=== PATIENT | female | born 1935 | race Hispanic/Latino ===

== ENCOUNTER 2016-12-21 04:44 | Emergency (ER) | payer MEDICARE ==
[2016-12-21 04:51] VITALS: RESP 18; TEMP 97.9; O2SAT 95
--- NOTE | 2016-12-21 05:19 | ED PDOC ---
Arrival/HPI <Manuel Damon - Last Filed: 12/21/16 06:22> - General Historian: Patient <Donal Womack - Last Filed: 12/21/16 06:41> - General Time Seen by Provider: 12/21/16 04:46 - History of Present Illness Narrative History of Present Illness (Text): 12/21/16 05:12 This is a 81 year old female with PMH diabetes, hypertension who presents BIBA from [facility] after mechanical fall. Patient tried to get up and go to the bathroom. Patient states that she tripped over a blanket on the floor and fell onto her left side, hitting the left side of her head and her left forearm. Patient denies loss of consciousness, dizziness, lightheadedness. Patient stated that she proceeded to call her nurse for help. Patient complains of soreness in the left side of her face and some slight soreness in the forearm at the site of the superficial skin separation. Patient admits to easy bruising and easy bleeding. PMH: Admits diabetes, hypertension. Patient is a poor historian. Patient likely has other medical co-morbidities based on her list of medications. PSH: Admits to bilateral cataract surgery and cholecystectomy Allergies: NKDA Social: Current smoker. 1/2 ppd since age 16. Glass of wine intermittently in the evenings including this past evening. (Donal Womack) Past Medical History - Provider Review Nursing Documentation Reviewed: Yes - Reproductive Menopause: Yes - Cardiac Hx Cardiac Disorders: No Hx Hypertension: Yes - Pulmonary Hx Chronic Obstructive Pulmonary Disease (COPD): Yes - Neurological Hx Dementia: Yes - HEENT Hx Cataracts: Yes (bilateral) - Renal Hx Renal Disorder: No - Endocrine/Metabolic Hx Diabetes Mellitus Type 2: Yes - Hematological/Oncological Hx Blood Disorders: No - Integumentary Hx Dermatological Disorder: No - Musculoskeletal/Rheumatological Hx Arthritis: Yes - Gastrointestinal Hx Gastrointestinal Disorders: No - Genitourinary/Gynecological Hx Genitourinary Disorders: No - Psychiatric Hx Psychophysiologic Disorder: No Hx Substance Use: No - Surgical History Hx Cataract Extraction: Yes (jeri) <Donal Womack - Last Filed: 12/21/16 06:41> Family/Social History - Physician Review Nursing Documentation Reviewed: Yes Family/Social History: No Known Family HX Smoking Status: Never Smoked Hx Alcohol Use: No Hx Substance Use: No <Donal Womack S - Last Filed: 12/21/16 06:41> Allergies/Home Meds <MarisolManuel - Last Filed: 12/21/16 06:22> <Donal Womack S - Last Filed: 12/21/16 06:41> Allergies/Adverse Reactions: Allergies No Known Allergies Allergy (Verified 12/21/16 04:57) Home Medications: Home Meds Medication Instructions Recorded Confirmed Albuterol 0.083% [Albuterol 3 ml IH PRN PRN 12/21/16 12/21/16 Sulfate 3 Ml] Aspirin [Aspirin Chewable] 81 mg PO DAILY 12/21/16 12/21/16 Atorvastatin Calcium 40 mg PO HS 12/21/16 12/21/16 Cholecalciferol (Vitamin D3) 1,000 unit PO DAILY 12/21/16 12/21/16 [Vitamin D3] Clopidogrel [Plavix] 75 mg PO DAILY 12/21/16 12/21/16 Famotidine [Pepcid] 20 mg PO DAILY 12/21/16 12/21/16 Fluticasone/Vilanterol [Breo 1 puff INH DAILY 12/21/16 12/21/16 Ellipta 100-25 Mcg INH] Insulin Detemir [Levemir] 5 units SC HS 12/21/16 12/21/16 Insulin Lispro [humALOG] 1 units SC ACBD 12/21/16 12/21/16 Insulin NPH Hum/Reg Insulin Hm 7 ml SC ACB 12/21/16 12/21/16 [Humulin 70/30 70 U/ml-30 U/ml 10 ml] Lisinopril [Zestril] 20 mg PO DAILY 12/21/16 12/21/16 Metoprolol Succinate [Toprol XL] 25 mg PO DAILY 12/21/16 12/21/16 Tamsulosin [Flomax] 0.4 mg PO DAILY 12/21/16 12/21/16 amLODIPine [Norvasc] 10 mg PO DAILY 12/21/16 12/21/16 metFORMIN [glucOPHAGE] 500 mg PO DIN 12/21/16 12/21/16 Review of Systems - Physician Review All systems were reviewed & negative as marked: Yes <Manuel Damon - Last Filed: 12/21/16 06:22> - Review of Systems Constitutional: Normal Eyes: Normal. absent: Vision Changes ENT: Normal Respiratory: Normal Cardiovascular: Normal Gastrointestinal: Normal Genitourinary Female: Normal Musculoskeletal: Normal Skin: Normal Neurological: Normal. absent: Dizziness, Other (lightheadedness) Endocrine: Normal Hemo/Lymphatic: Easy Bleeding, Easy Bruising Psychiatric: Normal <Donal Womack - Last Filed: 12/21/16 06:41> Physical Exam Vital Signs Reviewed: Yes Temperature: Afebrile Blood Pressure: Normal Pulse: Regular Respiratory Rate: Normal Appearance: Positive for: Ill-Appearing (chronically ill-appearing) Pain Distress: None Mental Status: Positive for: Alert and Oriented X 3 - Systems Exam Head: Present: Atraumatic, Normocephalic Pupils: Present: Non-Reactive Extroacular Muscles: Present: EOMI Conjunctiva: Present: Normal Mouth: Present: Dry Neck: Present: Normal Range of Motion Respiratory/Chest: Present: Clear to Auscultation, Good Air Exchange. No: Accessory Muscle Use Cardiovascular: Present: Regular Rate and Rhythm, Normal S1, S2 Abdomen: Present: Normal Bowel Sounds. No: Tenderness, Distention Upper Extremity: Present: NORMAL PULSES, Other (skin separation left proximal forearm). No: Edema Lower Extremity: Present: NORMAL PULSES. No: Edema, CALF TENDERNESS Neurological: Present: GCS=15, CN II-XII Intact, Motor Func Grossly Intact Skin: Present: Warm, Dry, Other (skin separation left proximal forearm) Psychiatric: Present: Alert, Oriented x 3 <Donal Womack - Last Filed: 12/21/16 06:41> Vital Signs Temp Pulse Resp BP Pulse Ox 12/21/16 04:49 97.9 F 76 18 143/83 95 Medical Decision Making <Manuel Damon - Last Filed: 12/21/16 06:22> <Donal Womack - Last Filed: 12/21/16 06:41> ED Course and Treatment: Impression: Pt seen and evaluated with medical transcription supervisor. Pt, whose past medical history includes diabetes and hypertension, presented transferred from [facility] s/p mechanical fall tonight. Pt tripped over a blanket and fell on her left side. Pt hit the left side of her head and left forearm with some associated soreness to the area. Aware and agree with clinical findings, plan, and management. Plan: -- CT Head w/o contrast -- CT Maxillofacial w/o contrast -- Reassess and disposition (Manuel Damon) 12/21/16 05:26 CT Head w.o. contrast Maxillofacial CT w.o. contrast 12/21/16 06:20 CT Head w.o. contrast: FINDINGS: Subcutaneous soft tissue swelling overlying the left zygomatic arch. Atrophy and chronic small vessel ischemic disease. No intracranial hemorrhage. No extra axial collections. No intracranial edema. No fluid in the sinuses or mastoid air cells. No depressed fractures. IMPRESSION: No acute intracranial injury. Maxillofacial CT: FINDINGS: There is subcutaneous soft tissue swelling overlying the left zygomatic arch. There is discontinuity of the left nasal bone that I suspect is chronic given the lack of overlying soft tissue swelling. Minimal mucosal thickening of the ethmoid sinuses. Apical lucencies of multiple mandibular teeth (central and lateral incisors, left first molar) are noted. IMPRESSION: Chronic appearing left nasal bone deformity. Patient discharged back to [place] with a diagnosis of facial contusion and skin tear of the left forearm. The left forearm was irrigated and cleaned. Bacitracin was applied, and dressing was replaced. (Donal Womack) - RAD Interpretation Radiology Orders: 12/21/16 05:13 HEAD W/O CONTRAST [CT] Stat MAXILLOFACIAL W/O CONTRAST [CT] Stat - PA / GLAZE MAKER / Resident Statement / has reviewed & agrees with the documentation as recorded. / has examined the patient and agrees with the treatment plan. <Manuel Damon - Last Filed: 12/21/16 06:22> Disposition/Present on Arrival <Manuel Damon - Last Filed: 12/21/16 06:22> - Present on Arrival Any Indicators Present on Arrival: No History of DVT/PE: No History of Uncontrolled Diabetes: No Urinary Catheter: No History of Decub. Ulcer: No History Surgical Site Infection Following: None - Disposition Have Diagnosis and Disposition been Completed?: Yes Disposition Time: 06:30 <Donal Womack - Last Filed: 12/21/16 06:41> - Disposition Diagnosis: Facial contusion, Skin tear Disposition: TRANSF TO [facility] Patient Problems: Current Active Problems Problem Status Onset Facial contusion Acute Skin tear Acute Condition: STABLE Additional Instructions: Your CT scan of the head did not show any injury in the brain after your fall. There is just some swelling in the face. Please follow up with your doctor after going back to [place]. Please keep wound area clean and dry. Please make sure the light is on and watch your step when you get up in the middle of the night. If there are any new or worsening symptoms, please return to the emergency room. Forms: [employer] (Sami)
--- NOTE | 2016-12-21 06:15 | CT ---
EXAM: CT Head Without Intravenous Contrast EXAM DATE/TIME: 12/21/2016 5:13 AM CLINICAL HISTORY: 81 years old, female; Injury or trauma; Fall; Initial encounter; Concussion / head injury; Additional info: S/P fall TECHNIQUE: Axial computed tomography images of the head/brain without intravenous contrast. All CT scans at this facility use one or more dose reduction techniques, viz.: automated exposure control; ma/kV adjustment per patient size (including targeted exams where dose is matched to indication; i.e. head); or iterative reconstruction technique. COMPARISON: No relevant prior studies available. FINDINGS: Subcutaneous soft tissue swelling overlying the left zygomatic arch. Atrophy and chronic small vessel ischemic disease. No intracranial hemorrhage. No extra axial collections. No intracranial edema. No fluid in the sinuses or mastoid air cells. No depressed fractures. IMPRESSION: No acute intracranial injury.
--- NOTE | 2016-12-21 06:29 | CT ---
EXAM: CT Maxillofacial Without Intravenous Contrast EXAM DATE/TIME: 12/21/2016 5:13 AM CLINICAL HISTORY: 81 years old, female; Injury or trauma; Fall; Initial encounter; Blunt trauma (contusions or hematomas); Head/scalp; Loss of consciousness not known; Additional info: S/P fall TECHNIQUE: Axial computed tomography images of the face without intravenous contrast. All CT scans at this facility use one or more dose reduction techniques, viz.: automated exposure control; ma/kV adjustment per patient size (including targeted exams where dose is matched to indication; i.e. head); or iterative reconstruction technique. Coronal and sagittal reformatted images were created and reviewed. COMPARISON: No relevant prior studies available. FINDINGS: There is subcutaneous soft tissue swelling overlying the left zygomatic arch. There is discontinuity of the left nasal bone that I suspect is chronic given the lack of overlying soft tissue swelling. Minimal mucosal thickening of the ethmoid sinuses. Apical lucencies of multiple mandibular teeth (central and lateral incisors, left first molar) are noted. IMPRESSION: Chronic appearing left nasal bone deformity.
[2016-12-21 07:36] VITALS: BP 146/81; PULSE 87
== END 2016-12-21 07:25 ==
LOC: ED 04:44
DX: S00.83XA Contusion of other part of head, initial encounter (principal); W01.0XXA Fall on same level from slipping, tripping and stumbling without subsequent striking against object, initial encounter; Y93.89 Activity, other specified; Y92.128 Other place in nursing home as the place of occurrence of the external cause

== ENCOUNTER 2017-05-23 12:09 | Inpatient (IN) | payer MEDICARE ==
[2017-05-23 12:20] VITALS: BMI 17.8
--- NOTE | 2017-05-23 12:27 | ED PDOC ---
Arrival/HPI - General Chief Complaint: Shortness Of Breath Time Seen by Provider: 05/23/17 12:11 Historian: Patient, Care Home, EMS - History of Present Illness Narrative History of Present Illness (Text): 82yo female, brought to ER by EMS from [facility] for evaluation of hypoxia due to patient having an O2 sat level in the 80's. Per EMS, the patient received a breathing treatment in the [place] [facility] and was placed on 2L O2 via nasal cannula en route to this facility. Patient currently denies any shortness of breath or chest pain. She is a poor historian. 05/23/17 14:45 Symptom Onset: Gradual Past Medical History - Provider Review Nursing Documentation Reviewed: Yes - Cardiac Hx Cardiac Disorders: No Hx Hypertension: Yes - Pulmonary Hx Chronic Obstructive Pulmonary Disease (COPD): Yes - Neurological Hx Dementia: Yes - HEENT Hx Cataracts: Yes (bilateral) - Renal Hx Renal Disorder: No - Endocrine/Metabolic Hx Diabetes Mellitus Type 2: Yes - Hematological/Oncological Hx Blood Disorders: No - Integumentary Hx Dermatological Disorder: No - Musculoskeletal/Rheumatological Hx Arthritis: Yes - Gastrointestinal Hx Gastrointestinal Disorders: No - Genitourinary/Gynecological Hx Genitourinary Disorders: No - Psychiatric Hx Psychophysiologic Disorder: No Hx Substance Use: No - Surgical History Hx Cataract Extraction: Yes (jeri) Family/Social History - Physician Review Nursing Documentation Reviewed: Yes Family/Social History: No Known Family HX Smoking Status: Never Smoked Hx Alcohol Use: No Hx Substance Use: No Allergies/Home Meds Allergies/Adverse Reactions: Allergies No Known Allergies Allergy (Verified 12/21/16 04:57) Home Medications: Home Meds Medication Instructions Recorded Confirmed Albuterol 0.083% [Albuterol 3 ml IH PRN PRN 12/21/16 05/23/17 Sulfate 3 Ml] Aspirin [Aspirin Chewable] 81 mg PO DAILY 12/21/16 05/23/17 Atorvastatin Calcium 40 mg PO HS 12/21/16 05/23/17 Cholecalciferol (Vitamin D3) 1,000 unit PO DAILY 12/21/16 05/23/17 [Vitamin D3] Clopidogrel [Plavix] 75 mg PO DAILY 12/21/16 05/23/17 Famotidine [Pepcid] 20 mg PO DAILY 12/21/16 05/23/17 Insulin Detemir [Levemir] 5 units SC HS 12/21/16 05/23/17 Insulin Lispro [humALOG] 1 units SC ACBD 12/21/16 05/23/17 Insulin NPH Hum/Reg Insulin Hm 10 ml SC ACB 12/21/16 05/23/17 [Humulin 70/30 70 U/ml-30 U/ml 10 ml] Lisinopril [Zestril] 20 mg PO DAILY 12/21/16 05/23/17 Metoprolol Succinate [Toprol XL] 25 mg PO DAILY 12/21/16 05/23/17 Tamsulosin [Flomax] 0.4 mg PO DAILY 12/21/16 05/23/17 amLODIPine [Norvasc] 10 mg PO DAILY 12/21/16 05/23/17 metFORMIN [glucOPHAGE] 1,000 mg PO BRK 12/21/16 05/23/17 Fluticasone/Vilanterol [Breo 1 puff IH DAILY 05/23/17 05/23/17 Ellipta 100-25 Mcg INH] metFORMIN [glucOPHAGE] 1 tab PO DIN 05/23/17 05/23/17 Review of Systems - Review of Systems Systems not reviewed;Unavailable: Dementia Constitutional: absent: Fevers Respiratory: SOB Cardiovascular: absent: Chest Pain Gastrointestinal: absent: Abdominal Pain Musculoskeletal: absent: Back Pain Neurological: absent: Headache, Focal Weakness Physical Exam - Physical Exam Narrative Physical Exam (Text): Head: Atraumatic. Normocephalic. Eyes: PERRL. EOMI. Conjunctivae are not pale. ENT: Mucous membranes are dry. Oropharynx is clear and symmetric. Neck: Supple. Full ROM. No JVD. No lymphadenopathy. No meningeal signs. Cardiovascular: Regular rate. Regular rhythm. Systolic murmur. Distal pulses are 2+ and symmetric. Pulmonary/Chest: Tachypneic. Diffuse wheezing noted. No accessory muscle usage. Abdominal: Soft and non-distended. There is no tenderness. No rebound, guarding, or rigidity. No organomegaly. Good bowel sounds. Back: No CVA tenderness. Extremities: No edema. No cyanosis. No clubbing. Full range of motion in all extremities. No calf tenderness. Skin: Skin is warm and dry. No petechiae. No purpura. Neurological: Alert, awake and oriented to place. No slurred speech. Motor and sensory exam intact. Psychiatric: Good eye contact. Normal interaction, affect, and behavior. Vital Signs Reviewed: Yes Vital Signs Temp Pulse Resp BP Pulse Ox 05/23/17 15:25 93 H 18 133/69 100 05/23/17 13:42 109 H 18 135/71 98 05/23/17 13:37 20 05/23/17 12:31 98.7 F 112 H 18 138/77 100 Temperature: Afebrile Respiratory Rate: Tachypneic Appearance: Positive for: Ill-Appearing Pain Distress: Mild Mental Status: Positive for: Confused Medical Decision Making ED Course and Treatment: Impression: Shortness of breath Differential Diagnosis included but are not limited to: Influenza, pneumonia, CHF, asthma exacerbation Plan: -- Maintain O2 via nasal cannula -- Nebulizer treatment -- Septic workup Prior Visits: Notes and results from previous visits were reviewed. Patient was last seen in the emergency department on 12/31/16 for a fall, had CT studies with no acute findings and was discharged back to [facility]. Progress Notes: Patient's history supplemented by EMS crew as well as nursing report as well as Dr. Griffin her PMD. Patient denies pain or discomfort although on exam she is tachypneic with diffuse wheezing. Tachycardia improved with observation. Nebulizers administered with improved but persistent wheezing. CXR radiology interpretation reviewed. Lactic acid mildly elevated but not hypotensive, she is afebrile and WBC unremarkable. Due to risk of pneumonia/infection, blood cultures and iv antibiotics ordered. As per PMD patient has no known past cardiac history. BNP is elevated but no leg edema or obvious CHF on cxr. Cannot exclude cardiac etiology of symptoms given acute onset of sob reportedly , thus will admit to telemetry bed for serial exams. Case d/w Dr. Emely Griffin and Dr. Alfonso carranza for PMD. 05/23/17 15:04 Re-exam, patient appears weaker, although she answers questions, heart rate 98, sats 100%. She moves all extremities and is alert and speaks to me. Noted to be now febrile. CODE SEPSIS called as lactate elevated. Given possible component of CHF, will manage iv fluids based on clinical exam. IV antibiotics initiated. - Lab Interpretations Lab Results: 05/23/17 13:35 05/23/17 13:35 Lab Results 05/23/17 13:35: Sodium 142, Chloride 103, Potassium 4.2, Carbon Dioxide 28, Anion Gap 16, BUN 16, Creatinine 0.6 L, Est GFR ( Amer) > 60, Est GFR ( Non-Af Amer) > 60, Random Glucose 249 H, Calcium 9.8, Total Bilirubin 0.7, AST 32, ALT 40, Alkaline Phosphatase 78, Lactate Dehydrogenase 480, Total Creatine Kinase 83, Troponin I 0.02, NT-Pro-B Natriuret Pep 1640 H, Total Protein 6.8, Albumin 4.1, Globulin 2.7, Albumin/Globulin Ratio 1.5 05/23/17 13:35: pO2 50, VBG pH 7.34, VBG pCO2 52.0, VBG HCO3 28.1 H, VBG Total CO2 29.7 H, VBG O2 Sat (Calc) 88.1 H, VBG Base Excess 1.4, VBG Potassium 4.3, Sodium 139.0, Chloride 102.0, Glucose 264 H, Lactate 2.3 H, FiO2 21.0, Venous Blood Potassium 4.3 05/23/17 13:35: PT 10.9, INR 0.95, APTT 30.5 05/23/17 13:35: Influenza Typ A,B (EIA) Negative for flu a/b 05/23/17 13:35: WBC 8.4, RBC 4.85, Hgb 14.9, Hct 45.0, MCV 92.8, MCH 30.7, MCHC 33.1, RDW 14.8 H, Plt Count 182, MPV 12.1 H, Gran % 85.8 H, Lymph % (Auto) 7.1 L , [place] % (Auto) 6.7 H, Eos % (Auto) 0.0 L, Baso % (Auto) 0.4, Gran # 7.17 H, Lymph # (Auto) 0.6 L, [place] # (Auto) 0.6, Eos # (Auto) 0.0, Baso # (Auto) 0.03 05/23/17 13:00: pCO2 41, pO2 130.0 H, HCO3 24.8, ABG pH 7.39, ABG Total CO2 26.1 , ABG O2 Saturation 97.6, ABG Base Excess -0.2, ABG Potassium 3.4 L, Sodium 139.0, Chloride 107.0, Glucose 225 H, Lactate 2.1, FiO2 60.0, Arterial Blood Potassium 3.4 L 05/23/17 12:35: POC Glucose (mg/dL) 233 H - RAD Interpretation Radiology Orders: 05/23/17 12:29 CHEST PORTABLE [RAD] Stat Certified [employer] Engineer: Radiologist - EKG Interpretation EKG Interpretation (Text): 05/23/17 15:02 EKG at 12:30 sinus tachycardia with premature atrial complexes Interpreted by ED Physician: Yes Type: 12 lead EKG Comparison: No previous EKG avail. - Medication Orders Current Medication Orders: Aspirin (Aspirin Chewable) 81 mg PO DAILY [facility] Last Admin: 05/23/17 16:04 Dose: Not Given Non-Admin Reason: NPO Atorvastatin Calcium (Lipitor) 40 mg PO HS [facility] Clopidogrel Bisulfate (Plavix) 75 mg PO DAILY [facility] Last Admin: 05/23/17 16:04 Dose: Not Given Non-Admin Reason: NPO Famotidine (Pepcid) 20 mg PO DAILY [facility] Last Admin: 05/23/17 16:04 Dose: Not Given Non-Admin Reason: NPO Doxycycline Hyclate 100 mg/ (Sodium Chloride) 100 mls @ 100 mls/hr IVPB Q12 [facility] PRN Reason: Protocol Stop: 05/29/17 10:59 Ceftriaxone Sodium (Rocephin 1 Gram Ivpb) 1 gm in 100 mls @ 100 mls/hr IVPB DAILY [facility] PRN Reason: Protocol Piperacillin Sod/Tazobactam Sod (Zosyn 4.5 Gm In Ns 100ml) 100 mls @ 200 mls/ hr IVPB STAT STA PRN Reason: Protocol Stop: 05/23/17 16:57 Insulin Detemir (Levemir) 5 unit SC HS [facility] Insulin Human Lispro (Humalog Low) 0 units SC AC [facility] PRN Reason: Protocol Levalbuterol HCl (Xopenex) 0.63 mg IH [id number] [facility] Lisinopril (Zestril) 20 mg PO DAILY [facility] Last Admin: 05/23/17 16:04 Dose: Not Given Non-Admin Reason: NPO Non-Formulary Medication (Cholecalciferol (Vitamin D3) [Vitamin D3]) 1,000 unit PO DAILY [facility] Non-Formulary Medication (Fluticasone/Vilanterol [Breo Ellipta 100-25 Mcg Inh]) 1 puff IH DAILY [facility] Tamsulosin HCl (Flomax) 0.4 mg PO DAILY [facility] Last Admin: 05/23/17 16:04 Dose: Not Given Non-Admin Reason: NPO Discontinued Medications Acetaminophen (Tylenol 650 Mg Supp) 650 mg RC ONCE STA Stop: 05/23/17 16:27 Albuterol/Ipratropium (Duoneb 3 Mg/0.5 Mg (3 Ml) Ud) 3 ml IH STAT STA Stop: 05/23/17 12:32 Last Admin: 05/23/17 12:58 Dose: 3 ml Albuterol/Ipratropium (Duoneb 3 Mg/0.5 Mg (3 Ml) Ud) 3 ml IH STAT STA Stop: 05/23/17 13:49 Last Admin: 05/23/17 15:23 Dose: 3 ml Albuterol/Ipratropium (Duoneb 3 Mg/0.5 Mg (3 Ml) Ud) 3 ml IH STAT STA Stop: 05/23/17 14:41 Ceftriaxone Sodium (Rocephin 1 Gram Ivpb) 1 gm in 100 mls @ 200 mls/hr IVPB ONCE STA PRN Reason: Protocol Stop: 05/23/17 15:09 - Scribe Statement The provider has reviewed the documentation as recorded by the Lilia Lazar Provider Scribe Attestation: All medical record entries made by the Scribe were at my direction and personally dictated by me. I have reviewed the chart and agree that the record accurately reflects my personal performance of the history, physical exam, medical decision making, and the department course for this patient. I have also personally directed, reviewed, and agree with the discharge instructions and disposition. Disposition/Present on Arrival - Present on Arrival Any Indicators Present on Arrival: No History of DVT/PE: No History of Uncontrolled Diabetes: No Urinary Catheter: No History Surgical Site Infection Following: None - Disposition Have Diagnosis and Disposition been Completed?: Yes Diagnosis: COPD exacerbation, Dyspnea, Sepsis Disposition: HOSPITALIZED Disposition Time: 15:07 Patient Plan: Admission, Telemetry Patient Problems: Current Active Problems Problem Status Onset COPD exacerbation Acute Dyspnea Acute Condition: FAIR
[2017-05-23] MEDS ORDERED: Albuterol-Ipratrop 3 mg / 0.5 (3 ml) UD IH STA ×3 (12:31→14:40)
[2017-05-23 13:14] LABS: ARTERIAL BLOOD GAS HCO3 24.8 mmol/L (21-28); ARTERIAL BLOOD GAS O2 SAT 97.6 % (95-98); ARTERIAL BLOOD GAS PCO2 41 mm/Hg (35-45); ARTERIAL BLOOD GAS PH 7.39 (7.35-7.45); ARTERIAL BLOOD GAS TCO2 26.1 mmol.L (22-28)
[2017-05-23 13:47] LABS: VENOUS BLOOD GAS BASE EXCESS 1.4 mmol/L (0.0-2.0); VENOUS BLOOD GAS PO2 50 mm/Hg (30-55); VENOUS BLOOD PH 7.34 (7.32-7.43)
--- NOTE | 2017-05-23 13:51 | RAD ---
HISTORY: Shortness of breath COMPARISON: No prior. FINDINGS: LUNGS: No active pulmonary disease. PLEURA: No significant pleural effusion identified, no pneumothorax apparent. CARDIOVASCULAR: No radiographic findings to suggest acute or significant cardiovascular disease. OSSEOUS STRUCTURES: No significant abnormalities. VISUALIZED UPPER ABDOMEN: Normal. OTHER FINDINGS: None. IMPRESSION: No active disease.
[2017-05-23 13:55] LABS: BASO # 0.03 K/mm3 (0.0-2.0); BASO % 0.4 % (0.0-3.0); GRAN # 7.17 (1.4-6.5); GRAN % 85.8 % (50.0-68.0); HEMOGLOBIN 14.9 g/dL (12.0-16.0); LYMPH # 0.6 (1.2-3.4); LYMPH % 7.1 % (22.0-35.0); MEAN CELL VOLUME 92.8 fl (80.0-105.0); MEAN CORPUSCULAR HEMOGLOBIN 30.7 pg (25.0-35.0); MEAN CORPUSCULAR HGB CONC 33.1 g/dl (31.0-37.0); MEAN PLATELET VOLUME 12.1 fl (7.0-11.0); MONO # 0.6 (0.1-0.6); MONO % 6.7 % (1.0-6.0); RBC 4.85 10^6/uL (3.5-6.1); RED CELL DISTRIBUTION WIDTH 14.8 % (11.5-14.5); WHITE BLOOD COUNT 8.4 10^3/ul (4.5-11.0)
[2017-05-23 13:56] LABS: ALB/GLOB RATIO 1.5 (1.1-1.8); ALBUMIN 4.1 g/dL (3.0-4.8); ALT/SGPT 40 U/L (7-56); AST/SGOT 32 U/L (14-36); BLOOD UREA NITROGEN 16 mg/dL (7-21); CALCIUM 9.8 mg/dL (8.4-10.5); GFR AFRICAN-AMERICAN > 60; GFR NON-AFRICAN AMERICAN > 60
[2017-05-23 14:03] LABS: INR 0.95 (0.93-1.08); PARTIAL THROMBOPLASTIN TIME 30.5 Seconds (25.1-36.5); PROTHROMBIN TIME 10.9 SECONDS (9.4-12.5)
[2017-05-23 14:07] LABS: B-TYPE NATRIURETIC PEPTIDE 1640 pg/mL (0-450); TROPONIN I 0.02 ng/mL
[2017-05-23] MEDS ORDERED: cefTRIAXone 1 gm 1 GM/100 ML BAG IVPB STA (14:40)
[2017-05-23] MEDS ORDERED: Non Formulary Medication (Fluticasone/Vilanterol [Breo Ellipta 100-25 Mcg Inh] 1 PUFF) IH SCH (15:00)
[2017-05-23] MEDS ORDERED: Non Formulary Medication (Cholecalciferol (Vitamin D3) [Vitamin D3] 1,000 UNIT) PO SCH (15:00)
[2017-05-23] MEDS ORDERED: Insulin Human NPH/Reg 70/30 Vial(3 ml) SC SCH (15:00)
--- NOTE | 2017-05-23 15:53 | CARD ---
APPROVED REPORT EKG Measurement Heart [id number] <Conclusion> Sinus tachycardia with premature atrial complexes Otherwise normal ECG
[2017-05-23] MEDS ORDERED: Piperacill/Tazo 4.5gm in NS 4.5 GM/100 ML BAG IVPB STA (16:28)
[2017-05-23] MEDS ORDERED: Insulin Lispro (humaLOG) LOW Coverage SC SCH ×2 (16:30→22:00)
--- NOTE | 2017-05-23 16:36 | CT ---
PROCEDURE: CT HEAD WITHOUT CONTRAST. HISTORY: ams COMPARISON: Noncontrast head CT performed 12/21/16 TECHNIQUE: Axial computed tomography images were obtained through the head/brain without intravenous contrast. Radiation dose: Total exam DLP = 995.67 mGy-cm. This CT exam was performed using one or more of the following dose reduction techniques: Automated exposure control, adjustment of the mA and/or kV according to patient size, and/or use of iterative reconstruction technique. FINDINGS: HEMORRHAGE: No intracranial hemorrhage. BRAIN: Diffuse atrophy with prominence of the ventricles and sulci noted. No mass effect or edema. Intracranial atherosclerosis. Scattered periventricular and subcortical white matter hypodensities, which are nonspecific, but often seen with chronic microvascular ischemic disease. Please note that MRI with diffusion imaging is more sensitive in the detection of acute ischemic event. VENTRICLES: No hydrocephalus. CALVARIUM: Unremarkable. PARANASAL SINUSES: Unremarkable as visualized. No significant inflammatory changes. MASTOID AIR CELLS: Unremarkable as visualized. No inflammatory changes. OTHER FINDINGS: None. IMPRESSION: Generalized atrophy. Nonspecific white matter changes.
[2017-05-23 17:00] LABS: URINE BILIRUBIN NEGATIVE (NEGATIVE); URINE BLOOD NEGATIVE (NEGATIVE); URINE GLUCOSE (UA) 500 mg/dL (NEGATIVE); URINE LEUKOCYTE ESTERASE NEGATIVE Leu/uL (NEGATIVE); URINE NITRATE POSITIVE (NEGATIVE); URINE PROTEIN 30 mg/dL (<30 mg/dL); URINE UROBILINOGEN 0.2 E.U./dL (<1 E.U./dL)
[2017-05-23 17:13] LABS: URINE APPEARANCE SL CLOUDY (CLEAR); URINE COLOR YELLOW (YELLOW)
[2017-05-23 17:16] LABS: URINE BACTERIA MANY (NEG); URINE EPITHELIAL CELLS MANY /hpf (0-5); URINE RBC NEGATIVE /hpf (0-2)
[2017-05-23] MEDS: Levalbuterol 0.63 MG/3 ML Inhal Soln UD IH SCH ×3 (17:45→20:37)
[2017-05-23 18:14] LABS: VENOUS BLOOD GAS PO2 64 mm/Hg (30-55); VENOUS BLOOD PH 7.34 (7.32-7.43)
[2017-05-23] MEDS: Acetylcysteine 20% Inhal Soln (4ml) IH SCH (20:37)
[2017-05-23 20:56] LABS: HDL CHOLESTEROL 45 mg/dL (29-60)
[2017-05-23 21:07] LABS: LDL CHOLESTEROL 32 mg/dL (0-129)
[2017-05-23 21:10] LABS: TROPONIN I 0.04 ng/mL
[2017-05-23 21:15] LABS: T4 6.2 ug/dL (5.5-11.0)
[2017-05-23] MEDS ORDERED: Insulin Detemir 100 units/ml Vial (Levemir) SC SCH (22:00)
--- NOTE | 2017-05-23 22:29 | PCM.SEPTIC ---
Sepsis Progress Note - Reassessment Type Date of Evaluation: 05/23/17 Time of Evaluation: 22:28 Reassessment Type: Non-invasive reassessment - Non Invasive Reassessment Were the most recent vital sign reviewed: Yes Vital Sign (Latest): Temp Pulse Resp BP Pulse Ox 101.3 F H 85 28 H 133/60 89 L 05/23/17 22:14 05/23/17 20:41 05/23/17 18:55 05/23/17 18:55 05/23/17 18:55 Cardiovascular: Yes: Regular Rate, Rhythm Respiratory: Yes: Rales, Rhonchi. No: Accessory Muscle Use Capillary Refill: Normal (Less than 2 sec) Skin: Normal Color
[2017-05-23] MEDS ORDERED: Influenza Vaccine 60 mcg/0.5 mL SYR (4YR UP) IM ONE (22:46)
[2017-05-23] MEDS: Insulin Lispro (humaLOG) LOW Coverage SC SCH (22:46)
[2017-05-23] MEDS ORDERED: Pneumococcal 23-Valent Vaccine IM ONE (22:46)
--- NOTE | 2017-05-23 23:33 | CT ---
EXAM: CT Abdomen and Pelvis Without Intravenous Contrast CLINICAL HISTORY: The patient age is 82 years old and is female; Signs and symptoms; Fever and other: Aspiration; Additional info: Fever/aspiration Facility exam id and description[facility], abdomen, pelvis w/o cont TECHNIQUE: Axial computed tomography images of the abdomen and pelvis without intravenous contrast. All CT scans at this facility use one or more dose reduction techniques, viz.: automated exposure control; ma/kV adjustment per patient size (including targeted exams where dose is matched to indication; i.e. head); or iterative reconstruction technique. Coronal and sagittal reformatted images were created and reviewed. COMPARISON: No relevant prior studies available. FINDINGS: Lower thorax: No acute findings. ABDOMEN: Liver: Unremarkable. No mass. Gallbladder and bile ducts: No calcified stones. No ductal dilation. Pancreas: There is atrophy of the pancreas. Spleen: No splenomegaly. Adrenals: No mass. Kidneys and ureters: At the lower pole the left kidney, there is a hypodense probable cyst measuring 1.9 cm in diameter. There is no hydronephrosis bilaterally. Stomach and bowel: Colonic diverticula are identified, without acute inflammatory stranding of the adjacent mesentery. Ventral abdominal hernias are identified containing multiple bowel loops. Gas filled bowel loops are identified within this hernia, without significant bowel wall thickening or definitive obstruction. Appendix: No findings to suggest acute appendicitis. PELVIS: Bladder: A Moon catheter is visualized within the bladder. Small foci of gas are also visualized within the bladder. Several small calcifications are visualized inferior to the bladder within the perineum. No stones. Reproductive: The uterus is absent. ABDOMEN and PELVIS: Intraperitoneal space: No free air. Bones/joints: There is a mild compression fracture of the L2 vertebral body, indeterminate in acuity. There is mild retropulsion at this level. There is mild grade I anterolisthesis of L3 on L4. Hypertrophic degenerative changes are noted within the spine. Soft tissues: See above. Vasculature: There is atherosclerotic calcification of the abdominal aorta. No abdominal aortic aneurysm. Lymph nodes: No enlarged lymph nodes. IMPRESSION: 1. Diverticulosis. 2. Ventral abdominal hernias are identified containing multiple bowel loops. Gas filled bowel loops are identified within this hernia, without significant bowel wall thickening or definitive obstruction. 3. At the lower pole the left kidney, there is a hypodense probable cyst measuring 1.9 cm in diameter. There is no hydronephrosis bilaterally. 4. There is a mild compression fracture of the L2 vertebral body, indeterminate in acuity. There is mild retropulsion at this level. Clinical correlation is recommended. 5. Incidental/non-acute findings are described above. EXAM: CT Chest Without Intravenous Contrast EXAM DATE/TIME: 05/23/2017 8:02 PM CLINICAL HISTORY: The patient age is 82 years old and is female; Signs and symptoms; Fever and other: Aspiration; Additional info: Fever/aspiration Facility exam id and description: Ct [facility] chest, abdomen, pelvis w/o cont TECHNIQUE: Axial computed tomography images of the chest without intravenous contrast. All CT scans at this facility use one or more dose reduction techniques, viz.: automated exposure control; ma/kV adjustment per patient size (including targeted exams where dose is matched to indication; i.e. head); or iterative reconstruction technique. Coronal and sagittal reformatted images were created and reviewed. COMPARISON: DX - CHEST PORTABLE 2017-05-23 12:31 FINDINGS: Lungs: There is crowding of the pulmonary vessels within the left lower lobe. A small consolidation is seen at the left lung base, suggestive of atelectatic change or infiltrate. Within the left lower lobe, there is a small nodule or nodular consolidation measuring 1.3 x 0.4 cm. This is on series 3 image 75. Atelectatic changes are visualized within the right middle lobe and right lower lobe. Emphysematous changes are identified bilaterally, which are predominately centrilobular. Pleural space: No pneumothorax. No significant effusion. Heart: There is coronary artery calcification. No cardiomegaly. Thyroid: There is a peripherally calcified cyst or nodule within the right thyroid lobe. Within the left thyroid lobe, there is a hypodense nodule measuring 1.8 x 1.5 cm. An additional calcification or calcified nodules identified within the left thyroid lobe. Bones/joints: Hypertrophic degenerative changes are noted within the spine. There is increased kyphosis of the thoracic spine. Vasculature: There is prominence of the pulmonary arteries, suggestive of pulmonary artery hypertension. Extensive atherosclerotic changes are visualized. Lymph nodes: There is an enlarged precarinal lymph node within the mediastinum measuring 2.2 x 1.4 cm. Scattered additional small mediastinal lymph nodes are identified. IMPRESSION: 1. There is crowding of the pulmonary vessels within the left lower lobe. A small consolidation is seen at the left lung base, suggestive of atelectatic change or infiltrate. 2. Within the left lower lobe, there is a small nodule or nodular consolidation measuring 1.3 x 0.4 cm. This is on series 3 image 75. A follow-up CT in 3 months and possible PET/CT are recommended. 3. There is a peripherally calcified cyst or nodule within the right thyroid lobe. Within the left thyroid lobe, there is a hypodense nodule measuring 1.8 x 1.5 cm. Nonemergent ultrasonography is recommended. 4. There is prominence of the pulmonary arteries, suggestive of pulmonary artery hypertension. 5. Emphysematous changes are identified bilaterally, which are predominately centrilobular. 6. There is an enlarged precarinal lymph node within the mediastinum measuring 2.2 x 1.4 cm. 7. Incidental/non-acute findings are described above.
--- NOTE | 2017-05-24 00:32 | CARD ---
APPROVED REPORT EKG Measurement Heart [id number] <Conclusion> Sinus rhythm with premature atrial complexes Septal infarct, age undetermined Abnormal ECG
[2017-05-24 01:30] LABS: TROPONIN I 0.03 ng/mL
[2017-05-24] MEDS: Levalbuterol 0.63 MG/3 ML Inhal Soln UD IH SCH ×4 (02:10→20:14)
[2017-05-24] MEDS: Acetylcysteine 20% Inhal Soln (4ml) IH SCH ×4 (02:10→20:14)
--- NOTE | 2017-05-24 03:43 | HP ---
HISTORY OF PRESENT ILLNESS: Patient is a 82-year-old female long-term resident of [facility], under care of Dr. Lucio Melendez, was sent to the emergency room from the long-term because of, according to the patient, she fell and patient was found by the long-term staff to be coughing and wheezing and short of breath with hypoxemia. According to the ER physician evaluation, patient was sent from [facility] for evaluation of shortness of breath and hypoxia with O2 sat was in 80s. When EMS arrived at the long-term, patient was found to be receiving a breathing treatment. Patient was first on the oxygen 2 liters, nasal cannula. REVIEW OF SYSTEMS: Thirteen system review was positive also for fall, which the patient reports. CODE STATUS: Full code. LIVING WILL ADVANCE DIRECTIVE: None. ALLERGIES: NONE. Height is 5 feet 7 inches. Weight is 114 pounds. BMI is 18. HOME MEDICATIONS: 1. Metformin mg daily. 2. Levemir 5 units at bedtime. 3. Metformin 500 mg at dinner. 4. Flomax 0.4 mg daily. 5. Toprol XL 25 mg daily. 6. Vitamin D3 1000 units daily. 7. Zestril 20 mg daily. 8. Humulin 70/30 10 units with breakfast. 9. Humalog with breakfast and dinner. 10. Breo Ellipta 1 puff daily. 11. Pepcid 20 mg daily. 12. Plavix 75 mg daily. 13. Lipitor 40 mg daily. 14. Aspirin 81 mg daily. 15. Norvasc 10 mg daily. 16. Albuterol nebulizer p.r.n SOCIAL HISTORY: Negative for substance abuse. Negative for alcohol. Negative for smoking. OCCUPATIONAL HISTORY: Disabled, elderly female, long-term resident. Occupational history not available. MENSTRUAL HISTORY: Postmenopausal, elderly female. PAST MEDICAL AND SURGICAL HISTORY: History of insulin-requiring diabetes mellitus, history of questionable urinary bladder dysfunction, history of hypertension, history of hypovitaminosis D, history of chronic obstructive pulmonary disease, history of dyslipidemia, history of hypertension, history of degenerative joint disease, history of dementia, history of gait dysfunction. Patient's past medical history is significant for bilateral cataract surgery. Patient was seen in the emergency room by the ER physician. Patient was found to be tachycardic. Patient was given nebulizer treatment, but the patient had continued wheezing. Patient was found to be lactic acid slightly elevated. Patient was seen in the emergency room, then on 3R. PHYSICAL EXAMINATION: VITAL SIGNS: T-max of 101.7; heart rate 109, 93, 89, 112, 70; respiration 18 to 28; blood pressure 138/77 to 133/60. O2 sat in the emergency room 89% to 98% to 100%, on nasal cannula. GENERAL: Patient is seen lying in the stretcher in lying in the bed. HEENT: Patient's head examination appears to be normocephalic, atraumatic. Patient does have audible gargling noted. Patient appears to be a elderly, older than stated age. Head examination normocephalic, atraumatic. HEENT examination shows pinkish conjunctivae. Anicteric sclerae. No oropharyngeal lesion. Questionable soft carotid bruit. Questionable jugular venous distention. CHEST: Kyphosis. LUNGS: Shows positive rhonchi bilaterally. Positive crackles and creps bilaterally. CARDIOVASCULAR: S1, S2, regular rhythm, positive systolic murmur left sternal border, right second intercostal space, left second intercostal space. ABDOMEN: Soft. Positive bowel sounds. No hepatosplenomegaly noted. No guarding. No rigidity. No rebound tenderness. GENITALIA: Female. RECTAL: Examination deferred. EXTREMITIES: Show no pitting edema, no calf tenderness, no Neeru sign. MUSCULOSKELETAL: Shows a body mass index of 18. NEUROLOGIC: Patient is alert, awake, oriented to person, disoriented to year, date, month and time. Patient is able to follow simple commands, is able to recognize the right and left upper and lower extremities, is able to move the instructed upper and lower extremity. Patient appears to be forgetful and confused. DIAGNOSTICS: CBC shows a granulocytes of 86. Rest of the CBC is normal. PT/PTT was normal. Patient's initial ABG shows pH of 7.39, pCO2 41, pO2 130, bicarb of 25, saturation of 97% on 60% FiO2. Patient's VBG short panel shows a lactate of 2.3. Sodium 142, potassium 4.2, chloride 103, CO2 28, anion gap 16, BUN 16, creatinine 0.6, GFR greater than 60, glucose 233 and 249, calcium . LFTs are normal. Troponin 0.02. BNP 1640. Urine pH 6.0, specific gravity 1.030, 30 protein, 500 glucose, 40 ketone, positive nitrite, many bacteria. Influenza serology was negative. Patient's EKG was done, which shows sinus tachycardia, nonspecific ST changes. Old EKG not available for comparison. CT head, EKG, chest x-ray were reviewed, which CT head shows generalized cerebral cortical atrophy of the brain. TREATMENT IN THE EMERGENCY ROOM: Patient was seen in the emergency room by Dr. Federico Strong. Patient was treated with aspirin. Patient was given DuoNeb nebulizer treatment, Tylenol and Rocephin 1 g. IMPRESSION AND PLAN: An 82-year-old female long-term resident, was brought into the [facility] emergency room. According to the patient, she fell today and while patient was long-term patient, long-term staff noted patient to be short of breath, hypoxic and shortness of breath with wheezing and cough. 1. Status post fall, etiology unclear whether syncope versus nonsyncopal fall. 2. Questionable mechanical fall. 3. Fever of 101.7. 4. 5. Hypoxemia. 6. Questionable systolic versus diastolic congestive heart failure with elevated brain natriuretic peptide. 7. Questionable healthcare-associated pneumonia versus acute exacerbation of chronic obstructive pulmonary disease versus volume overload. 8. Granulocytosis. 9. Questionable systemic inflammatory response syndrome. 10. Lactic acidosis. 11. Hyperglycemia with uncontrolled diabetes mellitus. 12. Proteinuria, glycosuria, ketonuria, pyuria, bacteriuria versus questionable urinary tract infection. 13. Gait dysfunction. 14. History of dementia. 15. Sinus tachycardia. 16. 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 17. Chronic microvascular ischemic disease of the brain. 18. Deconditioning. 19. Insulin-requiring diabetes mellitus. 20. Hypertension. 21. Hypovitaminosis D. 22. History of chronic obstructive pulmonary disease with acute exacerbation. 23. Hypercholesteremia. Plan at this time, patient is admitted to telemetry. Patient has been ordered thyroid panel, hemoglobin A1c, lipid panel, vitamin B12, folate, vitamin D level ordered. Serial BNP, CMP, LFTs, magnesium phosphorus, serial CBC has been ordered. Lyme titers ordered. CBC ordered. RPR has been ordered. Procalcitonin level, Lyme antibody titers ordered. Repeat CBC ordered. Blood and urine cultures ordered. Patient has been ordered hip and pelvic x-rays for evaluation of patient's fall. CONSULTATION: 1. Cardiology. 2. Neurology. CURRENT MEDICATIONS: 1. Patient is on Mucomyst nebulizer 20% every 6 hours with Xopenex nebulizer. 2. Aspirin 81 mg daily. 3. Vitamin D3 1000 units daily. 4. Doxycycline 100 mg IV q. 12. 5. Patient received three DuoNeb treatments in the emergency room. 6. Patient is on Flomax 0.4 mg daily. 7. Breo Ellipta 100/25 mcg 1 inhalation daily. 8. Humalog low-dose sliding scale coverage a.c. and at bedtime with fingerstick blood sugar a.c. and at bedtime ordered. 9. Patient is ordered Levemir 5 units at bedtime. 10. Lipitor 40 mg at bedtime. 11. Pepcid 20 mg daily. 12. Plavix 75 mg daily. 13. Rocephin 1 g IV daily. 14. Tylenol 650 q. 6 p.r.n. and suppository q. 6 p.r.n. for fever. 15. Zestril 20 mg daily. 16. Patient received a dose of Zosyn to 4.5 g in the emergency room. Patient has been ordered spinal x-ray, carotid and vertebral Doppler, MRI and MRA of the brain without contrast, CT of the chest, abdomen, pelvis for evaluation of fever and possible aspiration pneumonia. Patient has been ordered oxygen 2 liters continuous humidified. EEG has been ordered. Patient's diet has been put on dysphagia modified consistency diet. Modified dysphagia consistency diet ordered. Patient has been ordered moderate consistency heart-healthy, low-salt diet ordered. Patient's head of the bed will be kept at 30 degrees continuous. X-rays of the spine, hip and pelvis ordered. Repeat EKG, echo ordered. Patient has been ordered aspiration precautions. Fingerstick blood sugar a.c. and at bedtime. Head of the bed at 30 degrees, out of bed to chair, CHARLY stockings. Moon catheter insertion ordered. SCDs ordered. Occupational therapy, physical therapy, speech and swallow evaluation ordered. At present, patient is admitted to [facility]. Patient has been ordered repeat cardiac enzymes. Repeat EKG ordered. Oxygen 2 liters continuous humidified ordered. At present, patient was seen in the emergency room and 3R. Patient's further management will be dependent on the patient's clinical condition, hemodynamic status and as per the patient response to therapeutic intervention as per the patient's diagnostic test results and as per recommendation by all the physicians involved in the care of the patient. Dictated and electronically signed, not read. Diego Hamilton MD
[2017-05-24 07:42] LABS: BASO # 0.02 K/mm3 (0.0-2.0); BASO % 0.2 % (0.0-3.0); GRAN # 6.96 (1.4-6.5); HEMOGLOBIN 13.7 g/dL (12.0-16.0); LYMPH # 0.8 (1.2-3.4); LYMPH % 9.4 % (22.0-35.0); MEAN CELL VOLUME 93.5 fl (80.0-105.0); MEAN CORPUSCULAR HEMOGLOBIN 30.5 pg (25.0-35.0); MEAN CORPUSCULAR HGB CONC 32.6 g/dl (31.0-37.0); MEAN PLATELET VOLUME 12.6 fl (7.0-11.0); MONO # 0.7 (0.1-0.6); MONO % 8.4 % (1.0-6.0); RBC 4.49 10^6/uL (3.5-6.1); RED CELL DISTRIBUTION WIDTH 15.1 % (11.5-14.5); WHITE BLOOD COUNT 8.5 10^3/ul (4.5-11.0)
[2017-05-24 07:57] LABS: B-TYPE NATRIURETIC PEPTIDE 1320 pg/mL (0-450)
[2017-05-24 08:05] LABS: ALB/GLOB RATIO 1.3 (1.1-1.8); ALBUMIN 3.4 g/dL (3.0-4.8); ALT/SGPT 37 U/L (7-56); AST/SGOT 20 U/L (14-36); BILIRUBIN,DIRECT 0.4 mg/dL (0.0-0.4); BLOOD UREA NITROGEN 21 mg/dL (7-21); CALCIUM 9.4 mg/dL (8.4-10.5); GFR AFRICAN-AMERICAN > 60; GFR NON-AFRICAN AMERICAN > 60; MAGNESIUM 1.6 mg/dL (1.7-2.2); URIC ACID 7.6 mg/dL (2.5-6.2)
[2017-05-24] MEDS: Insulin Lispro (humaLOG) LOW Coverage SC SCH ×4 (08:51→22:40)
[2017-05-24] MEDS ORDERED: Magnesium Sulfate 2 GM in Sodium Chloride 0.9% 100 ML IVPB ONE ×2 (09:16→20:42)
[2017-05-24] MEDS ORDERED: Non Formulary Medication (Cholecalciferol (Vitamin D3) [Vitamin D3] 1,000 UNIT) PO SCH (10:00)
--- NOTE | 2017-05-24 10:58 | MRI ---
PROCEDURE: MRI BRAIN WITHOUT CONTRAST HISTORY: AMS COMPARISON: None. TECHNIQUE: Multiplanar, multisequence MR images of the brain were obtained without intravenous contrast enhancement. FINDINGS: HEMORRHAGE: None DWI: No evidence of an acute or early subacute infarction. BRAIN PARENCHYMA: No mass effect or edema. There is moderate atrophy. Microvascular changes are seen in the periventricular white matter. No evidence of infarct or hemorrhage VENTRICLES: Unremarkable. No hydrocephalus. CRANIUM: Unremarkable. ORBITS: Grossly unremarkable. PARANASAL SINUSES/MASTOIDS: Clear VASCULAR SYSTEM: Skull base flow voids intact. OTHER FINDINGS: None. IMPRESSION: No acute intracranial findings
--- NOTE | 2017-05-24 11:00 | MRI ---
PROCEDURE: Magnetic Resonance Angiography Brain HISTORY: AMS COMPARISON: None available. TECHNIQUE: 3D time of flight MR angiography of the intracranial arteries was performed. Rotating maximum intensity projection images were generated. FINDINGS: INTERNAL CAROTID ARTERIES: Unremarkable. The skull base, petrous, cavernous and supraclinoid segments are bilaterally widely patient. ANTERIOR CEREBRAL ARTERIES: Unremarkable. A1 and A2 segments are widely patent. Smaller distal branches unremarkable, as visualized. MIDDLE CEREBRAL ARTERIES: Unremarkable. M1 and M2 segments are widely patent. Perisylvian branches grossly symmetric. POSTERIOR CIRCULATION: Basilar Artery: Unremarkable. Distal Vertebral Arteries: Unremarkable. Posterior Cerebral Arteries: Unremarkable. Posterior Inferior Cerebellar Arteries: Unremarkable. ANEURYSM/ VASCULAR MALFORMATIONS: None. OTHER FINDINGS: None. IMPRESSION: Unremarkable MR angiography of the brain.
[2017-05-24] MEDS: Non Formulary Medication (Fluticasone/Vilanterol [Breo Ellipta 100-25 Mcg Inh] 1 PUFF) IH SCH (11:43)
[2017-05-24] MEDS: cefTRIAXone 1 gm 1 GM/100 ML BAG IVPB SCH (12:34)
[2017-05-24 13:20] LABS: FOLATE > 20.0 ng/mL
[2017-05-24] MEDS ORDERED: Gadodiamide 287 MG/ML VIAL (15ML) IV ONE (13:39)
--- NOTE | 2017-05-24 14:29 | RAD ---
PROCEDURE: Radiographs of the pelvis and bilateral hips HISTORY: FALL COMPARISON: None. FINDINGS: BONES: Pelvis: Unremarkable. Right hip:Unremarkable. Left hip:Unremarkable. JOINTS: Right hip: Unremarkable. Left hip: Unremarkable. Sacroiliac Joints: Unremarkable. Pubic symphysis: Unremarkable. SOFT TISSUES: Normal. OTHER FINDINGS: None. IMPRESSION: Unremarkable radiographs of the hips and pelvis.
--- NOTE | 2017-05-24 14:37 | RAD ---
PROCEDURE: Radiographs of the Lumbar Spine. HISTORY: fall COMPARISON: No prior. FINDINGS: BONES: Anterior wedge compression deformity of the L2 vertebra of indeterminate age. The remaining vertebral bodies are maintained in height. There is dextroscoliotic curvature of the lumbar spine. The transverse processes and posterior elements are intact. Normal alignment is maintained. DISC SPACES: Narrowing of the L4-5 intervertebral disc space is noted, consistent with degenerative disc disease. Questionable narrowing of the L1-2 disc space. OTHER FINDINGS: None. IMPRESSION: Anterior wedge compression deformity of the L2 vertebra, age indeterminate. Degenerative disc disease at L4-5 and possibly at L1-2. Mild dextroscoliosis.
--- NOTE | 2017-05-24 14:45 | RAD ---
HISTORY: fall COMPARISON: No prior. FINDINGS: BONES: Vertebral bodies maintained in height. Normal alignment maintained. DISC SPACES: Disc spaces maintained in height. Spondylotic changes are noted in the mid to lower thoracic spine, with anterior osteophytes. Normal. SOFT TISSUES: Normal. OTHER FINDINGS: None. IMPRESSION: No evidence of fracture or degenerative disc disease.
--- NOTE | 2017-05-24 14:46 | RAD ---
PROCEDURE: Cervical Spine Radiographs. HISTORY: Pain. COMPARISON: None. FINDINGS: BONES: Alignment maintained. No fracture. Dens IntactGrossly limited examination. Able to evaluate only the C1 through 4 vertebrae in the lateral projection. The C5, C6 and C7 vertebra are unable to be evaluated. The upper cervical spine is obscured by the patient's mandible in the frontal projection. The atlantoaxial articulation and odontoid process appear intact of the tip of the odontoid is obscured. There is no prevertebral soft tissue swelling. . DISC SPACES: Normal. SOFT TISSUES: Normal. No prevertebral soft tissue swelling. OTHER FINDINGS: None. IMPRESSION: Grossly limited examination. No fracture identified.
--- NOTE | 2017-05-24 17:31 | CON ---
DATE: NEUROLOGY CONSULTATION REASON FOR CONSULTATION: Altered mental status. HISTORY OF PRESENT ILLNESS: The patient is an 82-year-old female who has been asked for evaluation of altered mental status. The patient apparently was found on the ground by nursing staff. The patient is a intermediate resident. The patient does not remember what really happened and how she went to the ground. She is not sure if she passed out. The patient was noticed to be confused also, that is why neurology consultation was called. The patient denies any focal weakness in arms or legs. REVIEW OF SYSTEMS: Denies any headache, dizziness, chest pain, shortness of breath, abdominal pain, constipation, diarrhea, dysuria, cough, or sputum production. PAST MEDICAL HISTORY: Includes diabetes mellitus, hypertension. MEDICATIONS: At home include metformin, Levemir, Flomax, Toprol-XL, vitamin D3, Zestril, Humulin, Humalog. ALLERGIES: NO KNOWN DRUG ALLERGY. SOCIAL HISTORY: The patient is a non-smoker, non-alcoholic. Does not use any illicit drugs. She is a intermediate resident. FAMILY HISTORY: Unknown. PHYSICAL EXAMINATION: GENERAL: The patient is an elderly female, lying in the bed, in no acute distress. VITAL SIGNS: Blood pressure is 135/55, heart rate is 89 per minute, breathing at the rate of 16 per minute, temperature is 99.1 degrees Fahrenheit. HEENT: Head is normocephalic, atraumatic. NECK: Supple. There are no carotid bruits. LUNGS: Clear. CARDIOVASCULAR: S1 and S2 audible, no murmurs. ABDOMEN: Soft, nontender. Bowel sounds are present. NEUROLOGIC: Mental status: The patient is awake and alert. She is oriented to place and hospital. Year is 2018, month is April. She is unable to answer the name of the President. She follows all simple commands. Cranial nerve examination: Pupils are 2 mm, minimally reactive to light. Extraocular movements are intact. There is no facial asymmetry. She is moving all 4 extremities symmetrically. Plantars are downgoing bilaterally. Gait is deferred at the moment. LABORATORY DATA: Reviewed. Shows WBC of 8.5, hemoglobin 13.7, hematocrit of 42.0, and platelets of 155. Her sodium is 144, potassium 3.9, chloride of 104, carbon dioxide content of 29. BUN of 21, creatinine of 0.7. Glucose of 285. Her T4 and TSH levels are normal. She had a CT scan of the head done, which shows generalized atrophy, nonspecific white matter changes. IMPRESSION: 1. Altered mental status which appears to be secondary to her underlying dementia. 2. Status post fall. 3. Possible syncope/near syncope. RECOMMENDATIONS: 1. The patient is to have MRI of the brain without contrast. 2. The patient is also to have vitamin B12 level. 3. The patient is to have an electroencephalogram. 4. The patient to be started on Aricept 5 mg once a day. 5. The patient is to have physical therapy for gait imbalance. 6. Please continue supportive care and treatment. Thank you for the opportunity to participate in the care of this patient. Nestor Stuart MD MTDD
--- NOTE | 2017-05-24 17:57 | CARD ---
APPROVED REPORT EXAM: Two-dimensional and M-mode echocardiogram with Doppler and color Doppler. INDICATION Congestive Heart Failure 2D DIMENSIONS Left Atrium (2D)3.3 (1.6-4.0cm)IVSd1.2 (0.7-1.1cm) LVDd3.4 (3.9-5.9cm)PWd1.2 (0.7-1.1cm) LVDs2.5 (2.5-4.0cm)FS (%) 26.8 % LVEF (%)53.6 (>50%) M-Mode DIMENSIONS Aortic Root2.90 (2.2-3.7cm)Aortic Cusp Exc.1.50 (1.5-2.0cm) Aortic Valve AoV Peak Thevihzh572.0cm/Sai Peak GR.9mmHgLVOT Peak Nnscuzac55.9cm/s LVOT VTI14.00cm Mitral Valve MV E Jejaeaiu264.0cm/sMV A Rdbzbzro687.0cm/sMV [id number] E/A ratio1.1MVA (PHT)2.16cm2 TDI E/Lateral E'0.0E/Medial E'0.0 Tricuspid Valve TR Peak Siyiadtw251vf/sRAP [id number] Peak Gr.91mmHg [id number] LEFT VENTRICLE The left ventricle is normal size. There is borderline concentric left ventricular hypertrophy. The left ventricular function is normal. The left ventricular ejection fraction is within the normal range. There is normal LV segmental wall motion. Transmitral Doppler flow pattern is Grade I-abnormal relaxation pattern. RIGHT VENTRICLE The right ventricle is normal size. There is normal right ventricular wall thickness. The right ventricular systolic function is normal. ATRIA The left atrium size is normal. The right atrium size is normal. AORTIC VALVE The aortic valve is mildly thickened. No aortic regurgitation is present. MITRAL VALVE The mitral valve leaflets are thickened and calcified. TRICUSPID VALVE There is severe tricuspid regurgitation. There is severe pulmonary hypertension. PERICARDIAL EFFUSION There is a trace loculated anterior pericardial effusion. <Conclusion> The left ventricle is normal size. There is borderline concentric left ventricular hypertrophy. The left ventricular function is normal. The left ventricular ejection fraction is within the normal range. There is normal LV segmental wall motion. Transmitral Doppler flow pattern is Grade I-abnormal relaxation pattern. There is severe tricuspid regurgitation. There is severe pulmonary hypertension.
--- NOTE | 2017-05-24 18:08 | CARD ---
APPROVED REPORT EKG Measurement Heart [id number] <Conclusion> Sinus rhythm with APCs Otherwise normal ECG
[2017-05-24 18:33] LABS: LYME IGG NEGATIVE (NEGATIVE)
[2017-05-24 18:44] LABS: LYME IGM NEGATIVE (NEGATIVE)
--- NOTE | 2017-05-24 20:49 | US ---
PROCEDURE: Bilateral carotid artery duplex ultrasound HISTORY: Carotid stenosis PHYSICIAN(S): Gurpreet Lambert MD. TECHNIQUE: Duplex sonography and color-flow Doppler were used to evaluate the carotid bifurcations and limited segments of the vertebral arteries bilaterally. FINDINGS: There is moderate to extensive irregular echogenic plaque noted at the carotid bifurcations bilaterally. The peak systolic velocity in the proximal right internal carotid artery is 136 cm/sec. This corresponds to a 40-59 percent proximal right ICA stenosis. Mildly elevated systolic velocities are noted in the proximal right external carotid artery. There is antegrade flow in the right vertebral artery. The peak systolic velocity in the proximal left internal carotid artery is 139 cm/sec. This corresponds to a 40-59 percent proximal left ICA stenosis. Moderately elevated systolic velocities are noted in the proximal left external carotid artery. There is antegrade flow in the left vertebral artery. IMPRESSION: 1. Bilateral 40-59 percent proximal ICA stenoses. 2. Antegrade flow in both vertebral arteries.
[2017-05-24] MEDS: Ergocalciferol 50,000 Intl Units Cap PO SCH (21:18)
[2017-05-24] MEDS ORDERED: Insulin Detemir 100 units/ml Vial (Levemir) SC SCH (22:00)
[2017-05-24] MEDS ORDERED: Insulin Human NPH 1 UNITS/0.01 ML SC SCH (22:00)
--- NOTE | 2017-05-25 00:35 | CON ---
DATE: 05/24/2017 HISTORY OF PRESENT ILLNESS: The patient is a 82-year-old woman who [facility] for pulse oximetry which was in the 80s. The patient denies dyspnea. The patient's past medical history is notable for COPD, in which the patient was a long-time smoker. She continues to smoke occasionally this time. She denies chest pain. She denies shortness of breath. The patient's cardiac risk factors includes diabetes mellitus and hypertension. SOCIAL HISTORY: The patient is an active smoker; in a [facility]. REVIEW OF SYSTEMS: A 14-point review of systems was reviewed. No chest pain, no dyspnea. Negative edema in lower extremities. Negative history of myocardial infarction. PHYSICAL EXAMINATION: VITAL SIGNS: Blood pressure is 138/65, heart rate is in the 80s. NECK: Negative JVD. LUNGS: Decreased breath sounds, without rales. HEART: S1, S2. EXTREMITIES: Without edema. EKG shows normal sinus rhythm with diffuse ST-T changes. LABORATORY DATA: Hemoglobin is 13.7. Chemistries, troponin is negative x1, proBNP is 1320, with a glucose of 310. IMPRESSION: 1. Hypoxemia. 2. Exacerbation of chronic obstructive pulmonary disease. 3. Mild congestive heart failure. 4. Diabetes mellitus. 5. Nicotine addiction. PLAN: Given these findings, we will obtain an echocardiogram to evaluate LV function. There is no evidence for acute coronary syndrome. My sense is that most of her symptoms are from her COPD. I agree with low-dose Lasix until we get her LV function evaluated. Gurpreet Rivas MD
[2017-05-25] MEDS: Acetylcysteine 20% Inhal Soln (4ml) IH SCH ×3 (01:23→20:20)
[2017-05-25] MEDS: Levalbuterol 0.63 MG/3 ML Inhal Soln UD IH SCH ×3 (01:24→20:21)
--- NOTE | 2017-05-25 02:24 | PN ---
DATE: 05/24/2017 LOCATION: Room 375, bed 2. SUBJECTIVE: The patient just came back from multiple testings. Overnight nurse's notes were reviewed. The patient was found to be alert, awake, has some signs of sundowning. The patient was attempting to remove Moon. This a.m. the patient had some questionable hallucinations. The patient underwent MRI and other testing during today. The patient was seen by the speech therapist. No signs of dysphagia noted. The recommendation was soft regular consistency diet with thin liquid. The patient underwent EEG. OBJECTIVE: GENERAL: When I examined the patient, the patient was alert, awake, responsive, oriented to person and place; disoriented to year, date, month; was able to state her name and date of . VITAL SIGNS: T-max 101.3, heart rate 97, 87, 94, 93. Telemetry monitoring shows sinus rhythm, heart rate 80s, 70s, blood pressure 138/65, 135/55, 149/61, respirations 20, O2 sat averaging around mid-90s. Intake and output; output is documented only 300 by yesterday, but today's output is 1300. HEENT: Head normocephalic, atraumatic. HEENT examination shows positive bitemporal muscle wasting, positive facial muscle wasting. [place] conjunctivae. Anicteric sclerae. No oropharyngeal lesion. Soft carotid bruit. CHEST: Kyphosis. LUNGS: Shows occasional rhonchi in the upper lung zabala, anterior-posterior bilaterally. No audible crackle, rales or wheezing. CARDIOVASCULAR: S1, S2, regular rhythm. Positive systolic murmur in the left sternal border, right second intercostal space, and left sternal border. ABDOMEN: Soft. Positive bowel sounds. No hepatosplenomegaly noted. No guarding. No rigidity. No rebound tenderness. No costovertebral angle tenderness. GENITALIA: Female. Positive Moon catheter. EXTREMITY: Shows no pitting edema, no calf tenderness, no Homans' sign. NEUROLOGIC: The patient is alert, awake, oriented x1-2. According to the nurses, the patient has been alert, awake, oriented x2. The patient has nonproductive cough. DIAGNOSTICS: On 05/24/2017; CBC shows WBC of 8.5, hemoglobin/hematocrit of 13.7 and 42.0, platelets 155. Granulocytes 82% segs. Sodium 144, potassium 3.9, chloride 104, CO2 29, anion gap 15, BUN 21, creatinine 0.7, GFR greater than 60, glucose 386, 220, 285, 310, 297, hemoglobin A1c is 9.7, uric acid 7.6, calcium 9.4, phosphorus 3.9, magnesium 1.6. Peak troponin is 0.04, down to 0.03. BNP is down to 1320 from 1640. Vitamin D 25-hydroxy is 16. B12 is 369, folate is greater than 20. Procalcitonin level is 0.32, which is normal. TSH is normal at 1.01. RPR is nonreactive. Lyme IgM/IgG, influenza negative. Urine cultures, gram-negative rods. The patient's chest, abdomen, pelvis, cervical lumbar thoracic spine MRI, MRA of the brain noted. EKG reviewed. Echo with Doppler results reviewed. IMPRESSION AND PLAN 1. Acute exacerbation of chronic obstructive pulmonary disease. 2. Severe pulmonary arterial hypertension and severe tricuspid regurgitation with right ventricular systolic pressure of 101. 3. Left ventricular ejection fraction of 53%. 4. Concentric left ventricular hypertrophy. 5. Grade 1 abnormal relaxation pattern. 6. Mildly thickened aortic valve. 7. Thickened and calcified mitral valve. 8. Age-indeterminate septal infarct. 9. High-grade fever of 101.3. 10. Gram-negative marta urinary tract infection with proteinuria, glycosuria, hematuria, pyuria, bacteriuria. 11. Granulocytosis. 12. Hypoxemia. 13. Uncontrolled insulin-requiring diabetes mellitus with hyperglycemia and hemoglobin A1c of 9.7. 14. Right-sided diastolic congestive heart failure with elevated BNP. 15. Hypovitaminosis D. 16. Pancreatic atrophy. 17. Left renal hypodense cyst. 18. Colonic diverticulosis. 19. Ventral abdominal wall hernias with multiple bowel loops without obstruction. 20. Perineal and urinary bladder calcification. 21. Hysterectomy. 22. L2 mild compression fracture of indeterminate age. 23. 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 24. Abdominal aortic atherosclerotic calcification. 25. Diverticulosis of the colon. 26. Left lower lobe consolidation versus atelectasis and pneumonia and infiltrate. 27. Left lower lobe pulmonary nodule. 28. Right middle lobe, right lower lobe atelectasis. 29. Emphysema and centrilobular emphysema bilaterally. 30. Coronary artery calcification. 31. Right thyroid lobe calcified cyst versus nodule. 32. Left thyroid lobe hyperdense nodule, 1.8 x 1.5 cm. 33. Thoracic spine kyphosis. 34. Mediastinal lymphadenopathy. 35. Gait dysfunction. 36. Deconditioning. 37. Cachexia. 38. Decreased body mass index. 39. Status post fall. 40. L2 anterior wedge compression deformity of indeterminate age. 41. Dextroscoliosis of the lumbar spine. 42. Cerebral cortical atrophy of the brain with microvascular ischemic disease of the periventricular white matter of the brain. 43. Status post sinus tachycardia. 44. Underlying dementia with altered mental status. 45. Questionable syncope, near syncope. 46. Hallucination. 47. Questionable sundowning effect. 48. Disorientation. 49. Hypomagnesemia. 50. Hyperuricemia. PLAN: At this time serial labs ordered. Current consultations; Cardiology, Neurology, Podiatry, Psychiatry evaluation has been requested for evaluation of hallucination and sundowning. Current medications; Mucomyst nebulizer every 6 hours, aspirin 81 mg daily, the patient's vitamin D3 adjusted to 2000 units daily, doxycycline 100 mg IV q. 12, Drisdol started at 50,000 units every 72 hours, Flomax 0.4 mg daily, the patient is on Breo Ellipta 1 puff daily, the patient is on low-dose Humalog sliding scale morning and at bedtime. The patient's NPH will be discontinued. The patient's Levemir will be increased to 15 units at bedtime because of hyperglycemia and uncontrolled diabetes mellitus with hyperglycemia and hemoglobin A1c of greater than 9. The patient is on Lipitor 40 daily, magnesium sulfate 2 g rider ordered, Pepcid 20 mg daily, Plavix 75 mg daily, Rocephin 1 g IV daily, Tylenol 650 mg q.6h. p.o. suppository p.r.n., Xopenex nebulizer 0.63 every 6 hours, Zestril 20 mg daily. At present, the patient is still spiking fever. The patient's repeat urine cultures ordered. The patient's chest x-ray is suggestive of pneumonia, atelectasis bilaterally. At present, the patient will be continued on bronchodilators, nebulizer treatment, IV antibiotics. The patient has been ordered out of bed to chair, SCDs, physical therapy, occupational therapy, gait training ordered. The patient has been ordered chest PT. The patient seen by speech therapist. The patient does not have dysphagia or swallowing dysfunction. The patient's EEG will be reviewed once available. The patient seen by Neurology. Their recommendation was noted. The patient is awaiting Cardiology evaluation. The patient was recommended to be started on Aricept 5 mg daily. As per Neurology recommendation, the patient is to be started on Aricept 5 mg at bedtime. Physical therapy ordered. Supportive care ordered by Neurology. The patient seen by physical therapist today. Their recommendation is the patient was not a candidate for skilled PT. Dictated and electronically signed, not read. Diego Hamilton MD
--- NOTE | 2017-05-25 06:34 | EEG ---
DATE: ELECTROENCEPHALOGRAM REPORT INTRODUCTION: This is a digitally recorded EEG monitoring using standard EEG montages. BACKGROUND RHYTHM: The EEG shows a background activity of 7 Hz theta activity in parietooccipital region. The EEG activity is bilaterally symmetrical and synchronous. There is attenuation with background activity and eye opening. Drowsiness was noted by slowing of the background activity. ABNORMAL POTENTIALS: No spike, sharp waves, or focal slowing was seen. PHOTIC STIMULATION AND HYPERVENTILATION: Photic stimulation did not reveal any abnormality. Hyperventilation was not performed. IMPRESSION: Abnormal electrocardiogram. The above findings are consistent with mild bihemispheric cerebral dysfunction. No epileptiform activity seen in this electroencephalogram recording. Nestor Stuart MD
[2017-05-25 07:29] LABS: BASO # 0.01 K/mm3 (0.0-2.0); BASO % 0.2 % (0.0-3.0); EOS % 0.4 % (1.5-5.0); GRAN # 3.63 (1.4-6.5); GRAN % 66.6 % (50.0-68.0); HEMOGLOBIN 13.5 g/dL (12.0-16.0); LYMPH # 1.3 (1.2-3.4); LYMPH % 22.9 % (22.0-35.0); MEAN CELL VOLUME 93.5 fl (80.0-105.0); MEAN CORPUSCULAR HEMOGLOBIN 30.2 pg (25.0-35.0); MEAN CORPUSCULAR HGB CONC 32.3 g/dl (31.0-37.0); MEAN PLATELET VOLUME 12.1 fl (7.0-11.0); MONO # 0.5 (0.1-0.6); MONO % 9.9 % (1.0-6.0); RBC 4.47 10^6/uL (3.5-6.1); RED CELL DISTRIBUTION WIDTH 15.2 % (11.5-14.5); WHITE BLOOD COUNT 5.5 10^3/ul (4.5-11.0)
[2017-05-25] MEDS ORDERED: Insulin Human NPH 1 UNITS/0.01 ML SC SCH (07:30)
[2017-05-25 07:46] LABS: B-TYPE NATRIURETIC PEPTIDE 742 pg/mL (0-450)
[2017-05-25 07:48] LABS: ALB/GLOB RATIO 1.2 (1.1-1.8); ALBUMIN 3.1 g/dL (3.0-4.8); ALT/SGPT 33 U/L (7-56); AST/SGOT 20 U/L (14-36); BILIRUBIN,DIRECT 0.4 mg/dL (0.0-0.4); BLOOD UREA NITROGEN 18 mg/dL (7-21); CALCIUM 8.9 mg/dL (8.4-10.5); GFR AFRICAN-AMERICAN > 60; GFR NON-AFRICAN AMERICAN > 60; MAGNESIUM 1.9 mg/dL (1.7-2.2); URIC ACID 6.8 mg/dL (2.5-6.2)
[2017-05-25] MEDS: Insulin Lispro (humaLOG) LOW Coverage SC SCH ×3 (08:12→17:28)
[2017-05-25] MEDS: Potassium Chloride 20 mEq ER Tab PO SCH (10:15)
--- NOTE | 2017-05-25 10:35 | CP.PCM.PN ---
Subjective - Date & Time of Evaluation Date of Evaluation: 05/25/17 Time of Evaluation: 10:31 - Subjective Subjective: Medicine Progress Note: Patient seen and assessed at bedside. No acute events overnight reported by patient or nursing staff. Patient alert and oriented to person, place and time. Patient denies any complaints at this time including fever, chills, headache, chest pain, SOB, abdominal pain, N/V/D/C or any urinary symptoms. Objective - Vital Signs/Intake and Output Vital Signs (last 24 hours): Temp Pulse Resp BP Pulse Ox 98.7 F 75 20 129/62 95 05/25/17 06:00 05/25/17 06:00 05/25/17 06:00 05/25/17 06:00 05/25/17 06:00 Intake and Output: 05/25/17 05/25/17 06:59 18:59 Intake Total 240 Output Total 750 Balance -510 - Medications Medications: Current Medications Acetaminophen (Tylenol 325mg Tab) 650 mg PO Q6H PRN PRN Reason: FOR TEMP>=99.5F Last Admin: 05/24/17 14:18 Dose: 650 mg Acetaminophen (Tylenol 650 Mg Supp) 650 mg RC Q6H PRN PRN Reason: FOR TEMP>=99.5F Last Admin: 05/23/17 22:14 Dose: 650 mg Acetylcysteine (Acetylcysteine 20%) 4 ml IH [id number] [facility] Last Admin: 05/25/17 01:23 Dose: Not Given Allopurinol (Zyloprim) 300 mg PO DAILY [facility] Aspirin (Aspirin Chewable) 81 mg PO DAILY [facility] Last Admin: 05/24/17 11:41 Dose: 81 mg Atorvastatin Calcium (Lipitor) 40 mg PO [facility] Last Admin: 05/24/17 21:18 Dose: 40 mg Cholecalciferol (Vitamin D) 2,000 intlu PO DAILY [facility] Clopidogrel Bisulfate (Plavix) 75 mg PO DAILY [facility] Last Admin: 05/24/17 11:40 Dose: 75 mg Donepezil HCl (Aricept) 5 mg PO HS [facility] Last Admin: 05/24/17 21:18 Dose: 5 mg Ergocalciferol (Drisdol 50,000 Intl Units Cap) 1 cap PO Q72H [facility] Last Admin: 05/24/17 21:18 Dose: 1 cap Famotidine (Pepcid) 20 mg PO DAILY [facility] Last Admin: 05/24/17 11:41 Dose: 20 mg Doxycycline Hyclate 100 mg/ (Sodium Chloride) 100 mls @ 100 mls/hr IVPB Q12 [facility] PRN Reason: Protocol Stop: 05/29/17 10:59 Last Admin: 05/24/17 21:19 Dose: 100 mls/hr Ceftriaxone Sodium (Rocephin 1 Gram Ivpb) 1 gm in 100 mls @ 100 mls/hr IVPB DAILY [facility] PRN Reason: Protocol Last Admin: 05/24/17 12:34 Dose: 100 mls/hr Insulin Detemir (Levemir) 15 unit SC HS [facility] Last Admin: 05/24/17 22:39 Dose: 15 unit Insulin Human Lispro (Humalog Low) 0 units SC ACHS [facility] PRN Reason: Protocol Last Admin: 05/25/17 08:12 Dose: Not Given Levalbuterol HCl (Xopenex) 0.63 mg IH [id number] [facility] Last Admin: 05/25/17 01:24 Dose: Not Given Lisinopril (Zestril) 20 mg PO DAILY [facility] Last Admin: 05/24/17 11:40 Dose: 20 mg Magnesium Oxide (Mag-Ox) 400 mg PO BID [facility] Non-Formulary Medication (Fluticasone/Vilanterol [Breo Ellipta 100-25 Mcg Inh]) 1 puff IH DAILY [facility] Last Admin: 05/24/17 11:43 Dose: Not Given Potassium Chloride (K-Dur 20 Meq Er Tab) 20 meq PO BRK [facility] Quetiapine Fumarate (Seroquel) 12.5 mg PO HS [facility] PRN Reason: Protocol Sildenafil Citrate (Revatio) 20 mg PO TID [facility] Tamsulosin HCl (Flomax) 0.4 mg PO DAILY [facility] Last Admin: 05/24/17 11:41 Dose: 0.4 mg - Labs Labs: 05/25/17 07:00 05/25/17 07:00 PT 10.9 SECONDS (9.4-12.5) 05/23/17 13:35 INR 0.95 (0.93-1.08) 05/23/17 13:35 APTT 30.5 Seconds (25.1-36.5) 05/23/17 13:35 - Constitutional Appears: Non-toxic, No Acute Distress - Head Exam Head Exam: ATRAUMATIC, NORMAL INSPECTION, NORMOCEPHALIC - Eye Exam Eye Exam: Normal appearance - ENT Exam ENT Exam: Mucous Membranes Moist, Normal Exam - Neck Exam Neck Exam: Full ROM, Normal Inspection. absent: Lymphadenopathy - Respiratory Exam Respiratory Exam: Rhonchi (b/l upper lung zabala; fine), NORMAL BREATHING PATTERN. absent: Accessory Muscle Use, Chest Wall Tenderness, Decreased Breath Sounds, Clear to Ausculation Bilateral, Rales, Wheezes - Cardiovascular Exam Cardiovascular Exam: REGULAR RHYTHM, RRR, +S1, +S2 - GI/Abdominal Exam GI & Abdominal Exam: Soft, Normal Bowel Sounds. absent: Tenderness - Extremities Exam Extremities Exam: Normal Capillary Refill. absent: Calf Tenderness - Neurological Exam Neurological Exam: Alert, Awake, Oriented x3 - Psychiatric Exam Psychiatric exam: Normal Affect, Normal Mood - Skin Skin Exam: Dry, Intact, Normal Color, Warm Assessment and Plan - Assessment and Plan (Free Text) Assessment: 82 year old female with a past medical history significant for COPD, IDDM2, HTN , HLD, Vitamin D deficiency and dementia who presents from [facility] after she fell and was found to be hypoxic requiring breathing treatments. Patient is suspected to have COPD exacerbation. Plan: 1. COPD Exacerbation -CT Chest showed LLL PVC with nodular consolidation -Echo showed LVEF of 53.6% with grossly normal LV size and function -Influenza and Pneumococcal vaccine administered -Patient noted to be afebrile without leukocytosis, tachycardia and tachypnea for the past 24 hours -Continue Rocephin and Doxycycline -Continue Breo Ellipta, Xopenex and Mucormyst -Continue Tylenol for fever -Continue supplemental O2 -Cardio consulted, all recommendations appreciated 2. S/P Fall -Head CT, Brain MRI, Head MRA, Hip/Pelvis X-Ray, Cervical Spine X-Ray, and Thoracic Spine X-Ray all unremarkable for acute findings or acute fractures -CT A/P and Lumbar X-Ray showing chronic mild compression fracture of L2 -Carotid U/S showing b/l 40-59% stenosis of proximal ICA's -Continue Drisdol and Vitamin D Supplementation -Continue PRN Tylenol for pain control 3. UTI -Urine culture growing gram negative rods -Continue Rocephin 4. Pulmonary HTN -Echo showing severe pHTN with an RVSP of 101mmHg -Started Revatio 5. History of IDDM2 with associated LE Ulcer -SSI-Low and Accuchecks ACHS -Continue home Levemir 15u SC HS -Carbohydrate Consistent Diet -Podiatry consulted, all recommendations appreciated 6. History of Dementia -Continue Aricept and Seroquel -Neuro and Psych consulted, all recommendations appreciated 7. History of CAD -Continue ASA and Plavix 8. History of HTN -Continue Zestril and KCl 9. History of HLD -Continue Lipitor GI Prophylaxis: Pepcid DVT Prophylaxis: SCD's Patient seen and evaluated with attending, Dr. Hamilton.
[2017-05-25 10:46] LABS: FRUCTOSAMINE 342 umol/L (190-270)
[2017-05-25] MEDS: Cholecalciferol 1,000 INTLU TAB PO SCH (10:47)
[2017-05-25] MEDS: Sildenafil 20 MG TAB PO SCH ×3 (10:47→17:28)
[2017-05-25] MEDS: Magnesium Oxide 400 mg Tab UD PO SCH ×2 (10:48→17:28)
[2017-05-25] MEDS: cefTRIAXone 1 gm 1 GM/100 ML BAG IVPB SCH (10:49)
--- NOTE | 2017-05-25 11:05 | PQF PNEUMO ---
This form is a permanent part of the medical record Dr. Hamilton, Your PN of 05/24 notes "patient's CXR is suggestive of pneumonia". Please specify , when determined if pneumonia was POA so acuity is reflected. Clarification of your documentation is requested to better reflect the severity of illness and intensity of treatment of your patient. Indicators present [] Documented diagnosis of pneumonia [] X-ray findings: [] Positive Sputum cultures [] Cough w/ fever [] Abnormal lungs sounds [] Poor gag reflex [] Speech consults/swallow evaluation [] Vent dependence [] Other: [] Location in the medical record that reflects the above clinical findings: [] Treatment Provided: [] PHYSICIAN'S RESPONSE Based on your medical judgment of the clinical indicators outlined above, are you treating this patient for a known or suspected: [] Aspiration pneumonia [] Community acquired pneumonia [] Ventilator associated pneumonia [] Viral pneumonia [] Bacterial pneumonia Please specify organism: [] [] Other, please indicate [] If Unable to Determine, please check the box, sign and date. Present On Admission (POA) Indicator: [] Present at the time of admission [] Not present at the time of admission [] Clinically Undetermined In responding to this query, please exercise your independent professional judgment. The fact that a question is asked does not imply that any particular answer is desired or expected. Thank you for your clarification on this documentation. If you have any questions please call:[ ] * Thank you, [ ]Ernie Bentley [facility] #[id number] tower dragline operator [place]
--- NOTE | 2017-05-25 11:08 | PQF CHF ---
This form is a permanent part of the medical record Dr. Hamilton, Your PN of 05/24 noted CHF diastolic dysfunction. Please specify acuity/severity ( acute, chronic, acute on chronic). Clarification of your documentation is requested to better reflect the severity of illness and intensity of treatment of your patient. Indicators present [x] Diagnosis of CHF and/or history of CHF [x] BNP > 200 [x] Imaging Finding of Pulmonary Edema /Pleural Effusions [] Fluid/Volume Overload [] Pitting edema [] Ejection Fraction < 40% (Indicative of Systolic Heart Failure) [x] Ejection Fraction > 40% (Indicative of Diastolic Heart Failure) [] Dyspnea / Orthopenea / Paroxysmal Nocturnal Dyspnea [] Other: Location in the medical record that reflects the above clinical findings: [] Treatment Provided: [] PHYSICIAN'S RESPONSE Based on your medical judgment of the clinical indicators outlined above, are you treating this patient for a known or suspected: [] Acute CHF [] Systolic [] Diastolic [] Combined [] Chronic CHF [] Systolic [] Diastolic [] Combined [] Acute on Chronic CHF []Systolic [] Diastolic [] Combined [] CHF due hypertension [] Acute systolic []Chronic systolic [] Acute/ chronic systolic [] Other, please indicate: [] [] If Unable to Determine, please check the box, sign and date. Present On Admission (POA) Indicator: [] Present at the time of admission [] Not present at the time of admission [] Clinically Undetermined In responding to this query, please exercise your independent professional judgment. The fact that a question is asked does not imply that any particular answer is desired or expected. Thank you for your clarification on this documentation. If you have any questions please call:[ ] * Thank you, [ ]Ernie Bentley [facility] #[id number] utility system repairer [place]
[2017-05-25] MEDS: Non Formulary Medication (Fluticasone/Vilanterol [Breo Ellipta 100-25 Mcg Inh] 1 PUFF) IH SCH (12:01)
[2017-05-25] MEDS ORDERED: Insulin Lispro 1 UNITS/0.01 ML SC STA (12:44)
--- NOTE | 2017-05-25 17:36 | CON ---
DATE: HISTORY OF PRESENT ILLNESS: This is an 82-year-old female seen at bedside for consultation, evaluation and management of painful, elongated, thickened fungal nail plates and painful hyperkeratotic lesions. The patient has a history of diabetes for over 30 years. PAST MEDICAL HISTORY: The patient's medical history is significant for insulin-dependent diabetes with peripheral arterial disease, chronic ischemic heart disease, chronic obstructive pulmonary disease, hypercholesterolemia, dementia, gait dysfunction, lactic acidosis, granulocytosis, hypoxemia. SOCIAL HISTORY: The patient denies illicit drug use. Denies alcohol abuse and never smoked. She is currently living in a snf. ALLERGIES: THE PATIENT HAS NO KNOWN DRUG ALLERGIES. PAST SURGICAL HISTORY: Surgical history is unremarkable. MEDICATIONS: All medications are noted in the MAR. VITAL SIGNS: Reveal a temperature of 98.7, pulse rate of 75, blood pressure 129/62, respiratory rate of 20. LABORATORY DATA: Laboratory findings reveal a white count of 5.5, hemoglobin of 13.5, hematocrit of 41.8. Microbiology reveals E-coli growth in the urine. OBJECTIVE: Nonpalpable dorsalis pedis pulse and weakly palpable posterior tibial pulse noted bilaterally. The patient is unable to detect 5.07 g monofilament wire testing bilaterally. Lower extremity skin presents thin, shining, discolored bilaterally. All nail plates are noted to be elongated, dystrophic, discolored with severe subungual fungal debris. There is noted to be hyperkeratotic lesions on both heels bilaterally. There are no interdigital macerations. Capillary refilling time is delayed x10. ASSESSMENT: Insulin-dependent diabetic with neuropathy, painful onychomycosis, painful hyperkeratosis. PLAN: The patient was seen and evaluated. Diabetic foot education was given. Pedal risks associated with diabetes and pedal soft treatment were explained. Excisional debridement was performed on all nail plates hyperkeratotic lesions. We will order ammonium lactate lotion to be applied to both feet. The patient will be consulted as needed. Blaise Tim DPM
--- NOTE | 2017-05-25 17:38 | CP.PCM.CON ---
History of Present Illness - History of Present Illness History of Present Illness: 82 year old female with PMH of COPD, cataracts, DM was brought in from the retirement after she was found to be weak and had low oxygen sats. In the ED, she was also noted to be febrile. Septic work up was done which is now showing ESBL E. coli in the urine. CT scan of the chest/abdomen/pelvis did not show acute pathology. There is no note of convulsions, no loss of consciousness, no diarrhea, no vomiting. Patient is a poor historian and full ROS is unobtainable. Infectious Diseases consult is requested to further evaluate and manage. Review of Systems - Review of Systems All systems: reviewed and no additional remarkable complaints except (as per HPI ) Past Patient History - Infectious Disease Hx of Infectious Diseases: None - Past Social History Smoking Status: Former Smoker - CARDIAC Hx Hypertension: Yes - PULMONARY Hx Chronic Obstructive Pulmonary Disease (COPD): Yes - NEUROLOGICAL Hx Neurological Disorder: Yes Hx Dementia: Yes - HEENT Hx HEENT Problems: Yes Hx Cataracts: Yes (bilateral) - RENAL Hx Chronic Kidney Disease: No - ENDOCRINE/METABOLIC Hx Diabetes Mellitus Type 2: Yes - HEMATOLOGICAL/ONCOLOGICAL Hx Blood Disorders: No - INTEGUMENTARY Hx Dermatological Problems: Yes Other/Comment: BILATERAL ARM BRUISING - MUSCULOSKELETAL/RHEUMATOLOGICAL Hx Arthritis: Yes Hx Falls: Yes - GASTROINTESTINAL Hx Gastrointestinal Disorders: No - GENITOURINARY/GYNECOLOGICAL Hx Genitourinary Disorders: Yes Other/Comment: URGENCY - PSYCHIATRIC Hx Psychophysiologic Disorder: No Hx Substance Use: No - SURGICAL HISTORY Hx Surgeries: Yes (BILATERAL CATARACTS.) - ANESTHESIA Hx Anesthesia: Yes Hx Anesthesia Reactions: No Hx Malignant Hyperthermia: No Meds Allergies/Adverse Reactions: Allergies Allergy/AdvReac Type Severity Reaction Status Date / Time No Known Allergies Allergy Verified 05/23/17 20:03 - Medications Medications: Current Medications Acetaminophen (Tylenol 325mg Tab) 650 mg PO Q6H PRN PRN Reason: FOR TEMP>=99.5F Last Admin: 05/24/17 14:18 Dose: 650 mg Acetaminophen (Tylenol 650 Mg Supp) 650 mg RC Q6H PRN PRN Reason: FOR TEMP>=99.5F Last Admin: 05/23/17 22:14 Dose: 650 mg Acetylcysteine (Acetylcysteine 20%) 4 ml IH [id number] Last Admin: 05/25/17 11:53 Dose: 4 ml Allopurinol (Zyloprim) 300 mg PO DAILY [facility] Last Admin: 05/25/17 10:46 Dose: 300 mg Aspirin (Aspirin Chewable) 81 mg PO DAILY [facility] Last Admin: 05/25/17 10:47 Dose: 81 mg Atorvastatin Calcium (Lipitor) 40 mg PO HS [facility] Last Admin: 05/24/17 21:18 Dose: 40 mg Cholecalciferol (Vitamin D) 2,000 intlu PO DAILY [facility] Last Admin: 05/25/17 10:47 Dose: 2,000 intlu Clopidogrel Bisulfate (Plavix) 75 mg PO DAILY [facility] Last Admin: 05/25/17 10:47 Dose: 75 mg Donepezil HCl (Aricept) 5 mg PO HS [facility] Last Admin: 05/24/17 21:18 Dose: 5 mg Ergocalciferol (Drisdol 50,000 Intl Units Cap) 1 cap PO Q72H [facility] Last Admin: 05/24/17 21:18 Dose: 1 cap Famotidine (Pepcid) 20 mg PO DAILY [facility] Last Admin: 05/25/17 10:48 Dose: 20 mg Doxycycline Hyclate 100 mg/ (Sodium Chloride) 100 mls @ 100 mls/hr IVPB Q12 [facility] PRN Reason: Protocol Stop: 05/29/17 10:59 Last Admin: 05/24/17 21:19 Dose: 100 mls/hr Ceftriaxone Sodium (Rocephin 1 Gram Ivpb) 1 gm in 100 mls @ 100 mls/hr IVPB DAILY [facility] PRN Reason: Protocol Last Admin: 05/25/17 10:49 Dose: 100 mls/hr Insulin Detemir (Levemir) 15 unit SC [facility] Last Admin: 05/24/17 22:39 Dose: 15 unit Insulin Human Lispro (Humalog Low) 0 units SC ACHS [facility] PRN Reason: Protocol Last Admin: 05/25/17 08:12 Dose: Not Given Lactic Acid (Lac-Hydrin 12% Lotion (225 G)) 0 gm EXT DAILY [facility] Levalbuterol HCl (Xopenex) 0.63 mg IH [id number] [facility] Last Admin: 05/25/17 11:53 Dose: 0.63 mg Lisinopril (Zestril) 20 mg PO DAILY [facility] Last Admin: 05/25/17 10:47 Dose: 20 mg Magnesium Oxide (Mag-Ox) 400 mg PO BID [facility] Last Admin: 05/25/17 10:48 Dose: 400 mg Non-Formulary Medication (Fluticasone/Vilanterol [Breo Ellipta 100-25 Mcg Inh]) 1 puff IH DAILY [facility] Last Admin: 05/25/17 12:01 Dose: Not Given Potassium Chloride (K-Dur 20 Meq Er Tab) 20 meq PO BRK [facility] Last Admin: 05/25/17 10:15 Dose: 20 meq Quetiapine Fumarate (Seroquel) 12.5 mg PO HS [facility] PRN Reason: Protocol Sildenafil Citrate (Revatio) 20 mg PO TID [facility] Last Admin: 05/25/17 10:47 Dose: 20 mg Tamsulosin HCl (Flomax) 0.4 mg PO DAILY [facility] Last Admin: 05/25/17 10:47 Dose: 0.4 mg Physical Exam - Constitutional Appears: Chronically Ill - Head Exam Head Exam: NORMAL INSPECTION - ENT Exam ENT Exam: Mucous Membranes Moist - Neck Exam Neck exam: Negative for: Meningismus - Respiratory Exam Respiratory Exam: Decreased Breath Sounds - Cardiovascular Exam Cardiovascular Exam: +S1, +S2 - GI/Abdominal Exam GI & Abdominal Exam: Soft. absent: Tenderness Results - Vital Signs Recent Vital Signs: Last Vital Signs Temp 98.7 F 05/25/17 06:00 Pulse 75 05/25/17 10:47 Resp 20 05/25/17 06:00 BP 115/75 05/25/17 10:47 Pulse Ox 95 05/25/17 06:00 - Labs Result Diagrams: 05/25/17 07:00 05/25/17 07:00 Labs: Laboratory Results - last 24 hr 05/23/17 05/23/17 05/23/17 20:42 20:42 20:42 WBC RBC Hgb Hct MCV MCH MCHC RDW Plt Count MPV Gran % Lymph % (Auto) Brooke % (Auto) Eos % (Auto) Baso % (Auto) Gran # Lymph # (Auto) Brooke # (Auto) Eos # (Auto) Baso # (Auto) Sodium Potassium Chloride Carbon Dioxide Anion Gap BUN Creatinine Est GFR ( Amer) Est GFR (Non-Af Amer) POC Glucose (mg/dL) Random Glucose Fructosamine Uric Acid Calcium Phosphorus Magnesium Total Bilirubin Direct Bilirubin AST ALT Alkaline Phosphatase NT-Pro-B Natriuret Pep Total Protein Albumin Globulin Albumin/Globulin Ratio Vitamin B12 369 Folate > 20.0 RPR Nonreactive Lyme Disease Screen Lyme Disease IgG Ab (IFA) Negative Lyme Disease IgM Ab Negative 05/23/17 05/24/17 05/24/17 22:15 16:09 22:33 WBC RBC Hgb Hct MCV MCH MCHC RDW Plt Count MPV Gran % Lymph % (Auto) Brooke % (Auto) Eos % (Auto) Baso % (Auto) Gran # Lymph # (Auto) Brooke # (Auto) Eos # (Auto) Baso # (Auto) Sodium Potassium Chloride Carbon Dioxide Anion Gap BUN Creatinine Est GFR ( Amer) Est GFR (Non-Af Amer) POC Glucose (mg/dL) 386 H 436 H* Random Glucose Fructosamine 342 H Uric Acid Calcium Phosphorus Magnesium Total Bilirubin Direct Bilirubin AST ALT Alkaline Phosphatase NT-Pro-B Natriuret Pep Total Protein Albumin Globulin Albumin/Globulin Ratio Vitamin B12 Folate RPR Lyme Disease Screen <0.90 Lyme Disease IgG Ab (IFA) Lyme Disease IgM Ab 05/25/17 05/25/17 05/25/17 07:00 07:00 07:56 WBC 5.5 D RBC 4.47 Hgb 13.5 Hct 41.8 MCV 93.5 MCH 30.2 MCHC 32.3 RDW 15.2 H Plt Count 146 MPV 12.1 H Gran % 66.6 Lymph % (Auto) 22.9 Brooke % (Auto) 9.9 H Eos % (Auto) 0.4 L Baso % (Auto) 0.2 Gran # 3.63 Lymph # (Auto) 1.3 Brooke # (Auto) 0.5 Eos # (Auto) 0.0 Baso # (Auto) 0.01 Sodium 142 Potassium 3.6 Chloride 103 Carbon Dioxide 30 Anion Gap 12 BUN 18 Creatinine 0.5 L Est GFR ( Amer) > 60 Est GFR (Non-Af Amer) > 60 POC Glucose (mg/dL) 72 Random Glucose 56 L Fructosamine Uric Acid 6.8 H Calcium 8.9 Phosphorus 3.5 Magnesium 1.9 Total Bilirubin 0.4 Direct Bilirubin 0.4 AST 20 ALT 33 Alkaline Phosphatase 55 NT-Pro-B Natriuret Pep 742 H Total Protein 5.7 L Albumin 3.1 Globulin 2.5 Albumin/Globulin Ratio 1.2 Vitamin B12 Folate RPR Lyme Disease Screen Lyme Disease IgG Ab (IFA) Lyme Disease IgM Ab Assessment & Plan - Assessment and Plan (Free Text) Plan: Assessment Sepsis due to ESBL E. coli UTI COPD cataracts DM Plan Started patient on Merrem and will monitor fever curve and will follow clinically
--- NOTE | 2017-05-25 18:20 | MRI ---
PROCEDURE: MRA of the neck dated 05/25/2017 HISTORY: Carotid stenosis COMPARISON: No prior study available for comparison TECHNIQUE: 3D Xmnx-zo-zscour angiography of the neck was performed. Rotating maximum intensity projection images of the cervical carotid and vertebral arteries were generated. The origins of the common carotid arteries were not visualized, which is a limitation inherent to the non-contrast time of flight technique. The examination is quite limited due to due to motion resulting in stairstep artifact with misregistration on the 2D xyor-[id number] sequence. 3D klkf-zu-jdyuld sequence is less degraded by artifact. . FINDINGS: Right common carotid artery, carotid bifurcation and right internal carotid artery. Patent so far as can be seen. The left common carotid artery is patent. The right carotid bifurcation is more cephalic vein than the left carotid bifurcation which may account for slight asymmetric caliber of the internal carotid artery. Questionable narrowing of the mid left internal carotid artery versus sequela of tortuosity and flow related type artifact. Followup CTA of the neck is recommended as this study may be less affected by motion due to fast acquisition timing. . Carotid Doppler exam is also recommended IMPRESSION: Limited study due to motion artifact particularly significant on the 2D egwh-yj-lsronj sequences on as detailed above. Patent appearing of right common carotid artery bifurcation and internal carotid artery. Questionable narrowing versus tortuosity of the vessel resulting in flow related type artifact. Recommend followup CTA neck. Carotid Doppler also suggested.
--- NOTE | 2017-05-25 19:01 | PN ---
DATE: Covering for Dr. Gurpreet Rivas. SUBJECTIVE: The patient is currently comfortable. Denies having chest pain. Shortness of breath has improved. PHYSICAL EXAMINATION: VITAL SIGNS: Blood pressure 115/75, heart rate 79, temperature 98.4, respirations 18. HEENT: Normocephalic. CHEST: Bilateral rhonchi. HEART: S1 and S2, regular. EXTREMITIES: Significant muscle wasting. LABORATORY DATA: Today's hemoglobin, hematocrit, white count, and platelet count are within normal limit. SMA-7 is within normal limit except for glucose of 56 and creatinine of 0.5. ProBNP is 742. Today's EKG revealed sinus rhythm with APCs. Echocardiographic study performed yesterday revealed borderline concentric LVH with normal ejection fraction and grade 1 abnormal relaxation pattern with severe pulmonary hypertension. ASSESSMENT: 1. Hypoxemia. 2. Suspicion of chronic obstructive lung disease. 3. Severe secondary pulmonary hypertension. 4. Uncontrolled diabetes mellitus. CONDITIONS: Continue aspirin 81 mg once a day, doxycycline 100 mg intravenously q. 12 hours, K-Dur 20 mEq once a day, magnesium oxide 400 mg once a day, meropenem at 1 g q. 8 hours, Plavix 75 mg once a day, Rocephin 1 g intravenously daily, Seroquel 12.5 mg at bedtime, Zestril 20 mg once a day, Zyloprim 300 mg daily. Srini Granado MD
[2017-05-25] MEDS ORDERED: Meropenem 1 GM in Sodium Chloride 0.9% 100 ML IVPB SCH (22:00)
[2017-05-25] MEDS: Insulin Detemir 100 units/ml Vial (Levemir) SC SCH (22:02)
[2017-05-25] MEDS: Meropenem 1 GM in Sodium Chloride 0.9% 100 ML IVPB SCH (22:03)
--- NOTE | 2017-05-25 23:36 | CARD ---
APPROVED REPORT EKG Measurement Heart [id number] <Conclusion> Sinus rhythm with premature atrial complexes Otherwise normal ECG
[2017-05-26] MEDS: Levalbuterol 0.63 MG/3 ML Inhal Soln UD IH SCH ×4 (02:11→19:17)
[2017-05-26] MEDS: Acetylcysteine 20% Inhal Soln (4ml) IH SCH ×4 (02:11→19:17)
--- NOTE | 2017-05-26 04:53 | CP.PCM.PN ---
Subjective - Date & Time of Evaluation Date of Evaluation: 05/26/17 Time of Evaluation: 04:25 - Subjective Subjective: Patient lying asleep comfrotably, woken easily. Objective - Vital Signs/Intake and Output Vital Signs (last 24 hours): Temp Pulse Resp BP Pulse Ox 98.5 F 62 18 127/59 L 100 05/25/17 18:00 05/25/17 18:00 05/25/17 18:00 05/25/17 18:00 05/25/17 10:00 - Medications Medications: Current Medications Acetaminophen (Tylenol 325mg Tab) 650 mg PO Q6H PRN PRN Reason: FOR TEMP>=99.5F Last Admin: 05/24/17 14:18 Dose: 650 mg Acetaminophen (Tylenol 650 Mg Supp) 650 mg RC Q6H PRN PRN Reason: FOR TEMP>=99.5F Last Admin: 05/23/17 22:14 Dose: 650 mg Acetylcysteine (Acetylcysteine 20%) 4 ml IH [id number] [facility] Last Admin: 05/26/17 02:11 Dose: Not Given Allopurinol (Zyloprim) 300 mg PO DAILY [facility] Last Admin: 05/25/17 10:46 Dose: 300 mg Aspirin (Aspirin Chewable) 81 mg PO DAILY [facility] Last Admin: 05/25/17 10:47 Dose: 81 mg Atorvastatin Calcium (Lipitor) 40 mg PO HS [facility] Last Admin: 05/25/17 22:03 Dose: 40 mg Cholecalciferol (Vitamin D) 2,000 intlu PO DAILY [facility] Last Admin: 05/25/17 10:47 Dose: 2,000 intlu Clopidogrel Bisulfate (Plavix) 75 mg PO DAILY [facility] Last Admin: 05/25/17 10:47 Dose: 75 mg Diltiazem HCl (Cardizem) 40 mg IVP ONCE STA Stop: 05/26/17 04:52 Donepezil HCl (Aricept) 5 mg PO HS [facility] Last Admin: 05/25/17 22:02 Dose: 5 mg Ergocalciferol (Drisdol 50,000 Intl Units Cap) 1 cap PO Q72H [facility] Last Admin: 05/24/17 21:18 Dose: 1 cap Famotidine (Pepcid) 20 mg PO DAILY [facility] Last Admin: 05/25/17 10:48 Dose: 20 mg Meropenem 1 gm/ Sodium (Chloride) 100 mls @ 100 mls/hr IVPB Q8 [facility] PRN Reason: Protocol Last Admin: 05/25/17 22:03 Dose: 100 mls/hr Insulin Detemir (Levemir) 10 unit SC HS [facility] Last Admin: 05/25/17 22:02 Dose: 10 unit Insulin Human Lispro (Humalog High) 0 units SC AC [facility] PRN Reason: Protocol Insulin Lispro Protam/Lispro Human (Humalog Mix 75/25) 5 units SC ACB [facility] Insulin Lispro Protam/Lispro Human (Humalog Mix 75/25) 5 units SC DAILY@1745 [facility] Lactic Acid (Lac-Hydrin 12% Lotion (225 G)) 0 gm EXT DAILY [facility] Levalbuterol HCl (Xopenex) 0.63 mg IH [id number] [facility] Last Admin: 05/26/17 02:11 Dose: 0.63 mg Lisinopril (Zestril) 20 mg PO DAILY [facility] Last Admin: 05/25/17 10:47 Dose: 20 mg Magnesium Oxide (Mag-Ox) 400 mg PO BID [facility] Last Admin: 05/25/17 17:28 Dose: 400 mg Metoprolol Succinate (Toprol Xl) 25 mg PO DAILY [facility] Non-Formulary Medication (Fluticasone/Vilanterol [Breo Ellipta 100-25 Mcg Inh]) 1 puff IH DAILY [facility] Last Admin: 05/25/17 12:01 Dose: Not Given Potassium Chloride (K-Dur 20 Meq Er Tab) 20 meq PO BRK [facility] Last Admin: 05/25/17 10:15 Dose: 20 meq Quetiapine Fumarate (Seroquel) 12.5 mg PO [facility] PRN Reason: Protocol Last Admin: 05/25/17 22:01 Dose: 12.5 mg Sildenafil Citrate (Revatio) 20 mg PO TID [facility] Last Admin: 05/25/17 17:28 Dose: 20 mg Tamsulosin HCl (Flomax) 0.4 mg PO DAILY [facility] Last Admin: 05/25/17 10:47 Dose: 0.4 mg - Labs Labs: 05/25/17 07:00 05/25/17 07:00 PT 10.9 SECONDS (9.4-12.5) 05/23/17 13:35 INR 0.95 (0.93-1.08) 05/23/17 13:35 APTT 30.5 Seconds (25.1-36.5) 05/23/17 13:35 - Constitutional Appears: Non-toxic, No Acute Distress - Head Exam Head Exam: NORMAL INSPECTION, NORMOCEPHALIC - Eye Exam Eye Exam: Normal appearance - Respiratory Exam Respiratory Exam: Clear to Ausculation Bilateral - Cardiovascular Exam Cardiovascular Exam: absent: REGULAR RHYTHM Assessment and Plan - Assessment and Plan (Free Text) Assessment: 82 year old female with a past medical history significant for COPD, IDDM2, HTN , HLD, Vitamin D deficiency and dementia who presents from [facility] after she fell and was found to be hypoxic requiring breathing treatments. Patient is suspected to have COPD exacerbation. Patient is now currently in afib as of 4: 12am. Plan: 1. New Onset Afib -Afib HR 107 -BP: 114/62 -EKG stat ordered: showing Afib -Given dose of xopenex -will monitor HR, if HR above 110, will start cardizem -anticoagulation will be discussed and determined per Cardiology
[2017-05-26] MEDS ORDERED: Levalbuterol 0.63 MG/3 ML Inhal Soln UD IH STA (04:56)
--- NOTE | 2017-05-26 04:57 | PN ---
DATE: 05/25/2017 LOCATION: Room 377 bed 1. SUBJECTIVE: The patient is seen lying in room 377, bed 1. The patient is alert, awake, responsive, oriented to person; disoriented to date, year, month and place. The patient overnight nurse's notes were reviewed. The patient was attempted to come out of the bed. The patient had to be reoriented. OBJECTIVE: VITAL SIGNS: T-max in the last 24 hour, 100.6. Heart rate 78, 89, 83, blood pressure 115/75, 129/62, 148/75, 123/62, 138/65, respirations 18, O2 sat is 98, 96, 95%. Body mass index is 17.7. HEENT: Head examination; normocephalic, atraumatic. HEENT examination shows pink conjunctivae, anicteric sclerae. No oropharyngeal lesion. No neck rigidity. CHEST: Kyphosis. Questionable soft carotid bruit. LUNGS: Shows positive rhonchi bilaterally. No wheezing, no crackles, no rales. CARDIOVASCULAR: S1, S2, regular rhythm. Positive systolic murmur in the left sternal border, right second intercostal space, left second intercostal space. ABDOMEN: Soft. Positive bowel sounds. No hepatosplenomegaly noted. No guarding. No rigidity. GENITALIA: Female. Positive Moon catheter. EXTREMITIES: Shows no pitting edema, no calf tenderness, no Homans' sign. NEUROLOGIC: The patient is alert, awake, oriented x1. Cranial nerves II-XII limited. Gait examination could not be tested. DIAGNOSTICS: On 05/25/2017: WBC 5.5, hemoglobin/hematocrit of 13.5 and 41.8, platelets 146. Sodium 142, potassium 3.6 which is low normal. Chloride 103, CO2 30, anion gap 12, BUN 18, creatinine 0.5, GFR greater than 60, glucose 468, 72, 436, 386, 220, 285, 297, 233, random glucose 56, hemoglobin A1c is 9.7, uric acid 6.8, calcium 8.9, phosphorus 3.5, magnesium 1.9. LFTs are normal. BNP is down to 742 from 1640. Vitamin D is 16.0. RPR nonreactive. Lyme IgM, IgG negative. Influenza negative. Urine cultures are ESBL Escherichia coli. The patient was placed on isolation. The patient's Rocephin was discontinued. Meropenem 1 g IV q.8h. started. Infectious Diseases consultation ordered. IMPRESSION: 1. Status post mechanical fall, etiology unclear, questionable syncope versus near syncope. 2. High-grade fever of 101.7. 3. Hypoxemia. 4. Hypertension. 5. Episodic hypoglycemia. 6. Probable dementia with encephalopathy and confusional state. 7. Granulocytosis. 8. Lactic acidosis. 9. Uncontrolled diabetes mellitus with hyperglycemia and hemoglobin A1c of 9.7. 10. Elevated fructosamine level of 342. 11. Hyperuricemia. 12. Hypovitaminosis D. 13. Proteinuria, glycosuria, pyuria, bacteriuria and extended-spectrum beta-lactamase Escherichia coli urinary tract infection. 14. Questionable narrowing of the mid left internal carotid artery versus sequelae of the tortuosity and fluoridated type artifact. 15. Deconditioning. 16. Gait dysfunction. 17. Possible healthcare-associated pneumonia. 18. Premature atrial contractions. 19. Left ventricle ejection fraction of 53%. 20. Severe pulmonary arterial hypertension and severe tricuspid regurgitation with right ventricular systolic pressure of greater than 100. 21. Concentric left ventricular hypertrophy. 22. Grade 1 abnormal relaxation pattern. 23. Mildly thickened aortic and mitral valves. 24. Severe tricuspid regurgitation. 25. Sinus tachycardia. 26. Cerebral cortical atrophy of the brain with microvascular ischemic disease of the brain. 27. Bilateral 40%-59% proximal internal carotid artery stenosis on the carotid ultrasound. 28. Abnormal EEG with bi-hemispheric cerebral dysfunction. 29. Sepsis secondary to extended-spectrum beta-lactamase Escherichia coli urinary tract infection. 30. Acute exacerbation of chronic obstructive pulmonary disease. 31. Painful onychomycosis and painful hyperkeratosis and uncontrolled diabetes mellitus. 32. Pancreatic atrophy. 33. Left renal cyst, 1.9 cm. 34. Colonic diverticulosis. 35. Ventral abdominal hernia containing multiple bowel loops. 36. Urinary bladder calcification and perineal calcification. 37. Hysterectomy. 38. L2 compression fracture of indeterminate age. 39. 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 40. Abdominal aortic atherosclerotic calcification. 41. Diverticulosis of the colon. 42. Left lower lobe consolidation, atelectasis, pneumonia with crowding of the pulmonary vessel. 43. Left lower lobe nodule or nodular consolidation. 44. Right middle lobe and right lower lobe atelectasis. 45. Bilateral centrilobular emphysema. 46. Coronary artery calcification. 47. Right thyroid lobe calcified cyst or nodule. 48. Left thyroid lobe hyperdense nodule. 49. Thoracic spine kyphosis. 50. Severe pulmonary arterial hypertension. 51. Pre-carinal and mediastinal lymphadenopathy. 52. Questionable left axis deviation. 53. Hypokalemia. 54. Dyslipidemia. 55. Hypomagnesemia. PLAN: At this time, the patient will be continued on serial labs. The patient's three consecutive CBCs are negative, which will be discontinued. The patient will have adjustment of the patient's insulin. The patient's repeat urine cultures are ordered. Current consultations: Cardiology, Neurology, Podiatry, Infectious Diseases, Psychiatry. The patient is yet to be seen by Psychiatry. Current medications: Mucomyst nebulizer treatment every 6 hours, Aricept 5 mg at bedtime, aspirin 81 mg daily, Drisdol 50,000 units every 72 hours, Flomax 0.4 mg daily, Breo-Ellipta 1 puff daily, Humalog low-dose sliding scale coverage will be changed to high-dose sliding scale coverage. The patient is on K-Dur 20 mEq, Lac-Hydrin lotion to the legs. The patient's Levemir will be adjusted to 10 units at bedtime, Lipitor 40 mg daily, magnesium oxide 400 mg twice a day. The patient is started on meropenem 1 g IV q.8, Pepcid 20 mg daily, Plavix 75 mg daily, Revatio 20 mg three times a day, Seroquel 12.5 mg at bedtime - started by Psychiatry, Toprol XL 25 mg daily, Tylenol 650 mg p.o. suppository q.6h. p.r.n., vitamin D3 2000 units daily, Xopenex inhalation 0.63 mg every 6 hours, Zestril 20 mg daily, allopurinol 300 mg daily, oxygen 2 liters continuous humidified. The patient will be ordered out of bed to chair, fingerstick blood sugar, CHARLY stockings, SCDs, occupational therapy, physical therapy. As mentioned, the patient's insulin will be adjusted with adjustment of the bolus insulin. The patient's primary care physician, Dr. Melendez was updated about the patient's diagnosis and condition and test results at length. All questions concerned answered. Dictated and electronically signed, not read. Diego MD Al[facility] # [id number]
[2017-05-26] MEDS: Meropenem 1 GM in Sodium Chloride 0.9% 100 ML IVPB SCH ×3 (07:04→22:23)
[2017-05-26] MEDS: Potassium Chloride 20 mEq ER Tab PO SCH (08:18)
[2017-05-26] MEDS: Insulin Lispro (humaLOG) MIX 75/25(10 ml) SC SCH ×2 (09:01→17:45)
[2017-05-26] MEDS: Insulin Lispro (HUMAlog) HIGH Coverage SC SCH ×3 (09:03→18:10)
[2017-05-26 09:12] LABS: B-TYPE NATRIURETIC PEPTIDE 1020 pg/mL (0-450)
[2017-05-26 09:20] LABS: ALB/GLOB RATIO 1.2 (1.1-1.8); ALT/SGPT 32 U/L (7-56); AST/SGOT 18 U/L (14-36); BILIRUBIN,DIRECT 0.4 mg/dL (0.0-0.4); BLOOD UREA NITROGEN 22 mg/dL (7-21); CALCIUM 9.2 mg/dL (8.4-10.5); GFR AFRICAN-AMERICAN > 60; GFR NON-AFRICAN AMERICAN > 60; MAGNESIUM 1.8 mg/dL (1.7-2.2)
[2017-05-26] MEDS ORDERED: Metoprolol Succinate 25 mg XL Tab PO SCH (10:00)
[2017-05-26] MEDS: Non Formulary Medication (Fluticasone/Vilanterol [Breo Ellipta 100-25 Mcg Inh] 1 PUFF) IH SCH (10:55)
[2017-05-26] MEDS: Magnesium Oxide 400 mg Tab UD PO SCH ×2 (11:02→17:47)
[2017-05-26] MEDS: Enoxaparin 60 mg Syringe SC SCH ×2 (11:02→22:26)
[2017-05-26] MEDS: Cholecalciferol 1,000 INTLU TAB PO SCH (11:03)
[2017-05-26] MEDS: Sildenafil 20 MG TAB PO SCH ×3 (11:03→17:48)
[2017-05-26] MEDS: Ammonium Lactate 12% Lotion (225 g) EXT SCH (12:29)
--- NOTE | 2017-05-26 14:14 | PN ---
DATE: 05/26/2017 SUBJECTIVE: The patient is seen in room 377, bed 1. Overnight notes were reviewed. Early this morning around 4:00 o'clock, the patient's monitor shows atrial fibrillation. The patient was found to be in atrial fibrillation. EKG was ordered. The patient has continued to be on atrial fibrillation. The patient is seen lying in the bed in room 377, bed 1. PHYSICAL EXAMINATION: VITAL SIGNS: T-max is 98.8. Telemetry shows atrial fibrillation, heart rate in 80, 82, 92, 81, 101, 106, down to 80. Blood pressure is 107/52, 114/61, 93/58, 127/59; respiration 20; O2 sat is 95-100%. HEENT: Head examination normocephalic, atraumatic. HEENT examination shows pink conjunctivae. Anicteric sclerae. No oropharyngeal lesion. No neck rigidity. Questionable soft carotid bruit. CHEST: Kyphosis. LUNGS: Shows positive rhonchi. No wheezing. No rales, crackles. CARDIOVASCULAR: S1, S2. Irregular rhythm. Positive systolic murmur, left sternal border, left second intercostal space, right second intercostal space. ABDOMEN: Soft. Positive bowel sounds. No hepatosplenomegaly noted. No guarding. No rigidity. No rebound tenderness. GENITALIA: Female. RECTAL: Positive Moon catheter. EXTREMITY: Shows no pitting edema, no calf tenderness, no Homans' sign. NEUROLOGICAL: The patient is alert, awake, responsive, follows command. Moves upper and lower extremity without assistance. The patient is alert, awake, oriented x1, but not oriented x3 as written in the nursing note from early this morning. The patient according to the nurses' notes were found to be alert, awake, oriented x3. DIAGNOSTICS: Sodium 138, potassium 4.5, chloride 98, CO2 of 30, anion gap 14, BUN 22, creatinine 0.7, GFR greater than 60. Glucose 251, 250, 244, 247. Uric acid 5, calcium 9.2, phosphorus 4.3, magnesium 1.8. BNP has gone up to 1020 from 742. Point of contact glucose 468, 247, 244, 250, 251. IMPRESSION AND PLAN: 1. New-onset atrial fibrillation with controlled ventricular response. 2. Transient hypotension, asymptomatic. 3. Granulocytosis. 4. Hypoxemia. 5. Insulin-requiring diabetes mellitus, uncontrolled with hemoglobin A1c of 9.7. 6. Hyperglycemia. 7. Right-sided diastolic congestive heart failure with elevated BNP. 8. Extended-spectrum beta-lactamase Escherichia coli urinary tract infection with proteinuria, glycosuria, ketonuria, pyuria, bacteriuria 9. Questionable narrowing of the mid left internal carotid artery versus tortuosity and flow related type artifact. 10. Atrial fibrillation with moderately controlled ventricular response. 11. Coronary ischemic changes. 12. Abnormal electroencephalogram consistent with bihemispheric cerebral dysfunction. PLAN: At this time, the patient has been started on Mucomyst nebulizer 20% 4 mL q. 6 hours., Aricept 5 mg at bedtime, aspirin 81 mg daily, Cardizem started at 30 mg q. 8, Toprol-XL stopped, Drisdol 50,000 units weekly, Flomax 0.4 mg daily, Breo Ellipta 1 puff daily, Humalog high-dose sliding scale coverage. The patient is started on her home insulin Humalog Mix 75/25, 5 units with breakfast, 5 units with supper. The patient is on K-Dur 20 mEq with breakfast, Lac-Hydrin lotion to the feet, Levemir 10 units at bedtime, Lipitor 40 mg daily, Lovenox 50 mg subcu q. 12 started because of atrial fibrillation, magnesium oxide 400 mg twice a day, meropenem 1 g IV q. 8, Pepcid 20 mg daily, Plavix 75 mg daily, Revatio 20 mg three times a day. The patient is on Seroquel 12.5 mg at bedtime, Tylenol p.r.n., vitamin D 2000 units daily and vitamin D2, Drisdol 50,000 units every 72 hours. The patient is on Pepcid 20 mg daily, Plavix 75 mg daily, Revatio 20 mg three times a day. Xopenex nebulizer. The patient's Zestril has been decreased to 5 mg daily from 20 mg. The patient is on allopurinol 300 mg daily. The patient is on heart-healthy diet. The patient's today's diagnostic labs were reviewed. There was no CBC available. Chemistry shows sodium of 138, potassium is 4.5, chloride 98, CO2 of 30, anion gap 14, BUN 22, creatinine 0.7, GFR greater than 60, glucose 251. Fingerstick blood sugar 250, 244, 247. Uric acid 5.0, calcium 9.2, phosphorus 4.3, magnesium 1.8. LFTs are normal. BNP is 1020. The patient will be continued on above therapeutic intervention. The patient will be continued on IV antibiotics, Lovenox. Re-consultation with Cardiology has been requested for evaluation of new-onset atrial fibrillation. Dictated and electronically signed, not read. Diego Hamilton MD
--- NOTE | 2017-05-26 16:39 | CARD ---
APPROVED REPORT EKG Measurement Heart [id number] <Conclusion> A Fib with RVR
--- NOTE | 2017-05-26 16:41 | CARD ---
APPROVED REPORT EKG Measurement Heart [id number] <Conclusion> Atrial fibrillation with rapid ventricular response Septal infarct, age undetermined Lateral infarct, age undetermined Abnormal ECG
--- NOTE | 2017-05-26 20:30 | PN ---
DATE: SUBJECTIVE: Patient is comfortable in nasal O2. She denies retrosternal chest pain. PHYSICAL EXAMINATION: VITAL SIGNS: Blood pressure 101/43, heart rate 90, temperature 97.1, respirations 18. HEENT: Normocephalic. CHEST: Bilateral rhonchi. HEART: S1 and S2, regular. EXTREMITIES: Significant muscle wasting. LABORATORY DATA: Today's SMA-7 is within normal limits except for glucose of 261 and BUN of 22. ProBNP is 1020. Today's EKG revealed atrial fibrillation with rapid ventricular response. Neck MRA, limited study patent appearing right common carotid artery bifurcation and internal carotid artery, questionable narrowing versus tortuosity of the vessel resulting related type artifact. Recommended followup CTA of the neck. MRA of the head without contrast, unremarkable MRI angiography of the brain. Brain MRI 2 days ago, no acute findings. ASSESSMENT: 1. Hypoxemia. 2. Chronic obstructive lung disease. 3. Severe secondary pulmonary hypertension. 4. New onset atrial fibrillation. CONDITIONS: Continue current q. 8 hours, K-Dur 20 mEq daily, Lovenox at 50 mg subcutaneous twice a day, Lipitor at 40 mg once a day, IV meropenem at 1 g q. 8 hours. We will consider to continue Zestril 5 mg once a day, consider initiating oral anticoagulant agent at the time of discharge. Srini Granado MD
--- NOTE | 2017-05-26 21:41 | CON ---
DATE: HISTORY OF PRESENT ILLNESS: Patient is an 82-year-old white female who psychiatrist following on the medical floor for hallucinations. Apparently, Lilliana Campos APN saw patient yesterday; however, note is not available at this point. I reviewed previous nursing notes, which indicated that patient had been confused, hallucinating and trying to . Patient appeared to be in better control last night and she slept well without any distress and much calmer than prior night. I interviewed her at bedside and she is quite cooperative, focus is fair and eye contact is good. Patient is a little disoriented, though does express appropriate concern about her disorientation. She believes that she was at [facility] and that was January, but she was able to provide correct year 2017. She agrees and indicates <I think I was confused, it does appears though.L She does not recall her behavior from prior night, but it is not argumentative that these episodes occurred. She does not recall hallucinations. She denies having any current hallucinations. She indicates that she trusts the staff and she does not have any paranoia towards them. She denies depression, hopelessness and she reports that she is hopeful that <everything will workout okay.L Patient does report having some anxiety because some of her personal belongings are missing, specifically she cannot find her walker. It is unclear if this is true, it is not irrational or illogical belief. Patient sounds genuine, but she says she does not want to . She does not appear to be responding to internal stimuli and responses are relevant questioning and they are also consistent. The patient also indicates that she slept well last night and recent staff notes indicated that she has been cooperative with staff. PHYSICAL EXAMINATION: VITAL SIGNS: Reviewed at 6:00 a.m. Today they are 114/61, respiratory rate of 20, O2 sat was 93 with nasal cannula. LABORATORY DATA: Recent lab results were also reviewed including the highly elevated alkaline phosphatase. RELEVANT PSYCHIATRIC MEDICATIONS: Reviewed and this only really includes Aricept 5 mg at bedtime and Seroquel 12.5 mg at bedtime, which she received late last night. IMPRESSION: Patient has multiple medical issues, which includes confusion, disorientation likely secondary to delirium and as well as sundowning associated with dementia. RECOMMENDATIONS: Patient appears to be improving and there is no acute indication to change her medication status at this time. Psychiatry will continue to follow up every other day to ensure that she tolerates her medications and her behavior as well as orientation continues to improve. Please call if there are any changes in her presentation and we will earlier. Ruel Fu MD
[2017-05-26] MEDS: Insulin Detemir 100 units/ml Vial (Levemir) SC SCH (22:27)
--- NOTE | 2017-05-27 01:49 | PN ---
DATE: 05/26/2017 SUBJECTIVE: The patient is in bed, in no acute distress. OBJECTIVE: VITAL SIGNS: Temperature is 97, blood pressure is 107/54, respiratory rate 19, heart rate of 97. HEENT: Unremarkable. NECK: Supple. LUNGS: Have decreased breath sounds. HEART: Normal S1 and S2. ABDOMEN: Soft. LABORATORY DATA: Reveals the patient's white count is 5.5, hemoglobin of 13, platelets of 146. BUN 22, creatinine of 0.7. Urinalysis is noted. Microbiology reveals E. coli in the urine. The blood cultures are negative. No growth. The E. coli is ESBL E. coli. Review of orders reveals the patient to be on meropenem. ASSESSMENT AND PLAN: An 82-year-old female with chronic obstructive lung disease, cataracts, diabetes, care home patient, with sepsis secondary to extended-spectrum beta-lactamase Escherichia coli, the urine as the source, on meropenem - day #2. We will continue her present course. The patient has been afebrile now since the night for 24 hours. We will continue to follow. Will most likely need at least 7 to 10 days of antibiotics. Today is day #2. Fran Baer MD
[2017-05-27] MEDS: Acetylcysteine 20% Inhal Soln (4ml) IH SCH ×4 (03:00→19:56)
[2017-05-27] MEDS: Levalbuterol 0.63 MG/3 ML Inhal Soln UD IH SCH ×4 (03:00→19:55)
[2017-05-27] MEDS: Meropenem 1 GM in Sodium Chloride 0.9% 100 ML IVPB SCH ×3 (05:31→23:00)
[2017-05-27 08:06] LABS: ALB/GLOB RATIO 1.2 (1.1-1.8); ALBUMIN 2.7 g/dL (3.0-4.8); BILIRUBIN,DIRECT 0.4 mg/dL (0.0-0.4); MAGNESIUM 1.7 mg/dL (1.7-2.2); URIC ACID 3.9 mg/dL (2.5-6.2)
[2017-05-27] MEDS: Insulin Lispro (HUMAlog) HIGH Coverage SC SCH ×3 (08:50→18:31)
[2017-05-27] MEDS: Enoxaparin 60 mg Syringe SC SCH ×2 (09:04→22:00)
[2017-05-27] MEDS: Potassium Chloride 20 mEq ER Tab PO SCH (09:06)
[2017-05-27] MEDS: Insulin Lispro (humaLOG) MIX 75/25(10 ml) SC SCH ×2 (09:07→18:34)
[2017-05-27] MEDS: Magnesium Oxide 400 mg Tab UD PO SCH ×2 (12:01→18:40)
[2017-05-27] MEDS: Cholecalciferol 1,000 INTLU TAB PO SCH (12:02)
[2017-05-27] MEDS: Sildenafil 20 MG TAB PO SCH ×3 (12:02→20:25)
[2017-05-27] MEDS: Ammonium Lactate 12% Lotion (225 g) EXT SCH (12:03)
[2017-05-27] MEDS: Non Formulary Medication (Fluticasone/Vilanterol [Breo Ellipta 100-25 Mcg Inh] 1 PUFF) IH SCH (12:33)
[2017-05-27] MEDS ORDERED: Insulin Lispro (humaLOG) MIX 75/25(10 ml) SC SCH (17:58)
[2017-05-27 18:24] LABS: GLYCOMARK(R) 2.5 mcg/mL (7.5-28.4)
--- NOTE | 2017-05-27 19:40 | PN ---
DATE: NEUROLOGY PROGRESS NOTE SUBJECTIVE: Patient is lying on the bed, in no acute distress. Denies having any headache or dizziness. PHYSICAL EXAMINATION: VITAL SIGNS: Blood pressure is 112/69, heart rate is 69 per minute, breathing at the rate of 16 per minute, and temperature is 99.4 degrees Fahrenheit. HEENT: Head is normocephalic, atraumatic. NECK: Supple. There are no carotid bruits. LUNGS: Clear. CARDIOVASCULAR SYSTEM: S1 and S2 are audible. No murmurs. ABDOMEN: Soft and nontender with bowel sounds present. NEUROLOGY: Mental status: Patient is awake and alert. She knows she is in the hospital, the year 2007, month is February. President, she does not know the name. She follows all simple commands. Cranial nerve examination: Pupils are 3 mm bilaterally, reactive to light. Visual zabala are full. Extraocular movements are intact. There is no facial asymmetry. Palate is upgoing bilaterally and tongue is midline. Motor examination: Tone is normal. Power is 4/5 allover. Plantars are downgoing bilaterally. LABORATORY DATA: Labs reviewed. MRI of the brain shows no acute intracranial findings. She had an MRA of the brain, which is unremarkable. She had MRA of the neck, which was a limited exam due to motion artifact, patent-appearing right common carotid artery bifurcation and internal carotid artery, a questionable narrowing versus tortuosity of the vessel resulting in flow-related type artifact. Patient subsequently had a carotid artery ultrasound, which shows bilateral 40 to 59% proximal ICA stenosis. Patient had an electroencephalogram done, which shows abnormal with mild bihemispheric cerebral dysfunction. No epileptiform discharge was seen. IMPRESSION: 1. 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 2. Status post fall with questionable syncope. RECOMMENDATIONS: 1. Patient was started on Aricept 5 mg once a day, which is to be continued. 2. Patient also to be started on Namenda 5 mg twice a day. 3. Patient to have physical therapy for gait imbalance. 4. Please continue supportive care and other treatment. Thank you for the opportunity to participate in the care of this patient. Nestor Stuart MD MTDD
--- NOTE | 2017-05-27 21:02 | CARD ---
APPROVED REPORT EKG Measurement Heart [id number] <Conclusion> Atrial fibrillation Abnormal ECG
[2017-05-27] MEDS: Ergocalciferol 50,000 Intl Units Cap PO SCH (21:30)
[2017-05-27] MEDS: Insulin Detemir 100 units/ml Vial (Levemir) SC SCH (22:59)
--- NOTE | 2017-05-28 00:22 | PN ---
DATE: SUBJECTIVE: The patient denies any chest pain. Her breathing is comfortable on nasal O2. PHYSICAL EXAMINATION: VITAL SIGNS: Blood pressure 112/69, heart rate 69, temperature 99.4, respirations 20. HEENT: Normocephalic. CHEST: Bilateral rhonchi. HEART: S1 and S2 regular. ABDOMEN: Soft. EXTREMITIES: Significant muscle wasting. LABORATORY DATA: Today's blood sugar is . Today's EKG reveals atrial fibrillation at the rate of 92. ASSESSMENT: 1. Chronic obstructive lung disease. 2. Atrial fibrillation. 3. Severe pulmonary hypertension. 4. Uncontrolled diabetes mellitus. RECOMMENDATION: Continue current aspirin 81 mg once a day, Cardizem at 30 mg q. 8 hours, K-Dur 20 mEq once a day, Lovenox mg subcutaneously twice a day, magnesium oxide 400 mg once a day, IV meropenem at 1 g q. 8 hours. Discontinue Plavix. Continue Zestril at 5 mg once a day. Srini Granado MD
--- NOTE | 2017-05-28 00:45 | PN ---
DATE: 05/27/2017 SUBJECTIVE: The patient is in bed, in no acute distress, nontoxic. PHYSICAL EXAMINATION: VITAL SIGNS: The patient's temperature is 98, blood pressure is 120/50, respiratory rate of 18. HEENT: Examination of HEENT is unremarkable. NECK: Supple. LUNGS: Have decreased breath sounds. HEART: Normal S1 and S2. ABDOMEN: Soft, nontender. LABORATORY EXAMINATION: Reveals a white count of 5.5, hemoglobin of 13, platelets of 146. Chemistries reveals a BUN of 22, creatinine of 0.7. BNP is 1020. Serology is noted. Microbiology reveals yeast in the urine from 05/25/2017 and E. Coli in the urine from 05/23/2017. Blood cultures have no growth. Review of orders reveals the patient to be on meropenem. ASSESSMENT AND PLAN: An 82-year-old female who was seen earlier today in [facility], bed 1 with chronic obstructive lung disease, cataracts, diabetes, jail patient with sepsis secondary to extended-spectrum beta-lactamase Escherichia coli and day #3 of meropenem, will need 7-10 days of antibiotics. Fran Baer MD
[2017-05-28] MEDS: Acetylcysteine 20% Inhal Soln (4ml) IH SCH ×3 (01:01→13:32)
[2017-05-28] MEDS: Levalbuterol 0.63 MG/3 ML Inhal Soln UD IH SCH ×3 (01:01→13:32)
--- NOTE | 2017-05-28 04:56 | PN ---
DATE: 05/27/2017 LOCATION: The patient is seen in room 377, bed one. SUBJECTIVE: The patient is seen lying in the bed. The patient is alert, awake, oriented to person, disoriented to year, date, month, time. The patient is confused to year, date, month, time. Overnight nurse's notes were reviewed. PHYSICAL EXAMINATION: VITAL SIGNS: T-max 98.7. Telemetry shows atrial fibrillation; heart rate in the 90s and low 100s. T-max 98.7-99.4, blood pressure 112/69, respirations 20, O2 sat 100%. Intake and output; output today is 1300. Yesterday's output was 400. HEAD: Normocephalic, atraumatic. HEENT: Examination shows pink conjunctivae. Anicteric sclerae. No jugular venous distention. Soft carotid bruit. CHEST: Kyphosis. LUNGS: Examination shows no rales, crackles or wheezing. Occasional rhonchi upper lung zabala. CARDIOVASCULAR: S1, S2, irregular rhythm. Positive systolic murmur left sternal border, right second intercostal space, left second intercostal space. ABDOMEN: Soft. Positive bowel sounds. No hepatosplenomegaly noted. No guarding. No rigidity. No rebound tenderness. GENITALIA: Female. RECTAL: Deferred. EXTREMITY: No pitting, no calf numbness, no Homans' sign. NEUROLOGIC: The patient is alert, awake, oriented x1. Cranial nerves II-XII limited. Gait examination is not tested. MUSCULOSKELETAL: Examination shows a body mass index of 19. DIAGNOSTICS: CBC, this last one is 05/25/2017. Fingerstick blood sugar 237, 275, 387, 279, 232, 209. BNP 1060. Total protein 4.9, albumin 2.7. Sodium 138, potassium 4.5, chloride 98, CO2 30, anion gap 14, BUN 22, creatinine 0.75. GFR greater than 60. Glucose 251. No labs are done today. No chemistries done today for unknown reason. IMPRESSION AND PLAN: 1. New-onset atrial fibrillation with rapid ventricle response. 2. Yeast, urinary tract infection with funguria 3. Extended-spectrum beta-lactamase Escherichia coli urinary tract infection. 4. History of hypertension. 5. Granulocytosis. 6. Transient lactic acidosis. 7. Uncontrolled diabetes mellitus with hyperglycemia and hemoglobin A1c of 9.7. 8. Diastolic congestive heart failure with elevated brain natriuretic peptide. 9. Hypovitaminosis D. 10. Elevated fructosamine of 342. 11. Hyperuricemia. 12. Proteinuria, glycosuria, pyuria, bacteriuria, funguria. 13. Gait dysfunction. 14. Atrial fibrillation. 15. Bi-hemispheric cerebral dysfunction. 16. Encephalopathy with delirium and sundowning with dementia with episodic confusion and disorientation. 17. Acute exacerbation of chronic obstructive pulmonary disease. 18. Sepsis secondary to extended-spectrum beta-lactamase Escherichia coli urinary tract infection and yeast urinary tract infection and funguria PLAN: At this time, patient has been ordered serial daily labs. The patient's current consultation Cardiology, next Neurology, next Podiatry, next, Infectious Disease, next Psychiatry. CURRENT MEDICATIONS: Mucomyst nebulizer treatment 20% 4 mL q.6h., Aricept 5 mg at bedtime, Ecotrin 81 mg daily, Cardizem 30 mg p.o. q.8h., Drisdol 50,000 weekly, Flomax 0.4 mg daily, Breo Ellipta 100/25 1 puff daily, Humalog high-dose sliding scale coverage, patient is on Humalog mix 75/25 - 5 units with breakfast and 5 units with dinner, which will be increased because the patient's Fingerstick blood sugar has been running in mid-to-high 200s. The patient's Humalog 75/25 mix will be increased to 8 units with breakfast and dinner from 5 units. The patient is on K-Dur 20 mEq daily. The patient is on Lac-Hydrin lotion to the feet, Levemir 10 units at bedtime, Lipitor 40 mg daily, Lovenox 50 mg subcu q. 12, magnesium oxide 400 mg twice a day, meropenem 1 g IV q. 8, Namenda 5 mg twice a day which was started by Neurology, Pepcid 20 mg daily, Revatio 20 mg three times a day, Seroquel 12.5 mg at bedtime started by Psychiatry, Tylenol 650 mg suppository p.o. q. 4-6 hours p.r.n., vitamin D3 2000 units daily, Xopenex 0.63 mg nebulizer every 6 hours, Zestril 5 mg daily, allopurinol 300 mg daily. The patient's Zestril was cut back to 5 mg because of hypotension. The patient will be continued on the above dose of Zestril at this time since the patient's blood pressure has stabilized. The patient is on oxygen 2 liters continuous. Repeat EKG ordered. Heart-healthy diet, out of bed, CHARLY stockings, SCDs, occupational, physical therapy, gait training ordered. The patient is seen by speech therapist, no , no dysphagia noted. At present, the patient requires IV antibiotics. Patient has been ordered IV antibiotics as per Infectious Disease. Infectious Disease recommends 10 days of antibiotics; today is day #2. The patient at present will be referred to Risk Analyst for arranging IV antibiotics at the nursing homes. Once the IV antibiotics are arranged at the half-way and if the patient stays stable, will consider the patient for discharge back to [facility]. Dictated and electronically signed, not read. Diego Hamilton MD
[2017-05-28] MEDS: Meropenem 1 GM in Sodium Chloride 0.9% 100 ML IVPB SCH ×2 (06:19→14:27)
[2017-05-28 07:24] LABS: B-TYPE NATRIURETIC PEPTIDE 508 pg/mL (0-450)
[2017-05-28] MEDS ORDERED: Insulin Lispro (humaLOG) MIX 75/25(10 ml) SC SCH ×3 (07:30→17:58)
[2017-05-28 07:38] LABS: ALB/GLOB RATIO 1.2 (1.1-1.8); ALBUMIN 2.7 g/dL (3.0-4.8); ALT/SGPT 21 U/L (7-56); AST/SGOT 12 U/L (14-36); BILIRUBIN,DIRECT 0.4 mg/dL (0.0-0.4); BLOOD UREA NITROGEN 15 mg/dL (7-21); CALCIUM 8.5 mg/dL (8.4-10.5); GFR AFRICAN-AMERICAN > 60; GFR NON-AFRICAN AMERICAN > 60; URIC ACID 3.4 mg/dL (2.5-6.2)
--- NOTE | 2017-05-28 08:17 | CON ---
DATE: 05/25/2017 She is being seen today for a consultation. PRESENTATION: Patient is an 82-year-old female seen at bedside. Patient was admitted to [facility] from [facility] for evaluation of hypoxia due to having an O2 sat level in the 80s. Consultation was ordered due to concerns about patient having hallucinations. Patient is pleasant and cooperative. In the interview, she is oriented x1. She is presently confused. She has areas where she is sharp and areas where she really either will confabulate or just playing to have forgotten what the answer might be. Patient indicates that she lives at [facility]. She does not like it there and sometimes she does like the fact that they take good care of her. Her grandchildren, who are in their 20s, do come to visit her according to herself and she says her POA is her daughter, then she changes it to her sister later on in the conversation. Patient indicates she has never had any psychiatric history at all. No suicide attempts, no medications, no visit to the psychiatrist. Medically, patient feels she is healthy, really was unable to give me any kind of a medical history; however, she has a history of diabetes, COPD, and when I question the patient as to why she was in the [facility], she indicated that at one point she was living with her daughter, but her diabetes was so bad, it could not be managed at home, so she had to go into the [facility]. Patient indicates that her daughter but is unable to tell me the names of her 3 daughters, nor which one that . She does remember that one of them of cancer, then she remembers one was named Patricia and was in a [facility] and she believes that is the one that 5 months ago. She denies any history of alcohol or drugs. Indicates she grew up in [place], [place]. She has 4 brothers and 3 sisters; she was #4 of 8. Parents stayed together. She has 2 sisters, who are nuns. She did well in school, but did not go to college and she is angry because her parents would not spend the money to let her go. She went to work at [employer] in [place]. At age 27, she got , but he was a bad , she indicates. She met him during [employer]. She had one daughter with him and then remarried later and she "man of her dreams" and had 2 other girls. Indicates that marriage was happy. She wishes that she had her knitting here in the hospital, so she could do some knitting. During her visit, her medical physician comes in and she does not remember him and is unable to give the name of the doctor who sees her at the [facility]. She has a hard time with sequencing both long and short term memory. PHYSICAL EXAMINATION: VITAL SIGNS: Include temperature of 98.7, pulse rate of 75, blood pressure of 129/62, respiratory rate of 20 and O2 sat of 95%. LABORATORY DATA: In looking at her labs, her blood sugar yesterday was 436, today it is normalized to 72. As of the , her urine cultures was positive for E. Coli. Both of these issues can have an effect on her cognition and psychiatric presentation. Her blood cultures however were both negative. MENTAL STATUS EXAMINATION: Patient is oriented x1. Her eye contact is good. Her behavior is pleasant and cooperative. Her speech rate and volume are within normal limits. Her mood is euthymic. Her affect is full. Her thoughts are goal-directed, but somewhat simplistic. She denies being suicidal or homicidal. Denies the presence of hallucinations, delusions, or paranoia. Her concentration and her focus are poor. Her memory, both short and long-term have deficits. Her appetite and her sleep she remarks are good. However, according to the nurse and the nurse's notes, there have been some periods of confusion. Last night, she tried to climb out of her bed, the night before, same thing, trying to remove her Moon, has difficulty with being reoriented, though she does calm down with attention. Evidently, recent urine culture from today came back as positive for E. Coli and ESBL. Her primary care physician has been notified. DIAGNOSTIC IMPRESSION: Dementia, unspecified; urinary tract infection; sepsis; uncontrolled diabetes. PLAN: The patient denies being suicidal or homicidal. There has been nothing in her behavior to indicate that this was so. She did not appear in any imminent danger of hurting herself or others. She is currently having urinary tract infection. Her diabetes has been not controlled. Both of these can have an affect on the patient's baseline. Consult was called due to concerns about hallucinations, which certainly can occur under these circumstances. I have ordered Seroquel 12.5 mg one p.o. at bedtime for this hallucinosis and the sundowning. Patient will be endorsed to Dr. Fu for followup over the weekend. Thank you for the consult. Lilliana Campos APN Trinity Roa MD
[2017-05-28] MEDS: Insulin Lispro (HUMAlog) HIGH Coverage SC SCH ×3 (08:29→17:36)
[2017-05-28] MEDS: Potassium Chloride 20 mEq ER Tab PO SCH (08:29)
--- NOTE | 2017-05-28 09:52 | CARD ---
APPROVED REPORT EKG Measurement Heart [id number] <Conclusion> Sinus rhythm with premature atrial complexes, new since ECG 05/27/17 PRWP
[2017-05-28] MEDS: Sildenafil 20 MG TAB PO SCH ×3 (10:54→17:39)
[2017-05-28] MEDS: Magnesium Oxide 400 mg Tab UD PO SCH ×2 (10:54→17:39)
[2017-05-28] MEDS: Cholecalciferol 1,000 INTLU TAB PO SCH (10:55)
[2017-05-28] MEDS: Enoxaparin 60 mg Syringe SC SCH (10:57)
[2017-05-28] MEDS: Non Formulary Medication (Fluticasone/Vilanterol [Breo Ellipta 100-25 Mcg Inh] 1 PUFF) IH SCH (11:01)
[2017-05-28] MEDS ORDERED: Fluconazole IV 200mg/100 ml NS 100 ML IVPB SCH (11:45)
[2017-05-28] MEDS: Ammonium Lactate 12% Lotion (225 g) EXT SCH (13:14)
--- NOTE | 2017-05-28 14:16 | PN ---
DATE: FOLLOWUP SUBJECTIVE: The patient denies any chest pain. PHYSICAL EXAMINATION: VITAL SIGNS: Blood pressure 129/67, heart rate 80, temperature 97.5, respirations 19. HEENT: Normocephalic. CHEST: Bilateral rhonchi. HEART: S1 and S2 regular. EXTREMITIES: No edema. LABORATORY DATA: Today's SMA-7: Sodium 134, potassium 4.4, chloride 98, CO2 of 28, glucose 274, BUN 15, creatinine 0.6. Today's EKG revealed sinus rhythm with premature atrial complexes, poor R-wave progression. ASSESSMENT: 1. Chronic obstructive lung disease. 2. Paroxysmal atrial fibrillation, the patient is in sinus rhythm today. 3. Severe pulmonary hypertension. 4. Uncontrolled diabetes mellitus. RECOMMENATIONS: Continue current Aricept, aspirin 81 mg once a day, Cardizem 30 mg q. 8 hours, Eliquis 2.5 mg twice a day, K-Dur 20 mEq once a day, Lipitor at 40 mg once a day, magnesium oxide 400 mg twice a day, meropenem at 1 g intravenously q. 8 hours, Zestril 5 mg daily. Srini Granado MD
--- NOTE | 2017-05-28 17:31 | CP.PCM.PN ---
Subjective - Date & Time of Evaluation Date of Evaluation: 05/28/17 Time of Evaluation: 10:20 - Subjective Subjective: No fevers, not in distress. Objective - Vital Signs/Intake and Output Vital Signs (last 24 hours): Temp Pulse Resp BP Pulse Ox 97.5 F L 68 19 133/59 L 95 05/28/17 06:00 05/28/17 08:30 05/28/17 06:00 05/28/17 08:30 05/28/17 06:00 Intake and Output: 05/28/17 05/28/17 06:59 18:59 Intake Total 380 Output Total 1600 Balance -1220 - Medications Medications: Current Medications Acetaminophen (Tylenol 325mg Tab) 650 mg PO Q6H PRN PRN Reason: FOR TEMP>=99.5F Last Admin: 05/24/17 14:18 Dose: 650 mg Acetaminophen (Tylenol 650 Mg Supp) 650 mg RC Q6H PRN PRN Reason: FOR TEMP>=99.5F Last Admin: 05/23/17 22:14 Dose: 650 mg Acetylcysteine (Acetylcysteine 20%) 4 ml IH [id number] [facility] Last Admin: 05/28/17 07:31 Dose: 4 ml Allopurinol (Zyloprim) 300 mg PO DAILY [facility] Last Admin: 05/27/17 12:01 Dose: 300 mg Aspirin (Aspirin Chewable) 81 mg PO DAILY [facility] Last Admin: 05/27/17 12:01 Dose: 81 mg Atorvastatin Calcium (Lipitor) 40 mg PO HS [facility] Last Admin: 05/27/17 22:59 Dose: 40 mg Cholecalciferol (Vitamin D) 2,000 intlu PO DAILY [facility] Last Admin: 05/27/17 12:02 Dose: 2,000 intlu Diltiazem HCl (Cardizem) 30 mg PO Q8H [facility] Last Admin: 05/28/17 08:30 Dose: 30 mg Donepezil HCl (Aricept) 5 mg PO HS [facility] Last Admin: 05/27/17 23:00 Dose: 5 mg Enoxaparin Sodium (Lovenox) 50 mg SC Q12H [facility] PRN Reason: Protocol Last Admin: 05/27/17 22:00 Dose: 50 mg Ergocalciferol (Drisdol 50,000 Intl Units Cap) 1 cap PO Q72H [facility] Last Admin: 05/27/17 21:30 Dose: 1 cap Famotidine (Pepcid) 20 mg PO DAILY [facility] Last Admin: 05/27/17 12:02 Dose: 20 mg Meropenem 1 gm/ Sodium (Chloride) 100 mls @ 100 mls/hr IVPB Q8 [facility] PRN Reason: Protocol Last Admin: 05/28/17 06:19 Dose: 100 mls/hr Insulin Detemir (Levemir) 10 unit SC HS [facility] Last Admin: 05/27/17 22:59 Dose: 10 unit Insulin Human Lispro (Humalog High) 0 units SC AC [facility] PRN Reason: Protocol Last Admin: 05/28/17 08:29 Dose: 2 units Insulin Lispro Protam/Lispro Human (Humalog Mix 75/25) 8 units SC ACB [facility] Last Admin: 05/28/17 08:30 Dose: 8 unit Insulin Lispro Protam/Lispro Human (Humalog Mix 75/25) 8 units SC DAILY@1745 [facility] Lactic Acid (Lac-Hydrin 12% Lotion (225 G)) 0 gm EXT DAILY [facility] Last Admin: 05/27/17 12:03 Dose: 1 applic Levalbuterol HCl (Xopenex) 0.63 mg IH [id number] [facility] Last Admin: 05/28/17 07:30 Dose: 0.63 mg Lisinopril (Zestril) 5 mg PO DAILY [facility] Last Admin: 05/27/17 09:06 Dose: 5 mg Magnesium Oxide (Mag-Ox) 400 mg PO BID [facility] Last Admin: 05/27/17 18:40 Dose: 400 mg Memantine (Namenda) 5 mg PO BID [facility] Last Admin: 05/27/17 18:40 Dose: 5 mg Non-Formulary Medication (Fluticasone/Vilanterol [Breo Ellipta 100-25 Mcg Inh]) 1 puff IH DAILY [facility] Last Admin: 05/27/17 12:33 Dose: Not Given Potassium Chloride (K-Dur 20 Meq Er Tab) 20 meq PO BRK [facility] Last Admin: 05/28/17 08:29 Dose: 20 meq Quetiapine Fumarate (Seroquel) 12.5 mg PO HS [facility] PRN Reason: Protocol Last Admin: 05/27/17 23:00 Dose: 12.5 mg Sildenafil Citrate (Revatio) 20 mg PO TID [facility] Last Admin: 02/11/18 20:25 Dose: 20 mg Tamsulosin HCl (Flomax) 0.4 mg PO DAILY [facility] Last Admin: 05/27/17 12:02 Dose: 0.4 mg - Labs Labs: 05/25/17 07:00 05/28/17 05:20 PT 10.9 SECONDS (9.4-12.5) 05/23/17 13:35 INR 0.95 (0.93-1.08) 05/23/17 13:35 APTT 30.5 Seconds (25.1-36.5) 05/23/17 13:35 - Constitutional Appears: Non-toxic, Chronically Ill - Head Exam Head Exam: NORMAL INSPECTION - ENT Exam ENT Exam: Mucous Membranes Moist - Neck Exam Neck Exam: absent: Meningismus - Respiratory Exam Respiratory Exam: Decreased Breath Sounds - Cardiovascular Exam Cardiovascular Exam: +S1, +S2 - GI/Abdominal Exam GI & Abdominal Exam: Soft. absent: Tenderness Assessment and Plan - Assessment and Plan (Free Text) Plan: Assessment Sepsis due to ESBL E. coli UTI COPD cataracts DM Plan continue Merrem day 4 to complete 7-10 days of therapy
[2017-05-28 18:08] VITALS: BP 135/74; PULSE 88; RESP 20; TEMP 98.6; O2SAT 96
--- NOTE | 2017-05-29 08:16 | PN ---
DATE: 05/28/2017 She is being seen today for a followup consultation. PRESENTATION: The patient is an 82-year-old female, seen at bedside. The patient was originally admitted to the hospital on 05/23/2017. She was brought by EMS from [facility] for evaluation of hypoxia due to her poor O2 sat. When she came here, the patient was found to have urinary tract infection, yeast in the urine as well as E. coli. She has been treated for these. Additionally, she was having difficulties with being confused and sundowning. Seroquel was added at bedtime with good effect. The patient has been doing much better. It may be just a clearing of her urinary tract infection, but she continues on the Seroquel at this time. When the patient was seen today, she is more alert, she is more social. She has dementia, so there are a lot of things she cannot remember. She is oriented x1, but she is pleasant and cooperative, and she has been having decreasing confusion. The plan is for her to go back to [facility] today and she is pleased. She is ready to go back. She likes being there and feels they took good care of her. CURRENT VITAL SIGNS: Include a temperature of 97.5, blood pressure of 135/56, respiratory rate of 19, and O2 sat of 95%. MENTAL STATUS EXAM: The patient is alert and oriented x1. Her eye contact is good. Her behavior is cooperative. Her speech rate and volume are within normal limits. Mood is euthymic. Affect is full. Thoughts are not always relevant. She is unable to remember a lot of things upon questioning. She denies being suicidal or homicidal, and there is nothing in her behavior to indicate that she is. She denies the presence of hallucinations, delusions, or paranoia. Her concentration and her focus are poor. Her memory both short and supervisor intermediates have deficits. Her appetite and her sleep have normalized. DIAGNOSTIC IMPRESSION: Dementia without behavioral changes, probably recently exacerbated by the urinary tract infection. PLAN: The patient denies being suicidal or homicidal and there is nothing in her behavior to indicate that she is. She appears in no imminent danger of hurting herself or others. She is clear to return to [facility]. While in the hospital, Seroquel 12.5 mg one at bedtime has been ordered that actually seems to have helped with her confusion and sundowning. So I would recommend she continues on this while in the long-term. She should be followed up by a psychiatrist there within 48 to 72 hours to assess this. I will sign off on this patient. Thank you for the referral. Lilliana Campos APN MTDD
[2017-05-29 12:39] LABS: 23 KD (IGG) BAND Nonreactive
--- NOTE | 2017-05-30 08:17 | DS ---
FINAL PROGRESS NOTE AND DISCHARGE SUMMARY HISTORY OF PRESENT ILLNESS: Patient is discharged back to [facility] to complete IV meropenem at shelter. Patient had the right upper extremity midline placed for IV antibiotics. Patient is seen lying in the bed in room 377, bed 1. PHYSICAL EXAMINATION: GENERAL: Patient is alert, awake, oriented x2, does not appear to be in any distress. VITAL SIGNS: T max is 98.6. Telemetry shows atrial fibrillation, heart rate 90s, 94, 78, 85, 68, 80; blood pressure 135/74, 115/79/ 133/59, 135/65; respirations 18 to 19; O2 sat is 95%. Intake output is 1300 yesterday and urine output today. HEENT: Head examination normocephalic, atraumatic. HEENT examination shows pinkish conjunctiva. Anicteric sclerae. No oropharyngeal lesion. Questionable soft carotid bruit. CHEST: Kyphosis. LUNGS: Shows no rales, crackles or wheezing. Questionable decreased breath sound at the left base. CARDIOVASCULAR: S1, S2, irregular rhythm. Positive systolic murmur, left sternal border, left second intercostal space, right second intercostal space. ABDOMEN: Soft. Positive bowel sounds. GENITALIA: Female. RECTAL: Examination is deferred. EXTREMITIES: Show no pitting edema, no calf tenderness, no Neeru sign. NEUROLOGIC: Patient is alert, awake, responsive, is able to move upper lower extremity without assistance. Gait examination is not tested. MUSCULOSKELETAL: Examination shows body mass index of 19. DIAGNOSTICS: From 05/28, sodium 134, potassium 4.4, chloride 98, CO2 28, anion gap 13, BUN 15, creatinine 0.6, GFR greater than 60, glucose 131, 164, 181, 274, 344. Uric acid 3.4, calcium 8.5, phosphorus 2.9, magnesium 2.0. BNP is down to 508, total protein 4.9, albumin 2.7. RPR nonreactive. Lyme IgM, IgG negative. Influenza negative. Urine cultures, E-coli and yeast. FINAL IMPRESSION, PLAN AND DISCHARGE DIAGNOSES: 1. Sepsis secondary to extended spectrum beta lactamase Escherichia coli urinary tract infection. 2. Acute exacerbation of chronic obstructive pulmonary disease. 3. Paroxysmal atrial fibrillation, converting to normal sinus rhythm. 4. Severe pulmonary arterial hypertension. 5. Uncontrolled diabetes mellitus with hyperglycemia and elevated hemoglobin A1c. 6. Gait dysfunction. 7. Deconditioning. 8. Yeast urinary tract infection and funguria. 9. 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 10. Status post fall. 11. Delirium with sundowning associated with dementia. 12. Status post right upper extremity midline placement. Patient is to be discharged back to [facility] under Dr. Melendez's service. DISCHARGE MEDICATIONS: 1. Mucomyst nebulizer 4 mL 20% q. 6 hours. 2. Aricept 5 mg at bedtime. 3. Aspirin 81 mg daily. 4. Cardizem 30 mg q. 8 hours. 5. Diflucan 100 mg IV daily. 6. Drisdol 50,000 units every 3 days. 7. Eliquis 2.5 mg twice a day. 8. Flomax 0.4 mg daily. 9. Breo 100/25 mcg 1 puff daily. 10. Humalog high-dose sliding scale coverage a.c. 11. Humalog Mix 75/25 10 units with breakfast, 10 units with supper. 12. K-Dur 20 mEq daily. 13. Lac-Hydrin lotion to both feet and legs. 14. Levemir 10 units at bedtime. 15. Lipitor 40 mg at bedtime. 16. Lovenox discontinued. 17. Magnesium oxide 400 mg twice a day. 18. Meropenem 1 g IV q. 8 hours total of 10 days. 19. Namenda 5 mg twice a day. 20. Pepcid 20 mg daily. 21. Revatio 20 mg three times a day. 22. Seroquel 12.5 mg at bedtime. 23. Tylenol 650 mg p.o. suppository q. 6 hours p.r.n. for temperature greater than equal to 99.5. 24. Vitamin D3 2000 International Units daily. 25. Xopenex nebulizer 0.63 mg four times a day. 26. Zestril 5 mg daily. 27. Allopurinol 300 mg daily. Patient is discharged on above medication. Patient's Norvasc was discontinued. discontinued. Patient is also discharged on aspirin 81 daily, Lipitor 40 mg daily. Plavix was discontinued. Patient was resumed on metformin 1000 mg with breakfast, 500 mg with dinner; Flomax 0.4 mg daily. Patient was discharged on meropenem 1 g IV q. 8 for a total of 10 days, Eliquis 2.5 twice a day, Cardizem 30 mg q. 8. Patient's discharge medications as per the MAR of today plus ambulatory orders. Patient is to be discharged to [facility] under Dr. Melendez's service. Time spent in the entire discharge process, more than 45 minutes. Dictated and electronically signed, not read. Diego Hamilton MD
== END 2017-05-28 19:42 | DRG 872 ==
LOC: ED 12:09 → ERH 15:13 → 3RSO 19:03
PROVIDERS: ADMIT Internal Medicine; ATTEND Internal Medicine
PROC: 0HBRXZZ Excision of Toe Nail, External Approach (ICD-10-PCS; principal; 2017-05-25)
PROC: 0HBRXZZ Excision of Toe Nail, External Approach (ICD-10-PCS; 2017-05-25)
PROC: 0HBRXZZ Excision of Toe Nail, External Approach (ICD-10-PCS; 2017-05-25)
PROC: 0HBRXZZ Excision of Toe Nail, External Approach (ICD-10-PCS; 2017-05-25)
PROC: 0HBRXZZ Excision of Toe Nail, External Approach (ICD-10-PCS; 2017-05-25)
PROC: 0HBRXZZ Excision of Toe Nail, External Approach (ICD-10-PCS; 2017-05-25)
PROC: 0HBRXZZ Excision of Toe Nail, External Approach (ICD-10-PCS; 2017-05-25)
PROC: 0HBRXZZ Excision of Toe Nail, External Approach (ICD-10-PCS; 2017-05-25)
PROC: 0HBRXZZ Excision of Toe Nail, External Approach (ICD-10-PCS; 2017-05-25)
PROC: 0HBRXZZ Excision of Toe Nail, External Approach (ICD-10-PCS; 2017-05-25)
PROC: 05HY33Z Insertion of Infusion Device into Upper Vein, Percutaneous Approach (ICD-10-PCS; 2017-05-28)
DX: A41.51 Sepsis due to Escherichia coli [E. coli] (principal); E11.40 Type 2 diabetes mellitus with diabetic neuropathy, unspecified; E87.2 Acidosis; E11.36 Type 2 diabetes mellitus with diabetic cataract; R64 Cachexia; I27.21 Secondary pulmonary arterial hypertension; E11.51 Type 2 diabetes mellitus with diabetic peripheral angiopathy without gangrene; E83.42 Hypomagnesemia; I48.0 Paroxysmal atrial fibrillation; B35.1 Tinea unguium; B37.49 Other urogenital candidiasis; J44.1 Chronic obstructive pulmonary disease with (acute) exacerbation; F05 Delirium due to known physiological condition; I50.30 Unspecified diastolic (congestive) heart failure; Z68.1 Body mass index [BMI] 19.9 or less, adult; E11.65 Type 2 diabetes mellitus with hyperglycemia; F03.90 Unspecified dementia, unspecified severity, without behavioral disturbance, psychotic disturbance, mood disturbance, and anxiety; E55.9 Vitamin D deficiency, unspecified; R09.02 Hypoxemia; Z79.4 Long term (current) use of insulin; E78.00 Pure hypercholesterolemia, unspecified; F17.200 Nicotine dependence, unspecified, uncomplicated; L85.9 Epidermal thickening, unspecified; I36.1 Nonrheumatic tricuspid (valve) insufficiency; I11.0 Hypertensive heart disease with heart failure; K57.30 Diverticulosis of large intestine without perforation or abscess without bleeding; E79.0 Hyperuricemia without signs of inflammatory arthritis and tophaceous disease; M41.9 Scoliosis, unspecified; I25.10 Atherosclerotic heart disease of native coronary artery without angina pectoris; I65.23 Occlusion and stenosis of bilateral carotid arteries; K43.9 Ventral hernia without obstruction or gangrene; K86.89 Other specified diseases of pancreas; M47.816 Spondylosis without myelopathy or radiculopathy, lumbar region; N28.1 Cyst of kidney, acquired; G30.9 Alzheimer's disease, unspecified; F02.80 Dementia in other diseases classified elsewhere, unspecified severity, without behavioral disturbance, psychotic disturbance, mood disturbance, and anxiety; Z79.82 Long term (current) use of aspirin; Z79.02 Long term (current) use of antithrombotics/antiplatelets

== ENCOUNTER 2017-07-12 09:05 | Inpatient (IN) | payer MEDICARE, OTHER ==
--- NOTE | 2017-07-12 09:22 | ED PDOC ---
Arrival/HPI - General Historian: Patient, EMS, Other (chart review) EM Caveat: Dementia - History of Present Illness Symptom Onset: Sudden Symptom Course: Unchanged Quality: Aching Activities at Onset: Rest Context: Walking - General Chief Complaint: Trauma Time Seen by Provider: 07/12/17 09:08 - History of Present Illness Narrative History of Present Illness (Text): 07/12/17 09:18 Patient is a 82F with a PMH of Dementia, Afib on eliquis, IDDM, COPD who comes to the ED with a chief complaint of fall at the shelter. Patient states that she was in the dining room at the shelter when she fell on her R. hip. Since that time the patient has been complaining of pain in the hip and has not been able to straighten the leg. She keeps the leg flexed and externally rotated. She is unable to provide much more of a history at this time given her history of dementia. The pain is her only complaint at this time. She denies any SOB or chest pain. Denies any fever or chills. (Feliz Kim) Past Medical History - Infectious Disease Hx of Infectious Diseases: None - Cardiac Hx Pacemaker: No - Pulmonary Hx Chronic Obstructive Pulmonary Disease (COPD): Yes - Neurological Hx Neurological Disorder: Yes Hx Dementia: Yes - HEENT Hx HEENT Disorder: Yes Hx Cataracts: Yes (bilateral) - Renal Hx Renal Disorder: No - Endocrine/Metabolic Hx Diabetes Mellitus Type 2: Yes - Hematological/Oncological Hx Cancer: No - Integumentary Hx Dermatological Disorder: Yes Other/Comment: BILATERAL ARM BRUISING - Musculoskeletal/Rheumatological Hx Arthritis: Yes Hx Falls: Yes - Gastrointestinal Hx Gastrointestinal Disorders: No - Genitourinary/Gynecological Hx Genitourinary Disorders: Yes Other/Comment: URGENCY - Psychiatric Hx Psychophysiologic Disorder: No Hx Substance Use: No - Surgical History Hx Mastectomy: No - Anesthesia Hx Anesthesia: Yes Hx Anesthesia Reactions: No Hx Malignant Hyperthermia: No Family/Social History - Physician Review Nursing Documentation Reviewed: Yes Family/Social History: Unknown Family HX Smoking Status: Former Smoker Hx Alcohol Use: No Hx Substance Use: No Allergies/Home Meds Allergies/Adverse Reactions: Allergies No Known Allergies Allergy (Verified 07/12/17 09:09) Home Medications: Home Meds Medication Instructions Recorded Confirmed Atorvastatin Calcium 40 mg PO HS 12/21/16 07/12/17 Tamsulosin [Flomax] 0.4 mg PO DAILY 12/21/16 07/12/17 Fluticasone/Vilanterol [Breo 1 puff IH DAILY 05/23/17 07/12/17 Ellipta 100-25 Mcg INH] metFORMIN [glucOPHAGE] 1 tab PO BID 05/23/17 07/12/17 Acetaminophen [Tylenol 325mg tab] 325 mg PO PRN PRN 07/12/17 07/12/17 Acetaminophen [Tylenol 325mg tab] 325 mg PO PRN PRN 07/12/17 07/12/17 Apixaban [Eliquis] 2.5 mg PO DAILY 07/12/17 07/12/17 Insulin Lispro [humALOG] 0 unit SC DAILY 07/12/17 07/12/17 Review of Systems - Review of Systems Constitutional: Normal Eyes: Normal ENT: Normal Respiratory: absent: SOB Cardiovascular: absent: Chest Pain Gastrointestinal: Normal Genitourinary Female: Normal Musculoskeletal: Other (Complaining of R. hip pain after the fall) Skin: Normal Neurological: Normal Endocrine: Normal Hemo/Lymphatic: Normal Psychiatric: Normal Physical Exam Vital Signs Reviewed: Yes Temperature: Febrile Blood Pressure: Normal Pulse: Regular Respiratory Rate: Normal Appearance: Positive for: Ill-Appearing, Other Pain Distress: Moderate Mental Status: Positive for: Confused - Systems Exam Head: Present: Atraumatic, Normocephalic Pupils: Present: PERRL Extroacular Muscles: Present: EOMI Conjunctiva: Present: Normal Ears: Present: Normal Mouth: Present: Moist Mucous Membranes Pharnyx: Present: Normal Neck: Present: Normal Range of Motion Respiratory/Chest: Present: Good Air Exchange, Rhonchi (scattered). No: Respiratory Distress, Accessory Muscle Use, Wheezes Cardiovascular: Present: Regular Rate and Rhythm, Normal S1, S2. No: Murmurs Abdomen: Present: Normal Bowel Sounds. No: Tenderness, Distention, Peritoneal Signs Upper Extremity: Present: Normal Inspection. No: Cyanosis, Edema Lower Extremity: Present: Other (Right leg is externally rotated and slightly flexed at the knee. On exam she has pain when we try to straigten the leg or internally rotate at the hip. No obvious ecchymosis or skin changes. No evidence of skin breaks. ) Neurological: Present: GCS=15, CN II-XII Intact, Speech Normal Skin: Present: Warm, Dry Psychiatric: Present: Alert Vital Signs Temp Pulse Resp BP Pulse Ox 07/12/17 16:00 101.4 F H 99 H 20 170/64 H 07/12/17 15:31 88 20 171/74 H 99 07/12/17 14:35 96 H 177/75 H 07/12/17 13:15 91 H 19 166/68 H 99 07/12/17 11:15 109 H 20 183/96 H 95 07/12/17 10:05 100.5 F H 07/12/17 09:17 99.6 F 89 19 150/85 98 Medical Decision Making ED Course and Treatment: 07/12/17 09:31 Patient is a 82F with a history of fall at shelter. Patient has a fever of 100.2 - ekg, cxr - cbc, cmp, mag, cardiac iso, vbg - rapid flu - xray of R. hip 07/12/17 11:22 Xray shows comminuted intertrochanteric fracture of the R. hip Saturating 80%, gave duonebs, ABG Flu negative no evidence of infection, lab unremarkable Dr. Hamilton accepted the patient, admitted 07/12/17 13:25 ABG done showed hypoxemia however it was done on Room air. The patient is usually on oxygen at home. After placing the patient on nasal cannula 2L she is saturating much better @ 99% and comfortable. (Feliz Kim) Patient seen and evaluated with medical radiation dosimetrist. History from shelter reviewed. Patient reportedly fell yesterday. On exam, she is on nasal cannula saturating 89% but appears comfortable. Reports right hip pain only with movement. NV intact. Pain with ROM of hip. No head injury noted. Xrays reveal comminuted intertrochanteric fracture. Patient with low grade temp, cannot exclude infectious component as well although patient currently cv stable. Patient with significant history of pulmonary hypertension, has significant comorbities. Case d/w Dr. Hamilton, and have consulted Dr. Siu from orthopedics. Dr. Rivas consulted from cardiology. Will continue to monitor respiratory status. ABG was performed on room air. She is normally on nasal cannula. On oxygen her saturations on re-evlauation 94-95%. RR 18. She is alert and conversive. 07/13/17 08:28 (Federico Strong) - Lab Interpretations Lab Results: 07/12/17 09:35 07/12/17 09:35 Lab Results 07/12/17 11:40: pCO2 39, pO2 38.0 L*, HCO3 25.9, ABG pH 7.43, ABG Total CO2 27.1 , ABG O2 Saturation 75.5 L, ABG Base Excess 1.5, ABG Potassium 3.9, Sodium 134.0 , Chloride 102.0, Glucose 345 H, Lactate 1.2, FiO2 21.0, Arterial Blood Potassium 3.9 07/12/17 10:00: NT-Pro-B Natriuret Pep 2370 H 07/12/17 09:58: Urine Color Yellow, Urine Appearance Clear, Urine pH 6.0, Ur Specific [place] 1.025, Urine Protein Negative, Urine Glucose (UA) >=1000, Urine Ketones 15 H, Urine Blood Negative, Urine Nitrate Negative, Urine Bilirubin Small H, Urine Urobilinogen 0.2, Ur Leukocyte Esterase Negative 07/12/17 09:35: Influenza Typ A,B (EIA) Negative for flu a/b 07/12/17 09:35: Sodium 134, Chloride 102, Potassium 4.5, Carbon Dioxide 26, Anion Gap 11, BUN 16, Creatinine 0.5 L, Est GFR ( Amer) > 60, Est GFR ( Non-Af Amer) > 60, Random Glucose 316 H*, Calcium 8.3 L, Total Bilirubin 1.1, AST 20, ALT 44, Alkaline Phosphatase 78, Lactate Dehydrogenase 548, Total Creatine Kinase 59, Troponin I 0.02 D, Total Protein 5.1 L, Albumin 2.8 L, Globulin 2.3, Albumin/Globulin Ratio 1.2 07/12/17 09:35: pO2 78 H, VBG pH 7.39, VBG pCO2 46.0, VBG HCO3 27.8, VBG Total CO2 29.2 H, VBG O2 Sat (Calc) 97.5 H, VBG Base Excess 2.2 H, VBG Potassium 4.6, Sodium 133.0, Chloride 100.0, Glucose 337 H, Lactate 1.0, FiO2 21.0, Venous Blood Potassium 4.6 07/12/17 09:35: PT 12.4, INR 1.08, APTT 29.0 07/12/17 09:35: WBC 7.3 D, RBC 4.46, Hgb 13.3, Hct 39.7, MCV 89.0 D, MCH 29.8 , MCHC 33.5, RDW 15.9 H, Plt Count 151, MPV 11.5 H, Gran % 78.0 H, Lymph % (Auto ) 12.4 L, [place] % (Auto) 7.8 H, Eos % (Auto) 1.5, Baso % (Auto) 0.3, Gran # 5.70 , Lymph # (Auto) 0.9 L, [place] # (Auto) 0.6, Eos # (Auto) 0.1, Baso # (Auto) 0.02 - RAD Interpretation Radiology Orders: 07/12/17 09:34 CHEST PORTABLE [RAD] Stat 07/12/17 09:38 Hip Right [HIP MIN 2V W/ PELVIS RT] [RAD] Stat - Medication Orders Current Medication Orders: Acetaminophen (Tylenol 325mg Tab) 650 mg PO Q6 PRN PRN Reason: Headache Acetaminophen (Tylenol 650 Mg Supp) 650 mg RC Q6H PRN PRN Reason: Headache Acetaminophen (Tylenol 325mg Tab) 650 mg PO Q6 PRN PRN Reason: TEMP>=99.5F Acetaminophen (Tylenol 650 Mg Supp) 650 mg RC Q6H PRN PRN Reason: TEMP>=99.5F Atorvastatin Calcium (Lipitor) 40 mg PO [facility] Last Admin: 07/12/17 22:56 Dose: Not Given Non-Admin Reason: NPO Diltiazem HCl (Cardizem) 30 mg PO TID [facility] Last Admin: 07/12/17 14:35 Dose: 30 mg MAR Pulse and Blood Pressure Document 07/12/17 14:35 MR (Rec: 07/12/17 14:35 MR [id number]) Pulse Pulse Rate (60-90 beats/min) 96 Blood Pressure Blood Pressure (100/60-150/90 mm Hg) 177/75 Docusate Sodium (Colace) 100 mg PO TID [facility] Last Admin: 07/12/17 14:34 Dose: 100 mg Last Bowel Movement Document 07/12/17 14:34 MR (Rec: 07/12/17 14:35 MR [id number]) Last Bowel Movement Last Bowel Movement 07/12/17 Enoxaparin Sodium (Lovenox) 40 mg SC Q24H MIRA PRN Reason: Protocol Heparin Sodium (Porcine) (Heparin) 5,000 units SC Q8H MIRA PRN Reason: Protocol Last Admin: 07/12/17 13:33 Dose: 5,000 units MAR aPTT Document 07/12/17 13:33 MR (Rec: 07/12/17 13:34 MR [id number]) aPTT aPTT (secs) 29.0 Subcutaneous Administrations Document 07/12/17 13:33 MR (Rec: 07/12/17 13:34 MR [id number]) Injection Site MAR Injection Site Right Abdomen Charges for Administration # of Subcutaneous Administrations 1 Hydromorphone HCl (Dilaudid) 0.5 mg IVP Q4H PRN PRN Reason: Pain, severe (8-10) Last Admin: 07/12/17 22:50 Dose: 0.5 mg MAR Pain Assessment Document 07/12/17 22:50 KAC (Rec: 07/12/17 22:51 [place] [id number]) Pain Reassessment Is this a pain reassessment? No Sleep Is patient sleeping during reassessment? No Presence of Pain Presence of Pain Yes Pain Scale Used Pain Scale Used FLACC Location Left, Right or Bilateral Right Pain Location Body Site Hip Description Description Intermittent Pain Behavior Irritability Restlessness Facial Grimacing Aggravating Factors Changing Position Alleviating Factors/Management Medication Techniques Alleviating Factors Medication IVP Administration Document 07/12/17 22:50 KAC (Rec: 07/12/17 22:[email or web address] Charges for Administration # of IVP Administrations 1 Re-Assess: MAR Pain Assessment Document 07/12/17 23:50 LC (Rec: 07/13/17 07:41 LC [facility] [id number]) Pain Reassessment Is this a pain reassessment? Yes Sleep Is patient sleeping during reassessment? Yes Cefazolin Sodium 2 gm/ Sodium (Chloride) 100 mls @ 200 mls/hr IVPB Q8H MIRA PRN Reason: Protocol Stop: 07/13/17 10:29 Last Admin: 07/13/17 02:25 Dose: 200 mls/hr eMAR Start Stop Document 07/13/17 02:25 KAC (Rec: 07/13/17 03:[facility] Intravenous Solution Start Date 07/13/17 Start Time 02:25 End Date 07/13/17 End time 02:55 Total Infusion Time 30 Dobutamine HCl/Dextrose (Dobutamine/Dextrose 5% 500mg/250ml) 500 mg in 250 mls @ 3.511 mls/hr IV .Q24H PRN; Protocol; 2 MCG/KG/MIN PRN Reason: TITRATE PER PROTOCOL Insulin Human Lispro (Humalog Med) 0 units SC ACHS [facility] PRN Reason: Protocol Last Admin: 07/13/17 07:53 Dose: Not Given Non-Admin Reason: NPO Subcutaneous Administrations Document 07/13/17 07:53 LC (Rec: 07/13/17 07:53 [facility]-[id number]) Charges for Administration # of Subcutaneous Administrations 1 Levalbuterol HCl (Xopenex) 0.63 mg IH QIDRESP [facility] Last Admin: 07/12/17 20:11 Dose: Lisinopril (Zestril) 5 mg PO DAILY [facility] Magnesium Oxide (Mag-Ox) 400 mg PO BID [facility] Memantine (Namenda) 5 mg PO BID [facility] Breo Ellipta 100-25 Mcg Inh] (Home Med) 1 puff IH DAILY [facility] Last Admin: 07/12/17 13:35 Dose: Ondansetron HCl (Zofran Inj) 4 mg IVP Q4H PRN PRN Reason: Nausea/Vomiting Pantoprazole Sodium (Protonix Ec Tab) 40 mg PO 0600,1600 [facility] Tamsulosin HCl (Flomax) 0.4 mg PO DAILY [facility] Last Admin: 07/12/17 13:33 Dose: 0.4 mg Discontinued Medications Acetaminophen (Tylenol 325mg Tab) 650 mg PO STAT STA Stop: 07/12/17 09:34 Last Admin: 07/12/17 10:05 Dose: 650 mg MAR Pain/Vitals Document 07/12/17 10:05 MR (Rec: 07/12/17 10:06 MR [id number]) Pain Reassessment Is This A Pain ReAssessment? No Sleep Is patient sleeping during reassessment? No Presence of Pain Presence of Pain Yes Pain Scale Used Pain Scale Used Numeric Location Left, Right or Bilateral Right Pain Location Body Site Hip Intensity 2 Scale Used Numeric Aggravating Factors Changing Position Alleviating Factors Medication Vitals Temperature (97.6 F-99.6 F) 100.5 F Temperature Source Rectal Albuterol/Ipratropium (Duoneb 3 Mg/0.5 Mg (3 Ml) Ud) 3 ml IH STAT STA Stop: 07/12/17 11:16 Last Admin: 07/12/17 11:54 Dose: 3 ml Hydralazine HCl (Apresoline) 10 mg IVP ONCE ONE Stop: 07/12/17 16:36 Hydromorphone HCl (Dilaudid) 0.5 mg IVP Q15M PRN PRN Reason: Pain, moderate (4-7) Stop: 07/12/17 20:59 Lactated Ringer's (Lactated Ringer's) 1,000 mls @ 75 mls/hr IV .[id number] MIRA Stop: 07/12/17 21:01 Last Admin: 07/12/17 20:52 Dose: 75 mls/hr eMAR Start Stop Document 07/12/17 20:52 KAC (Rec: 07/12/17 20:52 [id number] Intravenous Solution Start Date 07/12/17 Start Time 20:52 Sodium Chloride (Sodium Chloride 0.9%) 250 mls @ 999 mls/hr IV .Q16M STA Stop: 07/13/17 06:26 Last Admin: 07/13/17 06:24 Dose: 999 mls/hr eMAR Start Stop Document 07/13/17 06:24 KAC (Rec: 07/13/17 06:25 KAC ADMIN-PC) Intravenous Solution Start Date 07/13/17 Start Time 06:24 End Date 07/13/17 End time 06:40 Total Infusion Time 16 Insulin Human Regular (Humulin R) 10 units SC STAT STA Stop: 07/12/17 10:27 Last Admin: 07/12/17 11:12 Dose: 10 units MAR Blood Glucose Document 07/12/17 11:12 MR (Rec: 07/12/17 11:12 MR [id number]) Blood Glucose Finger Stick Blood Glucose (70-120) 316 Subcutaneous Administrations Document 07/12/17 11:12 MR (Rec: 07/12/17 11:12 MR [id number]) Injection Site MAR Injection Site Left Abdomen Charges for Administration # of Subcutaneous Administrations 1 Pneumococcal Polyvalent Vaccine (Pneumovax 23 Vaccine) 0.5 ml IM .ONCE ONE Stop: 07/12/17 23:22 - PA / [employer] / Resident Statement /DO has reviewed & agrees with the documentation as recorded. MD/DO has examined the patient and agrees with the treatment plan. Disposition/Present on Arrival - Present on Arrival Any Indicators Present on Arrival: Yes History of DVT/PE: No History of Uncontrolled Diabetes: Yes Urinary Catheter: No History of Decub. Ulcer: No History Surgical Site Infection Following: None - Disposition Have Diagnosis and Disposition been Completed?: Yes Disposition Time: 11:27 Patient Plan: Telemetry - Disposition Diagnosis: Hip fracture, Fall, Uncontrolled diabetes mellitus, COPD (chronic obstructive pulmonary disease), CHF (congestive heart failure) Disposition: HOSPITALIZED Patient Problems: Current Active Problems Problem Status Onset CHF (congestive heart failure) Acute COPD (chronic obstructive pulmonary disease) Acute Fall Acute Hip fracture Acute Uncontrolled diabetes mellitus Acute Condition: GUARDED
[2017-07-12 09:48] LABS: BASO # 0.02 K/mm3 (0.0-2.0); BASO % 0.3 % (0.0-3.0); EOS # 0.1 (0.0-0.7); EOS % 1.5 % (1.5-5.0); GRAN # 5.7 (1.4-6.5); HEMOGLOBIN 13.3 g/dL (12.0-16.0); LYMPH # 0.9 (1.2-3.4); LYMPH % 12.4 % (22.0-35.0); MEAN CORPUSCULAR HEMOGLOBIN 29.8 pg (25.0-35.0); MEAN CORPUSCULAR HGB CONC 33.5 g/dl (31.0-37.0); MEAN PLATELET VOLUME 11.5 fl (7.0-11.0); MONO # 0.6 (0.1-0.6); MONO % 7.8 % (1.0-6.0); RBC 4.46 10^6/uL (3.5-6.1); RED CELL DISTRIBUTION WIDTH 15.9 % (11.5-14.5); WHITE BLOOD COUNT 7.3 10^3/ul (4.5-11.0)
[2017-07-12 09:51] LABS: VENOUS BLOOD GAS BASE EXCESS 2.2 mmol/L (0.0-2.0); VENOUS BLOOD GAS PO2 78 mm/Hg (30-55); VENOUS BLOOD PH 7.39 (7.32-7.43)
[2017-07-12 09:58] LABS: ALB/GLOB RATIO 1.2 (1.1-1.8); ALBUMIN 2.8 g/dL (3.0-4.8); ALT/SGPT 44 U/L (7-56); AST/SGOT 20 U/L (14-36); BLOOD UREA NITROGEN 16 mg/dL (7-21); CALCIUM 8.3 mg/dL (8.4-10.5); GFR AFRICAN-AMERICAN > 60; GFR NON-AFRICAN AMERICAN > 60; INR 1.08 (0.93-1.08); PROTHROMBIN TIME 12.4 SECONDS (9.4-12.5)
[2017-07-12 10:01] LABS: URINE BILIRUBIN SMALL (NEGATIVE); URINE BLOOD NEGATIVE (NEGATIVE); URINE GLUCOSE (UA) >=1000 mg/dL (NEGATIVE); URINE LEUKOCYTE ESTERASE NEGATIVE Leu/uL (NEGATIVE); URINE PROTEIN NEGATIVE mg/dL (<30 mg/dL); URINE UROBILINOGEN 0.2 E.U./dL (<1 E.U./dL)
[2017-07-12 10:02] LABS: URINE APPEARANCE CLEAR (CLEAR); URINE COLOR YELLOW (YELLOW)
[2017-07-12 10:07] LABS: TROPONIN I 0.02 ng/mL
[2017-07-12] MEDS ORDERED: Insulin Regular 1 UNITS/0.01 ML ML SC STA (10:26)
[2017-07-12] MEDS ORDERED: Albuterol-Ipratrop 3 mg / 0.5 (3 ml) UD IH STA (11:15)
--- NOTE | 2017-07-12 11:23 | CP.PCM.HP ---
History of Present Illness - History of Present Illness History of Present Illness: Medicine H&P for Dr. Hamilton Reason for consult: s/p fall, Right intertrochanteric femur fracture 82F with a PMH that includes Dementia, Afib on eliquis, DM, COPD, HTN who was brought in by EMS for fall at the care home. Patient was in the dining room when she fell on her R. hip. Patient is poor historian due to dementia. Patient is complaining of pain in right hip. She is unable to lift or straighten her leg. She rates pain as severe located in right hip without radiation. She is unable to describes the pain. Denies fever/chills, SOB, palpitations, chest pain , nausea/vomiting, diarrhea, abdominal pain, urinary symptoms. PMH: CAD, afib, COPD, DM2, HTN, HLD, Vitamin D deficiency, dementia Meds: As per EMR Allergy: NKDA PSH: unknown FH: unknown Social: denies tobacco/EtOH/illicit drug use, lives in nursing homes, needs assistance with ADLs Present on Admission - Present on Admission Any Indicators Present on Admission: No History of DVT/PE: No History of Uncontrolled Diabetes: No Urinary Catheter: No Decubitus Ulcer Present: No Review of Systems - Review of Systems All systems: reviewed and no additional remarkable complaints except (as per HPI ) Past Patient History - Infectious Disease Hx of Infectious Diseases: None - Past Social History Smoking Status: Former Smoker - CARDIAC Hx Pacemaker: No - PULMONARY Hx Chronic Obstructive Pulmonary Disease (COPD): Yes - NEUROLOGICAL Hx Neurological Disorder: Yes Hx Dementia: Yes - HEENT Hx HEENT Problems: Yes Hx Cataracts: Yes (bilateral) - RENAL Hx Chronic Kidney Disease: No - ENDOCRINE/METABOLIC Hx Diabetes Mellitus Type 2: Yes - HEMATOLOGICAL/ONCOLOGICAL Hx Cancer: No - INTEGUMENTARY Hx Dermatological Problems: Yes Other/Comment: BILATERAL ARM BRUISING - MUSCULOSKELETAL/RHEUMATOLOGICAL Hx Arthritis: Yes Hx Falls: Yes - GASTROINTESTINAL Hx Gastrointestinal Disorders: No - GENITOURINARY/GYNECOLOGICAL Hx Genitourinary Disorders: Yes Other/Comment: URGENCY - PSYCHIATRIC Hx Psychophysiologic Disorder: No Hx Substance Use: No - SURGICAL HISTORY Hx Mastectomy: No - ANESTHESIA Hx Anesthesia: Yes Hx Anesthesia Reactions: No Hx Malignant Hyperthermia: No Meds Allergies/Adverse Reactions: Allergies Allergy/AdvReac Type Severity Reaction Status Date / Time No Known Allergies Allergy Verified 07/12/17 09:09 Physical Exam - Constitutional Appears: No Acute Distress, Cachectic, Chronically Ill - Head Exam Head Exam: ATRAUMATIC, NORMOCEPHALIC - Eye Exam Eye Exam: EOMI, Normal appearance Pupil Exam: PERRL - ENT Exam ENT Exam: Mucous Membranes Moist - Respiratory Exam Respiratory Exam: Clear to Auscultation Bilateral, NORMAL BREATHING PATTERN. absent: Accessory Muscle Use, Respiratory Distress - Cardiovascular Exam Cardiovascular Exam: REGULAR RHYTHM, +S1, +S2 - GI/Abdominal Exam GI & Abdominal Exam: Soft. absent: Distended, Guarding, Rebound, Tenderness - Extremities Exam Extremities exam: Positive for: normal capillary refill, tenderness, pedal pulses present Additional comments: R hip immobile due to pain, TTP, sensation intact, - Back Exam Back exam: absent: CVA tenderness (L), CVA tenderness (R) - Neurological Exam Neurological exam: Alert - Psychiatric Exam Psychiatric exam: Flat Affect - Skin Skin Exam: Dry, Warm Additional comments: bilateral lower extremities with petechiae Results - Vital Signs Recent Vital Signs: Last Vital Signs Temp 100.5 F H 07/12/17 10:05 Pulse 89 07/12/17 09:17 Resp 19 07/12/17 09:17 BP 150/85 07/12/17 09:17 Pulse Ox 98 07/12/17 09:17 - Labs Result Diagrams: 07/12/17 09:35 07/12/17 09:35 Labs: Laboratory Results - last 24 hr 07/12/17 07/12/17 07/12/17 09:35 09:35 09:35 WBC 7.3 D RBC 4.46 Hgb 13.3 Hct 39.7 MCV 89.0 D MCH 29.8 MCHC 33.5 RDW 15.9 H Plt Count 151 MPV 11.5 H Gran % 78.0 H Lymph % (Auto) 12.4 L [place] % (Auto) 7.8 H Eos % (Auto) 1.5 Baso % (Auto) 0.3 Gran # 5.70 Lymph # (Auto) 0.9 L [place] # (Auto) 0.6 Eos # (Auto) 0.1 Baso # (Auto) 0.02 PT 12.4 INR 1.08 APTT 29.0 pO2 78 H VBG pH 7.39 VBG pCO2 46.0 VBG HCO3 27.8 VBG Total CO2 29.2 H VBG O2 Sat (Calc) 97.5 H VBG Base Excess 2.2 H VBG Potassium 4.6 Sodium 133.0 Chloride 100.0 Glucose 337 H Lactate 1.0 FiO2 21.0 Potassium Carbon Dioxide Anion Gap BUN Creatinine Est GFR ( Amer) Est GFR (Non-Af Amer) Random Glucose Calcium Total Bilirubin AST ALT Alkaline Phosphatase Lactate Dehydrogenase Total Creatine Kinase Troponin I NT-Pro-B Natriuret Pep Total Protein Albumin Globulin Albumin/Globulin Ratio Venous Blood Potassium 4.6 Urine Color Urine Appearance Urine pH Ur Specific [place] Urine Protein Urine Glucose (UA) Urine Ketones Urine Blood Urine Nitrate Urine Bilirubin Urine Urobilinogen Ur Leukocyte Esterase Influenza Typ A,B (EIA) 07/12/17 07/12/17 07/12/17 09:35 09:35 09:58 WBC RBC Hgb Hct MCV MCH MCHC RDW Plt Count MPV Gran % Lymph % (Auto) [place] % (Auto) Eos % (Auto) Baso % (Auto) Gran # Lymph # (Auto) Gordon # (Auto) Eos # (Auto) Baso # (Auto) PT INR APTT pO2 VBG pH VBG pCO2 VBG HCO3 VBG Total CO2 VBG O2 Sat (Calc) VBG Base Excess VBG Potassium Sodium 134 Chloride 102 Glucose Lactate FiO2 Potassium 4.5 Carbon Dioxide 26 Anion Gap 11 BUN 16 Creatinine 0.5 L Est GFR ( Amer) > 60 Est GFR (Non-Af Amer) > 60 Random Glucose 316 H* Calcium 8.3 L Total Bilirubin 1.1 AST 20 ALT 44 Alkaline Phosphatase 78 Lactate Dehydrogenase 548 Total Creatine Kinase 59 Troponin I 0.02 D NT-Pro-B Natriuret Pep Total Protein 5.1 L Albumin 2.8 L Globulin 2.3 Albumin/Globulin Ratio 1.2 Venous Blood Potassium Urine Color Yellow Urine Appearance Clear Urine pH 6.0 Ur Specific [place] 1.025 Urine Protein Negative Urine Glucose (UA) >=1000 Urine Ketones 15 H Urine Blood Negative Urine Nitrate Negative Urine Bilirubin Small H Urine Urobilinogen 0.2 Ur Leukocyte Esterase Negative Influenza Typ A,B (EIA) Negative for flu a/b 07/12/17 10:00 WBC RBC Hgb Hct MCV MCH MCHC RDW Plt Count MPV Gran % Lymph % (Auto) [place] % (Auto) Eos % (Auto) Baso % (Auto) Gran # Lymph # (Auto) Gordon # (Auto) Eos # (Auto) Baso # (Auto) PT INR APTT pO2 VBG pH VBG pCO2 VBG HCO3 VBG Total CO2 VBG O2 Sat (Calc) VBG Base Excess VBG Potassium Sodium Chloride Glucose Lactate FiO2 Potassium Carbon Dioxide Anion Gap BUN Creatinine Est GFR ( Amer) Est GFR (Non-Af Amer) Random Glucose Calcium Total Bilirubin AST ALT Alkaline Phosphatase Lactate Dehydrogenase Total Creatine Kinase Troponin I NT-Pro-B Natriuret Pep 2370 H Total Protein Albumin Globulin Albumin/Globulin Ratio Venous Blood Potassium Urine Color Urine Appearance Urine pH Ur Specific [place] Urine Protein Urine Glucose (UA) Urine Ketones Urine Blood Urine Nitrate Urine Bilirubin Urine Urobilinogen Ur Leukocyte Esterase Influenza Typ A,B (EIA) Assessment & Plan - Assessment and Plan (Free Text) Plan: 82 year old female with a past medical history significant for COPD, DM2, HTN, HLD, Vitamin D deficiency and dementia who presents from [facility] after she fell and was found to have Right intertrochanteric femur fracture 1. S/P Fall -Hip/pelvis XR shows Right intertrochanteric femur fracture -fall risk protocol -Ortho consult, Dr. Bettencourt, help appreciated -Possible OR today for repair 2. Right intertrochanteric femur fracture -Ortho consult, Dr. Bettencourt, help appreciated -Pre-operative work up - CXR, EKG, Type & Screen, Type & Cross, Coags -Cardio consult, Dr. Rivas, help appreciated -Tylenol PRN -High risk for surgery as per Cardiology -Possible OR today for repair 4. Pulmonary HTN -Echo showing severe pHTN with an RVSP of 101mmHg 5. COPD -Continue Breo Ellipta -Xopenex 6. DM2 -ISS -Accuchecks ACHS -Continue home meds -Diabetic education 7. History of Dementia -Continue Memantine 8. Atrial fibrillation Continue Cardizem 9. History of HTN -Continue Zestril 10. History of HLD -Continue Lipitor Prophylactic Measures: Colace Zofran Protonix Patient seen and evaluated with attending, Dr. Hamilton. Matthew Armstrong PGY1
--- NOTE | 2017-07-12 11:23 | RAD ---
HISTORY: SOB, fever COMPARISON: Chest radiograph 05/23/2017. FINDINGS: LUNGS: No acute infiltrate bilaterally. Trace linear atelectasis or fibrosis right base laterally. PLEURA: Fibrotic changes again seen blunting the right costophrenic sulcus versus chronic trace right pleural effusion. CARDIOVASCULAR: Normal cardiac size again noted. Prominent hilar vascular markings are reiterated without cephalization. OSSEOUS STRUCTURES: No significant abnormalities. VISUALIZED UPPER ABDOMEN: Normal. OTHER FINDINGS: None. IMPRESSION: Limited interval linear atelectasis or fibrosis right base laterally. No definite acute infiltrate bilaterally. Trace fibrosis right costophrenic sulcus versus chronic minimal right pleural effusion.
[2017-07-12 11:46] LABS: ARTERIAL BLOOD GAS HCO3 25.9 mmol/L (21-28); ARTERIAL BLOOD GAS O2 SAT 75.5 % (95-98); ARTERIAL BLOOD GAS PCO2 39 mm/Hg (35-45); ARTERIAL BLOOD GAS PH 7.43 (7.35-7.45); ARTERIAL BLOOD GAS TCO2 27.1 mmol.L (22-28)
[2017-07-12 12:37] VITALS: BMI 22.8
--- NOTE | 2017-07-12 12:38 | RAD ---
PROCEDURE: Right Hip and pelvis Radiographs. HISTORY: fall COMPARISON: None. FINDINGS: BONES: There is a comminuted intertrochanteric fracture of the right hip JOINTS: Normal. SOFT TISSUES: Normal. OTHER FINDINGS: None. IMPRESSION: Comminuted intertrochanteric fracture of the right hip
[2017-07-12] MEDS: BREO ELLIPTA IH SCH (13:35)
[2017-07-12] MEDS ORDERED: Pantoprazole 40 mg EC Tab PO SCH (16:00)
[2017-07-12] MEDS ORDERED: Bupivacaine 0.5% Inj(30mL) ONE (16:24)
[2017-07-12] MEDS: Levalbuterol 0.63 MG/3 ML Inhal Soln UD IH SCH ×2 (16:30→20:11)
[2017-07-12] MEDS ORDERED: Succinylcholine 200 mg/10 ml Inj IV ONE (16:39)
[2017-07-12] MEDS ORDERED: Etomidate 20 mg/10ml Inj IV ONE (16:40)
[2017-07-12] MEDS ORDERED: Phenylephrine 10 mg/ml Inj ONE (16:49)
[2017-07-12] MEDS ORDERED: ePHEDrine 50 mg/ml Inj ONE ×2 (16:51→18:17)
[2017-07-12] MEDS ORDERED: Sevoflurane - Inhalation Anesthetic Liq (250 ml) ONE (16:52)
[2017-07-12] MEDS ORDERED: Midazolam 2 MG/2 ML VIAL ONE (17:45)
[2017-07-12] MEDS ORDERED: Bacitracin Ointment 30 GM TUBE ONE (17:56)
[2017-07-12] MEDS ORDERED: Rocuronium 10 mg/ml (5 ml) ONE (18:16)
[2017-07-12] MEDS ORDERED: Esmolol 100 mg/10ml Inj IV ONE (18:23)
--- NOTE | 2017-07-12 18:28 | CARD ---
APPROVED REPORT EKG Measurement Heart [id number] <Conclusion> Sinus rhythm with premature atrial complexes Otherwise normal ECG
[2017-07-12] MEDS ORDERED: HYDROmorphone 0.5 mg/0.5 ml ISec IVP PRN (18:59)
[2017-07-12] MEDS ORDERED: Lactated Ringer's 1,000 ML IV SCH (19:00)
[2017-07-12] MEDS ORDERED: oxyCODONE 5 mg Immediate Release Tab PO PRN (19:06)
[2017-07-12] MEDS ORDERED: HYDROmorphone 0.5 mg/0.5 ml ISec ONE (19:46)
--- NOTE | 2017-07-12 20:08 | CP.PCM.CON ---
<Pipe Del Rosario - Last Filed: 07/12/17 23:17> History of Present Illness - History of Present Illness History of Present Illness: 82 year old Female with a PMH of Dementia, Afib on eliquis, DM, COPD, HTN who was [facility]. Patient is a poor historian and currently intubated. Medical history obtained from prior medical records. Patient was in the dining room when she fell on her Right hip. Patient is complaining of pain in right hip and was unable to lift her right leg. Patient had right hip ORIF and was left intubated due to numerous comorbidities. Patient will be brought to ICU for further care. ROS unavailable. PMH: CAD, afib, COPD, DM2, HTN, HLD, Vitamin D deficiency, dementia Meds: Reviewed, As per EMR Allergy: NKDA PSH: unknown FH: unknown Social: denies tobacco/alcohol/illicit drug use Review of Systems - Review of Systems Systems not reviewed;Unavailable: Intubated Past Patient History - Infectious Disease Hx of Infectious Diseases: None - Past Social History Smoking Status: Former Smoker - CARDIAC Hx Pacemaker: No - PULMONARY Hx Chronic Obstructive Pulmonary Disease (COPD): Yes - NEUROLOGICAL Hx Neurological Disorder: Yes Hx Dementia: Yes - HEENT Hx HEENT Problems: Yes Hx Cataracts: Yes (bilateral) - RENAL Hx Chronic Kidney Disease: No - ENDOCRINE/METABOLIC Hx Diabetes Mellitus Type 2: Yes - HEMATOLOGICAL/ONCOLOGICAL Hx Cancer: No - INTEGUMENTARY Hx Dermatological Problems: Yes Other/Comment: BILATERAL ARM BRUISING - MUSCULOSKELETAL/RHEUMATOLOGICAL Hx Arthritis: Yes Hx Falls: Yes - GASTROINTESTINAL Hx Gastrointestinal Disorders: No - GENITOURINARY/GYNECOLOGICAL Hx Genitourinary Disorders: Yes Other/Comment: URGENCY - PSYCHIATRIC Hx Psychophysiologic Disorder: No Hx Substance Use: No - SURGICAL HISTORY Hx Mastectomy: No - ANESTHESIA Hx Anesthesia: Yes Hx Anesthesia Reactions: No Hx Malignant Hyperthermia: No Meds Allergies/Adverse Reactions: Allergies Allergy/AdvReac Type Severity Reaction Status Date / Time No Known Allergies Allergy Verified 07/12/17 09:09 - Medications Medications: Current Medications Acetaminophen (Tylenol 325mg Tab) 650 mg PO Q6 PRN PRN Reason: Headache Acetaminophen (Tylenol 650 Mg Supp) 650 mg RC Q6H PRN PRN Reason: Headache Acetaminophen (Tylenol 325mg Tab) 650 mg PO Q6 PRN PRN Reason: TEMP>=99.5F Acetaminophen (Tylenol 650 Mg Supp) 650 mg RC Q6H PRN PRN Reason: TEMP>=99.5F Atorvastatin Calcium (Lipitor) 40 mg PO HS [facility] Diltiazem HCl (Cardizem) 30 mg PO TID [facility] Last Admin: 07/12/17 14:35 Dose: 30 mg Docusate Sodium (Colace) 100 mg PO TID [facility] Last Admin: 07/12/17 14:34 Dose: 100 mg Enoxaparin Sodium (Lovenox) 40 mg SC Q24H [facility] PRN Reason: Protocol Heparin Sodium (Porcine) (Heparin) 5,000 units SC Q8H [facility] PRN Reason: Protocol Last Admin: 07/12/17 13:33 Dose: 5,000 units Hydromorphone HCl (Dilaudid) 0.5 mg IVP Q15M PRN PRN Reason: Pain, moderate (4-7) Stop: 07/12/17 20:59 Hydromorphone HCl (Dilaudid) 0.5 mg IVP Q4H PRN PRN Reason: Pain, severe (8-10) Lactated Ringer's (Lactated Ringer's) 1,000 mls @ 75 mls/hr IV .[id number] [facility] Stop: 07/12/17 21:01 Cefazolin Sodium 2 gm/ Sodium (Chloride) 100 mls @ 200 mls/hr IVPB Q8H [facility] PRN Reason: Protocol Stop: 07/13/17 10:29 Insulin Human Lispro (Humalog Med) 0 units SC ACHS [facility] PRN Reason: Protocol Levalbuterol HCl (Xopenex) 0.63 mg IH QIDRESP [facility] Last Admin: 07/12/17 16:30 Dose: 0.63 mg Lisinopril (Zestril) 5 mg PO DAILY [facility] Magnesium Oxide (Mag-Ox) 400 mg PO BID [facility] Memantine (Namenda) 5 mg PO BID [facility] Breo Ellipta 100-25 Mcg Inh] (Home Med) 1 puff IH DAILY [facility] Last Admin: 07/12/17 13:35 Dose: Not Given Ondansetron HCl (Zofran Inj) 4 mg IVP Q4H PRN PRN Reason: Nausea/Vomiting Oxycodone HCl (Oxycodone Immediate Release Tab) 5 mg PO Q6H PRN PRN Reason: Pain, moderate (4-7) Pantoprazole Sodium (Protonix Ec Tab) 40 mg PO 0600,1600 [facility] Tamsulosin HCl (Flomax) 0.4 mg PO DAILY [facility] Last Admin: 07/12/17 13:33 Dose: 0.4 mg Physical Exam - Constitutional Appears: Non-toxic, No Acute Distress - Head Exam Head Exam: ATRAUMATIC, NORMAL INSPECTION, NORMOCEPHALIC - Eye Exam Eye Exam: Normal appearance. absent: Scleral icterus - ENT Exam ENT Exam: Mucous Membranes Moist - Respiratory Exam Respiratory Exam: Decreased Breath Sounds, Rhonchi. absent: Accessory Muscle Use, Rales, Wheezes Additional comments: Intubated - Cardiovascular Exam Cardiovascular Exam: RRR, +S1, +S2 - GI/Abdominal Exam GI & Abdominal Exam: Normal Bowel Sounds, Soft. absent: Rebound, Tenderness - Extremities Exam Extremities exam: Positive for: normal inspection. Negative for: calf tenderness, pedal edema Additional comments: Right hip, bandaged - Neurological Exam Neurological exam: Alert Additional comments: Responds to commands appropriately - Skin Skin Exam: Intact, Normal Color, Warm Results - Vital Signs Recent Vital Signs: Last Vital Signs Temp 98.4 F 07/12/17 19:40 Pulse 111 H 07/12/17 19:40 Resp 17 07/12/17 19:40 BP 125/62 07/12/17 19:40 Pulse Ox 100 07/12/17 19:40 - Labs Result Diagrams: 07/12/17 09:35 07/12/17 09:35 Labs: Laboratory Results - last 24 hr 07/12/17 07/12/17 11:59 15:48 POC Glucose (mg/dL) 278 H Blood Type O POSITIVE Antibody Screen Negative Crossmatch See Detail BBK History Checked No verified bt Assessment & Plan - Assessment and Plan (Free Text) Plan: 82 F with a PMH of Dementia, Afib on eliquis, DM, COPD, HTN presents with hypoxic respiratory failure s/p right hip ORIF. Patient will be monitored in the ICU overnight. Patient is currently not on sedation. Hold anticoagulation at this time. We will continue current medical management. Neuro: Alert, no sedation Cardio: Hemodynamically stable Maintain MAP > 65 Hold anticoagulation Pulm: Intubated Maintain O2 sat > 90% GI: Protonix NPO Renal: Replenish electrolytes as needed Maintain euvolemia Heme/ID: Ancef during surgery No DVT ppx at this time due to surgery MSK: S/p right hip orif Dilaudid and Oxycodone for pain Endo: ISS Maintain euglycemia Miguel Ángel, PGY-2 <Kate CORDOBA,Jacobo - Last Filed: 07/13/17 10:33> Meds - Medications Medications: Current Medications Acetaminophen (Tylenol 325mg Tab) 650 mg PO Q6 PRN PRN Reason: Headache Acetaminophen (Tylenol 650 Mg Supp) 650 mg RC Q6H PRN PRN Reason: Headache Acetaminophen (Tylenol 325mg Tab) 650 mg PO Q6 PRN PRN Reason: TEMP>=99.5F Acetaminophen (Tylenol 650 Mg Supp) 650 mg RC Q6H PRN PRN Reason: TEMP>=99.5F Atorvastatin Calcium (Lipitor) 40 mg PO HS [facility] Last Admin: 07/12/17 22:56 Dose: Not Given Docusate Sodium (Colace) 100 mg PO TID [facility] Last Admin: 07/12/17 14:34 Dose: 100 mg Enoxaparin Sodium (Lovenox) 40 mg SC Q24H [facility] PRN Reason: Protocol Hydromorphone HCl (Dilaudid) 0.5 mg IVP Q4H PRN PRN Reason: Pain, severe (8-10) Last Admin: 07/12/17 22:50 Dose: 0.5 mg Sodium Chloride (Sodium Chloride 0.9%) 1,000 mls @ 125 mls/hr IV .Q8H [facility] Insulin Human Lispro (Humalog High) 0 units SC Q6H [facility] PRN Reason: Protocol Last Admin: 07/13/17 09:30 Dose: 15 units Levalbuterol HCl (Xopenex) 0.63 mg IH QIDRESP [facility] Last Admin: 07/12/17 20:11 Dose: Not Given Magnesium Oxide (Mag-Ox) 400 mg PO BID [facility] Memantine (Namenda) 5 mg PO BID [facility] Breo Ellipta 100-25 Mcg Inh] (Home Med) 1 puff IH DAILY [facility] Last Admin: 07/12/17 13:35 Dose: Not Given Ondansetron HCl (Zofran Inj) 4 mg IVP Q4H PRN PRN Reason: Nausea/Vomiting Tamsulosin HCl (Flomax) 0.4 mg PO DAILY [facility] Last Admin: 07/12/17 13:33 Dose: 0.4 mg Results - Vital Signs Recent Vital Signs: Last Vital Signs Temp 97.5 F L 07/13/17 00:00 Pulse 101 H 07/13/17 09:29 Resp 17 07/12/17 23:02 BP 79/30 L 07/13/17 09:29 Pulse Ox 100 07/12/17 22:20 - Labs Result Diagrams: 07/13/17 05:50 07/13/17 06:45 Labs: Laboratory Results - last 24 hr 07/12/17 07/12/17 07/12/17 11:59 15:48 16:14 WBC RBC Hgb Hct MCV MCH MCHC RDW Plt Count Manual Plt Count MPV pCO2 pO2 HCO3 ABG pH ABG Total CO2 ABG O2 Saturation ABG O2 Content ABG Base Excess ABG Hemoglobin ABG Carboxyhemoglobin POC ABG HHb (Measured) ABG Methemoglobin ABG O2 Capacity Hgb O2 Saturation FiO2 Sodium Potassium Chloride Carbon Dioxide Anion Gap BUN Creatinine Est GFR ( Amer) Est GFR (Non-Af Amer) POC Glucose (mg/dL) 278 H 183 H Random Glucose Calcium Phosphorus Magnesium Total Bilirubin Direct Bilirubin AST ALT Alkaline Phosphatase Total Protein Albumin Globulin Albumin/Globulin Ratio Blood Type O POSITIVE Blood Type Confirm Antibody Screen Negative Crossmatch See Detail BBK History Checked No verified bt 07/12/17 07/12/17 07/13/17 16:43 23:50 00:45 WBC 11.0 D RBC 3.99 Hgb 12.0 Hct 37.1 MCV 93.0 D MCH 30.1 MCHC 32.3 RDW 16.3 H Plt Count 114 L Manual Plt Count MPV 12.3 H pCO2 42 pO2 198.0 H HCO3 21.6 ABG pH 7.32 L ABG Total CO2 22.9 ABG O2 Saturation 99.3 H ABG O2 Content 15.9 ABG Base Excess -4.3 L ABG Hemoglobin 11.4 L ABG Carboxyhemoglobin 2.2 H POC ABG HHb (Measured) 0.7 ABG Methemoglobin 0.9 ABG O2 Capacity 16.0 Hgb O2 Saturation 96.3 FiO2 80.0 Sodium Potassium Chloride Carbon Dioxide Anion Gap BUN Creatinine Est GFR ( Amer) Est GFR (Non-Af Amer) POC Glucose (mg/dL) Random Glucose Calcium Phosphorus Magnesium Total Bilirubin Direct Bilirubin AST ALT Alkaline Phosphatase Total Protein Albumin Globulin Albumin/Globulin Ratio Blood Type Blood Type Confirm O POSITIVE Antibody Screen Crossmatch BBK History Checked 07/13/17 07/13/17 07/13/17 05:50 05:50 05:50 WBC 7.8 D RBC 3.66 Hgb 10.7 L Hct 34.6 L MCV 94.5 MCH 29.2 MCHC 30.9 L RDW 16.6 H Plt Count 105 L Manual Plt Count 125 MPV pCO2 pO2 HCO3 ABG pH ABG Total CO2 ABG O2 Saturation ABG O2 Content ABG Base Excess ABG Hemoglobin ABG Carboxyhemoglobin POC ABG HHb (Measured) ABG Methemoglobin ABG O2 Capacity Hgb O2 Saturation FiO2 Sodium Potassium Chloride Carbon Dioxide Anion Gap BUN Creatinine Est GFR ( Amer) Est GFR (Non-Af Amer) POC Glucose (mg/dL) Random Glucose Calcium Phosphorus 7.9 H Magnesium 2.0 Total Bilirubin Direct Bilirubin AST ALT Alkaline Phosphatase Total Protein Albumin Globulin Albumin/Globulin Ratio Blood Type Blood Type Confirm Antibody Screen Crossmatch BBK History Checked 07/13/17 07/13/17 07/13/17 06:45 08:16 10:03 WBC RBC Hgb Hct MCV MCH MCHC RDW Plt Count Manual Plt Count MPV pCO2 pO2 HCO3 ABG pH ABG Total CO2 ABG O2 Saturation ABG O2 Content ABG Base Excess ABG Hemoglobin ABG Carboxyhemoglobin POC ABG HHb (Measured) ABG Methemoglobin ABG O2 Capacity Hgb O2 Saturation FiO2 Sodium 133 Potassium 5.5 H Chloride 101 Carbon Dioxide 15 L Anion Gap 22 H BUN 23 H Creatinine 1.5 H Est GFR ( Amer) 40 Est GFR (Non-Af Amer) 33 POC Glucose (mg/dL) > 500 H* > 500 H* Random Glucose 602 H* D Calcium 7.7 L Phosphorus Magnesium Total Bilirubin 1.6 H Direct Bilirubin 0.8 H AST 244 H D ALT 132 H Alkaline Phosphatase 62 Total Protein 4.1 L Albumin 2.1 L Globulin 2.0 Albumin/Globulin Ratio 1.0 L Blood Type Blood Type Confirm Antibody Screen Crossmatch BBK History Checked Attending/Attestation - Attestation I have personally seen and examined this patient.: Yes I have fully participated in the care of the patient.: Yes I have reviewed all pertinent clinical information: Yes Notes (Text): -I agree with the above ICU consult note completed by the resident physician with the following additions and/or changes: -The patient is an 82 year old woman with a history of severe pulmonary HTN, severe COPD (on home O2), paroxysmal atrial fibrillation (on Eliquis), IDDM, dementia and CAD who was is s/p right hip ORIF, POD#0. Because of the patients numerous, medical co-morbidities and because she underwent the procedure while on Eliquis, she will be monitored in the ICU overnight. Repeat CBC and VBG will be checked overnight. Critical Care Time Spent: 90-120 minutes
[2017-07-12] MEDS: Insulin Lispro (humaLOG) MEDIUM Coverage SC SCH (22:47)
[2017-07-12] MEDS: HYDROmorphone 0.5 mg/0.5 ml ISec IVP PRN (22:50)
[2017-07-12] MEDS ORDERED: Influenza Vaccine 60 mcg/0.5 mL SYR (4YR UP) IM ONE (23:21)
[2017-07-12] MEDS ORDERED: Pneumococcal 23-Valent Vaccine IM ONE (23:21)
[2017-07-13 00:18] LABS: MEAN CORPUSCULAR HEMOGLOBIN 30.1 pg (25.0-35.0); MEAN CORPUSCULAR HGB CONC 32.3 g/dl (31.0-37.0); MEAN PLATELET VOLUME 12.3 fl (7.0-11.0); RBC 3.99 10^6/uL (3.5-6.1); RED CELL DISTRIBUTION WIDTH 16.3 % (11.5-14.5)
[2017-07-13 00:48] LABS: ARTERIAL BLOOD GAS HCO3 21.6 mmol/L (21-28); ARTERIAL BLOOD GAS HEMOGLOBIN 11.4 g/dL (11.7-17.4); ARTERIAL BLOOD GAS O2 CONTENT 15.9 ML/dl (15-23); ARTERIAL BLOOD GAS O2 SAT 99.3 % (95-98); ARTERIAL BLOOD GAS PCO2 42 mm/Hg (35-45); ARTERIAL BLOOD GAS PH 7.32 (7.35-7.45); ARTERIAL BLOOD GAS TCO2 22.9 mmol.L (22-28)
--- NOTE | 2017-07-13 01:00 | CON ---
DATE: 07/12/2017 CARDIOLOGY CONSULTATION HISTORY OF PRESENT ILLNESS: The patient is an 82-year-old woman who [facility] with a resultant fracture in the right hip. The patient denies loss of consciousness. The patient's past medical history is notable for severe COPD secondary to long-term smoking. She continues to smoke. She admits to mild shortness of breath. Her cardiac risk factors include diabetes mellitus and hypertension. In addition, her evaluation last month for exacerbation of COPD revealed good LV function; however, the patient has severe pulmonary hypertension. She does admit to occasional edema in the lower extremities. SOCIAL HISTORY: The patient is in a penitentiary and says that she has just recently stopped smoking. REVIEW OF SYSTEMS: A 14-point review of systems was reviewed in detail. No angina noted. The rest of her symptoms are as described above. PHYSICAL EXAMINATION: VITAL SIGNS: Blood pressure is 150/85, heart rate is in the 80s, temperature is 99.6. NECK: Positive JVD. LUNGS: Bilateral rhonchi. HEART: Reveals S1, S2. EXTREMITIES: Mottled with excoriations throughout. EKG shows normal sinus rhythm with nonspecific ST-T changes. LABORATORY DATA: Hemoglobin is 13.3. BUN and creatinine are unremarkable. The troponin is negative. The ProBNP is 2370 with a glucose of 316. IMPRESSION: 1. Status post fall without admitted syncope. 2. Severe pulmonary hypertension. 3. Fracture of the right hip. 4. Diabetes mellitus. 5. Hypertension. 6. Hypercholesterolemia. 7. Severe chronic obstructive pulmonary disease. 8. Paroxysmal atrial fibrillation, treated with Eliquis. PLAN: Given these findings, the patient is at high risk for any anesthesia for surgery for her fractured hip. A careful risk-benefit assessment would be necessary. She is at increased risk for respiratory failure during any anesthesia. Gurpreet Rivas MD
[2017-07-13] MEDS: ceFAZolin 2 GM in Sodium Chloride 0.9% 100 ML IVPB SCH ×2 (02:25→12:06)
--- NOTE | 2017-07-13 05:02 | HP ---
HISTORY OF PRESENT ILLNESS: Patient is an 82-year-old female transferred from [facility] for evaluation of status post fall, and patient had x-ray done in the care home, which shows right femoral intertrochanteric fracture. Primary care physician is Dr. Lucio Melendez, who sent the patient to the emergency room for evaluation of the right intertrochanteric fracture. Patient herself is a poor historian because of history of dementia. Patient was seen and examined in bed 7 in the emergency room. Patient's vital signs, diagnostic data, imaging studies all reviewed. Please refer to the history and physical examination for complete details of history and physical examination. IMPRESSION: 1. Status post possible mechanical fall. 2. Uncontrolled hypertension. 3. Bilateral lower extremity flexion contracture. 4. Glycosuria. 5. Low-grade fever of 100.5. 6. Mild hypoxemia. 7. Granulocytosis. 8. Hypertensive cardiovascular disease. 9. History of gait dysfunction and recurrent fall. 10. Hypovitaminosis D. 11. Chronic microvascular ischemic disease of the brain with cerebral cortical atrophy of the brain. 12. Deconditioning. 13. Hypercholesteremia. 14. Sepsis secondary to extended spectrum beta lactamase Escherichia coli urinary tract infection. 15. History of acute exacerbation of chronic obstructive pulmonary disease. 16. Alzheimer's type dementia. 17. Hyperuricemia. 18. Bihemispheric cerebral dysfunction. 19. Delirium, encephalopathy, sundowning with dementia and episodic confusion and disorientation. 20. Questionable narrowing of the mid left internal carotid artery versus tortuosity. 21. Uncontrolled insulin-requiring diabetes mellitus with hyper and hypoglycemia, hemoglobin A1c of 9.7. 22. Left ventricular ejection fraction of 53%. 23. Severe tricuspid regurgitation. 24. Concentric left ventricular hypertrophy. 25. Grade 1 abnormal relaxation pattern. 26. Bilateral 40% to 59% proximal internal carotid artery stenosis. 27. Onychomycosis and hyperkeratosis of the toes. 28. Pancreatic atrophy. 29. Left renal cyst. 30. Colonic diverticulosis. 31. Ventral abdominal hernia containing multiple bowel loops, nonobstructive. 32. Hysterectomy. 33. 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 34. Healthcare-associated left lower lobe pneumonia, atelectasis, nodule, and consolidation. 35. Right middle lobe, right lower lobe atelectasis. 36. Bilateral centrilobular emphysema. 37. Right thyroid lobe calcified cyst or nodule. 38. Left thyroid lobe hyperdense nodule. 39. Thoracic spine kyphosis. 40. Precarinal and mediastinal lymphadenopathy. 41. Dyslipidemia. 42. Hypomagnesemia. 43. Funguria with extended spectrum beta-lactamase Escherichia coli urinary tract infection. 44. Right-sided diastolic congestive heart failure with elevated BNP and severe pulmonary arterial hypertension and elevated right ventricular systolic pressure of greater than 100. 45. Abdominal aortic atherosclerotic calcification. 46. History of healthcare-associated bilateral multilobar pneumonia. 47. L2 anterior wedge compression deformity of indeterminate age. 48. Dextroscoliosis of the lumbar spine. 49. Lactic acidosis. 50. Eliquis-requiring atrial fibrillation. 51. Urinary bladder dysfunction. 52. Hypokalemia. 53. Hyperlipidemia. 54. Right hip intertrochanteric femoral fracture. PLAN: A this time, patient will be admitted to [facility]. Consultation with Orthopedics and Cardiology was requested. Patient appears to be at least [id number] risk for surgical intervention for the right hip fracture. Awaiting Cardiology evaluation. Patient will be started on Tylenol p.r.n. for fever, Lipitor 40 mg daily. Patient will be resumed on Breo Ellipta 100/25 daily, Cardizem 30 mg three times a day, Colace 100 mg three times a day, heparin subcutaneously every 8 hours after surgery if indicated, Humalog medium dose sliding scale coverage, Xopenex 0.63 mg four times a day, Zestril 5 mg daily, magnesium oxide 400 mg twice a day, Namenda 5 mg twice a day, Zofran 4 mg IV every 4 hours p.r.n., Protonix 40 mg twice a day, Flomax 0.4 mg daily. In addition, patient's other home medications, which patient has been taking at the care home are Aricept 5 mg at bedtime, aspirin 81 mg daily, Cardizem 30 mg every 8 hours, Drisdol 50,000 units once or twice a week, Eliquis 2.5 mg twice a day, Flomax 0.4 mg daily, Breo 100/25 mcg 1 puff daily, Humalog high-dose sliding scale coverage with meals, Humalog Mix 75/25 at 10 units with breakfast, 10 units with supper. Patient is on K-Dur 20 mEq daily, Levemir 10 units at bedtime, Lipitor 40 mg daily, magnesium oxide 400 mg twice a day, Namenda 5 mg twice a day, Pepcid 20 mg daily, Revatio 20 mg three times a day, Seroquel 12.5 mg at bedtime, Tylenol p.r.n., vitamin D3 at 2000 International Units daily, Xopenex nebulizer 0.63 mg four times a day, Zestril 5 mg daily, allopurinol 300 mg daily. Patient was seen in the emergency room, bed 7. Patient is awaiting for a telemetry bed. Patient is awaiting Cardiology evaluation, Orthopedic evaluation. The patient had presented with current multiple comorbidities, patient is at least [id number] risk for surgical intervention. Patient's further management will be dependent upon the patient's clinical condition, hemodynamic status and as per the patient's response to therapeutic intervention. Please refer to the detailed history and physical examination done by the medical claims examiner for further details. Dictated and electronically signed, not read. Diego Hamilton MD
--- NOTE | 2017-07-13 05:34 | OP ---
PROCEDURE DATE: 07/12/2017 PREOPERATIVE DIAGNOSIS: Right hip intertrochanteric fracture. POSTOPERATIVE DIAGNOSIS: Right hip intertrochanteric fracture. PROCEDURE: Open reduction and internal fixation of right hip fracture with intramedullary nail. SURGEON: Raz Siu MD ASSISTANTS: Dr. Siu was assisted by Michelle Rasheed the physician diver assistant. Ms. Rasheed was scrubbed and present throughout the entire case and assisted in patient positioning, fracture reduction as well as wound closure. TYPE OF ANESTHESIA: General. COMPLICATIONS: None. ESTIMATED BLOOD LOSS: 40 mL. IMPLANT: Biomet trochanteric entry hip nail. INDICATIONS FOR PROCEDURE: This is an 82-year-old female, who presented status post fall yesterday from the senior care with complaints of right hip pain. Clinical examination was pain with passive range of motion of the right hip. Radiographic examination was consistent with a right hip intertrochanteric fracture. Recommendations were for open reduction and internal fixation once the patient was medically optimized. The patient was preoperatively seen by the Medicine and the Cardiology services. The risks, benefits, and alternatives of the procedure were discussed with the patient's daughter and informed consent was obtained. DESCRIPTION OF PROCEDURE: After the surgical site was signed and verified in the preoperative holding area, the patient was taken to the operating room and placed supine on the operating room table. After administration of general anesthesia, the patient received 2 g of Ancef IV. The patient was positioned on the fracture table - the right lower extremity in the traction boot. The left lower extremity was gently flexed away from the operative field and well padded. At this point, the C-arm image intensifier was brought in and a closed reduction was performed. Reduction was checked using the image intensifier in both AP and lateral planes. At this point, the right lower extremity was prepped and draped in the usual sterile fashion. The bony landmarks were identified about the proximal femur and an approximately 3-cm incision was made proximal to the tip of the greater trochanter. Soft tissue was dissected bluntly down to the tip of the trochanter, and a guide pin for entry hole was placed on the tip of the trochanter. This was confirmed using an image intensifier in both AP and lateral planes. The guide pin was then inserted into the proximal femur. At this point, satisfied with the position of the guide pin, a step drill was used to drill our entry hole. The guide pin was then exchanged for a smooth-tip guidewire, and again, the position of the guidewire as well as the reduction was checked using the image intensifier. Satisfied, the 23-cm nail was then inserted over the guidewire and reassessed the appropriate depth. The guidewire was removed through the outrigger jig and through a small incision on the lateral aspect of the proximal thigh. The sleeves for hip screw were then inserted on to the lateral cortex of the femur. The hip screw was then drilled in the roughly center-center position. This was checked using the image intensifier. Satisfied, the length of our screw was measured and a step drill was used to drill our hole. The appropriate-length screw was then inserted and reassessed the appropriate depth. The fracture reduction as well as the position of the screw was confirmed using the C-arm. Satisfied, the screw was then locked to the nail by screwing down on the set screw on the proximal aspect of the nail. Finally, the nail was locked statically through a small incision on the distal aspect of the thigh. At this point, the outrigger jig was removed and final x-rays were taken, confirming excellent satisfactory reduction as well as good position of the hardware. All the wounds were copiously irrigated and closed using layered fashion. A sterile dressing was applied. The patient was transferred to the stretcher - still intubated and taken to the recovery room in stable condition. Raz Siu MD
[2017-07-13] MEDS ORDERED: Sodium Chloride 0.9% 250 ML IV STA (06:11)
[2017-07-13 07:07] LABS: HEMOGLOBIN 10.7 g/dL (12.0-16.0); MEAN CELL VOLUME 94.5 fl (80.0-105.0); MEAN CORPUSCULAR HEMOGLOBIN 29.2 pg (25.0-35.0); MEAN CORPUSCULAR HGB CONC 30.9 g/dl (31.0-37.0); RBC 3.66 10^6/uL (3.5-6.1); RED CELL DISTRIBUTION WIDTH 16.6 % (11.5-14.5); WHITE BLOOD COUNT 7.8 10^3/ul (4.5-11.0)
[2017-07-13] MEDS ORDERED: DOBUTamine 500mg/250ml D5W 500 MG/250 ML BAG IV PRN (07:34)
[2017-07-13] MEDS ORDERED: DOBUTamine 500mg/250ml D5W 500 MG/250 ML BAG ONE (07:37)
[2017-07-13] MEDS: Insulin Lispro (humaLOG) MEDIUM Coverage SC SCH (07:53)
[2017-07-13] MEDS: Levalbuterol 0.63 MG/3 ML Inhal Soln UD IH SCH ×4 (08:05→19:39)
--- NOTE | 2017-07-13 08:43 | RAD ---
PROCEDURE: Postoperative study right hip HISTORY: s/p ORIF R hip fx COMPARISON: Preoperative examination 07/12/2017 TECHNIQUE: Standard protocol for this study/examination. FINDINGS: Position alignment of major fracture fragments are anatomic. Visualized orthopedic hardware in satisfactory position and alignment. Degenerative changes both femoral acetabular relationships. IMPRESSION: Satisfactory postoperative status.
[2017-07-13 08:47] LABS: PLATELET COUNT 105 10^3/uL (120.0-450.0)
--- NOTE | 2017-07-13 08:59 | RAD ---
HISTORY: Intubated COMPARISON: July 12, 2017. FINDINGS: LUNGS: No active pulmonary disease. PLEURA: No significant pleural effusion identified, no pneumothorax apparent. CARDIOVASCULAR: No radiographic findings to suggest acute or significant cardiovascular disease. OSSEOUS STRUCTURES: No significant abnormalities. VISUALIZED UPPER ABDOMEN: Normal. OTHER FINDINGS: Satisfactory position of recently placed endotracheal tube. The tip 6 cm above the asya. IMPRESSION: No active disease. Satisfactory position of recently placed endotracheal tube.
[2017-07-13] MEDS ORDERED: Insulin Lispro (humaLOG) MEDIUM Coverage SC SCH (09:00)
[2017-07-13] MEDS ORDERED: DOPamine 400mg/250ml D5W 400 MG/250 ML BAG IV ONE (09:11)
[2017-07-13 09:13] LABS: ALBUMIN 2.1 g/dL (3.0-4.8); BILIRUBIN,DIRECT 0.8 mg/dL (0.0-0.4); CALCIUM 7.7 mg/dL (8.4-10.5)
[2017-07-13] MEDS: Insulin Lispro (HUMAlog) HIGH Coverage SC SCH ×3 (09:30→22:15)
--- NOTE | 2017-07-13 09:37 | PN ---
DATE: 07/13/2017 CARDIOLOGY FOLLOWUP The patient is status post surgery for her fractured right hip. The patient remains on a ventilator. OBJECTIVE VITAL SIGNS: Blood pressure is 80 systolic, heart rate is 100, in normal sinus rhythm. NECK: Negative JVD. LUNGS: Clear to auscultation. HEART: Reveals S1, S2. EXTREMITIES: Without change. LABORATORY DATA: Hemoglobin is 10.7, glucose is greater than 500, the creatinine is 0.5 IMPRESSION 1. Status post fall. 2. Status post surgery for hip fracture. 3. Hypotension. 4. Normal left ventricular function. 5. Severe pulmonary hypertension. 6. Severe chronic obstructive pulmonary disease. Given these findings, we will stop her dobutamine, which had no effect on her blood pressure. We will give her 200 mL of IV normal saline bolus. If her pressure does not respond, we will begin dopamine. Gurpreet Rivas MD
--- NOTE | 2017-07-13 10:04 | CP.PCM.PN ---
Subjective - Date & Time of Evaluation Date of Evaluation: 07/13/17 Time of Evaluation: 09:38 - Subjective Subjective: Patient POD#1 s/p ORIF right hip fx. Patient in ICU intubated. Patient BP running 80s/30s. afebrile WBC: 7.8 hgb 10.7 R hip: the dressings are dry and intact. Neurological exam is limited due to patient being intubated POD#1 s/p ORIF R hip fx Continue critical care management Will begin PT with WBAT once patient is extubated and hemodynamically stable Objective - Vital Signs/Intake and Output Vital Signs (last 24 hours): Temp Pulse Resp BP Pulse Ox 97.5 F L 101 H 17 79/30 L 100 07/13/17 00:00 07/13/17 09:29 07/12/17 23:02 07/13/17 09:29 07/12/17 22:20 Intake and Output: 07/13/17 07/13/17 06:59 18:59 Intake Total 1150 Output Total 300 Balance 850 - Medications Medications: Current Medications Acetaminophen (Tylenol 325mg Tab) 650 mg PO Q6 PRN PRN Reason: Headache Acetaminophen (Tylenol 650 Mg Supp) 650 mg RC Q6H PRN PRN Reason: Headache Acetaminophen (Tylenol 325mg Tab) 650 mg PO Q6 PRN PRN Reason: TEMP>=99.5F Acetaminophen (Tylenol 650 Mg Supp) 650 mg RC Q6H PRN PRN Reason: TEMP>=99.5F Atorvastatin Calcium (Lipitor) 40 mg PO HS [facility] Last Admin: 07/12/17 22:56 Dose: Not Given Docusate Sodium (Colace) 100 mg PO TID [facility] Last Admin: 07/12/17 14:34 Dose: 100 mg Enoxaparin Sodium (Lovenox) 40 mg SC Q24H [facility] PRN Reason: Protocol Hydromorphone HCl (Dilaudid) 0.5 mg IVP Q4H PRN PRN Reason: Pain, severe (8-10) Last Admin: 07/12/17 22:50 Dose: 0.5 mg Cefazolin Sodium 2 gm/ Sodium (Chloride) 100 mls @ 200 mls/hr IVPB Q8H [facility] PRN Reason: Protocol Stop: 07/13/17 10:29 Last Admin: 07/13/17 02:25 Dose: 200 mls/hr Sodium Chloride (Sodium Chloride 0.9%) 1,000 mls @ 125 mls/hr IV .Q8H [facility] Insulin Human Lispro (Humalog High) 0 units SC Q6H [facility] PRN Reason: Protocol Last Admin: 07/13/17 09:30 Dose: 15 units Levalbuterol HCl (Xopenex) 0.63 mg IH QIDRESP [facility] Last Admin: 07/12/17 20:11 Dose: Not Given Magnesium Oxide (Mag-Ox) 400 mg PO BID [facility] Memantine (Namenda) 5 mg PO BID [facility] Breo Ellipta 100-25 Mcg Inh] (Home Med) 1 puff IH DAILY [facility] Last Admin: 07/12/17 13:35 Dose: Not Given Ondansetron HCl (Zofran Inj) 4 mg IVP Q4H PRN PRN Reason: Nausea/Vomiting Tamsulosin HCl (Flomax) 0.4 mg PO DAILY [facility] Last Admin: 07/12/17 13:33 Dose: 0.4 mg - Labs Labs: 07/13/17 05:50 07/13/17 06:45 PT 12.4 SECONDS (9.4-12.5) 07/12/17 09:35 INR 1.08 (0.93-1.08) 07/12/17 09:35 APTT 29.0 Seconds (25.1-36.5) 07/12/17 09:35
--- NOTE | 2017-07-13 10:32 | CP.PCM.PN ---
Subjective - Date & Time of Evaluation Date of Evaluation: 07/13/17 Time of Evaluation: 07:30 - Subjective Subjective: Medicine Note for Dr. Hamilton Patient seen and examined at bedside. Patient was transferred to ICU after surgery last night. She is s/p R femur ORIF POD#1. Patient is intubated and on ventilator support. She is alert and awake, responding to tactile and verbal stimuli. ROS unobtainable due to intubation. Objective - Vital Signs/Intake and Output Vital Signs (last 24 hours): Temp Pulse Resp BP Pulse Ox 97.5 F L 101 H 17 79/30 L 100 07/13/17 00:00 07/13/17 09:29 07/12/17 23:02 07/13/17 09:29 07/12/17 22:20 Intake and Output: 07/13/17 07/13/17 06:59 18:59 Intake Total 1150 Output Total 300 Balance 850 - Medications Medications: Current Medications Acetaminophen (Tylenol 325mg Tab) 650 mg PO Q6 PRN PRN Reason: Headache Acetaminophen (Tylenol 650 Mg Supp) 650 mg RC Q6H PRN PRN Reason: Headache Acetaminophen (Tylenol 325mg Tab) 650 mg PO Q6 PRN PRN Reason: TEMP>=99.5F Acetaminophen (Tylenol 650 Mg Supp) 650 mg RC Q6H PRN PRN Reason: TEMP>=99.5F Atorvastatin Calcium (Lipitor) 40 mg PO HS [facility] Last Admin: 07/12/17 22:56 Dose: Not Given Docusate Sodium (Colace) 100 mg PO TID [facility] Last Admin: 07/12/17 14:34 Dose: 100 mg Enoxaparin Sodium (Lovenox) 40 mg SC Q24H [facility] PRN Reason: Protocol Hydromorphone HCl (Dilaudid) 0.5 mg IVP Q4H PRN PRN Reason: Pain, severe (8-10) Last Admin: 07/12/17 22:50 Dose: 0.5 mg Sodium Chloride (Sodium Chloride 0.9%) 1,000 mls @ 125 mls/hr IV .Q8H [facility] Insulin Human Lispro (Humalog High) 0 units SC Q6H [facility] PRN Reason: Protocol Last Admin: 07/13/17 09:30 Dose: 15 units Levalbuterol HCl (Xopenex) 0.63 mg IH QIDRESP [facility] Last Admin: 07/12/17 20:11 Dose: Not Given Magnesium Oxide (Mag-Ox) 400 mg PO BID [facility] Memantine (Namenda) 5 mg PO BID [facility] Breo Ellipta 100-25 Mcg Inh] (Home Med) 1 puff IH DAILY [facility] Last Admin: 07/12/17 13:35 Dose: Not Given Ondansetron HCl (Zofran Inj) 4 mg IVP Q4H PRN PRN Reason: Nausea/Vomiting Tamsulosin HCl (Flomax) 0.4 mg PO DAILY [facility] Last Admin: 07/12/17 13:33 Dose: 0.4 mg - Labs Labs: 07/13/17 05:50 07/13/17 06:45 PT 12.4 SECONDS (9.4-12.5) 07/12/17 09:35 INR 1.08 (0.93-1.08) 07/12/17 09:35 APTT 29.0 Seconds (25.1-36.5) 07/12/17 09:35 - Constitutional Appears: No Acute Distress - Head Exam Head Exam: ATRAUMATIC, NORMOCEPHALIC - Eye Exam Eye Exam: Normal appearance - ENT Exam ENT Exam: Mucous Membranes Moist Additional comments: et tube in place - Respiratory Exam Additional comments: intubated and on vent support - Cardiovascular Exam Cardiovascular Exam: Tachycardia, +S1, +S2 - GI/Abdominal Exam GI & Abdominal Exam: Soft, Hernia (massive ventral hernia, loss of domain). absent: Tenderness - Extremities Exam Extremities Exam: Normal Capillary Refill. absent: Calf Tenderness - Neurological Exam Neurological Exam: Alert, Awake - Psychiatric Exam Psychiatric exam: Flat Affect - Skin Skin Exam: Dry, Warm Assessment and Plan - Assessment and Plan (Free Text) Plan: 82 year old female with a past medical history significant for COPD, DM2, HTN, HLD, Vitamin D deficiency and dementia who presents from [facility] after she fell and was found to have Right intertrochanteric femur fracture. She is now in ICU s/p R femur ORIF POD#1, intubated and on vasopressors. 1. Respiratory failure Extensive Pulm HTN intubated and on vent support (550, 5, 12, 50%) Maintain SaO2 > 90% HOB 30 degrees 2. Hypotension likely due to Pulm HTN and history of R heart strain Dobutamine drip Levophed drip Maintain map > 65 3.Right intertrochanteric femur fracture -Ortho consult, Dr. Bettencourt, help appreciated -Cardio consult, Dr. Rivas, help appreciated -Tylenol PRN -s/p R femur ORIF POD#1 4. Pulmonary HTN -Echo showing severe pHTN with an RVSP of 101mmHg Dobutamine drip 5. COPD -Continue Breo Ellipta -Xopenex 6. DM2 -Glucose extremely elveated this AM, started on insulin drip -ISS held -Accuchecks -Diabetic education 7. History of Dementia -Continue Memantine 8. Atrial fibrillation Continue Cardizem 9. History of HTN -Continue Zestril 10. History of HLD -Continue Lipitor Prophylactic Measures: Colace Zofran Protonix Patient seen and evaluated with attending, Dr. Hamilton. Matthew Armstrong PGY1
[2017-07-13] MEDS: Sodium Chloride 0.9% 1,000 ML IV SCH ×2 (10:57→17:38)
[2017-07-13] MEDS: Magnesium Oxide 400 mg Tab UD PO SCH ×2 (10:57→17:36)
[2017-07-13] MEDS: BREO ELLIPTA IH SCH (10:57)
[2017-07-13] MEDS ORDERED: Insulin Regular 100 UNITS in Sodium Chloride 0.9% 99 ML IV PRN (11:06)
[2017-07-13] MEDS ORDERED: NOREPINEPHRINE BIT/0.9 % NACL 4 MG/250 ML BAG IV ONE (11:13)
--- NOTE | 2017-07-13 12:09 | US ---
PROCEDURE: Ultrasound of the Kidneys HISTORY: jeison COMPARISON: None available. TECHNIQUE: Sonogram of the kidneys. FINDINGS: RIGHT KIDNEY: Measures: 4.7 x 4.9 x 10.3 cm. Normal in size, contour and echogenicity. No stone, solid mass lesion or hydronephrosis visualized. LEFT KIDNEY: Measures: 5.1 x 5.5 x 11.2 cm. Normal in size, contour and echogenicity. No stone, solid mass lesion or hydronephrosis visualized. Incidental finding(s): Simple cyst lower pole measures 2.1 x 2.3 cm OTHER FINDINGS: None. IMPRESSION: No significant or acute findings to account for/ related to the clinical presentation. Diego
--- NOTE | 2017-07-13 12:25 | RAD ---
PROCEDURE: Fluoroscopy up to 1 hour HISTORY: O.R.I.F. RIGHT HIP FX. COMPARISON: TECHNIQUE: Fluoroscopy was provided in the operating room. 60.2 seconds of fluoro time. 7.46 mGy cumulative dose. Six images were submitted FINDINGS: Study show internal fixation right hip IMPRESSION: As above
[2017-07-13] MEDS ORDERED: Digoxin 250 mcg (0.25 mg) Tab PO ONE (13:33)
[2017-07-13] MEDS ORDERED: Digoxin 500 mcg/2ml (0.5 mg/2ml) Inj IVP ONE (13:56)
--- NOTE | 2017-07-13 14:27 | CP.CCUPN ---
<Volodymyr Cardona - Last Filed: 07/13/17 14:27> CCU Subjective - Physician Review Subjective (Free Text): Patient seen and evaluated bedside. Patient open eyes to being called, cannot respond to commands. Patient had elevated blood glucose in AM, started on insulin drip. Unable to obtain ROS. 07/13/17 14:25 07/13/17 14:27 CCU Objective - Vital Signs / Intake & Output Intake and Output (Last 8hrs): Intake & Output 07/12/17 07/13/17 07/13/17 22:59 06:59 14:59 Intake Total 1150 Output Total 300 Balance 850 Weight 129 lb Intake: IV 900 Right Forearm 900 Other 250 Output: Urine 300 Urethral (Moon) 300 Other: Voiding Method Indwelling Catheter - Physical Exam Head: Positive for: Atraumatic, Normocephalic Pupils: Positive for: PERRL Conjunctiva: Positive for: Normal Ears: Positive for: Normal Mouth: Positive for: Moist Mucous Membranes Pharnyx: Positive for: Normal Respiratory/Chest: Positive for: Good Air Exchange, Rhonchi (scattered). Negative for: Respiratory Distress, Accessory Muscle Use, Wheezes Cardiovascular: Positive for: Regular Rate and Rhythm, Normal S1, S2. Negative for: Murmurs Abdomen: Positive for: Normal Bowel Sounds. Negative for: Tenderness, Distention, Peritoneal Signs Upper Extremity: Positive for: Normal Inspection. Negative for: Cyanosis, Edema Skin: Positive for: Warm, Dry Psychiatric: Positive for: Alert. Negative for: Oriented x 3 - Medications Active Medications: Active Medications Generic Name Dose Route Start Last Admin Trade Name Freq PRN Reason Stop Dose Admin Acetaminophen 650 mg 07/12/17 12:38 Tylenol 325mg Tab PO Q6 PRN Headache Acetaminophen 650 mg 07/12/17 12:38 Tylenol 650 Mg Supp RC Q6H PRN Headache Acetaminophen 650 mg 07/12/17 12:41 Tylenol 325mg Tab PO Q6 PRN TEMP>=99.5F Acetaminophen 650 mg 07/12/17 12:43 Tylenol 650 Mg Supp RC Q6H PRN TEMP>=99.5F Atorvastatin Calcium 40 mg 07/12/17 22:00 07/12/17 22:56 Lipitor PO Not Given HS MIRA Docusate Sodium 100 mg 07/12/17 14:00 07/13/17 13:18 Colace PO Not Given TID [facility] Enoxaparin Sodium 30 mg 07/13/17 18:00 Lovenox SC Q24H [facility] Protocol Hydromorphone HCl 0.5 mg 07/12/17 21:04 07/12/17 22:50 Dilaudid IVP 0.5 mg Q4H PRN Administration Pain, severe (8-10) Sodium Chloride 1,000 mls @ 125 mls/hr 07/13/17 08:45 07/13/17 10:57 Sodium Chloride 0.9% IV 125 mls/hr .Q8H MIRA Administration Insulin Human Regular 100 100 mls @ 4 mls/hr 07/13/17 11:06 07/13/17 12:07 units/ Sodium Chloride IV 4 units/hr .Q24H PRN 4 mls/hr TITRATE PER MD ORDER Administration Protocol 4 UNITS/HR NOREPINEPHRINE BIT/0.9 % NACL 4 mg in 250 mls @ 15 mls/hr 07/13/17 11:08 Levophed 4 Mg/ 250 Ml Ns Premixed IV .[id number] PRN TITRATE PER MD ORDER Protocol 4 MCG/MIN Dobutamine HCl/Dextrose 500 mg in 250 mls @ 3.511 mls/hr 07/13/17 11:09 Dobutamine/Dextrose 5% 500mg/250ml IV .Q24H PRN TITRATE PER PROTOCOL Protocol 2 MCG/KG/MIN Insulin Human Lispro 0 units 07/13/17 09:00 07/13/17 09:30 Humalog High SC 15 units Q6H MIRA Administration Protocol Levalbuterol HCl 0.63 mg 07/12/17 15:30 07/13/17 11:35 Xopenex IH 0.63 mg QIDRESP [facility] Administration Magnesium Oxide 400 mg 07/12/17 18:00 07/13/17 10:57 Mag-Ox PO Not Given BID [facility] Memantine 5 mg 07/12/17 18:00 07/13/17 10:57 Namenda PO Not Given BID [facility] Breo Ellipta 100-25 1 puff 07/12/17 12:45 07/13/17 10:57 Mcg Inh] (Home IH Not Given Med) DAILY [facility] Ondansetron HCl 4 mg 07/12/17 12:38 Zofran Inj IVP Q4H PRN Nausea/Vomiting Tamsulosin HCl 0.4 mg 07/12/17 12:45 07/13/17 10:56 Flomax PO Not Given DAILY MIRA - Patient Studies Lab Studies: Lab Studies 07/13/17 07/13/17 07/13/17 Range/Units 13:17 11:46 10:03 WBC (4.5-11.0) 10^3/ul RBC (3.5-6.1) 10^6/uL Hgb (12.0-16.0) g/dL Hct (36.0-48.0) % MCV (80.0-105.0) fl MCH (25.0-35.0) pg MCHC (31.0-37.0) g/dl RDW (11.5-14.5) % Plt Count (120.0-450.0) 10^3/uL Manual Plt Count (120-450) K/mm3 MPV (7.0-11.0) fl pCO2 (35-45) mm/Hg pO2 (80-100) mm/Hg HCO3 (21-28) mmol/L ABG pH (7.35-7.45) ABG Total CO2 (22-28) mmol.L ABG O2 Saturation (95-98) % ABG O2 Content (15-23) ML/dl ABG Base Excess (-2.0-3.0) mmol/L ABG Hemoglobin (11.7-17.4) g/dL ABG Carboxyhemoglobin (0.5-1.5) % POC ABG HHb (Measured) (0-5) % ABG Methemoglobin (0.0-3.0) % ABG O2 Capacity (16-24) mL/dl Hgb O2 Saturation (95.0-98.0) % FiO2 % Sodium (132-148) mmol/L Potassium (3.6-5.0) mmol/L Chloride (98-107) mmol/L Carbon Dioxide (21-33) mmol/L Anion Gap (10-20) BUN (7-21) mg/dL Creatinine (0.7-1.2) mg/dl Est GFR ( Amer) Est GFR (Non-Af Amer) POC Glucose (mg/dL) 471 H* > 500 H* > 500 H* (65-110) mg/dL Random Glucose (70-110) mg/dL Calcium (8.4-10.5) mg/dL Phosphorus (2.5-4.5) mg/dL Magnesium (1.7-2.2) mg/dL Total Bilirubin (0.2-1.3) mg/dL Direct Bilirubin (0.0-0.4) mg/dL AST (14-36) U/L ALT (7-56) U/L Alkaline Phosphatase (38-126) U/L Total Protein (5.8-8.3) g/dL Albumin (3.0-4.8) g/dL Globulin gm/dL Albumin/Globulin Ratio (1.1-1.8) 25-OH Vitamin D Total (30.0-100.0) NG/ML Blood Type Blood Type Confirm Antibody Screen Crossmatch BBK History Checked 07/13/17 07/13/17 07/13/17 Range/Units 08:16 06:45 05:50 WBC (4.5-11.0) 10^3/ul RBC (3.5-6.1) 10^6/uL Hgb (12.0-16.0) g/dL Hct (36.0-48.0) % MCV (80.0-105.0) fl MCH (25.0-35.0) pg MCHC (31.0-37.0) g/dl RDW (11.5-14.5) % Plt Count (120.0-450.0) 10^3/uL Manual Plt Count 125 (120-450) K/mm3 MPV (7.0-11.0) fl pCO2 (35-45) mm/Hg pO2 (80-100) mm/Hg HCO3 (21-28) mmol/L ABG pH (7.35-7.45) ABG Total CO2 (22-28) mmol.L ABG O2 Saturation (95-98) % ABG O2 Content (15-23) ML/dl ABG Base Excess (-2.0-3.0) mmol/L ABG Hemoglobin (11.7-17.4) g/dL ABG Carboxyhemoglobin (0.5-1.5) % POC ABG HHb (Measured) (0-5) % ABG Methemoglobin (0.0-3.0) % ABG O2 Capacity (16-24) mL/dl Hgb O2 Saturation (95.0-98.0) % FiO2 % Sodium 133 (132-148) mmol/L Potassium 5.5 H (3.6-5.0) mmol/L Chloride 101 (98-107) mmol/L Carbon Dioxide 15 L (21-33) mmol/L Anion Gap 22 H (10-20) BUN 23 H (7-21) mg/dL Creatinine 1.5 H (0.7-1.2) mg/dl Est GFR ( Amer) 40 Est GFR (Non-Af Amer) 33 POC Glucose (mg/dL) > 500 H* (65-110) mg/dL Random Glucose 602 H* D (70-110) mg/dL Calcium 7.7 L (8.4-10.5) mg/dL Phosphorus (2.5-4.5) mg/dL Magnesium (1.7-2.2) mg/dL Total Bilirubin 1.6 H (0.2-1.3) mg/dL Direct Bilirubin 0.8 H (0.0-0.4) mg/dL AST 244 H D (14-36) U/L ALT 132 H (7-56) U/L Alkaline Phosphatase 62 (38-126) U/L Total Protein 4.1 L (5.8-8.3) g/dL Albumin 2.1 L (3.0-4.8) g/dL Globulin 2.0 gm/dL Albumin/Globulin Ratio 1.0 L (1.1-1.8) 25-OH Vitamin D Total (30.0-100.0) NG/ML Blood Type Blood Type Confirm Antibody Screen Crossmatch BBK History Checked 07/13/17 07/13/17 07/13/17 Range/Units 05:50 05:50 05:50 WBC 7.8 D (4.5-11.0) 10^3/ul RBC 3.66 (3.5-6.1) 10^6/uL Hgb 10.7 L (12.0-16.0) g/dL Hct 34.6 L (36.0-48.0) % MCV 94.5 (80.0-105.0) fl MCH 29.2 (25.0-35.0) pg MCHC 30.9 L (31.0-37.0) g/dl RDW 16.6 H (11.5-14.5) % Plt Count 105 L (120.0-450.0) 10^3/uL Manual Plt Count (120-450) K/mm3 MPV (7.0-11.0) fl pCO2 (35-45) mm/Hg pO2 (80-100) mm/Hg HCO3 (21-28) mmol/L ABG pH (7.35-7.45) ABG Total CO2 (22-28) mmol.L ABG O2 Saturation (95-98) % ABG O2 Content (15-23) ML/dl ABG Base Excess (-2.0-3.0) mmol/L ABG Hemoglobin (11.7-17.4) g/dL ABG Carboxyhemoglobin (0.5-1.5) % POC ABG HHb (Measured) (0-5) % ABG Methemoglobin (0.0-3.0) % ABG O2 Capacity (16-24) mL/dl Hgb O2 Saturation (95.0-98.0) % FiO2 % Sodium (132-148) mmol/L Potassium (3.6-5.0) mmol/L Chloride (98-107) mmol/L Carbon Dioxide (21-33) mmol/L Anion Gap (10-20) BUN (7-21) mg/dL Creatinine (0.7-1.2) mg/dl Est GFR ( Amer) Est GFR (Non-Af Amer) POC Glucose (mg/dL) (65-110) mg/dL Random Glucose (70-110) mg/dL Calcium (8.4-10.5) mg/dL Phosphorus 7.9 H (2.5-4.5) mg/dL Magnesium 2.0 (1.7-2.2) mg/dL Total Bilirubin (0.2-1.3) mg/dL Direct Bilirubin (0.0-0.4) mg/dL AST (14-36) U/L ALT (7-56) U/L Alkaline Phosphatase (38-126) U/L Total Protein (5.8-8.3) g/dL Albumin (3.0-4.8) g/dL Globulin gm/dL Albumin/Globulin Ratio (1.1-1.8) 25-OH Vitamin D Total 18.6 L (30.0-100.0) NG/ML Blood Type Blood Type Confirm Antibody Screen Crossmatch BBK History Checked 07/13/17 07/12/17 07/12/17 Range/Units 00:45 23:50 16:43 WBC 11.0 D (4.5-11.0) 10^3/ul RBC 3.99 (3.5-6.1) 10^6/uL Hgb 12.0 (12.0-16.0) g/dL Hct 37.1 (36.0-48.0) % MCV 93.0 D (80.0-105.0) fl MCH 30.1 (25.0-35.0) pg MCHC 32.3 (31.0-37.0) g/dl RDW 16.3 H (11.5-14.5) % Plt Count 114 L (120.0-450.0) 10^3/uL Manual Plt Count (120-450) K/mm3 MPV 12.3 H (7.0-11.0) fl pCO2 42 (35-45) mm/Hg pO2 198.0 H (80-100) mm/Hg HCO3 21.6 (21-28) mmol/L ABG pH 7.32 L (7.35-7.45) ABG Total CO2 22.9 (22-28) mmol.L ABG O2 Saturation 99.3 H (95-98) % ABG O2 Content 15.9 (15-23) ML/dl ABG Base Excess -4.3 L (-2.0-3.0) mmol/L ABG Hemoglobin 11.4 L (11.7-17.4) g/dL ABG Carboxyhemoglobin 2.2 H (0.5-1.5) % POC ABG HHb (Measured) 0.7 (0-5) % ABG Methemoglobin 0.9 (0.0-3.0) % ABG O2 Capacity 16.0 (16-24) mL/dl Hgb O2 Saturation 96.3 (95.0-98.0) % FiO2 80.0 % Sodium (132-148) mmol/L Potassium (3.6-5.0) mmol/L Chloride (98-107) mmol/L Carbon Dioxide (21-33) mmol/L Anion Gap (10-20) BUN (7-21) mg/dL Creatinine (0.7-1.2) mg/dl Est GFR ( Amer) Est GFR (Non-Af Amer) POC Glucose (mg/dL) (65-110) mg/dL Random Glucose (70-110) mg/dL Calcium (8.4-10.5) mg/dL Phosphorus (2.5-4.5) mg/dL Magnesium (1.7-2.2) mg/dL Total Bilirubin (0.2-1.3) mg/dL Direct Bilirubin (0.0-0.4) mg/dL AST (14-36) U/L ALT (7-56) U/L Alkaline Phosphatase (38-126) U/L Total Protein (5.8-8.3) g/dL Albumin (3.0-4.8) g/dL Globulin gm/dL Albumin/Globulin Ratio (1.1-1.8) 25-OH Vitamin D Total (30.0-100.0) NG/ML Blood Type Blood Type Confirm O POSITIVE Antibody Screen Crossmatch BBK History Checked 07/12/17 07/12/17 Range/Units 16:14 15:48 WBC (4.5-11.0) 10^3/ul RBC (3.5-6.1) 10^6/uL Hgb (12.0-16.0) g/dL Hct (36.0-48.0) % MCV (80.0-105.0) fl MCH (25.0-35.0) pg MCHC (31.0-37.0) g/dl RDW (11.5-14.5) % Plt Count (120.0-450.0) 10^3/uL Manual Plt Count (120-450) K/mm3 MPV (7.0-11.0) fl pCO2 (35-45) mm/Hg pO2 (80-100) mm/Hg HCO3 (21-28) mmol/L ABG pH (7.35-7.45) ABG Total CO2 (22-28) mmol.L ABG O2 Saturation (95-98) % ABG O2 Content (15-23) ML/dl ABG Base Excess (-2.0-3.0) mmol/L ABG Hemoglobin (11.7-17.4) g/dL ABG Carboxyhemoglobin (0.5-1.5) % POC ABG HHb (Measured) (0-5) % ABG Methemoglobin (0.0-3.0) % ABG O2 Capacity (16-24) mL/dl Hgb O2 Saturation (95.0-98.0) % FiO2 % Sodium (132-148) mmol/L Potassium (3.6-5.0) mmol/L Chloride (98-107) mmol/L Carbon Dioxide (21-33) mmol/L Anion Gap (10-20) BUN (7-21) mg/dL Creatinine (0.7-1.2) mg/dl Est GFR ( Amer) Est GFR (Non-Af Amer) POC Glucose (mg/dL) 183 H (65-110) mg/dL Random Glucose (70-110) mg/dL Calcium (8.4-10.5) mg/dL Phosphorus (2.5-4.5) mg/dL Magnesium (1.7-2.2) mg/dL Total Bilirubin (0.2-1.3) mg/dL Direct Bilirubin (0.0-0.4) mg/dL AST (14-36) U/L ALT (7-56) U/L Alkaline Phosphatase (38-126) U/L Total Protein (5.8-8.3) g/dL Albumin (3.0-4.8) g/dL Globulin gm/dL Albumin/Globulin Ratio (1.1-1.8) 25-OH Vitamin D Total (30.0-100.0) NG/ML Blood Type O POSITIVE Blood Type Confirm Antibody Screen Negative Crossmatch See Detail BBK History Checked No verified bt Laboratory Results - last 24 hr 07/12/17 07/12/17 07/12/17 15:48 16:14 16:43 WBC RBC Hgb Hct MCV MCH MCHC RDW Plt Count Manual Plt Count MPV pCO2 pO2 HCO3 ABG pH ABG Total CO2 ABG O2 Saturation ABG O2 Content ABG Base Excess ABG Hemoglobin ABG Carboxyhemoglobin POC ABG HHb (Measured) ABG Methemoglobin ABG O2 Capacity Hgb O2 Saturation FiO2 Sodium Potassium Chloride Carbon Dioxide Anion Gap BUN Creatinine Est GFR ( Amer) Est GFR (Non-Af Amer) POC Glucose (mg/dL) 183 H Random Glucose Calcium Phosphorus Magnesium Total Bilirubin Direct Bilirubin AST ALT Alkaline Phosphatase Total Protein Albumin Globulin Albumin/Globulin Ratio 25-OH Vitamin D Total Blood Type O POSITIVE Blood Type Confirm O POSITIVE Antibody Screen Negative Crossmatch See Detail BBK History Checked No verified bt 07/12/17 07/13/17 07/13/17 23:50 00:45 05:50 WBC 11.0 D 7.8 D RBC 3.99 3.66 Hgb 12.0 10.7 L Hct 37.1 34.6 L MCV 93.0 D 94.5 MCH 30.1 29.2 MCHC 32.3 30.9 L RDW 16.3 H 16.6 H Plt Count 114 L 105 L Manual Plt Count MPV 12.3 H pCO2 42 pO2 198.0 H HCO3 21.6 ABG pH 7.32 L ABG Total CO2 22.9 ABG O2 Saturation 99.3 H ABG O2 Content 15.9 ABG Base Excess -4.3 L ABG Hemoglobin 11.4 L ABG Carboxyhemoglobin 2.2 H POC ABG HHb (Measured) 0.7 ABG Methemoglobin 0.9 ABG O2 Capacity 16.0 Hgb O2 Saturation 96.3 FiO2 80.0 Sodium Potassium Chloride Carbon Dioxide Anion Gap BUN Creatinine Est GFR ( Amer) Est GFR (Non-Af Amer) POC Glucose (mg/dL) Random Glucose Calcium Phosphorus Magnesium Total Bilirubin Direct Bilirubin AST ALT Alkaline Phosphatase Total Protein Albumin Globulin Albumin/Globulin Ratio 25-OH Vitamin D Total Blood Type Blood Type Confirm Antibody Screen Crossmatch BBK History Checked 07/13/17 07/13/17 07/13/17 05:50 05:50 05:50 WBC RBC Hgb Hct MCV MCH MCHC RDW Plt Count Manual Plt Count 125 MPV pCO2 pO2 HCO3 ABG pH ABG Total CO2 ABG O2 Saturation ABG O2 Content ABG Base Excess ABG Hemoglobin ABG Carboxyhemoglobin POC ABG HHb (Measured) ABG Methemoglobin ABG O2 Capacity Hgb O2 Saturation FiO2 Sodium Potassium Chloride Carbon Dioxide Anion Gap BUN Creatinine Est GFR ( Amer) Est GFR (Non-Af Amer) POC Glucose (mg/dL) Random Glucose Calcium Phosphorus 7.9 H Magnesium 2.0 Total Bilirubin Direct Bilirubin AST ALT Alkaline Phosphatase Total Protein Albumin Globulin Albumin/Globulin Ratio 25-OH Vitamin D Total 18.6 L Blood Type Blood Type Confirm Antibody Screen Crossmatch BBK History Checked 07/13/17 07/13/17 07/13/17 06:45 08:16 10:03 WBC RBC Hgb Hct MCV MCH MCHC RDW Plt Count Manual Plt Count MPV pCO2 pO2 HCO3 ABG pH ABG Total CO2 ABG O2 Saturation ABG O2 Content ABG Base Excess ABG Hemoglobin ABG Carboxyhemoglobin POC ABG HHb (Measured) ABG Methemoglobin ABG O2 Capacity Hgb O2 Saturation FiO2 Sodium 133 Potassium 5.5 H Chloride 101 Carbon Dioxide 15 L Anion Gap 22 H BUN 23 H Creatinine 1.5 H Est GFR ( Amer) 40 Est GFR (Non-Af Amer) 33 POC Glucose (mg/dL) > 500 H* > 500 H* Random Glucose 602 H* D Calcium 7.7 L Phosphorus Magnesium Total Bilirubin 1.6 H Direct Bilirubin 0.8 H AST 244 H D ALT 132 H Alkaline Phosphatase 62 Total Protein 4.1 L Albumin 2.1 L Globulin 2.0 Albumin/Globulin Ratio 1.0 L 25-OH Vitamin D Total Blood Type Blood Type Confirm Antibody Screen Crossmatch BBK History Checked 07/13/17 07/13/17 11:46 13:17 WBC RBC Hgb Hct MCV MCH MCHC RDW Plt Count Manual Plt Count MPV pCO2 pO2 HCO3 ABG pH ABG Total CO2 ABG O2 Saturation ABG O2 Content ABG Base Excess ABG Hemoglobin ABG Carboxyhemoglobin POC ABG HHb (Measured) ABG Methemoglobin ABG O2 Capacity Hgb O2 Saturation FiO2 Sodium Potassium Chloride Carbon Dioxide Anion Gap BUN Creatinine Est GFR ( Amer) Est GFR (Non-Af Amer) POC Glucose (mg/dL) > 500 H* 471 H* Random Glucose Calcium Phosphorus Magnesium Total Bilirubin Direct Bilirubin AST ALT Alkaline Phosphatase Total Protein Albumin Globulin Albumin/Globulin Ratio 25-OH Vitamin D Total Blood Type Blood Type Confirm Antibody Screen Crossmatch BBK History Checked Fingerstick Blood Sugar Results: 500 Review of Systems - Review of Systems Systems not reviewed;Unavailable: Intubated Review of Systems: unable to obtain Critical Care Progress Note - Nutrition Nutrition: Nutrition Category Date Time Status Heart Healthy Diet [DIET] Diets 07/12/17 Dinner Ordered Assessment/Plan - Assessment and Plan (Free Text) Assessment: 82 F with a PMH of Dementia, Afib on eliquis, DM, COPD, HTN presents with hypoxic respiratory failure s/p right hip ORIF. Patient intubated and monitored in the ICU. [place]OR[place]ES. Plan: Neuro: Alert, no sedation Cardio: PICC line Levophed and Dobutamine Maintain MAP > 65 Hold anticoagulation Pulm: Intubated Maintain O2 sat > 90% GI: Protonix NPO Renal: Replenish electrolytes as needed Maintain euvolemia Renal US negative Nephrology consulted, Jono, follow recs Heme/ID: Ancef during surgery No DVT ppx at this time due to surgery MSK: S/p right hip orif Dilaudid and Oxycodone for pain Endo: Insulin drip Maintain euglycemia Fingerstick Q1 <Dallin Lynn B - Last Filed: 07/13/17 18:54> CCU Objective - Vital Signs / Intake & Output Vital Signs (Last 4 hours): Vital Signs Pulse BP 07/13/17 17:00 111 H 94/49 L Intake and Output (Last 8hrs): Intake & Output 07/13/17 07/13/17 07/13/17 06:59 14:59 22:59 Intake Total 1150 80 Output Total 300 Balance 850 80 Weight 129 lb Intake: IV 900 80 Right Forearm 900 Other 250 Output: Urine 300 Urethral (Moon) 300 Other: Voiding Method Indwelling Catheter - Medications Active Medications: Active Medications Generic Name Dose Route Start Last Admin Trade Name Freq PRN Reason Stop Dose Admin Acetaminophen 650 mg 07/12/17 12:38 Tylenol 325mg Tab PO Q6 PRN Headache Acetaminophen 650 mg 07/12/17 12:38 Tylenol 650 Mg Supp RC Q6H PRN Headache Acetaminophen 650 mg 07/12/17 12:41 Tylenol 325mg Tab PO Q6 PRN TEMP>=99.5F Acetaminophen 650 mg 07/12/17 12:43 Tylenol 650 Mg Supp RC Q6H PRN TEMP>=99.5F Atorvastatin Calcium 40 mg 07/12/17 22:00 07/12/17 22:56 Lipitor PO Not Given HS MIRA Docusate Sodium 100 mg 07/12/17 14:00 07/13/17 17:35 Colace PO Not Given TID MIRA Enoxaparin Sodium 30 mg 07/13/17 18:00 07/13/17 17:38 Lovenox SC 30 mg Q24H MIRA Administration Protocol Hydromorphone HCl 0.5 mg 07/12/17 21:04 07/12/17 22:50 Dilaudid IVP 0.5 mg Q4H PRN Administration Pain, severe (8-10) Sodium Chloride 1,000 mls @ 125 mls/hr 07/13/17 08:45 07/13/17 17:38 Sodium Chloride 0.9% IV 125 mls/hr .Q8H MIRA Administration Insulin Human Regular 100 100 mls @ 4 mls/hr 07/13/17 11:06 07/13/17 17:39 units/ Sodium Chloride IV 5 units/hr .Q24H PRN 5 mls/hr TITRATE PER MD ORDER Titration Protocol 4 UNITS/HR NOREPINEPHRINE BIT/0.9 % NACL 4 mg in 250 mls @ 15 mls/hr 07/13/17 11:08 Levophed 4 Mg/ 250 Ml Ns Premixed IV .[id number] PRN TITRATE PER MD ORDER Protocol 4 MCG/MIN Dobutamine HCl/Dextrose 500 mg in 250 mls @ 3.511 mls/hr 07/13/17 11:09 07/13 17:00 Dobutamine/Dextrose 5% 500mg/250ml IV 2 mcg/kg/min .Q24H PRN 3.511 mls/hr TITRATE PER PROTOCOL Administration Protocol 2 MCG/KG/MIN Insulin Human Lispro 0 units 07/13/17 09:00 07/13/17 17:35 Humalog High SC Not Given Q6H [facility] Protocol Levalbuterol HCl 0.63 mg 07/12/17 15:30 07/13/17 16:00 Xopenex IH Not Given QIDRESP MIRA Magnesium Oxide 400 mg 07/12/17 18:00 07/13/17 17:36 Mag-Ox PO Not Given BID [facility] Memantine 5 mg 07/12/17 18:00 07/13/17 17:36 Namenda PO Not Given BID [facility] Breo Ellipta 100-25 1 puff 07/12/17 12:45 07/13/17 10:57 Mcg Inh] (Home IH Not Given Med) DAILY [facility] Ondansetron HCl 4 mg 07/12/17 12:38 Zofran Inj IVP Q4H PRN Nausea/Vomiting Tamsulosin HCl 0.4 mg 07/12/17 12:45 07/13/17 10:56 Flomax PO Not Given DAILY MIRA - Patient Studies Lab Studies: Lab Studies 07/13/17 07/13/17 07/13/17 Range/Units 17:34 16:45 16:18 WBC (4.5-11.0) 10^3/ul RBC (3.5-6.1) 10^6/uL Hgb (12.0-16.0) g/dL Hct (36.0-48.0) % MCV (80.0-105.0) fl MCH (25.0-35.0) pg MCHC (31.0-37.0) g/dl RDW (11.5-14.5) % Plt Count (120.0-450.0) 10^3/uL Manual Plt Count (120-450) K/mm3 MPV (7.0-11.0) fl pCO2 37 (35-45) mm/Hg pO2 124.0 H (80-100) mm/Hg HCO3 18.6 L (21-28) mmol/L ABG pH 7.31 L (7.35-7.45) ABG Total CO2 19.7 L (22-28) mmol.L ABG O2 Saturation 98.4 H (95-98) % ABG O2 Content (15-23) ML/dl ABG Base Excess -7.0 L (-2.0-3.0) mmol/L ABG Hemoglobin (11.7-17.4) g/dL ABG Carboxyhemoglobin (0.5-1.5) % POC ABG HHb (Measured) (0-5) % ABG Methemoglobin (0.0-3.0) % ABG O2 Capacity (16-24) mL/dl ABG Potassium 3.7 (3.6-5.2) mmol/L Hgb O2 Saturation (95.0-98.0) % Glucose 197 H (65-105) mg/dl Lactate 3.1 H (0.7-2.1) mmol/L FiO2 40.0 % PEEP 5 Sodium 137.0 (132-148) mmol/L Potassium (3.6-5.0) mmol/L Chloride 110.0 H (98-107) mmol/L Carbon Dioxide (21-33) mmol/L Anion Gap (10-20) BUN (7-21) mg/dL Creatinine (0.7-1.2) mg/dl Est GFR ( Amer) Est GFR (Non-Af Amer) POC Glucose (mg/dL) 188 H 271 H (65-110) mg/dL Random Glucose (70-110) mg/dL Calcium (8.4-10.5) mg/dL Phosphorus (2.5-4.5) mg/dL Magnesium (1.7-2.2) mg/dL Total Bilirubin (0.2-1.3) mg/dL Direct Bilirubin (0.0-0.4) mg/dL AST (14-36) U/L ALT (7-56) U/L Alkaline Phosphatase (38-126) U/L Total Protein (5.8-8.3) g/dL Albumin (3.0-4.8) g/dL Globulin gm/dL Albumin/Globulin Ratio (1.1-1.8) 25-OH Vitamin D Total (30.0-100.0) NG/ML Arterial Blood Potassium 3.7 (3.6-5.2) mmol/L Blood Type Confirm 07/13/17 07/13/17 07/13/17 Range/Units 15:18 13:17 11:46 WBC (4.5-11.0) 10^3/ul RBC (3.5-6.1) 10^6/uL Hgb (12.0-16.0) g/dL Hct (36.0-48.0) % MCV (80.0-105.0) fl MCH (25.0-35.0) pg MCHC (31.0-37.0) g/dl RDW (11.5-14.5) % Plt Count (120.0-450.0) 10^3/uL Manual Plt Count (120-450) K/mm3 MPV (7.0-11.0) fl pCO2 (35-45) mm/Hg pO2 (80-100) mm/Hg HCO3 (21-28) mmol/L ABG pH (7.35-7.45) ABG Total CO2 (22-28) mmol.L ABG O2 Saturation (95-98) % ABG O2 Content (15-23) ML/dl ABG Base Excess (-2.0-3.0) mmol/L ABG Hemoglobin (11.7-17.4) g/dL ABG Carboxyhemoglobin (0.5-1.5) % POC ABG HHb (Measured) (0-5) % ABG Methemoglobin (0.0-3.0) % ABG O2 Capacity (16-24) mL/dl ABG Potassium (3.6-5.2) mmol/L Hgb O2 Saturation (95.0-98.0) % Glucose (65-105) mg/dl Lactate (0.7-2.1) mmol/L FiO2 % PEEP Sodium (132-148) mmol/L Potassium (3.6-5.0) mmol/L Chloride (98-107) mmol/L Carbon Dioxide (21-33) mmol/L Anion Gap (10-20) BUN (7-21) mg/dL Creatinine (0.7-1.2) mg/dl Est GFR ( Amer) Est GFR (Non-Af Amer) POC Glucose (mg/dL) 319 H 471 H* > 500 H* (65-110) mg/dL Random Glucose (70-110) mg/dL Calcium (8.4-10.5) mg/dL Phosphorus (2.5-4.5) mg/dL Magnesium (1.7-2.2) mg/dL Total Bilirubin (0.2-1.3) mg/dL Direct Bilirubin (0.0-0.4) mg/dL AST (14-36) U/L ALT (7-56) U/L Alkaline Phosphatase (38-126) U/L Total Protein (5.8-8.3) g/dL Albumin (3.0-4.8) g/dL Globulin gm/dL Albumin/Globulin Ratio (1.1-1.8) 25-OH Vitamin D Total (30.0-100.0) NG/ML Arterial Blood Potassium (3.6-5.2) mmol/L Blood Type Confirm 07/13/17 07/13/17 07/13/17 Range/Units 10:03 08:16 06:45 WBC (4.5-11.0) 10^3/ul RBC (3.5-6.1) 10^6/uL Hgb (12.0-16.0) g/dL Hct (36.0-48.0) % MCV (80.0-105.0) fl MCH (25.0-35.0) pg MCHC (31.0-37.0) g/dl RDW (11.5-14.5) % Plt Count (120.0-450.0) 10^3/uL Manual Plt Count (120-450) K/mm3 MPV (7.0-11.0) fl pCO2 (35-45) mm/Hg pO2 (80-100) mm/Hg HCO3 (21-28) mmol/L ABG pH (7.35-7.45) ABG Total CO2 (22-28) mmol.L ABG O2 Saturation (95-98) % ABG O2 Content (15-23) ML/dl ABG Base Excess (-2.0-3.0) mmol/L ABG Hemoglobin (11.7-17.4) g/dL ABG Carboxyhemoglobin (0.5-1.5) % POC ABG HHb (Measured) (0-5) % ABG Methemoglobin (0.0-3.0) % ABG O2 Capacity (16-24) mL/dl ABG Potassium (3.6-5.2) mmol/L Hgb O2 Saturation (95.0-98.0) % Glucose (65-105) mg/dl Lactate (0.7-2.1) mmol/L FiO2 % PEEP Sodium 133 (132-148) mmol/L Potassium 5.5 H (3.6-5.0) mmol/L Chloride 101 (98-107) mmol/L Carbon Dioxide 15 L (21-33) mmol/L Anion Gap 22 H (10-20) BUN 23 H (7-21) mg/dL Creatinine 1.5 H (0.7-1.2) mg/dl Est GFR ( Amer) 40 Est GFR (Non-Af Amer) 33 POC Glucose (mg/dL) > 500 H* > 500 H* (65-110) mg/dL Random Glucose 602 H* D (70-110) mg/dL Calcium 7.7 L (8.4-10.5) mg/dL Phosphorus (2.5-4.5) mg/dL Magnesium (1.7-2.2) mg/dL Total Bilirubin 1.6 H (0.2-1.3) mg/dL Direct Bilirubin 0.8 H (0.0-0.4) mg/dL AST 244 H D (14-36) U/L ALT 132 H (7-56) U/L Alkaline Phosphatase 62 (38-126) U/L Total Protein 4.1 L (5.8-8.3) g/dL Albumin 2.1 L (3.0-4.8) g/dL Globulin 2.0 gm/dL Albumin/Globulin Ratio 1.0 L (1.1-1.8) 25-OH Vitamin D Total (30.0-100.0) NG/ML Arterial Blood Potassium (3.6-5.2) mmol/L Blood Type Confirm 07/13/17 07/13/17 07/13/17 Range/Units 05:50 05:50 05:50 WBC (4.5-11.0) 10^3/ul RBC (3.5-6.1) 10^6/uL Hgb (12.0-16.0) g/dL Hct (36.0-48.0) % MCV (80.0-105.0) fl MCH (25.0-35.0) pg MCHC (31.0-37.0) g/dl RDW (11.5-14.5) % Plt Count (120.0-450.0) 10^3/uL Manual Plt Count 125 (120-450) K/mm3 MPV (7.0-11.0) fl pCO2 (35-45) mm/Hg pO2 (80-100) mm/Hg HCO3 (21-28) mmol/L ABG pH (7.35-7.45) ABG Total CO2 (22-28) mmol.L ABG O2 Saturation (95-98) % ABG O2 Content (15-23) ML/dl ABG Base Excess (-2.0-3.0) mmol/L ABG Hemoglobin (11.7-17.4) g/dL ABG Carboxyhemoglobin (0.5-1.5) % POC ABG HHb (Measured) (0-5) % ABG Methemoglobin (0.0-3.0) % ABG O2 Capacity (16-24) mL/dl ABG Potassium (3.6-5.2) mmol/L Hgb O2 Saturation (95.0-98.0) % Glucose (65-105) mg/dl Lactate (0.7-2.1) mmol/L FiO2 % PEEP Sodium (132-148) mmol/L Potassium (3.6-5.0) mmol/L Chloride (98-107) mmol/L Carbon Dioxide (21-33) mmol/L Anion Gap (10-20) BUN (7-21) mg/dL Creatinine (0.7-1.2) mg/dl Est GFR ( Amer) Est GFR (Non-Af Amer) POC Glucose (mg/dL) (65-110) mg/dL Random Glucose (70-110) mg/dL Calcium (8.4-10.5) mg/dL Phosphorus 7.9 H (2.5-4.5) mg/dL Magnesium 2.0 (1.7-2.2) mg/dL Total Bilirubin (0.2-1.3) mg/dL Direct Bilirubin (0.0-0.4) mg/dL AST (14-36) U/L ALT (7-56) U/L Alkaline Phosphatase (38-126) U/L Total Protein (5.8-8.3) g/dL Albumin (3.0-4.8) g/dL Globulin gm/dL Albumin/Globulin Ratio (1.1-1.8) 25-OH Vitamin D Total 18.6 L (30.0-100.0) NG/ML Arterial Blood Potassium (3.6-5.2) mmol/L Blood Type Confirm 07/13/17 07/13/17 07/12/17 Range/Units 05:50 00:45 23:50 WBC 7.8 D 11.0 D (4.5-11.0) 10^3/ul RBC 3.66 3.99 (3.5-6.1) 10^6/uL Hgb 10.7 L 12.0 (12.0-16.0) g/dL Hct 34.6 L 37.1 (36.0-48.0) % MCV 94.5 93.0 D (80.0-105.0) fl MCH 29.2 30.1 (25.0-35.0) pg MCHC 30.9 L 32.3 (31.0-37.0) g/dl RDW 16.6 H 16.3 H (11.5-14.5) % Plt Count 105 L 114 L (120.0-450.0) 10^3/uL Manual Plt Count (120-450) K/mm3 MPV 12.3 H (7.0-11.0) fl pCO2 42 (35-45) mm/Hg pO2 198.0 H (80-100) mm/Hg HCO3 21.6 (21-28) mmol/L ABG pH 7.32 L (7.35-7.45) ABG Total CO2 22.9 (22-28) mmol.L ABG O2 Saturation 99.3 H (95-98) % ABG O2 Content 15.9 (15-23) ML/dl ABG Base Excess -4.3 L (-2.0-3.0) mmol/L ABG Hemoglobin 11.4 L (11.7-17.4) g/dL ABG Carboxyhemoglobin 2.2 H (0.5-1.5) % POC ABG HHb (Measured) 0.7 (0-5) % ABG Methemoglobin 0.9 (0.0-3.0) % ABG O2 Capacity 16.0 (16-24) mL/dl ABG Potassium (3.6-5.2) mmol/L Hgb O2 Saturation 96.3 (95.0-98.0) % Glucose (65-105) mg/dl Lactate (0.7-2.1) mmol/L FiO2 80.0 % PEEP Sodium (132-148) mmol/L Potassium (3.6-5.0) mmol/L Chloride (98-107) mmol/L Carbon Dioxide (21-33) mmol/L Anion Gap (10-20) BUN (7-21) mg/dL Creatinine (0.7-1.2) mg/dl Est GFR ( Amer) Est GFR (Non-Af Amer) POC Glucose (mg/dL) (65-110) mg/dL Random Glucose (70-110) mg/dL Calcium (8.4-10.5) mg/dL Phosphorus (2.5-4.5) mg/dL Magnesium (1.7-2.2) mg/dL Total Bilirubin (0.2-1.3) mg/dL Direct Bilirubin (0.0-0.4) mg/dL AST (14-36) U/L ALT (7-56) U/L Alkaline Phosphatase (38-126) U/L Total Protein (5.8-8.3) g/dL Albumin (3.0-4.8) g/dL Globulin gm/dL Albumin/Globulin Ratio (1.1-1.8) 25-OH Vitamin D Total (30.0-100.0) NG/ML Arterial Blood Potassium (3.6-5.2) mmol/L Blood Type Confirm 07/12/17 07/12/17 Range/Units 16:43 16:14 WBC (4.5-11.0) 10^3/ul RBC (3.5-6.1) 10^6/uL Hgb (12.0-16.0) g/dL Hct (36.0-48.0) % MCV (80.0-105.0) fl MCH (25.0-35.0) pg MCHC (31.0-37.0) g/dl RDW (11.5-14.5) % Plt Count (120.0-450.0) 10^3/uL Manual Plt Count (120-450) K/mm3 MPV (7.0-11.0) fl pCO2 (35-45) mm/Hg pO2 (80-100) mm/Hg HCO3 (21-28) mmol/L ABG pH (7.35-7.45) ABG Total CO2 (22-28) mmol.L ABG O2 Saturation (95-98) % ABG O2 Content (15-23) ML/dl ABG Base Excess (-2.0-3.0) mmol/L ABG Hemoglobin (11.7-17.4) g/dL ABG Carboxyhemoglobin (0.5-1.5) % POC ABG HHb (Measured) (0-5) % ABG Methemoglobin (0.0-3.0) % ABG O2 Capacity (16-24) mL/dl ABG Potassium (3.6-5.2) mmol/L Hgb O2 Saturation (95.0-98.0) % Glucose (65-105) mg/dl Lactate (0.7-2.1) mmol/L FiO2 % PEEP Sodium (132-148) mmol/L Potassium (3.6-5.0) mmol/L Chloride (98-107) mmol/L Carbon Dioxide (21-33) mmol/L Anion Gap (10-20) BUN (7-21) mg/dL Creatinine (0.7-1.2) mg/dl Est GFR ( Amer) Est GFR (Non-Af Amer) POC Glucose (mg/dL) 183 H (65-110) mg/dL Random Glucose (70-110) mg/dL Calcium (8.4-10.5) mg/dL Phosphorus (2.5-4.5) mg/dL Magnesium (1.7-2.2) mg/dL Total Bilirubin (0.2-1.3) mg/dL Direct Bilirubin (0.0-0.4) mg/dL AST (14-36) U/L ALT (7-56) U/L Alkaline Phosphatase (38-126) U/L Total Protein (5.8-8.3) g/dL Albumin (3.0-4.8) g/dL Globulin gm/dL Albumin/Globulin Ratio (1.1-1.8) 25-OH Vitamin D Total (30.0-100.0) NG/ML Arterial Blood Potassium (3.6-5.2) mmol/L Blood Type Confirm O POSITIVE Laboratory Results - last 24 hr 07/12/17 07/12/17 07/12/17 16:14 16:43 23:50 WBC 11.0 D RBC 3.99 Hgb 12.0 Hct 37.1 MCV 93.0 D MCH 30.1 MCHC 32.3 RDW 16.3 H Plt Count 114 L Manual Plt Count MPV 12.3 H pCO2 pO2 HCO3 ABG pH ABG Total CO2 ABG O2 Saturation ABG O2 Content ABG Base Excess ABG Hemoglobin ABG Carboxyhemoglobin POC ABG HHb (Measured) ABG Methemoglobin ABG O2 Capacity ABG Potassium Hgb O2 Saturation Glucose Lactate FiO2 PEEP Sodium Potassium Chloride Carbon Dioxide Anion Gap BUN Creatinine Est GFR ( Amer) Est GFR (Non-Af Amer) POC Glucose (mg/dL) 183 H Random Glucose Calcium Phosphorus Magnesium Total Bilirubin Direct Bilirubin AST ALT Alkaline Phosphatase Total Protein Albumin Globulin Albumin/Globulin Ratio 25-OH Vitamin D Total Arterial Blood Potassium Blood Type Confirm O POSITIVE 07/13/17 07/13/17 07/13/17 00:45 05:50 05:50 WBC 7.8 D RBC 3.66 Hgb 10.7 L Hct 34.6 L MCV 94.5 MCH 29.2 MCHC 30.9 L RDW 16.6 H Plt Count 105 L Manual Plt Count MPV pCO2 42 pO2 198.0 H HCO3 21.6 ABG pH 7.32 L ABG Total CO2 22.9 ABG O2 Saturation 99.3 H ABG O2 Content 15.9 ABG Base Excess -4.3 L ABG Hemoglobin 11.4 L ABG Carboxyhemoglobin 2.2 H POC ABG HHb (Measured) 0.7 ABG Methemoglobin 0.9 ABG O2 Capacity 16.0 ABG Potassium Hgb O2 Saturation 96.3 Glucose Lactate FiO2 80.0 PEEP Sodium Potassium Chloride Carbon Dioxide Anion Gap BUN Creatinine Est GFR ( Amer) Est GFR (Non-Af Amer) POC Glucose (mg/dL) Random Glucose Calcium Phosphorus Magnesium Total Bilirubin Direct Bilirubin AST ALT Alkaline Phosphatase Total Protein Albumin Globulin Albumin/Globulin Ratio 25-OH Vitamin D Total 18.6 L Arterial Blood Potassium Blood Type Confirm 07/13/17 07/13/17 07/13/17 05:50 05:50 06:45 WBC RBC Hgb Hct MCV MCH MCHC RDW Plt Count Manual Plt Count 125 MPV pCO2 pO2 HCO3 ABG pH ABG Total CO2 ABG O2 Saturation ABG O2 Content ABG Base Excess ABG Hemoglobin ABG Carboxyhemoglobin POC ABG HHb (Measured) ABG Methemoglobin ABG O2 Capacity ABG Potassium Hgb O2 Saturation Glucose Lactate FiO2 PEEP Sodium 133 Potassium 5.5 H Chloride 101 Carbon Dioxide 15 L Anion Gap 22 H BUN 23 H Creatinine 1.5 H Est GFR ( Amer) 40 Est GFR (Non-Af Amer) 33 POC Glucose (mg/dL) Random Glucose 602 H* D Calcium 7.7 L Phosphorus 7.9 H Magnesium 2.0 Total Bilirubin 1.6 H Direct Bilirubin 0.8 H AST 244 H D ALT 132 H Alkaline Phosphatase 62 Total Protein 4.1 L Albumin 2.1 L Globulin 2.0 Albumin/Globulin Ratio 1.0 L 25-OH Vitamin D Total Arterial Blood Potassium Blood Type Confirm 07/13/17 07/13/17 07/13/17 08:16 10:03 11:46 WBC RBC Hgb Hct MCV MCH MCHC RDW Plt Count Manual Plt Count MPV pCO2 pO2 HCO3 ABG pH ABG Total CO2 ABG O2 Saturation ABG O2 Content ABG Base Excess ABG Hemoglobin ABG Carboxyhemoglobin POC ABG HHb (Measured) ABG Methemoglobin ABG O2 Capacity ABG Potassium Hgb O2 Saturation Glucose Lactate FiO2 PEEP Sodium Potassium Chloride Carbon Dioxide Anion Gap BUN Creatinine Est GFR ( Amer) Est GFR (Non-Af Amer) POC Glucose (mg/dL) > 500 H* > 500 H* > 500 H* Random Glucose Calcium Phosphorus Magnesium Total Bilirubin Direct Bilirubin AST ALT Alkaline Phosphatase Total Protein Albumin Globulin Albumin/Globulin Ratio 25-OH Vitamin D Total Arterial Blood Potassium Blood Type Confirm 07/13/17 07/13/17 07/13/17 13:17 15:18 16:18 WBC RBC Hgb Hct MCV MCH MCHC RDW Plt Count Manual Plt Count MPV pCO2 pO2 HCO3 ABG pH ABG Total CO2 ABG O2 Saturation ABG O2 Content ABG Base Excess ABG Hemoglobin ABG Carboxyhemoglobin POC ABG HHb (Measured) ABG Methemoglobin ABG O2 Capacity ABG Potassium Hgb O2 Saturation Glucose Lactate FiO2 PEEP Sodium Potassium Chloride Carbon Dioxide Anion Gap BUN Creatinine Est GFR ( Amer) Est GFR (Non-Af Amer) POC Glucose (mg/dL) 471 H* 319 H 271 H Random Glucose Calcium Phosphorus Magnesium Total Bilirubin Direct Bilirubin AST ALT Alkaline Phosphatase Total Protein Albumin Globulin Albumin/Globulin Ratio 25-OH Vitamin D Total Arterial Blood Potassium Blood Type Confirm 07/13/17 07/13/17 16:45 17:34 WBC RBC Hgb Hct MCV MCH MCHC RDW Plt Count Manual Plt Count MPV pCO2 37 pO2 124.0 H HCO3 18.6 L ABG pH 7.31 L ABG Total CO2 19.7 L ABG O2 Saturation 98.4 H ABG O2 Content ABG Base Excess -7.0 L ABG Hemoglobin ABG Carboxyhemoglobin POC ABG HHb (Measured) ABG Methemoglobin ABG O2 Capacity ABG Potassium 3.7 Hgb O2 Saturation Glucose 197 H Lactate 3.1 H FiO2 40.0 PEEP 5 Sodium 137.0 Potassium Chloride 110.0 H Carbon Dioxide Anion Gap BUN Creatinine Est GFR ( Amer) Est GFR (Non-Af Amer) POC Glucose (mg/dL) 188 H Random Glucose Calcium Phosphorus Magnesium Total Bilirubin Direct Bilirubin AST ALT Alkaline Phosphatase Total Protein Albumin Globulin Albumin/Globulin Ratio 25-OH Vitamin D Total Arterial Blood Potassium 3.7 Blood Type Confirm Critical Care Progress Note - Nutrition Nutrition: Nutrition Category Date Time Status Heart Healthy Diet [DIET] Diets 07/12/17 Dinner Ordered Attending/Attestation - Attestation I have personally seen and examined this patient.: Yes I have fully participated in the care of the patient.: Yes I have reviewed all pertinent clinical information: Yes Notes (Text): 07/13/17 18:48 82 yo female with severe COPD, severe pulmonary hypertension was admitted to ICU after emergent ORIF with postop respiratory failure. Was tried on PSV, despite initially been doing well on it, got tired and was put back on PRVC. On levophed and dobutamine. Received 1 L NS as a bolus earleir (IVC on US was <2 cm and collapsible on inspiration during PSV trial more then 40%). Would avoid fluid overload. Off of sedation and comfortable, will try PST in am. Meanwhile will try to taper vasopressor requirement. Protective lung vent strategy, HOB>35 , oral hygiene, daily weaning trials and sedation vacations, dvt/gi prophylaxis. ccm time 40 min
[2017-07-13 14:28] VITALS: PULSE 118
--- NOTE | 2017-07-13 14:31 | PN ---
DATE: 07/13/2017 SUBJECTIVE: The patient is seen in ICU bed 4. The patient is intubated, on respirator. According to the patient's nurse, the patient's blood pressure has dropped to 70 over 80. The patient was started by the resident on dobutamine. PHYSICAL EXAMINATION VITAL SIGNS: Overnight blood pressure was averaging 160-170 systolic, 190 systolic, last night blood pressure 121/50 and this morning, the blood pressure , the patient was started on dobutamine drip. Respirations 17, O2 sat is 100% on the ventilator. HEAD: Normocephalic, atraumatic. HEENT examination shows pinkish pale conjunctivae. Dry oral mucosa. NECK: No neck rigidity. CHEST: Kyphosis. LUNGS: Occasional rhonchi in upper lung zabala. The patient is intubated and ET tube in place. CARDIOVASCULAR: S1, S2, regular rhythm. Positive systolic murmur at left sternal border, right second intercostal space, left second intercostal space. ABDOMEN: Soft. Positive bowel sounds. GENITALIA: Female. EXTREMITIES: Positive right hip dressing noted. NEUROLOGIC: The patient is arousable to verbal and painful stimuli. Gait examination is not tested. Decreased range of motion of the lower extremity. MUSCULOSKELETAL: Shows a body mass index of 23. DIAGNOSTICS: On 07/13, WBC 7.8, hemoglobin and hematocrit 10.7 and 34.6, platelets 105,000. ABG on 80% FiO2, pH of 7.32, pCO2 of 42, pO2 of 198, bicarbonate 22, saturation of 99.3%. The patient had a rate of 12, tidal volume 550, PEEP of 5 and 50% FiO2. The patient in on ET tube size 7 at position 22 inches. The patient's chemistry from today is pending. Chest x-ray shows ET tube in place, COPD, flattened diaphragm. IMPRESSION 1. Postoperative ventilator-dependent respiratory failure. 2. Right hip intertrochanteric fracture. 3. Status post open reduction and internal fixation of the right hip fracture with intramedullary nail. 4. Tachycardia. 5. Transient hypotension. 6. History of hypertension. 7. Normocytic anemia. 8. Thrombocytopenia. 9. Granulocytosis. 10. Hyperglycemia. 11. Severe pulmonary hypertension with diastolic right-sided congestive heart failure. 12. Ketonuria. 13. Degenerative joint disease of the femur. 14. Right hip comminuted intratrochanteric fracture. 15. Questionable pulmonary fibrosis with atelectasis. 16. Questionable left axis deviation. 17. Chronic obstructive pulmonary disease. 18. Gait dysfunction. 19. Insulin-requiring diabetes mellitus with hyperglycemia. 20. Paroxysmal atrial fibrillation. 21. History of dementia. PLAN: At this time, the patient's management will be discussed with Cardiology, Dr. Rivas. Dobutamine will be stopped. IV fluid will be started. The patient has been ordered stat chemistries. Serial chemistry and daily chemistry has been ordered. Repeat CBC, manual platelet count ordered. Blood and urine cultures have been ordered. CONSULTATIONS 1. Cardiology. 2. Orthopedics. The patient is on Ancef 2 g IV every 8 hours. The patient is on Colace 100 mg three times a day, Dilaudid 0.5 mg IV every 4 hours p.r.n. The patient is on Flomax 0.4 mg daily, Breo-Ellipta. The patient's insulin has been adjusted to high dose Humalog every 6 hours. The patient is on Lipitor 40 mg daily, which has been held. The patient is on Lovenox 40 mg subcutaneous every 24 hours, magnesium oxide 400 mg twice a day, Namenda 5 mg twice a day, Protonix 40 mg will be changed to 40 mg IV daily. The patient is started on 0.9 normal saline at 125 mL an hour, Tylenol 650 mg p.o. or suppository every 6 hours p.r.n. The patient is on Xopenex nebulizer 4 times a day round the clock. The patient is on Zofran 4 mg IV every 4 hours. Chest x-ray is ordered. Chest PT ordered. The patient is on ventilator. Head of the bed at 30 degrees. SCDs, CHARLY stockings have been ordered. The patient's further management will be dependent upon the patient's clinical condition, hemodynamic status and as per the patient's response to therapeutic intervention, as per the patient's diagnostic test results. Overall prognosis is guarded to poor. Condition is critical. Time spent more than 35 minutes. Dictated and electronically signed, not read. Diego Hamilton MD [facility] # [id number]
--- NOTE | 2017-07-13 15:56 | CP.PCM.CON ---
History of Present Illness - History of Present Illness History of Present Illness: Nephrology Consultation Note: Assessment: Critical Acute Kidney Injury (N17.9) likely Hemodynamic, Reduced renal perfusion due to Shock state, requirement of pressors. High non-gap metabolic acidosis due to diabetic ketoacidosis with hyperglycemia Fall status post hip fracture and ORIF Anemia COPD pulmonary hypertension, A. fib with RVR Diabetes mellitus history of hypertension Vitamin D deficiency Abnormal LFT Plan No acute need for renal replacement therapy at this time. Maintain hemodynamics stable. Patient not on ACEI/ARB due to [place]. Avoid hypotension. Monitor Input/Output, daily weights and renal function with basic metabolic panel Patient on insulin drip Consider IV fluid as normal saline Supplement with weekly vitamin D 50,000 unit once she is stable PRBC as needed for anemia. Dose meds/antibiotics for reduced GFR. Avoid fleets enema/magnesium based laxatives. Avoid nephrotoxins/NSAIDs/ iodinated contrast (unless needed emergently) Glycemic control Further work up/management as per primary team Thanks for allowing me to participate in care of your patient. Will follow patient with you. Please call if any Qs. Discussed with team Dr Óscar De La Cruz Office: [phone] Chief Complaint; Unable to obtain Reason for consultation; acute kidney injury Source of information; EMR HPI: Pt is a 82 f with hx of diabetes Mellitus ( years), hypertension (years) COPD, A. fib, Pulmonary hypertension, presented with complaints of Fall and hip fracture. She underwent orif, transferred to ICU because of hypoxic respiratory failure and diabetes ketoacidosis, which requiring insulin drip. Also on shock state requiring pressors as Levophed. Blood pressure low lowest in 70s. Renal consult for a Acute kidney injury evaluation Denies OTC/herbal meds or NSAIDs No recent iodinated contrast exposure. Noted obvious episodes of low BP. ROS:Unable to obtain as patient intubated Physical Examination: General Appearance: in no acute respiratory distress, Ill-appearing orally intubated Vitals reviewed and noted as below Head; Atraumatic, normocephalic ENT: Patient is orally intubated EYES: Pupils are equal, round and reactive to light accommodation. Eye muscles and extraocular movement intact. Sclera is anicteric. Neck; supple no lymphadenopathy, no thyromegaly or bruit Lungs: Normal respiratory rate/effort. Breath sounds bilateral equal and clear Anteriorly Heart: Increased rate. s1s2 normal. No rub or gallop. Extremities: no edema. No varicose veins. Extremities cool to touch Neurological: Patient is Sedated Skin: dry. Normal turgor. No rash. Palpitation: Normal elasticity for age. Skin ecchymosis noted Abdomen: Abdomen is soft. Bowel sounds +. There is no abdominal tenderness, no guarding/rigidity no organomegaly Psych: Unable MSK: no joint tenderness or swelling. Digits and nails normal, no deformity : kidney or bladder not palpable. Has Moon catheter Labs/imaging reviewed. Past medical history, past surgical history, family history, social history, allergy reviewed and noted as below Family hx: no hx of CKD. Rest non-contributory Renal sono normal UA shows ketones and glucose Past Patient History - Infectious Disease Hx of Infectious Diseases: None - Past Social History Smoking Status: Former Smoker - CARDIAC Hx Pacemaker: No - PULMONARY Hx Chronic Obstructive Pulmonary Disease (COPD): Yes - NEUROLOGICAL Hx Neurological Disorder: Yes Hx Dementia: Yes - HEENT Hx HEENT Problems: Yes Hx Cataracts: Yes (bilateral) - RENAL Hx Chronic Kidney Disease: No - ENDOCRINE/METABOLIC Hx Diabetes Mellitus Type 2: Yes - HEMATOLOGICAL/ONCOLOGICAL Hx Cancer: No - INTEGUMENTARY Hx Dermatological Problems: Yes Other/Comment: BILATERAL ARM BRUISING - MUSCULOSKELETAL/RHEUMATOLOGICAL Hx Arthritis: Yes Hx Falls: Yes - GASTROINTESTINAL Hx Gastrointestinal Disorders: No - GENITOURINARY/GYNECOLOGICAL Hx Genitourinary Disorders: Yes Other/Comment: URGENCY - PSYCHIATRIC Hx Psychophysiologic Disorder: No Hx Substance Use: No - SURGICAL HISTORY Hx Mastectomy: No - ANESTHESIA Hx Anesthesia: Yes Hx Anesthesia Reactions: No Hx Malignant Hyperthermia: No Meds Allergies/Adverse Reactions: Allergies Allergy/AdvReac Type Severity Reaction Status Date / Time No Known Allergies Allergy Verified 07/12/17 09:09 - Medications Medications: Current Medications Acetaminophen (Tylenol 325mg Tab) 650 mg PO Q6 PRN PRN Reason: Headache Acetaminophen (Tylenol 650 Mg Supp) 650 mg RC Q6H PRN PRN Reason: Headache Acetaminophen (Tylenol 325mg Tab) 650 mg PO Q6 PRN PRN Reason: TEMP>=99.5F Acetaminophen (Tylenol 650 Mg Supp) 650 mg RC Q6H PRN PRN Reason: TEMP>=99.5F Atorvastatin Calcium (Lipitor) 40 mg PO HS [facility] Last Admin: 07/12/17 22:56 Dose: Not Given Docusate Sodium (Colace) 100 mg PO TID [facility] Last Admin: 07/13/17 13:18 Dose: Not Given Enoxaparin Sodium (Lovenox) 30 mg SC Q24H [facility] PRN Reason: Protocol Hydromorphone HCl (Dilaudid) 0.5 mg IVP Q4H PRN PRN Reason: Pain, severe (8-10) Last Admin: 07/12/17 22:50 Dose: 0.5 mg Sodium Chloride (Sodium Chloride 0.9%) 1,000 mls @ 125 mls/hr IV .Q8H [facility] Last Admin: 07/13/17 10:57 Dose: 125 mls/hr Insulin Human Regular 100 (units/ Sodium Chloride) 100 mls @ 4 mls/hr IV .Q24H PRN; Protocol; 4 UNITS/HR PRN Reason: TITRATE PER MD ORDER Last Admin: 07/13/17 12:07 Dose: 4 units/hr, 4 mls/hr NOREPINEPHRINE BIT/0.9 % NACL (Levophed 4 Mg/ 250 Ml Ns Premixed) 4 mg in 250 mls @ 15 mls/hr IV .[id number] PRN; Protocol; 4 MCG/MIN PRN Reason: TITRATE PER MD ORDER Dobutamine HCl/Dextrose (Dobutamine/Dextrose 5% 500mg/250ml) 500 mg in 250 mls @ 3.511 mls/hr IV .Q24H PRN; Protocol; 2 MCG/KG/MIN PRN Reason: TITRATE PER PROTOCOL Insulin Human Lispro (Humalog High) 0 units SC Q6H [facility] PRN Reason: Protocol Last Admin: 07/13/17 09:30 Dose: 15 units Levalbuterol HCl (Xopenex) 0.63 mg IH QIDRESP [facility] Last Admin: 07/13/17 11:35 Dose: 0.63 mg Magnesium Oxide (Mag-Ox) 400 mg PO BID [facility] Last Admin: 07/13/17 10:57 Dose: Not Given Memantine (Namenda) 5 mg PO BID [facility] Last Admin: 07/13/17 10:57 Dose: Not Given Breo Ellipta 100-25 Mcg Inh] (Home Med) 1 puff IH DAILY [facility] Last Admin: 07/13/17 10:57 Dose: Not Given Ondansetron HCl (Zofran Inj) 4 mg IVP Q4H PRN PRN Reason: Nausea/Vomiting Tamsulosin HCl (Flomax) 0.4 mg PO DAILY [facility] Last Admin: 07/13/17 10:56 Dose: Not Given Results - Vital Signs Recent Vital Signs: Last Vital Signs Temp 97.5 F L 07/13/17 00:00 Pulse 101 H 07/13/17 09:29 Resp 17 07/12/17 23:02 BP 79/30 L 07/13/17 09:29 Pulse Ox 100 07/12/17 22:20 - Labs Result Diagrams: 07/13/17 05:50 07/13/17 06:45 Labs: Laboratory Results - last 24 hr 07/12/17 07/12/17 07/12/17 15:48 16:14 16:43 WBC RBC Hgb Hct MCV MCH MCHC RDW Plt Count Manual Plt Count MPV pCO2 pO2 HCO3 ABG pH ABG Total CO2 ABG O2 Saturation ABG O2 Content ABG Base Excess ABG Hemoglobin ABG Carboxyhemoglobin POC ABG HHb (Measured) ABG Methemoglobin ABG O2 Capacity Hgb O2 Saturation FiO2 Sodium Potassium Chloride Carbon Dioxide Anion Gap BUN Creatinine Est GFR ( Amer) Est GFR (Non-Af Amer) POC Glucose (mg/dL) 183 H Random Glucose Calcium Phosphorus Magnesium Total Bilirubin Direct Bilirubin AST ALT Alkaline Phosphatase Total Protein Albumin Globulin Albumin/Globulin Ratio 25-OH Vitamin D Total Blood Type O POSITIVE Blood Type Confirm O POSITIVE Antibody Screen Negative Crossmatch See Detail BBK History Checked No verified bt 07/12/17 07/13/17 07/13/17 23:50 00:45 05:50 WBC 11.0 D 7.8 D RBC 3.99 3.66 Hgb 12.0 10.7 L Hct 37.1 34.6 L MCV 93.0 D 94.5 MCH 30.1 29.2 MCHC 32.3 30.9 L RDW 16.3 H 16.6 H Plt Count 114 L 105 L Manual Plt Count MPV 12.3 H pCO2 42 pO2 198.0 H HCO3 21.6 ABG pH 7.32 L ABG Total CO2 22.9 ABG O2 Saturation 99.3 H ABG O2 Content 15.9 ABG Base Excess -4.3 L ABG Hemoglobin 11.4 L ABG Carboxyhemoglobin 2.2 H POC ABG HHb (Measured) 0.7 ABG Methemoglobin 0.9 ABG O2 Capacity 16.0 Hgb O2 Saturation 96.3 FiO2 80.0 Sodium Potassium Chloride Carbon Dioxide Anion Gap BUN Creatinine Est GFR ( Amer) Est GFR (Non-Af Amer) POC Glucose (mg/dL) Random Glucose Calcium Phosphorus Magnesium Total Bilirubin Direct Bilirubin AST ALT Alkaline Phosphatase Total Protein Albumin Globulin Albumin/Globulin Ratio 25-OH Vitamin D Total Blood Type Blood Type Confirm Antibody Screen Crossmatch BBK History Checked 07/13/17 07/13/17 07/13/17 05:50 05:50 05:50 WBC RBC Hgb Hct MCV MCH MCHC RDW Plt Count Manual Plt Count 125 MPV pCO2 pO2 HCO3 ABG pH ABG Total CO2 ABG O2 Saturation ABG O2 Content ABG Base Excess ABG Hemoglobin ABG Carboxyhemoglobin POC ABG HHb (Measured) ABG Methemoglobin ABG O2 Capacity Hgb O2 Saturation FiO2 Sodium Potassium Chloride Carbon Dioxide Anion Gap BUN Creatinine Est GFR ( Amer) Est GFR (Non-Af Amer) POC Glucose (mg/dL) Random Glucose Calcium Phosphorus 7.9 H Magnesium 2.0 Total Bilirubin Direct Bilirubin AST ALT Alkaline Phosphatase Total Protein Albumin Globulin Albumin/Globulin Ratio 25-OH Vitamin D Total 18.6 L Blood Type Blood Type Confirm Antibody Screen Crossmatch BBK History Checked 07/13/17 07/13/17 07/13/17 06:45 08:16 10:03 WBC RBC Hgb Hct MCV MCH MCHC RDW Plt Count Manual Plt Count MPV pCO2 pO2 HCO3 ABG pH ABG Total CO2 ABG O2 Saturation ABG O2 Content ABG Base Excess ABG Hemoglobin ABG Carboxyhemoglobin POC ABG HHb (Measured) ABG Methemoglobin ABG O2 Capacity Hgb O2 Saturation FiO2 Sodium 133 Potassium 5.5 H Chloride 101 Carbon Dioxide 15 L Anion Gap 22 H BUN 23 H Creatinine 1.5 H Est GFR ( Amer) 40 Est GFR (Non-Af Amer) 33 POC Glucose (mg/dL) > 500 H* > 500 H* Random Glucose 602 H* D Calcium 7.7 L Phosphorus Magnesium Total Bilirubin 1.6 H Direct Bilirubin 0.8 H AST 244 H D ALT 132 H Alkaline Phosphatase 62 Total Protein 4.1 L Albumin 2.1 L Globulin 2.0 Albumin/Globulin Ratio 1.0 L 25-OH Vitamin D Total Blood Type Blood Type Confirm Antibody Screen Crossmatch BBK History Checked 07/13/17 07/13/17 07/13/17 11:46 13:17 15:18 WBC RBC Hgb Hct MCV MCH MCHC RDW Plt Count Manual Plt Count MPV pCO2 pO2 HCO3 ABG pH ABG Total CO2 ABG O2 Saturation ABG O2 Content ABG Base Excess ABG Hemoglobin ABG Carboxyhemoglobin POC ABG HHb (Measured) ABG Methemoglobin ABG O2 Capacity Hgb O2 Saturation FiO2 Sodium Potassium Chloride Carbon Dioxide Anion Gap BUN Creatinine Est GFR ( Amer) Est GFR (Non-Af Amer) POC Glucose (mg/dL) > 500 H* 471 H* 319 H Random Glucose Calcium Phosphorus Magnesium Total Bilirubin Direct Bilirubin AST ALT Alkaline Phosphatase Total Protein Albumin Globulin Albumin/Globulin Ratio 25-OH Vitamin D Total Blood Type Blood Type Confirm Antibody Screen Crossmatch BBK History Checked
--- NOTE | 2017-07-13 15:59 | RAD ---
HISTORY: PICC line placement. COMPARISON: Multiple serial examinations preceding the most recent study: July 13, 2017. Time of the most recent examination: 05:27 FINDINGS: LUNGS: Right lower lobe infiltrate. PLEURA: Small right pleural effusion or focal pleural thickening. CARDIOVASCULAR: No radiographic findings to suggest acute or significant cardiovascular disease. PICC line in satisfactory position OSSEOUS STRUCTURES: No significant abnormalities. VISUALIZED UPPER ABDOMEN: Normal. OTHER FINDINGS: Stable position of endotracheal tube. IMPRESSION: Satisfactory position of recently placed PICC line. No pneumothorax. Right lower lobe consolidative changes likely present on an earlier study.
[2017-07-13 16:53] LABS: ARTERIAL BLOOD GAS HCO3 18.6 mmol/L (21-28); ARTERIAL BLOOD GAS O2 SAT 98.4 % (95-98); ARTERIAL BLOOD GAS PCO2 37 mm/Hg (35-45); ARTERIAL BLOOD GAS PH 7.31 (7.35-7.45); ARTERIAL BLOOD GAS TCO2 19.7 mmol.L (22-28)
[2017-07-13] MEDS: DOBUTamine 500mg/250ml D5W 500 MG/250 ML BAG IV PRN (17:00)
[2017-07-13] MEDS: Enoxaparin 30 mg Syringe SC SCH (17:38)
[2017-07-13] MEDS: NOREPINEPHRINE BIT/0.9 % NACL 4 MG/250 ML BAG IV PRN (20:59)
[2017-07-13 21:07] LABS: VENOUS BLOOD GAS BASE EXCESS -4.1 mmol/L (0.0-2.0); VENOUS BLOOD GAS PO2 161 mm/Hg (30-55); VENOUS BLOOD PH 7.31 (7.32-7.43)
[2017-07-13] MEDS: HYDROmorphone 0.5 mg/0.5 ml ISec IVP PRN (22:45)
[2017-07-14 06:05] LABS: BASO # 0.02 K/mm3 (0.0-2.0); BASO % 0.1 % (0.0-3.0); EOS # 0.1 (0.0-0.7); EOS % 0.7 % (1.5-5.0); GRAN # 12.39 (1.4-6.5); GRAN % 82.4 % (50.0-68.0); HEMOGLOBIN 10.7 g/dL (12.0-16.0); LYMPH # 1.6 (1.2-3.4); LYMPH % 10.4 % (22.0-35.0); MEAN CELL VOLUME 89.3 fl (80.0-105.0); MEAN CORPUSCULAR HEMOGLOBIN 29.5 pg (25.0-35.0); MEAN PLATELET VOLUME 12.2 fl (7.0-11.0); MONO % 6.4 % (1.0-6.0); RBC 3.63 10^6/uL (3.5-6.1); WHITE BLOOD COUNT 15.1 10^3/ul (4.5-11.0)
[2017-07-14] MEDS ORDERED: Dextrose 5%/0.9% NS 1,000 ML IV SCH (06:15)
[2017-07-14] MEDS: Insulin Lispro (HUMAlog) HIGH Coverage SC SCH ×4 (06:21→21:22)
[2017-07-14 06:49] LABS: ALBUMIN 2.1 g/dL (3.0-4.8); BILIRUBIN,DIRECT 0.4 mg/dL (0.0-0.4); CALCIUM 7.4 mg/dL (8.4-10.5)
[2017-07-14] MEDS: Levalbuterol 0.63 MG/3 ML Inhal Soln UD IH SCH ×4 (08:02→20:35)
[2017-07-14] MEDS ORDERED: Albumin Human 25% (12.5 gm/50 ml) IV ONE ×2 (08:19→08:30)
[2017-07-14] MEDS: BREO ELLIPTA IH SCH (09:10)
[2017-07-14] MEDS: Magnesium Oxide 400 mg Tab UD PO SCH ×3 (09:15→17:11)
--- NOTE | 2017-07-14 09:39 | PN ---
DATE: 07/14/2017 SUBJECTIVE: The patient is seen in ICU, bed 4. The patient is intubated. The patient is lying in the bed. The patient is awake with eyes open. PHYSICAL EXAMINATION: VITAL SIGNS: T-max in the last 24-48 hours 101.4. Telemetry shows atrial fibrillation, heart rate in 110, 120s. Blood pressure on the monitor at preset is 111/84, last 24-hour blood pressure systolic is averaging around 90s systolic, diastolic in 50s and 40s. Respirations 20-22, O2 sat is 95-96%. GENERAL: The patient is seen lying in the bed. Telemetry shows atrial fibrillation in 120s, 130s. The patient is still on vent support with assist control 12, tidal volume 550, PEEP of 5 and FiO2 of 40%. HEENT: Head examination normocephalic, atraumatic. HEENT examination shows increased facial hair growth. Positive ET tube. Pinkish pale conjunctivae. Anicteric sclerae. No oropharyngeal lesion. No neck rigidity. Questionable soft carotid bruit. CHEST: Kyphosis. LUNGS: Shows occasional rhonchi, right more than the left. CARDIOVASCULAR: S1 and S2. Irregular rhythm. Positive systolic murmur, left sternal border, right second intercostal space, left second intercostal space. Positive left upper arm PICC line placement. ABDOMEN: Soft. Positive bowel sounds. GENITALIA: Female. Positive Moon catheter. EXTREMITIES: Positive right hip dressing noted. Positive SCDs noted. MUSCULOSKELETAL: Shows a body mass index of 23. NEUROLOGIC: The patient is awake, responsive. Eyes are open. Neuro examination is limited. DIAGNOSTICS: On 07/14/2017, WBC 15.1, hemoglobin and hematocrit 10.7 and 32.4, platelet 122. ABG from 07/14/2017 is pending. Sodium 140, potassium 4.0, chloride 112, CO2 of 24, anion gap 9, BUN 35, creatinine 1.3. Yesterday's creatinine was 1.5. Yesterday's BUN was 23. Random glucose today is 95. Yesterday's glucose was 602. Lactic acid 1.4. AST has gone up to 1371, ALT 547. Total protein 4.4, albumin 2.1. Blood and urine cultures are negative. Chest x-ray from 07/13/2017 shows a right lower lobe pneumonia, right pleural effusion. The patient was seen by Orthopedics, Cardiology and Nephrology yesterday. IMPRESSION AND PLAN: 1. Postoperative post open reduction and internal fixation of the right hip fracture with intramedullary nail. 2. Postoperative ventilator-dependent respiratory failure. 3. Right hip intertrochanteric fracture. 4. Diabetic ketoacidosis with severe hyperglycemia. 5. Atrial fibrillation with rapid ventricular response. 6. Hypotension. 7. Leukocytosis with granulocytosis. 8. Hypotension. 9. Questionable hypovolemic hypotensive shock. 10. Relative thrombocytopenia. 11. Advanced chronic obstructive pulmonary disease. 12. Hyperkalemia. 13. Acute kidney injury. 14. Status post hyperkalemia. 15. Severe transaminitis versus shock liver. 16. Severe protein malnutrition and hypoalbuminemia. 17. Uncontrolled diabetes mellitus with hyperglycemia and diabetic ketoacidosis. 18. Glycosuria. 19. Ventilator-dependent right lower lobe pneumonia. 20. Status post left upper extremity peripherally inserted central catheter line placement. 21. Left renal cyst. 22. Shock liver. 23. Hypotension with renal hypoperfusion. 24. High non-gap metabolic acidosis secondary to diabetic ketoacidosis with uncontrolled diabetes and hyperglycemia. 25. Status post fall and right hip fracture. 26. Anemia. 27. Hypovitaminosis D. 28. History of dementia. 29. Hypoxic ventilator-dependent respiratory failure. 30. Pressors-requiring hypotension. 31. Severe pulmonary hypertension. 32. Severe chronic obstructive pulmonary disease. 33. Severe transaminitis. 34. Shock liver. 35. Severe deconditioning. 36. Dyslipidemia. Plan at this time, the patient has been ordered repeat labs. The patient is repeat ABG. CURRENT CONSULTATION: 1. Cardiology. 2. GI. 3. Nephrology. 4. Orthopedics. CURRENT MEDICATIONS: The patient was given a dose of albumin 25 g x1. The patient is on Colace 100 mg 3 times a day. The patient is on D5 normal saline at 125 mL an hour, Dilaudid 0.5 mg IV q. 4 p.r.n. The patient is started on dobutamine by the [employer] material inspector 2 mcg/kg/minute. The patient is on insulin high-dose sliding scale coverage. The patient is on insulin drip at 4 units per hour. The patient was given digoxin 0.125 yesterday, Lipitor 40, Lovenox 30 mg subcu every 24. The patient is on magnesium oxide 400 twice a day, Namenda 5 twice a day, Levophed at 4 mcg/kg, Tylenol p.r.n. for fever, Xopenex 0.63 mg four times daily, Zofran 4 mg IV every 4. Chest PT. Repeat EKG ordered. SCDs, CHARLY stockings ordered. Overall prognosis guarded. Condition critical. Dictated and electronically signed, not read. Diego Hamilton MD
[2017-07-14] MEDS ORDERED: Bacitracin 500 Units/gm Oint Foilpak UD ONE (10:15)
--- NOTE | 2017-07-14 10:46 | CP.PCM.PN ---
Subjective - Date & Time of Evaluation Date of Evaluation: 07/14/17 Time of Evaluation: 10:27 - Subjective Subjective: Patient POD#2 s/p ORIF right hip fx. Patient in ICU, still intubated and on levophed. Patient's blood pressure has been 120's/40s since this morning. Afebrile WBC: 15.6 hgb 10.7 R hip: dressings removed. The incision sites are clean and intact. There is no erythema or drainage. No signs of cellulitis or infection. Incision sites cleaned with NSS and new light dry sterile dressings applied. Neurological exam is limited but patient does respond to some active range of motion of her toes. DP pulse +. Continue with critical care management Once patient is hemodynamically stable, will begin PT with WBAT. Objective - Vital Signs/Intake and Output Vital Signs (last 24 hours): Temp Pulse Resp BP Pulse Ox 98 F 128 H 20 88/34 L 96 07/14/17 04:00 07/14/17 06:00 07/14/17 04:40 07/14/17 04:30 07/14/17 04:40 Intake and Output: 07/14/17 07/14/17 06:59 18:59 Intake Total 1837 Output Total 200 Balance 1637 - Medications Medications: Current Medications Acetaminophen (Tylenol 325mg Tab) 650 mg PO Q6 PRN PRN Reason: Headache Acetaminophen (Tylenol 650 Mg Supp) 650 mg RC Q6H PRN PRN Reason: Headache Acetaminophen (Tylenol 325mg Tab) 650 mg PO Q6 PRN PRN Reason: TEMP>=99.5F Acetaminophen (Tylenol 650 Mg Supp) 650 mg RC Q6H PRN PRN Reason: TEMP>=99.5F Atorvastatin Calcium (Lipitor) 40 mg PO HS [facility] Last Admin: 07/13/17 21:03 Dose: Not Given Docusate Sodium (Colace) 100 mg PO TID [facility] Last Admin: 07/13/17 17:35 Dose: Not Given Enoxaparin Sodium (Lovenox) 30 mg SC Q24H [facility] PRN Reason: Protocol Last Admin: 07/13/17 17:38 Dose: 30 mg Hydromorphone HCl (Dilaudid) 0.5 mg IVP Q4H PRN PRN Reason: Pain, severe (8-10) Last Admin: 07/13/17 22:45 Dose: 0.5 mg Insulin Human Regular 100 (units/ Sodium Chloride) 100 mls @ 4 mls/hr IV .Q24H PRN; Protocol; 4 UNITS/HR PRN Reason: TITRATE PER MD ORDER Last Titration: 07/14/17 06:00 Dose: 1 units/hr, 1 mls/hr NOREPINEPHRINE BIT/0.9 % NACL (Levophed 4 Mg/ 250 Ml Ns Premixed) 4 mg in 250 mls @ 15 mls/hr IV .[id number] PRN; Protocol; 4 MCG/MIN PRN Reason: TITRATE PER MD ORDER Last Admin: 07/13/17 20:59 Dose: 4 mcg/min, 15 mls/hr Dobutamine HCl/Dextrose (Dobutamine/Dextrose 5% 500mg/250ml) 500 mg in 250 mls @ 3.511 mls/hr IV .Q24H PRN; Protocol; 2 MCG/KG/MIN PRN Reason: TITRATE PER PROTOCOL Last Admin: 07/13/17 17:00 Dose: 2 mcg/kg/min, 3.511 mls/hr Dextrose/Sodium Chloride (Dextrose 5%/0.9% Ns 1000 Ml) 1,000 mls @ 125 mls/hr IV .Q8H [facility] Last Admin: 07/14/17 06:18 Dose: 125 mls/hr Insulin Human Lispro (Humalog High) 0 units SC Q6H [facility] PRN Reason: Protocol Last Admin: 07/14/17 09:13 Dose: 2 units Levalbuterol HCl (Xopenex) 0.63 mg IH QIDRESP [facility] Last Admin: 07/14/17 08:02 Dose: 0.63 mg Magnesium Oxide (Mag-Ox) 400 mg PO BID [facility] Last Admin: 07/14/17 09:15 Dose: 400 mg Memantine (Namenda) 5 mg PO BID [facility] Last Admin: 07/14/17 09:15 Dose: 5 mg Breo Ellipta 100-25 Mcg Inh] (Home Med) 1 puff IH DAILY [facility] Last Admin: 07/14/17 09:10 Dose: Not Given Ondansetron HCl (Zofran Inj) 4 mg IVP Q4H PRN PRN Reason: Nausea/Vomiting Tamsulosin HCl (Flomax) 0.4 mg PO DAILY [facility] Last Admin: 07/14/17 09:10 Dose: Not Given - Labs Labs: 07/14/17 05:30 07/14/17 05:30 PT 12.4 SECONDS (9.4-12.5) 07/12/17 09:35 INR 1.08 (0.93-1.08) 07/12/17 09:35 APTT 29.0 Seconds (25.1-36.5) 07/12/17 09:35
--- NOTE | 2017-07-14 12:35 | RAD ---
HISTORY: post ng tube placement COMPARISON: No prior. FINDINGS: LUNGS: No active pulmonary disease. PLEURA: No significant pleural effusion identified, no pneumothorax apparent. CARDIOVASCULAR: No radiographic findings to suggest acute or significant cardiovascular disease. PICC line in satisfactory position OSSEOUS STRUCTURES: No significant abnormalities. VISUALIZED UPPER ABDOMEN: Normal. OTHER FINDINGS: Feeding tube courses through the trachea and 2 subsegmental bronchus left lower lobe. The finding is marked on the study for review. Stable position of endotracheal tube. IMPRESSION: Recently placed feeding tube courses through the tracheobronchial tree, the tip is in a subsegmental bronchus left lower lobe. Otherwise no interval change. Critical results findings: Study completed 11:03. Results conveyed to health Care personnel involved in the care and management of the patient CT 12:31 Final report available 12:33 July 14, 2017.
[2017-07-14] MEDS: NOREPINEPHRINE BIT/0.9 % NACL 4 MG/250 ML BAG IV PRN (12:55)
--- NOTE | 2017-07-14 13:21 | CP.PCM.PN ---
Subjective - Date & Time of Evaluation Date of Evaluation: 07/14/17 Time of Evaluation: 13:20 - Subjective Subjective: Nephrology Consultation Note: Assessment: Critical Acute Kidney Injury (N17.9) likely Hemodynamic, Reduced renal perfusion due to Shock state, requirement of pressors. High non-gap metabolic acidosis due to diabetic ketoacidosis with hyperglycemia Fall status post hip fracture and ORIF Anemia COPD pulmonary hypertension, A. fib with RVR Diabetes mellitus history of hypertension Vitamin D deficiency Abnormal LFT Plan No acute need for renal replacement therapy at this time. Renal function improving wean pressors as tolerated sugars per primary supplement with weekly vitamin D 50,000 unit once she is stable PRBC as needed for anemia. s: intubated and sedated Physical Examination: General Appearance: in no acute respiratory distress, Ill-appearing orally intubated Vitals reviewed and noted as below Head; Atraumatic, normocephalic ENT: Patient is orally intubated EYES: Pupils are equal Sclera is anicteric. Neck; supple no lymphadenopathy, no thyromegaly or bruit Lungs: Normal respiratory rate/effort. Breath sounds bilateral equal and clear Anteriorly Heart: Increased rate. s1s2 normal. No rub or gallop. Extremities: no edema. No varicose veins. Extremities cool to touch Neurological: Patient is Sedated Skin: dry. Normal turgor. No rash. Palpitation: Normal elasticity for age. Skin ecchymosis noted Abdomen: Abdomen is soft. Bowel sounds +. There is no abdominal tenderness, no guarding/rigidity no organomegaly Psych: Unable MSK: no joint tenderness or swelling. Digits and nails normal, no deformity : kidney or bladder not palpable. Has Moon catheter Objective - Vital Signs/Intake and Output Vital Signs (last 24 hours): Temp Pulse Resp BP Pulse Ox 98 F 128 H 20 88/34 L 96 07/14/17 04:00 07/14/17 06:00 07/14/17 04:40 07/14/17 04:30 07/14/17 04:40 Intake and Output: 07/14/17 07/14/17 06:59 18:59 Intake Total 1837 250 Output Total 200 Balance 1637 250 - Medications Medications: Current Medications Acetaminophen (Tylenol 325mg Tab) 650 mg PO Q6 PRN PRN Reason: Headache Acetaminophen (Tylenol 650 Mg Supp) 650 mg RC Q6H PRN PRN Reason: Headache Acetaminophen (Tylenol 325mg Tab) 650 mg PO Q6 PRN PRN Reason: TEMP>=99.5F Acetaminophen (Tylenol 650 Mg Supp) 650 mg RC Q6H PRN PRN Reason: TEMP>=99.5F Atorvastatin Calcium (Lipitor) 40 mg PO HS [facility] Last Admin: 07/13/17 21:03 Dose: Not Given Docusate Sodium (Colace) 100 mg PO TID [facility] Last Admin: 07/14/17 13:03 Dose: Not Given Enoxaparin Sodium (Lovenox) 30 mg SC Q24H [facility] PRN Reason: Protocol Last Admin: 07/13/17 17:38 Dose: 30 mg Hydromorphone HCl (Dilaudid) 0.5 mg IVP Q4H PRN PRN Reason: Pain, severe (8-10) Last Admin: 07/13/17 22:45 Dose: 0.5 mg Insulin Human Regular 100 (units/ Sodium Chloride) 100 mls @ 4 mls/hr IV .Q24H PRN; Protocol; 4 UNITS/HR PRN Reason: TITRATE PER MD ORDER Last Titration: 07/14/17 06:00 Dose: 1 units/hr, 1 mls/hr NOREPINEPHRINE BIT/0.9 % NACL (Levophed 4 Mg/ 250 Ml Ns Premixed) 4 mg in 250 mls @ 15 mls/hr IV .[id number] PRN; Protocol; 4 MCG/MIN PRN Reason: TITRATE PER MD ORDER Last Admin: 07/14/17 12:55 Dose: 4 mcg/min, 15 mls/hr Dobutamine HCl/Dextrose (Dobutamine/Dextrose 5% 500mg/250ml) 500 mg in 250 mls @ 3.511 mls/hr IV .Q24H PRN; Protocol; 2 MCG/KG/MIN PRN Reason: TITRATE PER PROTOCOL Last Admin: 07/13/17 17:00 Dose: 2 mcg/kg/min, 3.511 mls/hr Dextrose/Sodium Chloride (Dextrose 5%/0.9% Ns 1000 Ml) 1,000 mls @ 125 mls/hr IV .Q8H [facility] Last Admin: 07/14/17 06:18 Dose: 125 mls/hr Insulin Human Lispro (Humalog High) 0 units SC Q6H [facility] PRN Reason: Protocol Last Admin: 07/14/17 09:13 Dose: 2 units Levalbuterol HCl (Xopenex) 0.63 mg IH QIDRESP [facility] Last Admin: 07/14/17 13:03 Dose: 0.63 mg Magnesium Oxide (Mag-Ox) 400 mg PO BID [facility] Last Admin: 07/13/17 17:36 Dose: Not Given Memantine (Namenda) 5 mg PO BID [facility] Last Admin: 07/13/17 17:36 Dose: Not Given Breo Ellipta 100-25 Mcg Inh] (Home Med) 1 puff IH DAILY [facility] Last Admin: 07/14/17 09:10 Dose: Not Given Ondansetron HCl (Zofran Inj) 4 mg IVP Q4H PRN PRN Reason: Nausea/Vomiting Tamsulosin HCl (Flomax) 0.4 mg PO DAILY [facility] Last Admin: 07/14/17 09:10 Dose: Not Given - Labs Labs: 07/14/17 05:30 07/14/17 05:30 PT 12.4 SECONDS (9.4-12.5) 07/12/17 09:35 INR 1.08 (0.93-1.08) 07/12/17 09:35 APTT 29.0 Seconds (25.1-36.5) 07/12/17 09:35
--- NOTE | 2017-07-14 14:01 | RAD ---
HISTORY: check NGT placement COMPARISON: No prior. FINDINGS: LUNGS: No active pulmonary disease. PLEURA: No significant pleural effusion identified, no pneumothorax apparent. CARDIOVASCULAR: No radiographic findings to suggest acute or significant cardiovascular disease. PICC line in satisfactory position OSSEOUS STRUCTURES: No significant abnormalities. VISUALIZED UPPER ABDOMEN: Normal. OTHER FINDINGS: Nasogastric tube has not been repositioned and is in satisfactory position in the stomach. Stable, satisfactory position of endotracheal tube. IMPRESSION: Satisfactory re- positioning of the feeding tube which is now in the stomach. Otherwise no interval change. Study completed 13:41 Results available in the electronic medical record at 14:00.
--- NOTE | 2017-07-14 15:39 | CARD ---
APPROVED REPORT EKG Measurement Heart [id number] <Conclusion> Sinus tachycardia with premature supraventricular complexes Low voltage QRS Possible Anterolateral infarct, age undetermined Abnormal ECG
--- NOTE | 2017-07-14 16:20 | CP.PCM.PN ---
Subjective - Date & Time of Evaluation Date of Evaluation: 07/14/17 Time of Evaluation: 16:12 - Subjective Subjective: Pt intubated but awake and following some commands. Pt still on Levophed but getting weaned slowly. Bp in 110-120's, afebrile R hip: dressings changed small amount of bloody drainage on middle incision no cellulitis hg 10 POD 2 Pt on lovenox start PT when extubated continue critical care Objective - Vital Signs/Intake and Output Vital Signs (last 24 hours): Temp Pulse Resp BP Pulse Ox 98 F 128 H 20 88/34 L 96 07/14/17 04:00 07/14/17 06:00 07/14/17 04:40 07/14/17 04:30 07/14/17 04:40 Intake and Output: 07/14/17 07/14/17 06:59 18:59 Intake Total 1837 250 Output Total 200 Balance 1637 250 - Medications Medications: Current Medications Acetaminophen (Tylenol 325mg Tab) 650 mg PO Q6 PRN PRN Reason: Headache Acetaminophen (Tylenol 650 Mg Supp) 650 mg RC Q6H PRN PRN Reason: Headache Acetaminophen (Tylenol 325mg Tab) 650 mg PO Q6 PRN PRN Reason: TEMP>=99.5F Acetaminophen (Tylenol 650 Mg Supp) 650 mg RC Q6H PRN PRN Reason: TEMP>=99.5F Atorvastatin Calcium (Lipitor) 40 mg PO HS [facility] Last Admin: 07/13/17 21:03 Dose: Not Given Docusate Sodium (Colace) 100 mg PO TID [facility] Last Admin: 07/14/17 13:03 Dose: Not Given Enoxaparin Sodium (Lovenox) 30 mg SC Q24H [facility] PRN Reason: Protocol Last Admin: 07/13/17 17:38 Dose: 30 mg Hydromorphone HCl (Dilaudid) 0.5 mg IVP Q4H PRN PRN Reason: Pain, severe (8-10) Last Admin: 07/13/17 22:45 Dose: 0.5 mg Insulin Human Regular 100 (units/ Sodium Chloride) 100 mls @ 4 mls/hr IV .Q24H PRN; Protocol; 4 UNITS/HR PRN Reason: TITRATE PER MD ORDER Last Titration: 07/14/17 06:00 Dose: 1 units/hr, 1 mls/hr NOREPINEPHRINE BIT/0.9 % NACL (Levophed 4 Mg/ 250 Ml Ns Premixed) 4 mg in 250 mls @ 15 mls/hr IV .[id number] PRN; Protocol; 4 MCG/MIN PRN Reason: TITRATE PER MD ORDER Last Admin: 07/14/17 12:55 Dose: 4 mcg/min, 15 mls/hr Dobutamine HCl/Dextrose (Dobutamine/Dextrose 5% 500mg/250ml) 500 mg in 250 mls @ 3.511 mls/hr IV .Q24H PRN; Protocol; 2 MCG/KG/MIN PRN Reason: TITRATE PER PROTOCOL Last Admin: 07/13/17 17:00 Dose: 2 mcg/kg/min, 3.511 mls/hr Dextrose/Sodium Chloride (Dextrose 5%/0.9% Ns 1000 Ml) 1,000 mls @ 125 mls/hr IV .Q8H [facility] Last Admin: 07/14/17 06:18 Dose: 125 mls/hr Insulin Human Lispro (Humalog High) 0 units SC Q6H [facility] PRN Reason: Protocol Last Admin: 07/14/17 09:13 Dose: 2 units Levalbuterol HCl (Xopenex) 0.63 mg IH QIDRESP [facility] Last Admin: 07/14/17 13:03 Dose: 0.63 mg Magnesium Oxide (Mag-Ox) 400 mg PO BID [facility] Last Admin: 07/13/17 17:36 Dose: Not Given Memantine (Namenda) 5 mg PO BID [facility] Last Admin: 07/13/17 17:36 Dose: Not Given Breo Ellipta 100-25 Mcg Inh] (Home Med) 1 puff IH DAILY [facility] Last Admin: 07/14/17 09:10 Dose: Not Given Ondansetron HCl (Zofran Inj) 4 mg IVP Q4H PRN PRN Reason: Nausea/Vomiting Tamsulosin HCl (Flomax) 0.4 mg PO DAILY [facility] Last Admin: 07/14/17 09:10 Dose: Not Given - Labs Labs: 07/14/17 05:30 07/14/17 05:30 PT 12.4 SECONDS (9.4-12.5) 07/12/17 09:35 INR 1.08 (0.93-1.08) 07/12/17 09:35 APTT 29.0 Seconds (25.1-36.5) 07/12/17 09:35
[2017-07-14] MEDS: Sodium Chloride 0.9% 1,000 ML IV SCH ×2 (17:00→23:56)
[2017-07-14] MEDS: Enoxaparin 30 mg Syringe SC SCH (17:11)
[2017-07-14] MEDS: DOBUTamine 500mg/250ml D5W 500 MG/250 ML BAG IV PRN (22:55)
--- NOTE | 2017-07-14 23:53 | CON ---
DATE: 07/14/2017 HISTORY OF PRESENT ILLNESS: I saw Mrs. Styles this morning. She is an 82-year-old white female who is seen on behalf of Dr. Alexander Thakur who is on vacation. Consult was called for elevated LFTs. Patient apparently has medical history, which consists of dementia, atrial fibrillation, diabetes, COPD, hypertension, who apparently fell at the long term. The patient was taken to surgery yesterday. Notes were reviewed. I reviewed the hemodynamics of the patient in ICU with the nurses. Apparently, the patient had a time period of severe hypotension, probably associated with anesthesia issues. The lowest pressure apparently the patient had was somewhere in the range of low 70, systolic. Subsequent rebound and then dropped again down to the level of roughly 80 systolic. Patient had been evaluated also by Dr. Rivas. Apparently, there have been no history of major gastrointestinal problems including gallbladder or appendix, gastric ulcer disease, bleeding disorder. PHYSICAL EXAMINATION: VITAL SIGNS: Review of this patient's vital signs is indicated above. Patient is currently intubated in the unit. RESPIRATORY: Coarse breath sounds bilaterally. HEART: Irregular rhythm. ABDOMEN: Soft. Bowel sounds were heard in all quadrants. LABORATORY DATA: Review of this patient's laboratory data early this morning at 05:30, patient had AST/ALT ratio of 113/71 at 05:47 with an alkaline phosphatase of 69. She has renal insufficiency, BUN and creatinine ratio of 35/1.3. Hemoglobin A1c 10.8. ASSESSMENT: This is an 82-year-old white female with significant past medical history, postop surgery for hip repair. Note that the consultation was called for elevated transaminases. I have to assume based on clinical history and review of the patient's clinical course, hemodynamics, there was probably a period of hepatic low-flow phenomenon given the very low systolic and diastolic pressure as a result of the medications given during the procedure. Note that I have no prior results to compare. Would suggest following current trend. If this is a transient phenomenon due to medication issue expect rapid decrease in transaminases over a couple of days. Note that there is no prior LDH ordered; this has been ordered for labs drawn already today. Would suggest also repeat LDH and a comp metabolic tomorrow morning. I will be following this patient within the next couple of days. I am covering for Dr. Alexander Thakur. Blake Smart DO, PhD [facility]
[2017-07-15] MEDS: Insulin Lispro (HUMAlog) HIGH Coverage SC SCH ×4 (02:58→21:24)
[2017-07-15] MEDS: HYDROmorphone 0.5 mg/0.5 ml ISec IVP PRN (04:17)
[2017-07-15 07:15] LABS: BASO # 0.01 K/mm3 (0.0-2.0); BASO % 0.1 % (0.0-3.0); EOS # 0.1 (0.0-0.7); EOS % 1.4 % (1.5-5.0); GRAN # 6.5 (1.4-6.5); GRAN % 71.8 % (50.0-68.0); HEMOGLOBIN 9.6 g/dL (12.0-16.0); LYMPH # 1.4 (1.2-3.4); LYMPH % 15.8 % (22.0-35.0); MEAN CORPUSCULAR HEMOGLOBIN 29.2 pg (25.0-35.0); MEAN CORPUSCULAR HGB CONC 32.4 g/dl (31.0-37.0); MONO % 10.9 % (1.0-6.0); RBC 3.29 10^6/uL (3.5-6.1); RED CELL DISTRIBUTION WIDTH 16.2 % (11.5-14.5); WHITE BLOOD COUNT 9.1 10^3/ul (4.5-11.0)
[2017-07-15 07:29] LABS: ALB/GLOB RATIO 0.9 (1.1-1.8); ALT/SGPT 497 U/L (7-56); AST/SGOT 716 U/L (14-36); BILIRUBIN,DIRECT 0.4 mg/dL (0.0-0.4); BLOOD UREA NITROGEN 42 mg/dL (7-21); CALCIUM 7.4 mg/dL (8.4-10.5); GFR AFRICAN-AMERICAN > 60; GFR NON-AFRICAN AMERICAN > 60
[2017-07-15] MEDS: Sodium Chloride 0.9% 1,000 ML IV SCH ×2 (07:45→15:42)
[2017-07-15] MEDS: Levalbuterol 0.63 MG/3 ML Inhal Soln UD IH SCH ×4 (08:50→21:14)
--- NOTE | 2017-07-15 09:58 | PN ---
DATE: 07/15/2017 DOLPHIN RESEARCHER NOTE SUBJECTIVE: The patient is on the ventilator, mildly sedated, FiO2 of 40%. She continues to require Levophed and dobutamine. The patient is hemodynamically stable with those medications. Continues to have renal insufficiency and metabolic acidosis. PHYSICAL EXAMINATION: VITAL SIGNS: Her temperature is 97.6, pulse is 84, respirations of 15 and BP is 121/52, O2 saturation is 100%. HEENT: Head is atraumatic, normocephalic. Eyes reactive to light. Ear, nose, and throat seemed to be within normal limits. NECK: Supple. No JVD. No thyroid enlargement or lymph nodes. HEART: Has regular rate and rhythm. Normal S1, S2. LUNGS: Reveal mild rhonchi bilaterally. ABDOMEN: Decreased bowel sounds, but soft. GENITALIA: Deferred. RECTAL: Deferred. MUSCULOSKELETAL: No joint deformities. EXTREMITIES: Reveal positive lower extremity edema. NEUROLOGIC: The patient is mildly sedated on the ventilator. LABORATORY DATA: Revealed that white count is 9.1, hemoglobin is 9.6, hematocrit 29.6 with platelets of 95,000. Sodium is 143, potassium 3.7, chloride 116, CO2 of 23 with a BUN of 42, creatinine of 0.9 and glucose of 139. Chest x-ray, no significant change. IMPRESSION: As far as my impression, this patient had hip fracture and status post surgery, has history of severe pulmonary hypertension and at this time is ventilator dependent with FiO2 of 40%. She has a history of chronic obstructive pulmonary disease and at this point is hypotensive with possible septic shock and requires Levophed and dobutamine. The patient has as stated above respiratory failure, has a right lower lobe pneumonia and is noted to have a history of dementia, atrial fibrillation, diabetes and hypertension as well as anemia. PLAN: As far as our plan, we will continue with the ventilator support. Continue with Levophed and dobutamine and continue to follow her chest x-ray and arterial blood gas closely. The patient is getting Xopenex, bronchodilatation, is on Dilaudid for pain and continues to get her Lovenox. We will continue to follow closely and treat aggressively along with the other consultants and the primary care doctor. Emery Brand MD [facility] # [id number]
[2017-07-15] MEDS: BREO ELLIPTA IH SCH (10:11)
[2017-07-15] MEDS: Magnesium Oxide 400 mg Tab UD PO SCH ×2 (10:12→17:57)
--- NOTE | 2017-07-15 11:08 | PN ---
DATE: SUBJECTIVE: I reviewed the clinical course of Ms. Styles this morning with the ICU nurse. I reviewed the respective consultants' notes. Consult requested for problems with elevated LFTs. Note that this progress note and consultation are being performed on behalf of Dr. Alexander Thakur who is on vacation. LABORATORY DATA: Reviewed the patient's laboratory data yesterday and also extensive clinical course. Scenario suggestive of possible hepatic flow phenomenon, resulting in the elevated transaminases. Comprehensive metabolic is pending this morning; however, based on lab data seen yesterday, I ordered an LDH, which turned out to be at a level of 2347; again, this is more suggestive of hepatic ischemia due to the patient's extended hypotension. As of this morning, according to the ICU nurse, the patient is still on Levophed, even though the pressure is reasonable. ASSESSMENT AND PLAN: The patient will be evaluated by Dr. Hamilton as well as Cardiology, Infectious Disease, etc later on this morning. I think that right now, plan from a Gastroenterology point of view is to monitor a decreasing LFT trend after the blood pressure has been normalized. Blake Smart DO, PhD [facility]
--- NOTE | 2017-07-15 14:47 | CARD ---
APPROVED REPORT EKG Measurement Heart [id number] <Conclusion> Sinus tachycardia with premature supraventricular complexes Nonspecific T wave abnormality Abnormal ECG
[2017-07-15 15:56] LABS: ARTERIAL BLOOD GAS HCO3 16.9 mmol/L (21-28); ARTERIAL BLOOD GAS HEMOGLOBIN 10.7 g/dL (11.7-17.4); ARTERIAL BLOOD GAS O2 CONTENT 14.8 ML/dl (15-23); ARTERIAL BLOOD GAS O2 SAT 98.6 % (95-98); ARTERIAL BLOOD GAS PCO2 30 mm/Hg (35-45); ARTERIAL BLOOD GAS PH 7.36 (7.35-7.45); ARTERIAL BLOOD GAS TCO2 17.8 mmol.L (22-28)
[2017-07-15] MEDS: Enoxaparin 30 mg Syringe SC SCH (17:57)
--- NOTE | 2017-07-15 20:38 | PN ---
DATE: 07/15/2017 SUBJECTIVE: The patient is seen intubated in ICU bed 4. Patient is awake, responsive. Eyes open. Overnight nurse's notes were reviewed.. Overnight, the patient continued to be on dobutamine drip. The patient converted to sinus rhythm at present. PHYSICAL EXAMINATION: VITAL SIGNS: Patient's telemetry shows sinus rhythm, blood pressure 121/74, T-max 98.2. Heart rate 84 to 92, O2 sat 100%. Intake and output, output at 200 documented. HEENT: Head normocephalic, atraumatic. HEENT examination shows pinkish pale conjunctiva. Positive ET tube noted. Anicteric sclerae. Soft carotid bruit. CHEST: Kyphosis. LUNGS: Shows no rales, crackles or wheezing. Occasional rhonchi, upper lung field. CARDIOVASCULAR: S1 and S2, regular rhythm. Positive systolic murmur, left sternal border, right second intercostal space, left second intercostal space. ABDOMEN: Soft. Positive bowel sounds. GENITALIA: Female. RECTAL: Deferred. Positive right hip dressing noted. MUSCULOSKELETAL: Shows a body mass index of 23.4. NEUROLOGIC: The patient is awake, responsive. Eyes open. Intubated. PSYCHIATRIC: Examination is not applicable. DIAGNOSTICS: 07/15/2017, WBC count down to 9.1, hemoglobin and hematocrit 9.6 and 29.6, platelet 124, granulocytes 72. Sodium 143, potassium 3.7, chloride 116, CO2 of 23, anion gap 7, BUN 42, creatinine 0.9, GFR greater than 60, glucose 139. Fingerstick blood sugar 224. Lactic acid is 1.8, calcium is 7.4, magnesium is 2.2; AST 716, down from 1371; ALT is 497, down from . Total protein 4.2, albumin 2.0. Microbiology, MRSA in blood and urine cultures negative. EKG done today shows sinus rhythm, sinus tachycardia, PACs. ASSESSMENT: 1. Ventilator-dependent postoperative respiratory failure. 2. Status post right hip intertrochanteric fracture. 3. Chronic obstructive pulmonary disease. 4. Postoperative hypotension and questionable hypovolemic hypotensive shock requiring pressors. 5. Pressors requiring hypotension. 6. Right lower lobe possible ventilator-dependent aspiration pneumonia. 7. Right lower lobe pneumonia. 8. Paroxysmal atrial fibrillation, converted to normal sinus rhythm. 9. Severe transaminitis secondary to shock liver and hypotension and hypoperfusion. 10. Postoperative hypotension, resolving. 11. Leukocytosis with granulocytosis and thrombocytopenia. 12. Normocytic anemia. 13. Hypoxic ventilator-dependent respiratory failure. 14. Lactic acidosis. 15. Prerenal kidney injury. 16. Hypoalbuminemia and protein malnutrition. 17. Uncontrolled insulin-requiring diabetes mellitus with hemoglobin A1c of 10.8. 18. Severe pulmonary hypertension with right-sided diastolic congestive heart failure. 19. Hypovitaminosis D. 20. Glycosuria, ketonuria, hyperbilirubinemia, bilirubinuria. 21. Status post left upper extremity peripherally inserted central catheter line placement. 22. Deconditioning. 23. Gait dysfunction secondary to right hip fracture. 24. Acute kidney injury secondary to renal hypoperfusion and hypovolemic hypotensive shock. 25. High metabolic acidosis secondary to diabetic ketoacidosis and uncontrolled diabetes with hyperglycemia. 26. Status post diabetic ketoacidosis. 27. Status post open reduction and internal fixation of the right hip fracture with intramedullary nail. PLAN: At this time, the patient has been ordered repeat labs. ABG has been ordered today. CURRENT CONSULTATION: 1. Cardiology. 2. Gastroenterology. 3. Orthopedics. 4. Nephrology. CURRENT MEDICATIONS The patient is on Colace 100 three times a day, Dilaudid 0.5 mg IV every 4 p.r.n., dobutamine drip, Flomax 0.4 daily, high-dose sliding scale coverage insulin, Lipitor 40 daily, Lovenox 30 mg subcu daily, magnesium oxide 400 twice a day, Namenda 5 mg twice a day, Levophed drip at 4 mcg per minute. The patient is given potassium rider 10 mEq because of low normal potassium of 3.7. In addition, the patient is on Namenda 5 twice a day; 0.9 normal saline started at 125 mL an hour; Tylenol 650 suppository p.o. every 6 p.r.n., Xopenex nebulizer 0.63 mg four times a day, Zofran 4 mg IV every 4 p.r.n. Repeat chest x-ray ordered for the morning. EKG ordered. CHARLY landers, SCDs ordered. Overall prognosis guarded. Condition critical. Time spent more than 35 minutes. Dictated and electronically signed, not read. Diego Hamilton MD [facility] # [id number]
[2017-07-16] MEDS: Sodium Chloride 0.9% 1,000 ML IV SCH (00:05)
[2017-07-16] MEDS: Insulin Lispro (HUMAlog) HIGH Coverage SC SCH ×3 (03:41→15:00)
[2017-07-16 06:19] LABS: BASO # 0.01 K/mm3 (0.0-2.0); BASO % 0.1 % (0.0-3.0); EOS # 0.1 (0.0-0.7); EOS % 1.5 % (1.5-5.0); GRAN # 7.29 (1.4-6.5); GRAN % 77.7 % (50.0-68.0); LYMPH # 1.1 (1.2-3.4); LYMPH % 11.9 % (22.0-35.0); MEAN CELL VOLUME 91.8 fl (80.0-105.0); MEAN CORPUSCULAR HEMOGLOBIN 29.4 pg (25.0-35.0); MEAN CORPUSCULAR HGB CONC 32.1 g/dl (31.0-37.0); MEAN PLATELET VOLUME 12.8 fl (7.0-11.0); MONO # 0.8 (0.1-0.6); MONO % 8.8 % (1.0-6.0); RBC 3.4 10^6/uL (3.5-6.1); RED CELL DISTRIBUTION WIDTH 16.7 % (11.5-14.5); WHITE BLOOD COUNT 9.4 10^3/ul (4.5-11.0)
[2017-07-16 06:58] LABS: ALBUMIN 2.3 g/dL (3.0-4.8); ALT/SGPT 686 U/L (7-56); AST/SGOT 737 U/L (14-36); BILIRUBIN,DIRECT 0.5 mg/dL (0.0-0.4); BLOOD UREA NITROGEN 44 mg/dL (7-21); CALCIUM 7.8 mg/dL (8.4-10.5); GFR AFRICAN-AMERICAN > 60; GFR NON-AFRICAN AMERICAN > 60
[2017-07-16] MEDS: Levalbuterol 0.63 MG/3 ML Inhal Soln UD IH SCH ×4 (07:47→20:16)
[2017-07-16] MEDS ORDERED: Potassium Phosphate 15 MMOLE in Sodium Chloride 0.9% 250 ML IVPB ONE (07:59)
[2017-07-16] MEDS: HYDROmorphone 0.5 mg/0.5 ml ISec IVP PRN ×2 (08:17→17:43)
--- NOTE | 2017-07-16 08:52 | CP.PCM.PN ---
Subjective - Date & Time of Evaluation Date of Evaluation: 07/16/17 Time of Evaluation: 08:51 - Subjective Subjective: Pt extubated a few minutes ago. Awake. Off Levophed. Afebrile R hip: incisions clean and dry no cellulitis thigh soft Hg 10 Ortho stable begin PT cont DVT prophylaxis Objective - Vital Signs/Intake and Output Vital Signs (last 24 hours): Temp Pulse Resp BP Pulse Ox 98.2 F 99 H 15 158/52 H 100 07/16/17 00:00 07/16/17 04:10 07/15/17 05:30 07/16/17 04:00 07/16/17 04:10 - Medications Medications: Current Medications Acetaminophen (Tylenol 325mg Tab) 650 mg PO Q6 PRN PRN Reason: Headache Acetaminophen (Tylenol 650 Mg Supp) 650 mg RC Q6H PRN PRN Reason: Headache Acetaminophen (Tylenol 325mg Tab) 650 mg PO Q6 PRN PRN Reason: TEMP>=99.5F Acetaminophen (Tylenol 650 Mg Supp) 650 mg RC Q6H PRN PRN Reason: TEMP>=99.5F Atorvastatin Calcium (Lipitor) 40 mg PO HS [facility] Last Admin: 07/15/17 23:11 Dose: 40 mg Docusate Sodium (Colace) 100 mg PO TID [facility] Last Admin: 07/15/17 17:54 Dose: Not Given Enoxaparin Sodium (Lovenox) 30 mg SC Q24H [facility] PRN Reason: Protocol Last Admin: 07/15/17 17:57 Dose: 30 mg Hydromorphone HCl (Dilaudid) 0.5 mg IVP Q4H PRN PRN Reason: Pain, severe (8-10) Last Admin: 07/16/17 08:17 Dose: 0.5 mg NOREPINEPHRINE BIT/0.9 % NACL (Levophed 4 Mg/ 250 Ml Ns Premixed) 4 mg in 250 mls @ 15 mls/hr IV .[id number] PRN; Protocol; 4 MCG/MIN PRN Reason: TITRATE PER MD ORDER Last Titration: 07/15/17 07:00 Dose: 0 mcg/min, 0 mls/hr Dobutamine HCl/Dextrose (Dobutamine/Dextrose 5% 500mg/250ml) 500 mg in 250 mls @ 3.511 mls/hr IV .Q24H PRN; Protocol; 2 MCG/KG/MIN PRN Reason: TITRATE PER PROTOCOL Last Admin: 07/14/17 22:55 Dose: 2 mcg/kg/min, 3.511 mls/hr Sodium Chloride (Sodium Chloride 0.9%) 1,000 mls @ 125 mls/hr IV .Q8H [facility] Last Admin: 07/16/17 00:05 Dose: 125 mls/hr Potassium Phosphate 15 mmole/ (Sodium Chloride) 255 mls @ 42.5 mls/hr IVPB ONCE ONE Stop: 07/16/17 13:58 Insulin Human Lispro (Humalog High) 0 units SC Q6H [facility] PRN Reason: Protocol Last Admin: 07/16/17 03:41 Dose: 4 units Levalbuterol HCl (Xopenex) 0.63 mg IH QIDRESP [facility] Last Admin: 07/16/17 07:47 Dose: 0.63 mg Magnesium Oxide (Mag-Ox) 400 mg PO BID [facility] Last Admin: 07/15/17 17:57 Dose: 400 mg Memantine (Namenda) 5 mg PO BID [facility] Last Admin: 07/15/17 17:57 Dose: 5 mg Breo Ellipta 100-25 Mcg Inh] (Home Med) 1 puff IH DAILY [facility] Last Admin: 07/15/17 10:11 Dose: Not Given Ondansetron HCl (Zofran Inj) 4 mg IVP Q4H PRN PRN Reason: Nausea/Vomiting Tamsulosin HCl (Flomax) 0.4 mg PO DAILY [facility] Last Admin: 07/15/17 10:11 Dose: Not Given - Labs Labs: 07/16/17 05:50 07/16/17 05:50 PT 12.4 SECONDS (9.4-12.5) 07/12/17 09:35 INR 1.08 (0.93-1.08) 07/12/17 09:35 APTT 29.0 Seconds (25.1-36.5) 07/12/17 09:35
--- NOTE | 2017-07-16 09:00 | PN ---
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 SUBJECTIVE: The patient is sedated on the ventilator with an FIO2 of 40%. The patient has failed weaning trials and at this time continues to be on Levophed as well as dopamine for blood pressure support. PHYSICAL EXAMINATION: VITAL SIGNS: Physical exam note that she has temperature is 98, pulse of 106, respirations 19 and BP is 111/46. SKIN: Warm and dry. HEENT: Head atraumatic, normocephalic. Eyes reactive to light. Ear, nose and throat seemed to be within normal limits. NECK: Supple. No JVD. No thyroid enlargement. No lymph nodes. HEART: Has a regular rate and rhythm. Normal S1 and S2, but tachycardic. LUNGS: Reveal mild decreased breath sounds bilaterally with occasional rhonchi. ABDOMEN: Soft. Decreased bowel sounds. GENITALIA AND RECTAL: Deferred. MUSCULOSKELETAL: No joint deformities. EXTREMITIES: Reveal 1+ lower extremity edema. NEUROLOGICALLY: The patient is sedated on the ventilator. LABORATORY DATA: As far as her laboratories are concerned, the patient's white count is 15.1, hemoglobin is 10.7, hematocrit 32.4 with platelets of 122,000. Her sodium is 140, potassium 4.0, chloride 112, CO2 of 24 with a BUN of 35, creatinine of 1.3 and a glucose of 104. IMPRESSION: As far as my impression, this patient has respiratory failure requiring ventilator support. She has a history of severe pulmonary hypertension. She initially presented with a right hip fracture and has a history of chronic obstructive pulmonary disease. The patient is hypotensive requiring Levophed as well as dopamine for support and she has a right lower lobe pneumonia. She has hyperglycemia and history of dementia, atrial fibrillation, diabetes, chronic obstructive pulmonary disease, hypertension as well as anemia. PLAN: As far as our plan, we will continue with ventilator support and continue vent weaning trials. The patient is on the Levophed as well as dobutamine and we will follow her chest x-ray and arterial blood gas closely. She is continuing to get IV hydration as well as Lipitor and Lovenox. She is on Xopenex as a bronchodilator and Tylenol for any temperature. We will continue to follow closely and treat aggressively along with the other consultants and the primary care doctor. Emery Brand MD [facility] # [id number]
--- NOTE | 2017-07-16 09:09 | CP.PCM.PN ---
Subjective - Date & Time of Evaluation Date of Evaluation: 07/16/17 Time of Evaluation: 08:31 - Subjective Subjective: Pt POD #4 s/p ORIF right hip fx. Patient still intubated but awake and following some commands. Patient blood pressure stable 110-120s. Patient going to be extubated today. WBC: 9.4 Hgb 10.0 afebrile R hip: small amount bloody drainage on middle incision. Dressings removed and incision sites cleaned with NSS and new dressings applied. No erythema. No signs of cellulitis or infection. POD#4 s/p ORIF right hip fx cont DVT prophylaxis Start PT once patient is extubated Objective - Vital Signs/Intake and Output Vital Signs (last 24 hours): Temp Pulse Resp BP Pulse Ox 98.2 F 99 H 15 158/52 H 100 18 00:00 18 04:10 07/15/17 05:30 07/16/17 04:00 07/16/17 04:10 - Medications Medications: Current Medications Acetaminophen (Tylenol 325mg Tab) 650 mg PO Q6 PRN PRN Reason: Headache Acetaminophen (Tylenol 650 Mg Supp) 650 mg RC Q6H PRN PRN Reason: Headache Acetaminophen (Tylenol 325mg Tab) 650 mg PO Q6 PRN PRN Reason: TEMP>=99.5F Acetaminophen (Tylenol 650 Mg Supp) 650 mg RC Q6H PRN PRN Reason: TEMP>=99.5F Atorvastatin Calcium (Lipitor) 40 mg PO HS [facility] Last Admin: 07/15/17 23:11 Dose: 40 mg Docusate Sodium (Colace) 100 mg PO TID [facility] Last Admin: 07/15/17 17:54 Dose: Not Given Enoxaparin Sodium (Lovenox) 30 mg SC Q24H [facility] PRN Reason: Protocol Last Admin: 07/15/17 17:57 Dose: 30 mg Hydromorphone HCl (Dilaudid) 0.5 mg IVP Q4H PRN PRN Reason: Pain, severe (8-10) Last Admin: 07/16/17 08:17 Dose: 0.5 mg NOREPINEPHRINE BIT/0.9 % NACL (Levophed 4 Mg/ 250 Ml Ns Premixed) 4 mg in 250 mls @ 15 mls/hr IV .[id number] PRN; Protocol; 4 MCG/MIN PRN Reason: TITRATE PER MD ORDER Last Titration: 07/15/17 07:00 Dose: 0 mcg/min, 0 mls/hr Dobutamine HCl/Dextrose (Dobutamine/Dextrose 5% 500mg/250ml) 500 mg in 250 mls @ 3.511 mls/hr IV .Q24H PRN; Protocol; 2 MCG/KG/MIN PRN Reason: TITRATE PER PROTOCOL Last Admin: 07/14/17 22:55 Dose: 2 mcg/kg/min, 3.511 mls/hr Sodium Chloride (Sodium Chloride 0.9%) 1,000 mls @ 125 mls/hr IV .Q8H [facility] Last Admin: 07/16/17 00:05 Dose: 125 mls/hr Potassium Phosphate 15 mmole/ (Sodium Chloride) 255 mls @ 42.5 mls/hr IVPB ONCE ONE Stop: 07/16/17 13:58 Insulin Human Lispro (Humalog High) 0 units SC Q6H [facility] PRN Reason: Protocol Last Admin: 07/16/17 03:41 Dose: 4 units Levalbuterol HCl (Xopenex) 0.63 mg IH QIDRESP [facility] Last Admin: 07/16/17 07:47 Dose: 0.63 mg Magnesium Oxide (Mag-Ox) 400 mg PO BID [facility] Last Admin: 07/15/17 17:57 Dose: 400 mg Memantine (Namenda) 5 mg PO BID [facility] Last Admin: 07/15/17 17:57 Dose: 5 mg Breo Ellipta 100-25 Mcg Inh] (Home Med) 1 puff IH DAILY [facility] Last Admin: 07/15/17 10:11 Dose: Not Given Ondansetron HCl (Zofran Inj) 4 mg IVP Q4H PRN PRN Reason: Nausea/Vomiting Tamsulosin HCl (Flomax) 0.4 mg PO DAILY [facility] Last Admin: 07/15/17 10:11 Dose: Not Given - Labs Labs: 07/16/17 05:50 07/16/17 05:50 PT 12.4 SECONDS (9.4-12.5) 07/12/17 09:35 INR 1.08 (0.93-1.08) 07/12/17 09:35 APTT 29.0 Seconds (25.1-36.5) 07/12/17 09:35
--- NOTE | 2017-07-16 09:51 | RAD ---
Portable chest radiograph AP semi-erect portable chest radiograph was obtained. Findings: The endotracheal tube terminates 4.5 cm proximal to the asya. The nasogastric tube terminates in the stomach. The left PICC line terminates at the cavoatrial junction. The lungs are hyperinflated and there is peribronchial thickening with streaky opacities in the lungs. There is mild pulmonary venous congestion. The heart is normal in size. There are bilateral small pleural effusions. No pneumothorax. The visualized bones are within normal limits for the patient's age. Impression: Mild pulmonary venous congestion and bilateral small pleural effusions. COPD. Stable position of endotracheal and nasogastric tubes.
--- NOTE | 2017-07-16 10:59 | PN ---
DATE: 07/16/2017 Reviewed the clinical course and laboratory data for Ms. Styles. She is an 82-year-old female here with orthopedic issues, found to have elevated LFTs following a period of postoperative hypotension. Review of laboratory data indicative of hepatic low-flow phenomenon associated with initial elevation of transaminases to AST/ALT ratio of 1370/547. Noted that the bilirubin has been within normal limits. Patient had a followup comprehensive metabolic profile, which indicated that there have been a significant drop in the transaminase ratio of AST/ALT to 716/497 within a relatively short time. Note that this is again suggestive of hepatic low-flow phenomenon with resolution of low-grade hepatic ischemia with latter-day of blood pressure and hemodynamic parameters. Note that the bilirubin is still within normal limits. We suggest continuing monitor of the transaminase with no further intervention. Blake Smart DO, PhD [facility]
--- NOTE | 2017-07-16 11:24 | CP.PCM.PN ---
Subjective - Date & Time of Evaluation Date of Evaluation: 07/16/17 Time of Evaluation: 07:30 - Subjective Subjective: Renard Aaron D.O. PGY-2, Internal Medicine, Dr. Hamilton Service 82 year old female with a past medical history significant for COPD, DM2, HTN, HLD, Vitamin D deficiency and dementia who presents from [facility] after she fell and was found to have Right intertrochanteric femur fracture s/p R femur ORIF POD#4, intubated and on vasopressors. Patient was seen and examined in the ICU. More awake, somewhat uncomfortable today. No major events overnight. Objective - Vital Signs/Intake and Output Vital Signs (last 24 hours): Temp Pulse Resp BP Pulse Ox 98.2 F 99 H 15 158/52 H 100 07/16/17 00:00 07/16/17 04:10 07/15/17 05:30 07/16/17 04:00 07/16/17 04:10 Intake and Output: 07/16/17 07/16/17 06:59 18:59 Intake Total 1610 Output Total 350 Balance 1260 - Medications Medications: Current Medications Acetaminophen (Tylenol 325mg Tab) 650 mg PO Q6 PRN PRN Reason: Headache Acetaminophen (Tylenol 650 Mg Supp) 650 mg RC Q6H PRN PRN Reason: Headache Acetaminophen (Tylenol 325mg Tab) 650 mg PO Q6 PRN PRN Reason: TEMP>=99.5F Acetaminophen (Tylenol 650 Mg Supp) 650 mg RC Q6H PRN PRN Reason: TEMP>=99.5F Atorvastatin Calcium (Lipitor) 40 mg PO HS [facility] Last Admin: 07/15/17 23:11 Dose: 40 mg Docusate Sodium (Colace) 100 mg PO TID [facility] Last Admin: 07/15/17 17:54 Dose: Not Given Enoxaparin Sodium (Lovenox) 30 mg SC Q24H [facility] PRN Reason: Protocol Last Admin: 07/15/17 17:57 Dose: 30 mg Hydromorphone HCl (Dilaudid) 0.5 mg IVP Q4H PRN PRN Reason: Pain, severe (8-10) Last Admin: 07/16/17 08:17 Dose: 0.5 mg Dobutamine HCl/Dextrose (Dobutamine/Dextrose 5% 500mg/250ml) 500 mg in 250 mls @ 3.511 mls/hr IV .Q24H PRN; Protocol; 2 MCG/KG/MIN PRN Reason: TITRATE PER PROTOCOL Last Admin: 07/14/17 22:55 Dose: 2 mcg/kg/min, 3.511 mls/hr Sodium Chloride (Sodium Chloride 0.9%) 1,000 mls @ 125 mls/hr IV .Q8H [facility] Last Admin: 07/16/17 00:05 Dose: 125 mls/hr Potassium Phosphate 15 mmole/ (Sodium Chloride) 255 mls @ 42.5 mls/hr IVPB ONCE ONE Stop: 07/16/17 13:58 Last Admin: 07/16/17 09:15 Dose: 42.5 mls/hr Insulin Human Lispro (Humalog High) 0 units SC Q6H [facility] PRN Reason: Protocol Last Admin: 07/16/17 03:41 Dose: 4 units Levalbuterol HCl (Xopenex) 0.63 mg IH QIDRESP [facility] Last Admin: 07/16/17 07:47 Dose: 0.63 mg Magnesium Oxide (Mag-Ox) 400 mg PO BID [facility] Last Admin: 07/15/17 17:57 Dose: 400 mg Memantine (Namenda) 5 mg PO BID [facility] Last Admin: 07/15/17 17:57 Dose: 5 mg Breo Ellipta 100-25 Mcg Inh] (Home Med) 1 puff IH DAILY [facility] Last Admin: 07/15/17 10:11 Dose: Not Given Ondansetron HCl (Zofran Inj) 4 mg IVP Q4H PRN PRN Reason: Nausea/Vomiting Pantoprazole Sodium (Protonix Ec Tab) 40 mg PO 0600 [facility] Tamsulosin HCl (Flomax) 0.4 mg PO DAILY [facility] Last Admin: 07/15/17 10:11 Dose: Not Given - Labs Labs: 07/16/17 05:50 07/16/17 05:50 PT 12.4 SECONDS (9.4-12.5) 07/12/17 09:35 INR 1.08 (0.93-1.08) 07/12/17 09:35 APTT 29.0 Seconds (25.1-36.5) 07/12/17 09:35 Assessment and Plan - Assessment and Plan (Free Text) Assessment: 82 year old female with a past medical history significant for COPD, DM2, HTN, HLD, Vitamin D deficiency and dementia who presents from [facility] after she fell and was found to have Right intertrochanteric femur fracture s/p R femur ORIF POD#4, intubated and on vasopressors. Plan: 1. Right intertrochanteric femur fracture - s/p ORIF POD4 Ortho Dr. Bettencourt following Continue pain control PT/OT 2. Respiratory failure Extensive Pulm HTN making extubation difficult Under ICU care Likely extubation later today 3. Hypotension On dobutamine drip per ICU Off levophed Monitoring 4. Pulmonary HTN Echo showing severe pHTN with an RVSP of 101mmHg Likely 2/2 severe COPD so group 3 pHTN On Dobutamine drip 5. COPD Cont Breo Ellipta Cont PRN Xopenex 6. DM2 Cont ISS and accuchecks 7. History of Dementia Cont Memantine 8. Atrial fibrillation Cont Cardizem 9. History of HTN Cont Zestril 10. History of HLD Cont Lipitor GI/DVT ppx: protonix/lovenox Patient was seen and examined and case was discussed at length with attending physician.
--- NOTE | 2017-07-16 11:49 | CP.CCUPN ---
<Pipe Del Rosario - Last Filed: 07/16/17 11:46> CCU Subjective - Physician Review Subjective (Free Text): Patient seen and examined at bedside. Patient was extubated this morning. Patient doing well, no acute events overnight. Denies chest pain, shortness of breath, nausea, vomiting, diarrhea, fever, chills. CCU Objective - Vital Signs / Intake & Output Intake and Output (Last 8hrs): Intake & Output 07/15/17 07/16/17 07/16/17 22:59 06:59 14:59 Intake Total 1606 1610 Output Total 150 350 Balance 1456 1260 Intake: IV 1606 1610 Left Upper arm 1606 1610 Oral 0 0 Output: Urine 150 350 Urethral (Moon) 150 350 Emesis 0 Other: # Bowel Movements 2 2 - Physical Exam Head: Positive for: Atraumatic, Normocephalic Pupils: Positive for: PERRL Extroacular Muscles: Positive for: EOMI Conjunctiva: Positive for: Normal Ears: Positive for: Normal Mouth: Positive for: Moist Mucous Membranes Pharnyx: Positive for: Normal Neck: Positive for: Normal Range of Motion Respiratory/Chest: Positive for: Good Air Exchange, Decreased Breath Sounds. Negative for: Respiratory Distress, Accessory Muscle Use, Wheezes Cardiovascular: Positive for: Regular Rate and Rhythm, Normal S1, S2. Negative for: Murmurs Abdomen: Positive for: Normal Bowel Sounds. Negative for: Tenderness, Distention, Peritoneal Signs Upper Extremity: Positive for: Normal Inspection. Negative for: Cyanosis, Edema Lower Extremity: Positive for: Other (Right hip surgical incisions bandaged ) Neurological: Positive for: GCS=15, CN II-XII Intact, Speech Normal Skin: Positive for: Warm, Dry Psychiatric: Positive for: Alert. Negative for: Oriented x 3 - Medications Active Medications: Active Medications Generic Name Dose Route Start Last Admin Trade Name Freq PRN Reason Stop Dose Admin Acetaminophen 650 mg 07/12/17 12:38 Tylenol 325mg Tab PO Q6 PRN Headache Acetaminophen 650 mg 07/12/17 12:38 Tylenol 650 Mg Supp RC Q6H PRN Headache Acetaminophen 650 mg 07/12/17 12:41 Tylenol 325mg Tab PO Q6 PRN TEMP>=99.5F Acetaminophen 650 mg 07/12/17 12:43 Tylenol 650 Mg Supp RC Q6H PRN TEMP>=99.5F Atorvastatin Calcium 40 mg 07/12/17 22:00 07/15/17 23:11 Lipitor PO 40 mg HS MIRA Administration Docusate Sodium 100 mg 07/12/17 14:00 07/15/17 17:54 Colace PO Not Given TID MIRA Enoxaparin Sodium 30 mg 07/13/17 18:00 07/15/17 17:57 Lovenox SC 30 mg Q24H MIRA Administration Protocol Hydromorphone HCl 0.5 mg 07/12/17 21:04 07/16/17 08:17 Dilaudid IVP 0.5 mg Q4H PRN Administration Pain, severe (8-10) Dobutamine HCl/Dextrose 500 mg in 250 mls @ 3.511 mls/hr 07/13/17 11:09 07/14 22:55 Dobutamine/Dextrose 5% 500mg/250ml IV 2 mcg/kg/min .Q24H PRN 3.511 mls/hr TITRATE PER PROTOCOL Administration Protocol 2 MCG/KG/MIN Sodium Chloride 1,000 mls @ 125 mls/hr 07/14/17 17:30 07/16/17 00:05 Sodium Chloride 0.9% IV 125 mls/hr .Q8H MIRA Administration Potassium Phosphate 15 mmole/ 255 mls @ 42.5 mls/hr 07/16/17 07:59 07/16/17 09:15 Sodium Chloride IVPB 07/16/17 13:58 42.5 mls/hr ONCE ONE Administration Insulin Human Lispro 0 units 07/13/17 09:00 07/16/17 03:41 Humalog High SC 4 units Q6H MIRA Administration Protocol Levalbuterol HCl 0.63 mg 07/12/17 15:30 07/16/17 11:30 Xopenex IH 0.63 mg QIDRESP MIRA Administration Magnesium Oxide 400 mg 07/12/17 18:00 07/15/17 17:57 Mag-Ox PO 400 mg BID MIRA Administration Memantine 5 mg 07/12/17 18:00 07/15/17 17:57 Namenda PO 5 mg BID MIRA Administration Breo Ellipta 100-25 1 puff 07/12/17 12:45 07/15/17 10:11 Mcg Inh] (Home IH Not Given Med) DAILY MIRA Ondansetron HCl 4 mg 07/12/17 12:38 Zofran Inj IVP Q4H PRN Nausea/Vomiting Pantoprazole Sodium 40 mg 07/17/17 06:00 Protonix Ec Tab PO 0600 [facility] Tamsulosin HCl 0.4 mg 07/12/17 12:45 07/15/17 10:11 Flomax PO Not Given DAILY MIRA - Patient Studies Lab Studies: Lab Studies 07/16/17 07/16/17 07/16/17 Range/Units 11:36 10:53 05:50 WBC (4.5-11.0) 10^3/ul RBC (3.5-6.1) 10^6/uL Hgb (12.0-16.0) g/dL Hct (36.0-48.0) % MCV (80.0-105.0) fl MCH (25.0-35.0) pg MCHC (31.0-37.0) g/dl RDW (11.5-14.5) % Plt Count (120.0-450.0) 10^3/uL Manual Plt Count (120-450) K/mm3 MPV (7.0-11.0) fl Gran % (50.0-68.0) % Lymph % (Auto) (22.0-35.0) % [place] % (Auto) (1.0-6.0) % Eos % (Auto) (1.5-5.0) % Baso % (Auto) (0.0-3.0) % Gran # (1.4-6.5) Lymph # (Auto) (1.2-3.4) [place] # (Auto) (0.1-0.6) Eos # (Auto) (0.0-0.7) Baso # (Auto) (0.0-2.0) K/mm3 pCO2 (35-45) mm/Hg pO2 (80-100) mm/Hg HCO3 (21-28) mmol/L ABG pH (7.35-7.45) ABG Total CO2 (22-28) mmol.L ABG O2 Saturation (95-98) % ABG O2 Content (15-23) ML/dl ABG Base Excess (-2.0-3.0) mmol/L ABG Hemoglobin (11.7-17.4) g/dL ABG Carboxyhemoglobin (0.5-1.5) % POC ABG HHb (Measured) (0-5) % ABG Methemoglobin (0.0-3.0) % ABG O2 Capacity (16-24) mL/dl Hgb O2 Saturation (95.0-98.0) % FiO2 % Sodium (132-148) mmol/L Potassium (3.6-5.0) mmol/L Chloride (98-107) mmol/L Carbon Dioxide (21-33) mmol/L Anion Gap (10-20) BUN (7-21) mg/dL Creatinine (0.7-1.2) mg/dl Est GFR ( Amer) Est GFR (Non-Af Amer) POC Glucose (mg/dL) 219 H 242 H (65-110) mg/dL Random Glucose (70-110) mg/dL Lactic Acid (0.7-2.1) mmol/L Calcium (8.4-10.5) mg/dL Phosphorus (2.5-4.5) mg/dL Magnesium (1.7-2.2) mg/dL Total Bilirubin (0.2-1.3) mg/dL Direct Bilirubin (0.0-0.4) mg/dL AST (14-36) U/L ALT (7-56) U/L Alkaline Phosphatase (38-126) U/L Lactate Dehydrogenase 1551 H (333-699) U/L Total Protein (5.8-8.3) g/dL Albumin (3.0-4.8) g/dL Globulin gm/dL Albumin/Globulin Ratio (1.1-1.8) Crossmatch 07/16/17 07/16/17 07/16/17 Range/Units 05:50 05:50 05:50 WBC 9.4 (4.5-11.0) 10^3/ul RBC 3.40 L (3.5-6.1) 10^6/uL Hgb 10.0 L (12.0-16.0) g/dL Hct 31.2 L (36.0-48.0) % MCV 91.8 (80.0-105.0) fl MCH 29.4 (25.0-35.0) pg MCHC 32.1 (31.0-37.0) g/dl RDW 16.7 H (11.5-14.5) % Plt Count 107 L (120.0-450.0) 10^3/uL Manual Plt Count 113 L (120-450) K/mm3 MPV 12.8 H (7.0-11.0) fl Gran % 77.7 H (50.0-68.0) % Lymph % (Auto) 11.9 L (22.0-35.0) % [place] % (Auto) 8.8 H (1.0-6.0) % Eos % (Auto) 1.5 (1.5-5.0) % Baso % (Auto) 0.1 (0.0-3.0) % Gran # 7.29 H (1.4-6.5) Lymph # (Auto) 1.1 L (1.2-3.4) [place] # (Auto) 0.8 H (0.1-0.6) Eos # (Auto) 0.1 (0.0-0.7) Baso # (Auto) 0.01 (0.0-2.0) K/mm3 pCO2 (35-45) mm/Hg pO2 (80-100) mm/Hg HCO3 (21-28) mmol/L ABG pH (7.35-7.45) ABG Total CO2 (22-28) mmol.L ABG O2 Saturation (95-98) % ABG O2 Content (15-23) ML/dl ABG Base Excess (-2.0-3.0) mmol/L ABG Hemoglobin (11.7-17.4) g/dL ABG Carboxyhemoglobin (0.5-1.5) % POC ABG HHb (Measured) (0-5) % ABG Methemoglobin (0.0-3.0) % ABG O2 Capacity (16-24) mL/dl Hgb O2 Saturation (95.0-98.0) % FiO2 % Sodium 145 (132-148) mmol/L Potassium 3.9 (3.6-5.0) mmol/L Chloride 117 H (98-107) mmol/L Carbon Dioxide 21 (21-33) mmol/L Anion Gap 12 (10-20) BUN 44 H (7-21) mg/dL Creatinine 0.7 (0.7-1.2) mg/dl Est GFR ( Amer) > 60 Est GFR (Non-Af Amer) > 60 POC Glucose (mg/dL) (65-110) mg/dL Random Glucose 175 H (70-110) mg/dL Lactic Acid 1.2 (0.7-2.1) mmol/L Calcium 7.8 L (8.4-10.5) mg/dL Phosphorus 2.4 L (2.5-4.5) mg/dL Magnesium 2.4 H (1.7-2.2) mg/dL Total Bilirubin 0.9 (0.2-1.3) mg/dL Direct Bilirubin 0.5 H (0.0-0.4) mg/dL AST 737 H (14-36) U/L ALT 686 H (7-56) U/L Alkaline Phosphatase 108 (38-126) U/L Lactate Dehydrogenase (333-699) U/L Total Protein 4.6 L (5.8-8.3) g/dL Albumin 2.3 L (3.0-4.8) g/dL Globulin 2.3 gm/dL Albumin/Globulin Ratio 1.0 L (1.1-1.8) Crossmatch 07/16/17 07/15/17 07/15/17 Range/Units 03:11 21:08 15:45 WBC (4.5-11.0) 10^3/ul RBC (3.5-6.1) 10^6/uL Hgb (12.0-16.0) g/dL Hct (36.0-48.0) % MCV (80.0-105.0) fl MCH (25.0-35.0) pg MCHC (31.0-37.0) g/dl RDW (11.5-14.5) % Plt Count (120.0-450.0) 10^3/uL Manual Plt Count (120-450) K/mm3 MPV (7.0-11.0) fl Gran % (50.0-68.0) % Lymph % (Auto) (22.0-35.0) % [place] % (Auto) (1.0-6.0) % Eos % (Auto) (1.5-5.0) % Baso % (Auto) (0.0-3.0) % Gran # (1.4-6.5) Lymph # (Auto) (1.2-3.4) [place] # (Auto) (0.1-0.6) Eos # (Auto) (0.0-0.7) Baso # (Auto) (0.0-2.0) K/mm3 pCO2 30 L (35-45) mm/Hg pO2 126.0 H (80-100) mm/Hg HCO3 16.9 L (21-28) mmol/L ABG pH 7.36 (7.35-7.45) ABG Total CO2 17.8 L (22-28) mmol.L ABG O2 Saturation 98.6 H (95-98) % ABG O2 Content 14.8 L (15-23) ML/dl ABG Base Excess -7.5 L (-2.0-3.0) mmol/L ABG Hemoglobin 10.7 L (11.7-17.4) g/dL ABG Carboxyhemoglobin 1.5 (0.5-1.5) % POC ABG HHb (Measured) 1.4 (0-5) % ABG Methemoglobin 0.3 (0.0-3.0) % ABG O2 Capacity 15.0 L (16-24) mL/dl Hgb O2 Saturation 96.8 (95.0-98.0) % FiO2 40.0 % Sodium (132-148) mmol/L Potassium (3.6-5.0) mmol/L Chloride (98-107) mmol/L Carbon Dioxide (21-33) mmol/L Anion Gap (10-20) BUN (7-21) mg/dL Creatinine (0.7-1.2) mg/dl Est GFR ( Amer) Est GFR (Non-Af Amer) POC Glucose (mg/dL) 211 H 204 H (65-110) mg/dL Random Glucose (70-110) mg/dL Lactic Acid (0.7-2.1) mmol/L Calcium (8.4-10.5) mg/dL Phosphorus (2.5-4.5) mg/dL Magnesium (1.7-2.2) mg/dL Total Bilirubin (0.2-1.3) mg/dL Direct Bilirubin (0.0-0.4) mg/dL AST (14-36) U/L ALT (7-56) U/L Alkaline Phosphatase (38-126) U/L Lactate Dehydrogenase (333-699) U/L Total Protein (5.8-8.3) g/dL Albumin (3.0-4.8) g/dL Globulin gm/dL Albumin/Globulin Ratio (1.1-1.8) Crossmatch 07/15/17 07/12/17 Range/Units 14:46 15:48 WBC (4.5-11.0) 10^3/ul RBC (3.5-6.1) 10^6/uL Hgb (12.0-16.0) g/dL Hct (36.0-48.0) % MCV (80.0-105.0) fl MCH (25.0-35.0) pg MCHC (31.0-37.0) g/dl RDW (11.5-14.5) % Plt Count (120.0-450.0) 10^3/uL Manual Plt Count (120-450) K/mm3 MPV (7.0-11.0) fl Gran % (50.0-68.0) % Lymph % (Auto) (22.0-35.0) % [place] % (Auto) (1.0-6.0) % Eos % (Auto) (1.5-5.0) % Baso % (Auto) (0.0-3.0) % Gran # (1.4-6.5) Lymph # (Auto) (1.2-3.4) [place] # (Auto) (0.1-0.6) Eos # (Auto) (0.0-0.7) Baso # (Auto) (0.0-2.0) K/mm3 pCO2 (35-45) mm/Hg pO2 (80-100) mm/Hg HCO3 (21-28) mmol/L ABG pH (7.35-7.45) ABG Total CO2 (22-28) mmol.L ABG O2 Saturation (95-98) % ABG O2 Content (15-23) ML/dl ABG Base Excess (-2.0-3.0) mmol/L ABG Hemoglobin (11.7-17.4) g/dL ABG Carboxyhemoglobin (0.5-1.5) % POC ABG HHb (Measured) (0-5) % ABG Methemoglobin (0.0-3.0) % ABG O2 Capacity (16-24) mL/dl Hgb O2 Saturation (95.0-98.0) % FiO2 % Sodium (132-148) mmol/L Potassium (3.6-5.0) mmol/L Chloride (98-107) mmol/L Carbon Dioxide (21-33) mmol/L Anion Gap (10-20) BUN (7-21) mg/dL Creatinine (0.7-1.2) mg/dl Est GFR ( Amer) Est GFR (Non-Af Amer) POC Glucose (mg/dL) 260 H (65-110) mg/dL Random Glucose (70-110) mg/dL Lactic Acid (0.7-2.1) mmol/L Calcium (8.4-10.5) mg/dL Phosphorus (2.5-4.5) mg/dL Magnesium (1.7-2.2) mg/dL Total Bilirubin (0.2-1.3) mg/dL Direct Bilirubin (0.0-0.4) mg/dL AST (14-36) U/L ALT (7-56) U/L Alkaline Phosphatase (38-126) U/L Lactate Dehydrogenase (333-699) U/L Total Protein (5.8-8.3) g/dL Albumin (3.0-4.8) g/dL Globulin gm/dL Albumin/Globulin Ratio (1.1-1.8) Crossmatch See Detail Laboratory Results - last 24 hr 07/12/17 07/15/17 07/15/17 15:48 14:46 15:45 WBC RBC Hgb Hct MCV MCH MCHC RDW Plt Count Manual Plt Count MPV Gran % Lymph % (Auto) [place] % (Auto) Eos % (Auto) Baso % (Auto) Gran # Lymph # (Auto) [place] # (Auto) Eos # (Auto) Baso # (Auto) pCO2 30 L pO2 126.0 H HCO3 16.9 L ABG pH 7.36 ABG Total CO2 17.8 L ABG O2 Saturation 98.6 H ABG O2 Content 14.8 L ABG Base Excess -7.5 L ABG Hemoglobin 10.7 L ABG Carboxyhemoglobin 1.5 POC ABG HHb (Measured) 1.4 ABG Methemoglobin 0.3 ABG O2 Capacity 15.0 L Hgb O2 Saturation 96.8 FiO2 40.0 Sodium Potassium Chloride Carbon Dioxide Anion Gap BUN Creatinine Est GFR ( Amer) Est GFR (Non-Af Amer) POC Glucose (mg/dL) 260 H Random Glucose Lactic Acid Calcium Phosphorus Magnesium Total Bilirubin Direct Bilirubin AST ALT Alkaline Phosphatase Lactate Dehydrogenase Total Protein Albumin Globulin Albumin/Globulin Ratio Crossmatch See Detail 07/15/17 07/16/17 07/16/17 21:08 03:11 05:50 WBC 9.4 RBC 3.40 L Hgb 10.0 L Hct 31.2 L MCV 91.8 MCH 29.4 MCHC 32.1 RDW 16.7 H Plt Count 107 L Manual Plt Count 113 L MPV 12.8 H Gran % 77.7 H Lymph % (Auto) 11.9 L [place] % (Auto) 8.8 H Eos % (Auto) 1.5 Baso % (Auto) 0.1 Gran # 7.29 H Lymph # (Auto) 1.1 L [place] # (Auto) 0.8 H Eos # (Auto) 0.1 Baso # (Auto) 0.01 pCO2 pO2 HCO3 ABG pH ABG Total CO2 ABG O2 Saturation ABG O2 Content ABG Base Excess ABG Hemoglobin ABG Carboxyhemoglobin POC ABG HHb (Measured) ABG Methemoglobin ABG O2 Capacity Hgb O2 Saturation FiO2 Sodium Potassium Chloride Carbon Dioxide Anion Gap BUN Creatinine Est GFR ( Amer) Est GFR (Non-Af Amer) POC Glucose (mg/dL) 204 H 211 H Random Glucose Lactic Acid Calcium Phosphorus Magnesium Total Bilirubin Direct Bilirubin AST ALT Alkaline Phosphatase Lactate Dehydrogenase Total Protein Albumin Globulin Albumin/Globulin Ratio Crossmatch 07/16/17 07/16/17 07/16/17 05:50 05:50 05:50 WBC RBC Hgb Hct MCV MCH MCHC RDW Plt Count Manual Plt Count MPV Gran % Lymph % (Auto) [place] % (Auto) Eos % (Auto) Baso % (Auto) Gran # Lymph # (Auto) [place] # (Auto) Eos # (Auto) Baso # (Auto) pCO2 pO2 HCO3 ABG pH ABG Total CO2 ABG O2 Saturation ABG O2 Content ABG Base Excess ABG Hemoglobin ABG Carboxyhemoglobin POC ABG HHb (Measured) ABG Methemoglobin ABG O2 Capacity Hgb O2 Saturation FiO2 Sodium 145 Potassium 3.9 Chloride 117 H Carbon Dioxide 21 Anion Gap 12 BUN 44 H Creatinine 0.7 Est GFR ( Amer) > 60 Est GFR (Non-Af Amer) > 60 POC Glucose (mg/dL) Random Glucose 175 H Lactic Acid 1.2 Calcium 7.8 L Phosphorus 2.4 L Magnesium 2.4 H Total Bilirubin 0.9 Direct Bilirubin 0.5 H AST 737 H ALT 686 H Alkaline Phosphatase 108 Lactate Dehydrogenase 1551 H Total Protein 4.6 L Albumin 2.3 L Globulin 2.3 Albumin/Globulin Ratio 1.0 L Crossmatch 07/16/17 07/16/17 10:53 11:36 WBC RBC Hgb Hct MCV MCH MCHC RDW Plt Count Manual Plt Count MPV Gran % Lymph % (Auto) [place] % (Auto) Eos % (Auto) Baso % (Auto) Gran # Lymph # (Auto) [place] # (Auto) Eos # (Auto) Baso # (Auto) pCO2 pO2 HCO3 ABG pH ABG Total CO2 ABG O2 Saturation ABG O2 Content ABG Base Excess ABG Hemoglobin ABG Carboxyhemoglobin POC ABG HHb (Measured) ABG Methemoglobin ABG O2 Capacity Hgb O2 Saturation FiO2 Sodium Potassium Chloride Carbon Dioxide Anion Gap BUN Creatinine Est GFR ( Amer) Est GFR (Non-Af Amer) POC Glucose (mg/dL) 242 H 219 H Random Glucose Lactic Acid Calcium Phosphorus Magnesium Total Bilirubin Direct Bilirubin AST ALT Alkaline Phosphatase Lactate Dehydrogenase Total Protein Albumin Globulin Albumin/Globulin Ratio Crossmatch EKG/Cardiology Studies: Cardiology / EKG Studies 07/16/17 07:00 EKG [ELECTROCARDIOGRAM] DAILY Comment: Reason For Exam: AFIB Fingerstick Blood Sugar Results: 211 Critical Care Progress Note - Nutrition Nutrition: Nutrition Category Date Time Status NPO Diet [DIET] Diets 07/15/17 Breakfast Ordered Assessment/Plan - Assessment and Plan (Free Text) Plan: 82 F with a PMH of Dementia, Afib on eliquis, DM, COPD, HTN presents with hypoxic respiratory failure s/p right hip ORIF. Patient wxtubated this AM. Will be monitored closely, and will continue current medical regimen. Neuro: Alert, no sedation No deficits Cardio: Hemodynamically stable Maintain MAP > 65 Lovenox Pulm: Extubated Xopenex as needed Maintain O2 sat > 90% GI: Protonix NPO Renal: Replenish electrolytes as needed Maintain euvolemia Heme/ID: Afebrile, no leukocytosis Lovenox MSK: S/p right hip orif Ortho recommends beginning PT Endo: ISS Maintain euglycemia Miguel Ángel PGY-2 <Edward Roman - Last Filed: 07/16/17 12:05> CCU Objective - Vital Signs / Intake & Output Intake and Output (Last 8hrs): Intake & Output 07/15/17 07/16/17 07/16/17 22:59 06:59 14:59 Intake Total 1606 1610 Output Total 150 350 Balance 1456 1260 Intake: IV 1606 1610 Left Upper arm 1606 1610 Oral 0 0 Output: Urine 150 350 Urethral (Moon) 150 350 Emesis 0 Other: # Bowel Movements 2 2 - Medications Active Medications: Active Medications Generic Name Dose Route Start Last Admin Trade Name Freq PRN Reason Stop Dose Admin Acetaminophen 650 mg 07/12/17 12:38 Tylenol 325mg Tab PO Q6 PRN Headache Acetaminophen 650 mg 07/12/17 12:38 Tylenol 650 Mg Supp RC Q6H PRN Headache Acetaminophen 650 mg 07/12/17 12:41 Tylenol 325mg Tab PO Q6 PRN TEMP>=99.5F Acetaminophen 650 mg 07/12/17 12:43 Tylenol 650 Mg Supp RC Q6H PRN TEMP>=99.5F Atorvastatin Calcium 40 mg 07/12/17 22:00 07/15/17 23:11 Lipitor PO 40 mg HS MIRA Administration Docusate Sodium 100 mg 07/12/17 14:00 07/15/17 17:54 Colace PO Not Given TID [facility] Enoxaparin Sodium 30 mg 07/13/17 18:00 07/15/17 17:57 Lovenox SC 30 mg Q24H [facility] Administration Protocol Hydromorphone HCl 0.5 mg 07/12/17 21:04 07/16/17 08:17 Dilaudid IVP 0.5 mg Q4H PRN Administration Pain, severe (8-10) Dobutamine HCl/Dextrose 500 mg in 250 mls @ 3.511 mls/hr 07/13/17 11:09 07/14 22:55 Dobutamine/Dextrose 5% 500mg/250ml IV 2 mcg/kg/min .Q24H PRN 3.511 mls/hr TITRATE PER PROTOCOL Administration Protocol 2 MCG/KG/MIN Sodium Chloride 1,000 mls @ 125 mls/hr 07/14/17 17:30 07/16/17 00:05 Sodium Chloride 0.9% IV 125 mls/hr .Q8H [facility] Administration Potassium Phosphate 15 mmole/ 255 mls @ 42.5 mls/hr 07/16/17 07:59 07/16/17 09:15 Sodium Chloride IVPB 07/16/17 13:58 42.5 mls/hr ONCE ONE Administration Insulin Human Lispro 0 units 07/13/17 09:00 07/16/17 03:41 Humalog High SC 4 units Q6H [facility] Administration Protocol Levalbuterol HCl 0.63 mg 07/12/17 15:30 07/16/17 11:30 Xopenex IH 0.63 mg QIDRESP [facility] Administration Magnesium Oxide 400 mg 07/12/17 18:00 07/15/17 17:57 Mag-Ox PO 400 mg BID [facility] Administration Memantine 5 mg 07/12/17 18:00 07/15/17 17:57 Namenda PO 5 mg BID [facility] Administration Breo Ellipta 100-25 1 puff 07/12/17 12:45 07/15/17 10:11 Mcg Inh] (Home IH Not Given Med) [facility] Ondansetron HCl 4 mg 07/12/17 12:38 Zofran Inj IVP Q4H PRN Nausea/Vomiting Pantoprazole Sodium 40 mg 07/17/17 06:00 Protonix Ec Tab PO 0600 [facility] Tamsulosin HCl 0.4 mg 07/12/17 12:45 07/15/17 10:11 Flomax PO Not Given DAILY [facility] - Patient Studies Lab Studies: Lab Studies 07/16/17 07/16/17 07/16/17 Range/Units 11:36 10:53 05:50 WBC (4.5-11.0) 10^3/ul RBC (3.5-6.1) 10^6/uL Hgb (12.0-16.0) g/dL Hct (36.0-48.0) % MCV (80.0-105.0) fl MCH (25.0-35.0) pg MCHC (31.0-37.0) g/dl RDW (11.5-14.5) % Plt Count (120.0-450.0) 10^3/uL Manual Plt Count (120-450) K/mm3 MPV (7.0-11.0) fl Gran % (50.0-68.0) % Lymph % (Auto) (22.0-35.0) % [place] % (Auto) (1.0-6.0) % Eos % (Auto) (1.5-5.0) % Baso % (Auto) (0.0-3.0) % Gran # (1.4-6.5) Lymph # (Auto) (1.2-3.4) [place] # (Auto) (0.1-0.6) Eos # (Auto) (0.0-0.7) Baso # (Auto) (0.0-2.0) K/mm3 pCO2 (35-45) mm/Hg pO2 (80-100) mm/Hg HCO3 (21-28) mmol/L ABG pH (7.35-7.45) ABG Total CO2 (22-28) mmol.L ABG O2 Saturation (95-98) % ABG O2 Content (15-23) ML/dl ABG Base Excess (-2.0-3.0) mmol/L ABG Hemoglobin (11.7-17.4) g/dL ABG Carboxyhemoglobin (0.5-1.5) % POC ABG HHb (Measured) (0-5) % ABG Methemoglobin (0.0-3.0) % ABG O2 Capacity (16-24) mL/dl Hgb O2 Saturation (95.0-98.0) % FiO2 % Sodium (132-148) mmol/L Potassium (3.6-5.0) mmol/L Chloride (98-107) mmol/L Carbon Dioxide (21-33) mmol/L Anion Gap (10-20) BUN (7-21) mg/dL Creatinine (0.7-1.2) mg/dl Est GFR ( Amer) Est GFR (Non-Af Amer) POC Glucose (mg/dL) 219 H 242 H (65-110) mg/dL Random Glucose (70-110) mg/dL Lactic Acid (0.7-2.1) mmol/L Calcium (8.4-10.5) mg/dL Phosphorus (2.5-4.5) mg/dL Magnesium (1.7-2.2) mg/dL Total Bilirubin (0.2-1.3) mg/dL Direct Bilirubin (0.0-0.4) mg/dL AST (14-36) U/L ALT (7-56) U/L Alkaline Phosphatase (38-126) U/L Lactate Dehydrogenase 1551 H (333-699) U/L Total Protein (5.8-8.3) g/dL Albumin (3.0-4.8) g/dL Globulin gm/dL Albumin/Globulin Ratio (1.1-1.8) Crossmatch 07/16/17 07/16/17 07/16/17 Range/Units 05:50 05:50 05:50 WBC 9.4 (4.5-11.0) 10^3/ul RBC 3.40 L (3.5-6.1) 10^6/uL Hgb 10.0 L (12.0-16.0) g/dL Hct 31.2 L (36.0-48.0) % MCV 91.8 (80.0-105.0) fl MCH 29.4 (25.0-35.0) pg MCHC 32.1 (31.0-37.0) g/dl RDW 16.7 H (11.5-14.5) % Plt Count 107 L (120.0-450.0) 10^3/uL Manual Plt Count 113 L (120-450) K/mm3 MPV 12.8 H (7.0-11.0) fl Gran % 77.7 H (50.0-68.0) % Lymph % (Auto) 11.9 L (22.0-35.0) % [place] % (Auto) 8.8 H (1.0-6.0) % Eos % (Auto) 1.5 (1.5-5.0) % Baso % (Auto) 0.1 (0.0-3.0) % Gran # 7.29 H (1.4-6.5) Lymph # (Auto) 1.1 L (1.2-3.4) [place] # (Auto) 0.8 H (0.1-0.6) Eos # (Auto) 0.1 (0.0-0.7) Baso # (Auto) 0.01 (0.0-2.0) K/mm3 pCO2 (35-45) mm/Hg pO2 (80-100) mm/Hg HCO3 (21-28) mmol/L ABG pH (7.35-7.45) ABG Total CO2 (22-28) mmol.L ABG O2 Saturation (95-98) % ABG O2 Content (15-23) ML/dl ABG Base Excess (-2.0-3.0) mmol/L ABG Hemoglobin (11.7-17.4) g/dL ABG Carboxyhemoglobin (0.5-1.5) % POC ABG HHb (Measured) (0-5) % ABG Methemoglobin (0.0-3.0) % ABG O2 Capacity (16-24) mL/dl Hgb O2 Saturation (95.0-98.0) % FiO2 % Sodium 145 (132-148) mmol/L Potassium 3.9 (3.6-5.0) mmol/L Chloride 117 H (98-107) mmol/L Carbon Dioxide 21 (21-33) mmol/L Anion Gap 12 (10-20) BUN 44 H (7-21) mg/dL Creatinine 0.7 (0.7-1.2) mg/dl Est GFR ( Amer) > 60 Est GFR (Non-Af Amer) > 60 POC Glucose (mg/dL) (65-110) mg/dL Random Glucose 175 H (70-110) mg/dL Lactic Acid 1.2 (0.7-2.1) mmol/L Calcium 7.8 L (8.4-10.5) mg/dL Phosphorus 2.4 L (2.5-4.5) mg/dL Magnesium 2.4 H (1.7-2.2) mg/dL Total Bilirubin 0.9 (0.2-1.3) mg/dL Direct Bilirubin 0.5 H (0.0-0.4) mg/dL AST 737 H (14-36) U/L ALT 686 H (7-56) U/L Alkaline Phosphatase 108 (38-126) U/L Lactate Dehydrogenase (333-699) U/L Total Protein 4.6 L (5.8-8.3) g/dL Albumin 2.3 L (3.0-4.8) g/dL Globulin 2.3 gm/dL Albumin/Globulin Ratio 1.0 L (1.1-1.8) Crossmatch 07/16/17 07/15/17 07/15/17 Range/Units 03:11 21:08 15:45 WBC (4.5-11.0) 10^3/ul RBC (3.5-6.1) 10^6/uL Hgb (12.0-16.0) g/dL Hct (36.0-48.0) % MCV (80.0-105.0) fl MCH (25.0-35.0) pg MCHC (31.0-37.0) g/dl RDW (11.5-14.5) % Plt Count (120.0-450.0) 10^3/uL Manual Plt Count (120-450) K/mm3 MPV (7.0-11.0) fl Gran % (50.0-68.0) % Lymph % (Auto) (22.0-35.0) % [place] % (Auto) (1.0-6.0) % Eos % (Auto) (1.5-5.0) % Baso % (Auto) (0.0-3.0) % Gran # (1.4-6.5) Lymph # (Auto) (1.2-3.4) [place] # (Auto) (0.1-0.6) Eos # (Auto) (0.0-0.7) Baso # (Auto) (0.0-2.0) K/mm3 pCO2 30 L (35-45) mm/Hg pO2 126.0 H (80-100) mm/Hg HCO3 16.9 L (21-28) mmol/L ABG pH 7.36 (7.35-7.45) ABG Total CO2 17.8 L (22-28) mmol.L ABG O2 Saturation 98.6 H (95-98) % ABG O2 Content 14.8 L (15-23) ML/dl ABG Base Excess -7.5 L (-2.0-3.0) mmol/L ABG Hemoglobin 10.7 L (11.7-17.4) g/dL ABG Carboxyhemoglobin 1.5 (0.5-1.5) % POC ABG HHb (Measured) 1.4 (0-5) % ABG Methemoglobin 0.3 (0.0-3.0) % ABG O2 Capacity 15.0 L (16-24) mL/dl Hgb O2 Saturation 96.8 (95.0-98.0) % FiO2 40.0 % Sodium (132-148) mmol/L Potassium (3.6-5.0) mmol/L Chloride (98-107) mmol/L Carbon Dioxide (21-33) mmol/L Anion Gap (10-20) BUN (7-21) mg/dL Creatinine (0.7-1.2) mg/dl Est GFR ( Amer) Est GFR (Non-Af Amer) POC Glucose (mg/dL) 211 H 204 H (65-110) mg/dL Random Glucose (70-110) mg/dL Lactic Acid (0.7-2.1) mmol/L Calcium (8.4-10.5) mg/dL Phosphorus (2.5-4.5) mg/dL Magnesium (1.7-2.2) mg/dL Total Bilirubin (0.2-1.3) mg/dL Direct Bilirubin (0.0-0.4) mg/dL AST (14-36) U/L ALT (7-56) U/L Alkaline Phosphatase (38-126) U/L Lactate Dehydrogenase (333-699) U/L Total Protein (5.8-8.3) g/dL Albumin (3.0-4.8) g/dL Globulin gm/dL Albumin/Globulin Ratio (1.1-1.8) Crossmatch 07/15/17 07/12/17 Range/Units 14:46 15:48 WBC (4.5-11.0) 10^3/ul RBC (3.5-6.1) 10^6/uL Hgb (12.0-16.0) g/dL Hct (36.0-48.0) % MCV (80.0-105.0) fl MCH (25.0-35.0) pg MCHC (31.0-37.0) g/dl RDW (11.5-14.5) % Plt Count (120.0-450.0) 10^3/uL Manual Plt Count (120-450) K/mm3 MPV (7.0-11.0) fl Gran % (50.0-68.0) % Lymph % (Auto) (22.0-35.0) % [place] % (Auto) (1.0-6.0) % Eos % (Auto) (1.5-5.0) % Baso % (Auto) (0.0-3.0) % Gran # (1.4-6.5) Lymph # (Auto) (1.2-3.4) [place] # (Auto) (0.1-0.6) Eos # (Auto) (0.0-0.7) Baso # (Auto) (0.0-2.0) K/mm3 pCO2 (35-45) mm/Hg pO2 (80-100) mm/Hg HCO3 (21-28) mmol/L ABG pH (7.35-7.45) ABG Total CO2 (22-28) mmol.L ABG O2 Saturation (95-98) % ABG O2 Content (15-23) ML/dl ABG Base Excess (-2.0-3.0) mmol/L ABG Hemoglobin (11.7-17.4) g/dL ABG Carboxyhemoglobin (0.5-1.5) % POC ABG HHb (Measured) (0-5) % ABG Methemoglobin (0.0-3.0) % ABG O2 Capacity (16-24) mL/dl Hgb O2 Saturation (95.0-98.0) % FiO2 % Sodium (132-148) mmol/L Potassium (3.6-5.0) mmol/L Chloride (98-107) mmol/L Carbon Dioxide (21-33) mmol/L Anion Gap (10-20) BUN (7-21) mg/dL Creatinine (0.7-1.2) mg/dl Est GFR ( Amer) Est GFR (Non-Af Amer) POC Glucose (mg/dL) 260 H (65-110) mg/dL Random Glucose (70-110) mg/dL Lactic Acid (0.7-2.1) mmol/L Calcium (8.4-10.5) mg/dL Phosphorus (2.5-4.5) mg/dL Magnesium (1.7-2.2) mg/dL Total Bilirubin (0.2-1.3) mg/dL Direct Bilirubin (0.0-0.4) mg/dL AST (14-36) U/L ALT (7-56) U/L Alkaline Phosphatase (38-126) U/L Lactate Dehydrogenase (333-699) U/L Total Protein (5.8-8.3) g/dL Albumin (3.0-4.8) g/dL Globulin gm/dL Albumin/Globulin Ratio (1.1-1.8) Crossmatch See Detail Laboratory Results - last 24 hr 07/12/17 07/15/17 07/15/17 15:48 14:46 15:45 WBC RBC Hgb Hct MCV MCH MCHC RDW Plt Count Manual Plt Count MPV Gran % Lymph % (Auto) [place] % (Auto) Eos % (Auto) Baso % (Auto) Gran # Lymph # (Auto) [place] # (Auto) Eos # (Auto) Baso # (Auto) pCO2 30 L pO2 126.0 H HCO3 16.9 L ABG pH 7.36 ABG Total CO2 17.8 L ABG O2 Saturation 98.6 H ABG O2 Content 14.8 L ABG Base Excess -7.5 L ABG Hemoglobin 10.7 L ABG Carboxyhemoglobin 1.5 POC ABG HHb (Measured) 1.4 ABG Methemoglobin 0.3 ABG O2 Capacity 15.0 L Hgb O2 Saturation 96.8 FiO2 40.0 Sodium Potassium Chloride Carbon Dioxide Anion Gap BUN Creatinine Est GFR ( Amer) Est GFR (Non-Af Amer) POC Glucose (mg/dL) 260 H Random Glucose Lactic Acid Calcium Phosphorus Magnesium Total Bilirubin Direct Bilirubin AST ALT Alkaline Phosphatase Lactate Dehydrogenase Total Protein Albumin Globulin Albumin/Globulin Ratio Crossmatch See Detail 07/15/17 07/16/17 07/16/17 21:08 03:11 05:50 WBC 9.4 RBC 3.40 L Hgb 10.0 L Hct 31.2 L MCV 91.8 MCH 29.4 MCHC 32.1 RDW 16.7 H Plt Count 107 L Manual Plt Count 113 L MPV 12.8 H Gran % 77.7 H Lymph % (Auto) 11.9 L [place] % (Auto) 8.8 H Eos % (Auto) 1.5 Baso % (Auto) 0.1 Gran # 7.29 H Lymph # (Auto) 1.1 L [place] # (Auto) 0.8 H Eos # (Auto) 0.1 Baso # (Auto) 0.01 pCO2 pO2 HCO3 ABG pH ABG Total CO2 ABG O2 Saturation ABG O2 Content ABG Base Excess ABG Hemoglobin ABG Carboxyhemoglobin POC ABG HHb (Measured) ABG Methemoglobin ABG O2 Capacity Hgb O2 Saturation FiO2 Sodium Potassium Chloride Carbon Dioxide Anion Gap BUN Creatinine Est GFR ( Amer) Est GFR (Non-Af Amer) POC Glucose (mg/dL) 204 H 211 H Random Glucose Lactic Acid Calcium Phosphorus Magnesium Total Bilirubin Direct Bilirubin AST ALT Alkaline Phosphatase Lactate Dehydrogenase Total Protein Albumin Globulin Albumin/Globulin Ratio Crossmatch 07/16/17 07/16/17 07/16/17 05:50 05:50 05:50 WBC RBC Hgb Hct MCV MCH MCHC RDW Plt Count Manual Plt Count MPV Gran % Lymph % (Auto) [place] % (Auto) Eos % (Auto) Baso % (Auto) Gran # Lymph # (Auto) [place] # (Auto) Eos # (Auto) Baso # (Auto) pCO2 pO2 HCO3 ABG pH ABG Total CO2 ABG O2 Saturation ABG O2 Content ABG Base Excess ABG Hemoglobin ABG Carboxyhemoglobin POC ABG HHb (Measured) ABG Methemoglobin ABG O2 Capacity Hgb O2 Saturation FiO2 Sodium 145 Potassium 3.9 Chloride 117 H Carbon Dioxide 21 Anion Gap 12 BUN 44 H Creatinine 0.7 Est GFR ( Amer) > 60 Est GFR (Non-Af Amer) > 60 POC Glucose (mg/dL) Random Glucose 175 H Lactic Acid 1.2 Calcium 7.8 L Phosphorus 2.4 L Magnesium 2.4 H Total Bilirubin 0.9 Direct Bilirubin 0.5 H AST 737 H ALT 686 H Alkaline Phosphatase 108 Lactate Dehydrogenase 1551 H Total Protein 4.6 L Albumin 2.3 L Globulin 2.3 Albumin/Globulin Ratio 1.0 L Crossmatch 07/16/17 07/16/17 10:53 11:36 WBC RBC Hgb Hct MCV MCH MCHC RDW Plt Count Manual Plt Count MPV Gran % Lymph % (Auto) [place] % (Auto) Eos % (Auto) Baso % (Auto) Gran # Lymph # (Auto) [place] # (Auto) Eos # (Auto) Baso # (Auto) pCO2 pO2 HCO3 ABG pH ABG Total CO2 ABG O2 Saturation ABG O2 Content ABG Base Excess ABG Hemoglobin ABG Carboxyhemoglobin POC ABG HHb (Measured) ABG Methemoglobin ABG O2 Capacity Hgb O2 Saturation FiO2 Sodium Potassium Chloride Carbon Dioxide Anion Gap BUN Creatinine Est GFR ( Amer) Est GFR (Non-Af Amer) POC Glucose (mg/dL) 242 H 219 H Random Glucose Lactic Acid Calcium Phosphorus Magnesium Total Bilirubin Direct Bilirubin AST ALT Alkaline Phosphatase Lactate Dehydrogenase Total Protein Albumin Globulin Albumin/Globulin Ratio Crossmatch EKG/Cardiology Studies: Cardiology / EKG Studies 07/16/17 07:00 EKG [ELECTROCARDIOGRAM] DAILY Comment: Reason For Exam: AFIB Critical Care Progress Note - Nutrition Nutrition: Nutrition Category Date Time Status NPO Diet [DIET] Diets 07/15/17 Breakfast Ordered Assessment/Plan - Assessment and Plan (Free Text) Plan: Patient seen and examined on rounds with resident, agree with note with following additions/exceptions: Patient is 82yo female with PMHx of severe Pulm HTN, Afib on Eliquis, COPD, HTN , presented after ORIF in the OR difficult to extubate. This morning plated on pressure support for 60 minutes, 10/5/40%, RSBI 40-50, awake, alert, following commands, subsequently extubated to VM 50%, sat 100%, tolerated extubation well. Currently afebrile, HD stable, comfortable in NAD. Resp failure Severe Pulm HTN HTN Afib COPD s/p ORIF Recommend: - cont with supp o2 as needed - BP control - follow up cultures - would avoid IVF, hx of severe pulm htn - Speech swallow eval - PT eval - FS control - GI ppx, - DVT ppx - Stable, monitor in MICU
[2017-07-16] MEDS: BREO ELLIPTA IH SCH (12:41)
[2017-07-16] MEDS: Magnesium Oxide 400 mg Tab UD PO SCH ×2 (13:03→17:04)
--- NOTE | 2017-07-16 13:48 | PN ---
DATE: 07/16/2017 CARDIOLOGY FOLLOWUP SUBJECTIVE: The patient was extubated today. She is awake, alert without dyspnea. PHYSICAL EXAMINATION: VITAL SIGNS: Blood pressure is 158/52, heart rates in the 90s. NECK: Negative JVD. LUNGS: Decreased breath sounds without rales. HEART: Reveals S1, S2. EXTREMITIES: Without edema. LABORATORY DATA: LFTs are decreasing. Glucose is 175. Hemoglobin is 10. IMPRESSION: 1. Status post hip fracture. 2. Status post surgery. 3. Status post respiratory failure. 4. Severe pulmonary hypertension. 5. Chronic obstructive pulmonary disease. 6. Anemia. 7. Elevated liver enzymes, which likely represents right heart passive congestion to the liver. PLAN: Given these findings, the patient is hemodynamically doing better. We will continue to observe in the ICU for the next 24 hours. Gurpreet Rivas MD
--- NOTE | 2017-07-16 14:08 | PN ---
DATE: 07/16/2017 SUBJECTIVE: The patient is still in ICU bed 4. The patient is presently on CPAP trial with pressure support. On the vent. Overnight nurse's notes were reviewed. No adverse events documented. PHYSICAL EXAMINATION: VITAL SIGNS: The patient is in ICU bed 4. T-max is 98.4. Telemetry shows sinus rhythm. The patient has been in and out of atrial fibrillation. Heart rate 88-99, blood pressure 158/52, O2 sat 99-100% on 40%. The patient presently was started on CPAP with pressure support with a PEEP of 5. HEENT: Head examination normocephalic, atraumatic. HEENT examination shows pinkish pale conjunctivae. Anicteric sclerae. No oropharyngeal lesion. No neck rigidity. Positive ET tube. Positive NG tube. Positive questionable soft carotid bruit. CHEST: Kyphosis. LUNGS: Shows occasional rhonchi bilaterally, upper lung zabala. CARDIOVASCULAR: S1, S2, regular rhythm. Positive systolic murmur, left sternal border, right second intercostal space, left second intercostal space. ABDOMEN: Soft. Positive bowel sounds. GENITALIA: Female. Positive Moon catheter. Positive right hip dressing noted. EXTREMITY: Shows positive SCDs. MUSCULOSKELETAL: Shows a body mass index of 23.6. NEUROLOGIC: The patient is intubated. Gait examination could not be tested as the patient is lying in the bed. PSYCHIATRIC: Not applicable. DIAGNOSTICS: From 07/16/2017, WBC count 9.4, hemoglobin and hematocrit 10.0 and 31.2, platelet 107. Granulocytes 78% segs. Sodium 145, potassium 3.9, chloride 117, CO2 of 21, BUN 44, creatinine 0.7, glucose 175, phosphorus 2.4, AST 737, ALT 686, total protein 4.6, albumin 2.3. EKG shows sinus rhythm, sinus tachycardia with left axis deviation, PACs. A chest x-ray report, questionable right lower lobe still slow resolving infiltrate. Positive ET tube. IMPRESSION AND PLAN: 1. Postoperative ventilator-dependent respiratory failure. 2. Status post right hip open reduction and internal fixation with left hip right hip intramedullary nail placement. 3. Right hip intertrochanteric femoral fracture. 4. Possible right lower lobe ventilator-dependent aspiration pneumonia. 5. Paroxysmal atrial fibrillation. 6. Severe pulmonary arterial hypertension. 7. Hypertension. 8. History of chronic obstructive pulmonary disease. 9. Hypoxemic respiratory failure. 10. Normocytic anemia. 11. Thrombocytopenia. 12. Granulocytosis. 13. Acute kidney injury (resolved versus resolving). 14. Prerenal kidney injury. 15. Hypokalemia, hypophosphatemia. 16. Hypovolemic hypotensive shock with shock liver. 17. Transaminitis. 18. Moderate protein malnutrition and hypoalbuminemia. 19. Left axis deviation. 20. Sinus tachycardia. 21. Hypotension. 22. Insulin-requiring diabetes mellitus. 23. High non-gap metabolic acidosis and diabetic ketoacidosis. 24. Pressor-dependent hypotension and hypovolemic shock. 25. Hypomagnesemia. Plan at this time, the patient is undergoing CPAP weaning trials for possible extubation. The patient will be continued on Dilaudid. The patient will be continued on the medications as per the MAR, which is Breo Ellipta 1 puff daily when the patient extubated, Colace 100 mg three times a day when the patient extubated, Dilaudid 0.5 mg IV every 4 p.r.n. The patient is on dobutamine drip at 2 mcg/kg, Flomax 0.4 mg daily, Levophed drip at 4 mcg/minute/kg, Lipitor 40 mg daily via NG tube, Lovenox 30 mg subcu daily, magnesium oxide 400 twice a day, Namenda 5 mg twice a day. The patient is given one dose of K-Phos x1 IV piggyback rider, Tylenol suppository p.o. p.r.n. for temperature greater than 99.5, Xopenex nebulizer 0.63 mg every 6 hours, Zofran 4 mg IV every 4 p.r.n. At present, the patient's prognosis is guarded. Condition critical. The patient will be observed closely in the ICU post intubation until the patient is fully stable to be transferred out of the ICU. Critical care time spent is 35 minutes. Dictated and electronically signed, not read. Diego Hamilton MD
--- NOTE | 2017-07-16 14:32 | CP.PCM.PN ---
Subjective - Date & Time of Evaluation Date of Evaluation: 07/16/17 Time of Evaluation: 14:29 - Subjective Subjective: Nephrology Consultation Note: Assessment: stable Acute Kidney Injury (N17.9) likely Hemodynamic, Reduced renal perfusion due to Shock state, requirement of pressors: RESOLVED High non-gap metabolic acidosis due to diabetic ketoacidosis with hyperglycemia Fall status post hip fracture and ORIF Anemia COPD pulmonary hypertension, A. fib with RVR Diabetes mellitus history of hypertension Vitamin D deficiency Abnormal LFT Plan No acute need for renal replacement therapy at this time. GEORGES resolved. Lytes stable. KPhos being supplemented Maintain hemodynamics stable. Patient not on ACEI/ARB due to recent shock and GEORGES. Monitor Input/Output, daily weights and renal function with basic metabolic panel Supplement with weekly vitamin D 50,000 unit PRBC as needed for anemia. d/c IVF and consider lasix Dose meds/antibiotics for improved GFR. Glycemic control Further work up/management as per primary team Thanks for allowing me to participate in care of your patient. Will sign off and follow further PRN basis. Please call if any Qs. Discussed with ICU team Dr Óscar De La Cruz Office: [phone] HPI: Pt is a 82 f with hx of diabetes Mellitus ( years), hypertension (years) COPD, A. fib, Pulmonary hypertension, presented with complaints of Fall and hip fracture. She underwent orif, transferred to ICU because of hypoxic respiratory failure and diabetes ketoacidosis, which requiring insulin drip. Also on shock state requiring pressors as Levophed. Blood pressure low lowest in 70s. Renal consult for a Acute kidney injury evaluation Denies OTC/herbal meds or NSAIDs No recent iodinated contrast exposure. Noted obvious episodes of low BP. ROS: pt extubated, feels better. denies CP/SOB Physical Examination: General Appearance: in no acute respiratory distress, Ill-appearing Vitals reviewed and noted as below Head; Atraumatic, normocephalic EYES: Pupils are equal, round and reactive to light accommodation. Eye muscles and extraocular movement intact. Sclera is anicteric. Neck; supple no lymphadenopathy, no thyromegaly or bruit Lungs: Normal respiratory rate/effort. Breath sounds bilateral equal and decreased at bases Heart: normal rate. s1s2 normal. No rub or gallop. Extremities: no edema. No varicose veins. Extremities cool to touch Neurological: Patient is awake alert follows commands Skin: dry. Normal turgor. No rash. Palpitation: Normal elasticity for age. Skin ecchymosis noted Abdomen: Abdomen is soft. Bowel sounds +. There is no abdominal tenderness, no guarding/rigidity no organomegaly Psych: deferred MSK: no joint tenderness or swelling. Digits and nails normal, no deformity : kidney or bladder not palpable. Has Moon catheter Labs/imaging reviewed. Past medical history, past surgical history, family history, social history, allergy reviewed and noted as below Family hx: no hx of CKD. Rest non-contributory Renal sono normal UA shows ketones and glucose Objective - Vital Signs/Intake and Output Vital Signs (last 24 hours): Temp Pulse Resp BP Pulse Ox 97.3 F L 93 H 18 163/84 H 98 07/16/17 08:00 07/16/17 10:00 07/16/17 08:00 07/16/17 08:00 07/16/17 08:00 Intake and Output: 07/16/17 07/16/17 06:59 18:59 Intake Total 1610 Output Total 350 Balance 1260 - Medications Medications: Current Medications Acetaminophen (Tylenol 325mg Tab) 650 mg PO Q6 PRN PRN Reason: Headache Acetaminophen (Tylenol 650 Mg Supp) 650 mg RC Q6H PRN PRN Reason: Headache Acetaminophen (Tylenol 325mg Tab) 650 mg PO Q6 PRN PRN Reason: TEMP>=99.5F Acetaminophen (Tylenol 650 Mg Supp) 650 mg RC Q6H PRN PRN Reason: TEMP>=99.5F Atorvastatin Calcium (Lipitor) 40 mg PO HS [facility] Last Admin: 07/15/17 23:11 Dose: 40 mg Docusate Sodium (Colace) 100 mg PO TID [facility] Last Admin: 07/16/17 12:38 Dose: Not Given Enoxaparin Sodium (Lovenox) 30 mg SC Q24H MIRA PRN Reason: Protocol Last Admin: 07/15/17 17:57 Dose: 30 mg Furosemide (Lasix) 40 mg PO DAILY [facility] Hydromorphone HCl (Dilaudid) 0.5 mg IVP Q4H PRN PRN Reason: Pain, severe (8-10) Last Admin: 07/16/17 08:17 Dose: 0.5 mg Sodium Chloride (Sodium Chloride 0.9%) 1,000 mls @ 125 mls/hr IV .Q8H [facility] Last Admin: 07/16/17 00:05 Dose: 125 mls/hr Insulin Human Lispro (Humalog High) 0 units SC Q6H [facility] PRN Reason: Protocol Last Admin: 07/16/17 09:30 Dose: 4 units Levalbuterol HCl (Xopenex) 0.63 mg IH QIDRESP [facility] Last Admin: 07/16/17 11:30 Dose: 0.63 mg Magnesium Oxide (Mag-Ox) 400 mg PO BID [facility] Last Admin: 07/16/17 13:03 Dose: Not Given Memantine (Namenda) 5 mg PO BID [facility] Last Admin: 07/16/17 13:03 Dose: Not Given Breo Ellipta 100-25 Mcg Inh] (Home Med) 1 puff IH DAILY [facility] Last Admin: 07/16/17 12:41 Dose: Not Given Ondansetron HCl (Zofran Inj) 4 mg IVP Q4H PRN PRN Reason: Nausea/Vomiting Pantoprazole Sodium (Protonix Ec Tab) 40 mg PO 0600 [facility] Tamsulosin HCl (Flomax) 0.4 mg PO DAILY [facility] Last Admin: 07/16/17 12:39 Dose: Not Given - Labs Labs: 07/16/17 05:50 07/16/17 05:50 PT 12.4 SECONDS (9.4-12.5) 07/12/17 09:35 INR 1.08 (0.93-1.08) 07/12/17 09:35 APTT 29.0 Seconds (25.1-36.5) 07/12/17 09:35
[2017-07-16] MEDS: Enoxaparin 30 mg Syringe SC SCH (17:02)
--- NOTE | 2017-07-16 19:32 | CARD ---
APPROVED REPORT EKG Measurement Heart [id number] [id number] [id number] <Conclusion> Sinus tachycardia with occasional premature ventricular complexes Left axis deviation Low voltage QRS Abnormal ECG
[2017-07-16] MEDS: Vancomycin 25 MG/ML PO SCH (21:25)
[2017-07-17] MEDS ORDERED: Morphine 2 mg/2 mL syringe IVP STA (03:13)
[2017-07-17] MEDS: Pantoprazole 40 mg EC Tab PO SCH (06:02)
[2017-07-17 06:52] LABS: BASO # 0.01 K/mm3 (0.0-2.0); BASO % 0.1 % (0.0-3.0); EOS # 0.2 (0.0-0.7); EOS % 1.9 % (1.5-5.0); GRAN # 6.39 (1.4-6.5); GRAN % 72.5 % (50.0-68.0); HEMOGLOBIN 10.5 g/dL (12.0-16.0); LYMPH # 1.3 (1.2-3.4); MEAN CELL VOLUME 91.9 fl (80.0-105.0); MEAN CORPUSCULAR HEMOGLOBIN 29.2 pg (25.0-35.0); MEAN CORPUSCULAR HGB CONC 31.8 g/dl (31.0-37.0); MEAN PLATELET VOLUME 12.6 fl (7.0-11.0); MONO # 0.9 (0.1-0.6); MONO % 10.5 % (1.0-6.0); RBC 3.59 10^6/uL (3.5-6.1); RED CELL DISTRIBUTION WIDTH 16.9 % (11.5-14.5); WHITE BLOOD COUNT 8.8 10^3/ul (4.5-11.0)
[2017-07-17] MEDS: Insulin Lispro (HUMAlog) HIGH Coverage SC SCH ×5 (06:56→23:09)
[2017-07-17 07:10] LABS: ALBUMIN 2.3 g/dL (3.0-4.8); ALT/SGPT 495 U/L (7-56); AST/SGOT 199 U/L (14-36); BILIRUBIN,DIRECT 0.4 mg/dL (0.0-0.4); BLOOD UREA NITROGEN 41 mg/dL (7-21); CALCIUM 7.9 mg/dL (8.4-10.5); GFR AFRICAN-AMERICAN > 60; GFR NON-AFRICAN AMERICAN > 60
--- NOTE | 2017-07-17 08:19 | CP.PCM.PN ---
Subjective - Date & Time of Evaluation Date of Evaluation: 07/17/17 Time of Evaluation: 07:50 - Subjective Subjective: (covering for Dr. Hamilton) Patient is seen this morning in the intensive care unit bed 4. She is lying in bed. She denies shortness of breath. Objective - Vital Signs/Intake and Output Vital Signs (last 24 hours): Temp Pulse Resp BP Pulse Ox 97.8 F 84 18 148/69 96 07/17/17 04:00 07/17/17 06:00 07/17/17 04:00 07/17/17 03:00 07/17/17 04:00 Intake and Output: 07/17/17 07/17/17 06:59 18:59 Intake Total 450 Output Total 600 Balance -150 - Medications Medications: Current Medications Acetaminophen (Tylenol 325mg Tab) 650 mg PO Q6 PRN PRN Reason: Headache Acetaminophen (Tylenol 650 Mg Supp) 650 mg RC Q6H PRN PRN Reason: Headache Acetaminophen (Tylenol 325mg Tab) 650 mg PO Q6 PRN PRN Reason: TEMP>=99.5F Acetaminophen (Tylenol 650 Mg Supp) 650 mg RC Q6H PRN PRN Reason: TEMP>=99.5F Atorvastatin Calcium (Lipitor) 40 mg PO HS [facility] Last Admin: 07/15/17 23:11 Dose: 40 mg Docusate Sodium (Colace) 100 mg PO TID [facility] Last Admin: 07/16/17 17:02 Dose: 100 mg Enoxaparin Sodium (Lovenox) 30 mg SC Q24H MIRA PRN Reason: Protocol Last Admin: 07/16/17 17:02 Dose: 30 mg Ergocalciferol (Drisdol 50,000 Intl Units Cap) 1 cap PO Q7D [facility] Furosemide (Lasix) 40 mg PO DAILY [facility] Last Admin: 07/16/17 14:43 Dose: 40 mg Insulin Human Lispro (Humalog High) 0 units SC Q6 MIRA PRN Reason: Protocol Last Admin: 07/17/17 06:56 Dose: 4 units Levalbuterol HCl (Xopenex) 0.63 mg IH QIDRESP [facility] Last Admin: 07/16/17 20:16 Dose: 0.63 mg Magnesium Oxide (Mag-Ox) 400 mg PO BID [facility] Last Admin: 07/16/17 17:04 Dose: 400 mg Memantine (Namenda) 5 mg PO BID [facility] Last Admin: 07/16/17 17:04 Dose: 5 mg Breo Ellipta 100-25 Mcg Inh] (Home Med) 1 puff IH DAILY [facility] Last Admin: 07/16/17 12:41 Dose: Not Given Ondansetron HCl (Zofran Inj) 4 mg IVP Q4H PRN PRN Reason: Nausea/Vomiting Pantoprazole Sodium (Protonix Ec Tab) 40 mg PO 0600 [facility] Last Admin: 07/17/17 06:02 Dose: 40 mg Tamsulosin HCl (Flomax) 0.4 mg PO DAILY [facility] Last Admin: 07/16/17 12:39 Dose: Not Given Vancomycin HCl (Vancocin 25 Mg/Ml (Oral Use)) 125 mg PO QID [facility] PRN Reason: Protocol Last Admin: 07/16/17 21:25 Dose: 125 mg - Labs Labs: 07/17/17 06:39 07/17/17 06:39 PT 12.4 SECONDS (9.4-12.5) 07/12/17 09:35 INR 1.08 (0.93-1.08) 07/12/17 09:35 APTT 29.0 Seconds (25.1-36.5) 07/12/17 09:35 - Constitutional Appears: No Acute Distress - Head Exam Head Exam: ATRAUMATIC, NORMOCEPHALIC - Respiratory Exam Respiratory Exam: Rhonchi, NORMAL BREATHING PATTERN - Cardiovascular Exam Cardiovascular Exam: +S1, +S2 - GI/Abdominal Exam GI & Abdominal Exam: Soft, Normal Bowel Sounds. absent: Tenderness - Neurological Exam Neurological Exam: Alert, Awake Assessment and Plan - Assessment and Plan (Free Text) Assessment: s/p VDRF Right hip fracture s/p surgery COPD Atrial Fibrillation Diabetes mellitus Pulmonary Hypertension C diff. antigen positive Plan: Patient is seen this morning. She was extubated yesterday. No overnight events as per nurse. C. diff antigen is positive and patient is on oral vancomycin. Awaiting repeat stool for C. difficile. CXR done yesterday shows pleural effusions and pulmonary congestion. continue Lasix. Liver enzymes are elevated but trending downward. Cardiology, GI, Nephrology, and Orthopedics are on the case.
[2017-07-17] MEDS: Levalbuterol 0.63 MG/3 ML Inhal Soln UD IH SCH ×4 (08:30→19:53)
[2017-07-17] MEDS: Vancomycin 25 MG/ML PO SCH ×5 (09:03→22:30)
[2017-07-17] MEDS: Sodium Chloride 0.9% 1,000 ML IV SCH (09:03)
[2017-07-17] MEDS: BREO ELLIPTA IH SCH (09:12)
[2017-07-17] MEDS: Magnesium Oxide 400 mg Tab UD PO SCH ×2 (09:13→18:08)
--- NOTE | 2017-07-17 11:43 | CP.CCUPN ---
<Pipe Del Rosario - Last Filed: 07/17/17 11:39> CCU Subjective - Physician Review Subjective (Free Text): Patient seen and examined at bedside. Patient responding to commands appropriately. No acute events overnight. Denies chest pain, shortness of breath , nausea, vomiting, diarrhea, fever, chills. CCU Objective - Vital Signs / Intake & Output Vital Signs (Last 4 hours): Vital Signs Temp Pulse Resp BP Pulse Ox 07/17/17 10:49 92 H 07/17/17 09:13 140/70 07/17/17 08:50 97.4 F L 84 16 146/77 93 L 07/17/17 08:30 86 18 156/62 H 100 07/17/17 08:25 93 L 07/17/17 08:20 90 97 07/17/17 08:10 91 H 20 99 07/17/17 08:00 85 17 165/80 H 100 07/17/17 07:50 84 19 100 07/17/17 07:40 86 19 95 Intake and Output (Last 8hrs): Intake & Output 07/16/17 07/17/17 07/17/17 22:59 06:59 14:59 Intake Total 280 450 200 Output Total 400 600 Balance -120 -150 200 Weight 148 lb 2 oz 148 lb Intake: Oral 280 450 200 Output: Urine 400 600 Urethral (Moon) 400 600 Other: # Bowel Movements 2 - Physical Exam Head: Positive for: Atraumatic, Normocephalic Pupils: Positive for: PERRL Extroacular Muscles: Positive for: EOMI Conjunctiva: Positive for: Normal Ears: Positive for: Normal Mouth: Positive for: Moist Mucous Membranes Pharnyx: Positive for: Normal Neck: Positive for: Normal Range of Motion Respiratory/Chest: Positive for: Good Air Exchange, Decreased Breath Sounds. Negative for: Respiratory Distress, Accessory Muscle Use, Wheezes Cardiovascular: Positive for: Regular Rate and Rhythm, Normal S1, S2. Negative for: Murmurs Abdomen: Positive for: Normal Bowel Sounds. Negative for: Tenderness, Distention, Peritoneal Signs Upper Extremity: Positive for: Normal Inspection. Negative for: Cyanosis, Edema Lower Extremity: Positive for: Other (Right hip surgical incisions bandaged ) Neurological: Positive for: GCS=15, CN II-XII Intact, Speech Normal Skin: Positive for: Warm, Dry Psychiatric: Positive for: Alert. Negative for: Oriented x 3 - Medications Active Medications: Active Medications Generic Name Dose Route Start Last Admin Trade Name Freq PRN Reason Stop Dose Admin Acetaminophen 650 mg 07/12/17 12:38 Tylenol 325mg Tab PO Q6 PRN Headache Acetaminophen 650 mg 07/12/17 12:38 Tylenol 650 Mg Supp RC Q6H PRN Headache Acetaminophen 650 mg 07/12/17 12:41 Tylenol 325mg Tab PO Q6 PRN TEMP>=99.5F Acetaminophen 650 mg 07/12/17 12:43 Tylenol 650 Mg Supp RC Q6H PRN TEMP>=99.5F Atorvastatin Calcium 40 mg 07/12/17 22:00 07/15/17 23:11 Lipitor PO 40 mg HS MIRA Administration Docusate Sodium 100 mg 07/12/17 14:00 07/17/17 09:12 Colace PO 100 mg TID MIRA Administration Enoxaparin Sodium 30 mg 07/13/17 18:00 07/16/17 17:02 Lovenox SC 30 mg Q24H MIRA Administration Protocol Ergocalciferol 1 cap 07/17/17 14:45 Drisdol 50,000 Intl Units Cap PO Q7D MIRA Furosemide 40 mg 07/16/17 14:30 07/17/17 09:13 Lasix PO 40 mg DAILY MIRA Administration Insulin Human Lispro 0 units 07/17/17 00:00 07/17/17 11:10 Humalog High SC 4 units Q6 MIRA Administration Protocol Levalbuterol HCl 0.63 mg 07/12/17 15:30 07/16/17 20:16 Xopenex IH 0.63 mg QIDRESP MIRA Administration Magnesium Oxide 400 mg 07/12/17 18:00 07/17/17 09:13 Mag-Ox PO 400 mg BID MIRA Administration Memantine 5 mg 07/12/17 18:00 07/17/17 09:14 Namenda PO 5 mg BID MIRA Administration Breo Ellipta 100-25 1 puff 07/12/17 12:45 07/17/17 09:12 Mcg Inh] (Home IH Not Given Med) DAILY MIRA Ondansetron HCl 4 mg 07/12/17 12:38 Zofran Inj IVP Q4H PRN Nausea/Vomiting Pantoprazole Sodium 40 mg 07/17/17 06:00 07/17/17 06:02 Protonix Ec Tab PO 40 mg 0600 MIRA Administration Tamsulosin HCl 0.4 mg 07/12/17 12:45 07/17/17 09:12 Flomax PO 0.4 mg DAILY MIRA Administration Vancomycin HCl 125 mg 07/16/17 18:00 07/17/17 09:17 Vancocin 25 Mg/Ml (Oral Use) PO 125 mg QID MIRA Administration Protocol - Patient Studies Lab Studies: Microbiology Studies 07/16/17 11:45 C. difficile Antigen & Toxin A,B (M - Final Stool Lab Studies 07/17/17 07/17/17 07/17/17 Range/Units 06:42 06:39 06:39 WBC 8.8 (4.5-11.0) 10^3/ul RBC 3.59 (3.5-6.1) 10^6/uL Hgb 10.5 L (12.0-16.0) g/dL Hct 33.0 L (36.0-48.0) % MCV 91.9 (80.0-105.0) fl MCH 29.2 (25.0-35.0) pg MCHC 31.8 (31.0-37.0) g/dl RDW 16.9 H (11.5-14.5) % Plt Count 115 L (120.0-450.0) 10^3/uL Manual Plt Count 141 (120-450) K/mm3 MPV 12.6 H (7.0-11.0) fl Gran % 72.5 H (50.0-68.0) % Lymph % (Auto) 15.0 L (22.0-35.0) % [place] % (Auto) 10.5 H (1.0-6.0) % Eos % (Auto) 1.9 (1.5-5.0) % Baso % (Auto) 0.1 (0.0-3.0) % Gran # 6.39 (1.4-6.5) Lymph # (Auto) 1.3 (1.2-3.4) [place] # (Auto) 0.9 H (0.1-0.6) Eos # (Auto) 0.2 (0.0-0.7) Baso # (Auto) 0.01 (0.0-2.0) K/mm3 Sodium 144 (132-148) mmol/L Potassium 4.5 (3.6-5.0) mmol/L Chloride 118 H (98-107) mmol/L Carbon Dioxide 19 L (21-33) mmol/L Anion Gap 12 (10-20) BUN 41 H (7-21) mg/dL Creatinine 0.7 (0.7-1.2) mg/dl Est GFR ( Amer) > 60 Est GFR (Non-Af Amer) > 60 POC Glucose (mg/dL) 229 H (65-110) mg/dL Random Glucose 218 H (70-110) mg/dL Calcium 7.9 L (8.4-10.5) mg/dL Phosphorus 3.1 (2.5-4.5) mg/dL Magnesium 2.3 H (1.7-2.2) mg/dL Total Bilirubin 0.9 (0.2-1.3) mg/dL Direct Bilirubin 0.4 (0.0-0.4) mg/dL AST 199 H D (14-36) U/L ALT 495 H (7-56) U/L Alkaline Phosphatase 108 (38-126) U/L Lactate Dehydrogenase 672 (333-699) U/L Total Protein 4.5 L (5.8-8.3) g/dL Albumin 2.3 L (3.0-4.8) g/dL Globulin 2.2 gm/dL Albumin/Globulin Ratio 1.0 L (1.1-1.8) 07/17/17 07/16/17 07/16/17 Range/Units 00:06 16:00 12:34 WBC (4.5-11.0) 10^3/ul RBC (3.5-6.1) 10^6/uL Hgb (12.0-16.0) g/dL Hct (36.0-48.0) % MCV (80.0-105.0) fl MCH (25.0-35.0) pg MCHC (31.0-37.0) g/dl RDW (11.5-14.5) % Plt Count (120.0-450.0) 10^3/uL Manual Plt Count (120-450) K/mm3 MPV (7.0-11.0) fl Gran % (50.0-68.0) % Lymph % (Auto) (22.0-35.0) % [place] % (Auto) (1.0-6.0) % Eos % (Auto) (1.5-5.0) % Baso % (Auto) (0.0-3.0) % Gran # (1.4-6.5) Lymph # (Auto) (1.2-3.4) [place] # (Auto) (0.1-0.6) Eos # (Auto) (0.0-0.7) Baso # (Auto) (0.0-2.0) K/mm3 Sodium (132-148) mmol/L Potassium (3.6-5.0) mmol/L Chloride (98-107) mmol/L Carbon Dioxide (21-33) mmol/L Anion Gap (10-20) BUN (7-21) mg/dL Creatinine (0.7-1.2) mg/dl Est GFR ( Amer) Est GFR (Non-Af Amer) POC Glucose (mg/dL) 188 H 244 H 231 H (65-110) mg/dL Random Glucose (70-110) mg/dL Calcium (8.4-10.5) mg/dL Phosphorus (2.5-4.5) mg/dL Magnesium (1.7-2.2) mg/dL Total Bilirubin (0.2-1.3) mg/dL Direct Bilirubin (0.0-0.4) mg/dL AST (14-36) U/L ALT (7-56) U/L Alkaline Phosphatase (38-126) U/L Lactate Dehydrogenase (333-699) U/L Total Protein (5.8-8.3) g/dL Albumin (3.0-4.8) g/dL Globulin gm/dL Albumin/Globulin Ratio (1.1-1.8) Laboratory Results - last 24 hr 07/16/17 07/16/17 07/17/17 12:34 16:00 00:06 WBC RBC Hgb Hct MCV MCH MCHC RDW Plt Count Manual Plt Count MPV Gran % Lymph % (Auto) [place] % (Auto) Eos % (Auto) Baso % (Auto) Gran # Lymph # (Auto) [place] # (Auto) Eos # (Auto) Baso # (Auto) Sodium Potassium Chloride Carbon Dioxide Anion Gap BUN Creatinine Est GFR ( Amer) Est GFR (Non-Af Amer) POC Glucose (mg/dL) 231 H 244 H 188 H Random Glucose Calcium Phosphorus Magnesium Total Bilirubin Direct Bilirubin AST ALT Alkaline Phosphatase Lactate Dehydrogenase Total Protein Albumin Globulin Albumin/Globulin Ratio 07/17/17 07/17/17 07/17/17 06:39 06:39 06:42 WBC 8.8 RBC 3.59 Hgb 10.5 L Hct 33.0 L MCV 91.9 MCH 29.2 MCHC 31.8 RDW 16.9 H Plt Count 115 L Manual Plt Count 141 MPV 12.6 H Gran % 72.5 H Lymph % (Auto) 15.0 L [place] % (Auto) 10.5 H Eos % (Auto) 1.9 Baso % (Auto) 0.1 Gran # 6.39 Lymph # (Auto) 1.3 [place] # (Auto) 0.9 H Eos # (Auto) 0.2 Baso # (Auto) 0.01 Sodium 144 Potassium 4.5 Chloride 118 H Carbon Dioxide 19 L Anion Gap 12 BUN 41 H Creatinine 0.7 Est GFR ( Amer) > 60 Est GFR (Non-Af Amer) > 60 POC Glucose (mg/dL) 229 H Random Glucose 218 H Calcium 7.9 L Phosphorus 3.1 Magnesium 2.3 H Total Bilirubin 0.9 Direct Bilirubin 0.4 AST 199 H D ALT 495 H Alkaline Phosphatase 108 Lactate Dehydrogenase 672 Total Protein 4.5 L Albumin 2.3 L Globulin 2.2 Albumin/Globulin Ratio 1.0 L Fingerstick Blood Sugar Results: 222 Critical Care Progress Note - Nutrition Nutrition: Nutrition Category Date Time Status Consistent Carbohydrate [DIET] Diets 07/16/17 Dinner Ordered Assessment/Plan - Assessment and Plan (Free Text) Plan: 82 F with a PMH of Dementia, Afib on eliquis, DM, COPD, HTN presents with hypoxic respiratory failure s/p right hip ORIF. Patient is hemodynamically stable with appropriate O2 saturation on nasal cannula. Patient will be transferred to remote telemetry for further monitoring. Neuro: Alert, no sedation No deficits Cardio: Hemodynamically stable Maintain MAP > 65 Lovenox Pulm: Xopenex as needed Maintain O2 sat > 90% GI: Protonix Transaminitis improving Trend LFTs Renal: Replenish electrolytes as needed Maintain euvolemia Heme/ID: Afebrile, no leukocytosis Lovenox Vancomycin for C. diff MSK: S/p right hip orif Ortho recommends beginning PT Endo: ISS Maintain euglycemia Miguel Ángel, PGY-2 <Edward Roman - Last Filed: 07/17/17 12:40> CCU Objective - Vital Signs / Intake & Output Vital Signs (Last 4 hours): Vital Signs Temp Pulse Resp BP Pulse Ox 07/17/17 10:49 92 H 07/17/17 09:13 140/70 07/17/17 08:50 97.4 F L 84 16 146/77 93 L Intake and Output (Last 8hrs): Intake & Output 07/16/17 07/17/17 07/17/17 22:59 06:59 14:59 Intake Total 280 450 200 Output Total 400 600 Balance -120 -150 200 Weight 148 lb 2 oz 148 lb Intake: Oral 280 450 200 Output: Urine 400 600 Urethral (Moon) 400 600 Other: # Bowel Movements 2 - Medications Active Medications: Active Medications Generic Name Dose Route Start Last Admin Trade Name Freq PRN Reason Stop Dose Admin Acetaminophen 650 mg 07/12/17 12:38 Tylenol 325mg Tab PO Q6 PRN Headache Acetaminophen 650 mg 07/12/17 12:38 Tylenol 650 Mg Supp RC Q6H PRN Headache Acetaminophen 650 mg 07/12/17 12:41 Tylenol 325mg Tab PO Q6 PRN TEMP>=99.5F Acetaminophen 650 mg 07/12/17 12:43 Tylenol 650 Mg Supp RC Q6H PRN TEMP>=99.5F Atorvastatin Calcium 40 mg 07/12/17 22:00 07/15/17 23:11 Lipitor PO 40 mg HS MIRA Administration Docusate Sodium 100 mg 07/12/17 14:00 07/17/17 09:12 Colace PO 100 mg TID MIRA Administration Enoxaparin Sodium 30 mg 07/13/17 18:00 07/16/17 17:02 Lovenox SC 30 mg Q24H MIRA Administration Protocol Ergocalciferol 1 cap 07/17/17 14:45 Drisdol 50,000 Intl Units Cap PO Q7D MIRA Furosemide 40 mg 07/16/17 14:30 07/17/17 09:13 Lasix PO 40 mg DAILY MIRA Administration Insulin Human Lispro 0 units 07/17/17 00:00 07/17/17 11:10 Humalog High SC 4 units Q6 MIRA Administration Protocol Levalbuterol HCl 0.63 mg 07/12/17 15:30 07/16/17 20:16 Xopenex IH 0.63 mg QIDRESP MIRA Administration Magnesium Oxide 400 mg 07/12/17 18:00 07/17/17 09:13 Mag-Ox PO 400 mg BID MIRA Administration Memantine 5 mg 07/12/17 18:00 07/17/17 09:14 Namenda PO 5 mg BID MIRA Administration Breo Ellipta 100-25 1 puff 07/12/17 12:45 07/17/17 09:12 Mcg Inh] (Home IH Not Given Med) DAILY MIRA Ondansetron HCl 4 mg 07/12/17 12:38 Zofran Inj IVP Q4H PRN Nausea/Vomiting Pantoprazole Sodium 40 mg 07/17/17 06:00 07/17/17 06:02 Protonix Ec Tab PO 40 mg 0600 MIRA Administration Tamsulosin HCl 0.4 mg 07/12/17 12:45 07/17/17 09:12 Flomax PO 0.4 mg DAILY MIRA Administration Vancomycin HCl 125 mg 07/16/17 18:00 07/17/17 09:17 Vancocin 25 Mg/Ml (Oral Use) PO 125 mg QID MIRA Administration Protocol - Patient Studies Lab Studies: Microbiology Studies 07/16/17 11:45 C. difficile Antigen & Toxin A,B (M - Final Stool Lab Studies 07/17/17 07/17/17 07/17/17 Range/Units 11:06 06:42 06:39 WBC (4.5-11.0) 10^3/ul RBC (3.5-6.1) 10^6/uL Hgb (12.0-16.0) g/dL Hct (36.0-48.0) % MCV (80.0-105.0) fl MCH (25.0-35.0) pg MCHC (31.0-37.0) g/dl RDW (11.5-14.5) % Plt Count (120.0-450.0) 10^3/uL Manual Plt Count (120-450) K/mm3 MPV (7.0-11.0) fl Gran % (50.0-68.0) % Lymph % (Auto) (22.0-35.0) % [place] % (Auto) (1.0-6.0) % Eos % (Auto) (1.5-5.0) % Baso % (Auto) (0.0-3.0) % Gran # (1.4-6.5) Lymph # (Auto) (1.2-3.4) [place] # (Auto) (0.1-0.6) Eos # (Auto) (0.0-0.7) Baso # (Auto) (0.0-2.0) K/mm3 Sodium 144 (132-148) mmol/L Potassium 4.5 (3.6-5.0) mmol/L Chloride 118 H (98-107) mmol/L Carbon Dioxide 19 L (21-33) mmol/L Anion Gap 12 (10-20) BUN 41 H (7-21) mg/dL Creatinine 0.7 (0.7-1.2) mg/dl Est GFR ( Amer) > 60 Est GFR (Non-Af Amer) > 60 POC Glucose (mg/dL) 222 H 229 H (65-110) mg/dL Random Glucose 218 H (70-110) mg/dL Calcium 7.9 L (8.4-10.5) mg/dL Phosphorus 3.1 (2.5-4.5) mg/dL Magnesium 2.3 H (1.7-2.2) mg/dL Total Bilirubin 0.9 (0.2-1.3) mg/dL Direct Bilirubin 0.4 (0.0-0.4) mg/dL AST 199 H D (14-36) U/L ALT 495 H (7-56) U/L Alkaline Phosphatase 108 (38-126) U/L Lactate Dehydrogenase 672 (333-699) U/L Total Protein 4.5 L (5.8-8.3) g/dL Albumin 2.3 L (3.0-4.8) g/dL Globulin 2.2 gm/dL Albumin/Globulin Ratio 1.0 L (1.1-1.8) 07/17/17 07/17/17 07/16/17 Range/Units 06:39 00:06 16:00 WBC 8.8 (4.5-11.0) 10^3/ul RBC 3.59 (3.5-6.1) 10^6/uL Hgb 10.5 L (12.0-16.0) g/dL Hct 33.0 L (36.0-48.0) % MCV 91.9 (80.0-105.0) fl MCH 29.2 (25.0-35.0) pg MCHC 31.8 (31.0-37.0) g/dl RDW 16.9 H (11.5-14.5) % Plt Count 115 L (120.0-450.0) 10^3/uL Manual Plt Count 141 (120-450) K/mm3 MPV 12.6 H (7.0-11.0) fl Gran % 72.5 H (50.0-68.0) % Lymph % (Auto) 15.0 L (22.0-35.0) % [place] % (Auto) 10.5 H (1.0-6.0) % Eos % (Auto) 1.9 (1.5-5.0) % Baso % (Auto) 0.1 (0.0-3.0) % Gran # 6.39 (1.4-6.5) Lymph # (Auto) 1.3 (1.2-3.4) [place] # (Auto) 0.9 H (0.1-0.6) Eos # (Auto) 0.2 (0.0-0.7) Baso # (Auto) 0.01 (0.0-2.0) K/mm3 Sodium (132-148) mmol/L Potassium (3.6-5.0) mmol/L Chloride (98-107) mmol/L Carbon Dioxide (21-33) mmol/L Anion Gap (10-20) BUN (7-21) mg/dL Creatinine (0.7-1.2) mg/dl Est GFR ( Amer) Est GFR (Non-Af Amer) POC Glucose (mg/dL) 188 H 244 H (65-110) mg/dL Random Glucose (70-110) mg/dL Calcium (8.4-10.5) mg/dL Phosphorus (2.5-4.5) mg/dL Magnesium (1.7-2.2) mg/dL Total Bilirubin (0.2-1.3) mg/dL Direct Bilirubin (0.0-0.4) mg/dL AST (14-36) U/L ALT (7-56) U/L Alkaline Phosphatase (38-126) U/L Lactate Dehydrogenase (333-699) U/L Total Protein (5.8-8.3) g/dL Albumin (3.0-4.8) g/dL Globulin gm/dL Albumin/Globulin Ratio (1.1-1.8) 07/16/17 Range/Units 12:34 WBC (4.5-11.0) 10^3/ul RBC (3.5-6.1) 10^6/uL Hgb (12.0-16.0) g/dL Hct (36.0-48.0) % MCV (80.0-105.0) fl MCH (25.0-35.0) pg MCHC (31.0-37.0) g/dl RDW (11.5-14.5) % Plt Count (120.0-450.0) 10^3/uL Manual Plt Count (120-450) K/mm3 MPV (7.0-11.0) fl Gran % (50.0-68.0) % Lymph % (Auto) (22.0-35.0) % [place] % (Auto) (1.0-6.0) % Eos % (Auto) (1.5-5.0) % Baso % (Auto) (0.0-3.0) % Gran # (1.4-6.5) Lymph # (Auto) (1.2-3.4) [place] # (Auto) (0.1-0.6) Eos # (Auto) (0.0-0.7) Baso # (Auto) (0.0-2.0) K/mm3 Sodium (132-148) mmol/L Potassium (3.6-5.0) mmol/L Chloride (98-107) mmol/L Carbon Dioxide (21-33) mmol/L Anion Gap (10-20) BUN (7-21) mg/dL Creatinine (0.7-1.2) mg/dl Est GFR ( Amer) Est GFR (Non-Af Amer) POC Glucose (mg/dL) 231 H (65-110) mg/dL Random Glucose (70-110) mg/dL Calcium (8.4-10.5) mg/dL Phosphorus (2.5-4.5) mg/dL Magnesium (1.7-2.2) mg/dL Total Bilirubin (0.2-1.3) mg/dL Direct Bilirubin (0.0-0.4) mg/dL AST (14-36) U/L ALT (7-56) U/L Alkaline Phosphatase (38-126) U/L Lactate Dehydrogenase (333-699) U/L Total Protein (5.8-8.3) g/dL Albumin (3.0-4.8) g/dL Globulin gm/dL Albumin/Globulin Ratio (1.1-1.8) Laboratory Results - last 24 hr 07/16/17 07/16/17 07/17/17 12:34 16:00 00:06 WBC RBC Hgb Hct MCV MCH MCHC RDW Plt Count Manual Plt Count MPV Gran % Lymph % (Auto) [place] % (Auto) Eos % (Auto) Baso % (Auto) Gran # Lymph # (Auto) [place] # (Auto) Eos # (Auto) Baso # (Auto) Sodium Potassium Chloride Carbon Dioxide Anion Gap BUN Creatinine Est GFR ( Amer) Est GFR (Non-Af Amer) POC Glucose (mg/dL) 231 H 244 H 188 H Random Glucose Calcium Phosphorus Magnesium Total Bilirubin Direct Bilirubin AST ALT Alkaline Phosphatase Lactate Dehydrogenase Total Protein Albumin Globulin Albumin/Globulin Ratio 07/17/17 07/17/17 07/17/17 06:39 06:39 06:42 WBC 8.8 RBC 3.59 Hgb 10.5 L Hct 33.0 L MCV 91.9 MCH 29.2 MCHC 31.8 RDW 16.9 H Plt Count 115 L Manual Plt Count 141 MPV 12.6 H Gran % 72.5 H Lymph % (Auto) 15.0 L [place] % (Auto) 10.5 H Eos % (Auto) 1.9 Baso % (Auto) 0.1 Gran # 6.39 Lymph # (Auto) 1.3 [place] # (Auto) 0.9 H Eos # (Auto) 0.2 Baso # (Auto) 0.01 Sodium 144 Potassium 4.5 Chloride 118 H Carbon Dioxide 19 L Anion Gap 12 BUN 41 H Creatinine 0.7 Est GFR ( Amer) > 60 Est GFR (Non-Af Amer) > 60 POC Glucose (mg/dL) 229 H Random Glucose 218 H Calcium 7.9 L Phosphorus 3.1 Magnesium 2.3 H Total Bilirubin 0.9 Direct Bilirubin 0.4 AST 199 H D ALT 495 H Alkaline Phosphatase 108 Lactate Dehydrogenase 672 Total Protein 4.5 L Albumin 2.3 L Globulin 2.2 Albumin/Globulin Ratio 1.0 L 07/17/17 11:06 WBC RBC Hgb Hct MCV MCH MCHC RDW Plt Count Manual Plt Count MPV Gran % Lymph % (Auto) [place] % (Auto) Eos % (Auto) Baso % (Auto) Gran # Lymph # (Auto) [place] # (Auto) Eos # (Auto) Baso # (Auto) Sodium Potassium Chloride Carbon Dioxide Anion Gap BUN Creatinine Est GFR ( Amer) Est GFR (Non-Af Amer) POC Glucose (mg/dL) 222 H Random Glucose Calcium Phosphorus Magnesium Total Bilirubin Direct Bilirubin AST ALT Alkaline Phosphatase Lactate Dehydrogenase Total Protein Albumin Globulin Albumin/Globulin Ratio Critical Care Progress Note - Nutrition Nutrition: Nutrition Category Date Time Status Consistent Carbohydrate [DIET] Diets 07/16/17 Dinner Ordered Assessment/Plan - Assessment and Plan (Free Text) Plan: Patient seen and examined on rounds with resident, agree with note with following additions/exceptions: Patient is 82yo female with PMHx of severe Pulm HTN, Afib on Eliquis, COPD, HTN , presented after ORIF in the OR difficult to extubate.Pt tolerated extubation well yesterday. Currently afebrile, HD stable, comfortable in NAD on 2LNC. Resp failure Severe Pulm HTN HTN Afib COPD s/p ORIF Recommend: - cont with supp o2 as needed - BP control - follow up cultures - avoid IVF, hx of severe pulm htn - Lasix 40mg PO daily - PT eval - FS control - GI ppx, - DVT ppx - Stable, transfer to telemetry
[2017-07-17] MEDS: Ergocalciferol 50,000 Intl Units Cap PO SCH (14:12)
--- NOTE | 2017-07-17 15:13 | PN ---
DATE: 07/17/2017 CARDIOLOGY FOLLOWUP SUBJECTIVE: The patient remains off the ventilator. PHYSICAL EXAMINATION: VITAL SIGNS: Blood pressure is 146/77. Her heart rate is in the 90s. The patient is afebrile. Her pulse oximetry is 93. NECK: Negative JVD. LUNGS: Decreased breath sounds. HEART: Reveals S1, S2. EXTREMITIES: Without edema. LABORATORY DATA: Hemoglobin is 10.5. Chemistries: BUN and creatinine are 41 and 0.7, glucose is 218. Hemoglobin is 10.5. IMPRESSION: 1. Status post hip fracture. 2. Status post surgery. 3. Status post respiratory failure. 4. Severe chronic obstructive pulmonary disease. 5. Severe pulmonary hypertension. PLAN: Given these findings, the patient's respiratory status is stabilized over the past 24 hours. The patient can be transferred to the Med-Surg floor. Gurpreet Rivas MD
--- NOTE | 2017-07-17 17:08 | CP.PCM.PN ---
Subjective - Date & Time of Evaluation Date of Evaluation: 07/17/17 Time of Evaluation: 07:40 - Subjective Subjective: Patient POD #5, s/p ORIF R hip fracture. Patient in ICU but extubated. Patient alert and awake. Patient denies any significant pain, CP, SOB afebrile WBC 8.8 Hgb 10.5 R hip: dressings dry and intact. Calf and thigh are soft nontender. NVI distally PT with WBAT Cont DVT prophylaxis Objective - Vital Signs/Intake and Output Vital Signs (last 24 hours): Temp Pulse Resp BP Pulse Ox 97.8 F 84 18 148/69 96 07/17/17 04:00 07/17/17 06:00 07/17/17 04:00 07/17/17 03:00 07/17/17 04:00 Intake and Output: 07/17/17 07/17/17 06:59 18:59 Intake Total 450 Output Total 600 Balance -150 - Medications Medications: Current Medications Acetaminophen (Tylenol 325mg Tab) 650 mg PO Q6 PRN PRN Reason: Headache Acetaminophen (Tylenol 650 Mg Supp) 650 mg RC Q6H PRN PRN Reason: Headache Acetaminophen (Tylenol 325mg Tab) 650 mg PO Q6 PRN PRN Reason: TEMP>=99.5F Acetaminophen (Tylenol 650 Mg Supp) 650 mg RC Q6H PRN PRN Reason: TEMP>=99.5F Atorvastatin Calcium (Lipitor) 40 mg PO HS [facility] Last Admin: 07/15/17 23:11 Dose: 40 mg Docusate Sodium (Colace) 100 mg PO TID [facility] Last Admin: 07/16/17 17:02 Dose: 100 mg Enoxaparin Sodium (Lovenox) 30 mg SC Q24H [facility] PRN Reason: Protocol Last Admin: 07/16/17 17:02 Dose: 30 mg Ergocalciferol (Drisdol 50,000 Intl Units Cap) 1 cap PO Q7D [facility] Furosemide (Lasix) 40 mg PO DAILY [facility] Last Admin: 07/16/17 14:43 Dose: 40 mg Insulin Human Lispro (Humalog High) 0 units SC Q6 [facility] PRN Reason: Protocol Last Admin: 07/17/17 06:56 Dose: 4 units Levalbuterol HCl (Xopenex) 0.63 mg IH QIDRESP [facility] Last Admin: 07/16/17 20:16 Dose: 0.63 mg Magnesium Oxide (Mag-Ox) 400 mg PO BID [facility] Last Admin: 07/16/17 17:04 Dose: 400 mg Memantine (Namenda) 5 mg PO BID [facility] Last Admin: 07/16/17 17:04 Dose: 5 mg Breo Ellipta 100-25 Mcg Inh] (Home Med) 1 puff IH DAILY [facility] Last Admin: 07/16/17 12:41 Dose: Not Given Ondansetron HCl (Zofran Inj) 4 mg IVP Q4H PRN PRN Reason: Nausea/Vomiting Pantoprazole Sodium (Protonix Ec Tab) 40 mg PO 0600 [facility] Last Admin: 07/17/17 06:02 Dose: 40 mg Tamsulosin HCl (Flomax) 0.4 mg PO DAILY [facility] Last Admin: 07/16/17 12:39 Dose: Not Given Vancomycin HCl (Vancocin 25 Mg/Ml (Oral Use)) 125 mg PO QID [facility] PRN Reason: Protocol Last Admin: 07/16/17 21:25 Dose: 125 mg - Labs Labs: 07/17/17 06:39 07/17/17 06:39 PT 12.4 SECONDS (9.4-12.5) 07/12/17 09:35 INR 1.08 (0.93-1.08) 07/12/17 09:35 APTT 29.0 Seconds (25.1-36.5) 07/12/17 09:35
[2017-07-17] MEDS: Enoxaparin 30 mg Syringe SC SCH (18:09)
[2017-07-17 19:52] LABS: GLYCOMARK(R) 1.8 mcg/mL (7.5-28.4)
[2017-07-18] MEDS: Pantoprazole 40 mg EC Tab PO SCH (05:19)
[2017-07-18 06:57] LABS: BASO # 0.01 K/mm3 (0.0-2.0); BASO % 0.1 % (0.0-3.0); EOS % 0.2 % (1.5-5.0); GRAN # 8.39 (1.4-6.5); GRAN % 81.4 % (50.0-68.0); LYMPH # 1.1 (1.2-3.4); LYMPH % 10.2 % (22.0-35.0); MEAN CELL VOLUME 91.6 fl (80.0-105.0); MEAN CORPUSCULAR HGB CONC 31.6 g/dl (31.0-37.0); MEAN PLATELET VOLUME 13.5 fl (7.0-11.0); MONO # 0.8 (0.1-0.6); MONO % 8.1 % (1.0-6.0); RBC 3.45 10^6/uL (3.5-6.1); RED CELL DISTRIBUTION WIDTH 16.9 % (11.5-14.5); WHITE BLOOD COUNT 10.3 10^3/ul (4.5-11.0)
[2017-07-18 07:08] LABS: ALBUMIN 2.2 g/dL (3.0-4.8); ALT/SGPT 346 U/L (7-56); AST/SGOT 78 U/L (14-36); BILIRUBIN,DIRECT 0.7 mg/dL (0.0-0.4); BLOOD UREA NITROGEN 43 mg/dL (7-21); CALCIUM 8.4 mg/dL (8.4-10.5); GFR AFRICAN-AMERICAN > 60; GFR NON-AFRICAN AMERICAN > 60
[2017-07-18] MEDS: Insulin Lispro (HUMAlog) HIGH Coverage SC SCH ×4 (07:10→23:43)
--- NOTE | 2017-07-18 08:05 | CP.PCM.PN ---
Subjective - Date & Time of Evaluation Date of Evaluation: 07/18/17 Time of Evaluation: 07:45 - Subjective Subjective: (covering for Dr. Hamilton) Patient is seen this morning in room 368 bed 1. She was transferred out of the ICU yesterday. She has swelling of her left arm and mild shortness of breath. Objective - Vital Signs/Intake and Output Vital Signs (last 24 hours): Temp Pulse Resp BP Pulse Ox 97.4 F L 97 H 16 120/64 96 07/17/17 08:50 07/17/17 18:00 07/17/17 08:50 07/17/17 18:00 07/17/17 16:20 Intake and Output: 07/18/17 07/18/17 06:59 18:59 Intake Total 300 Output Total 300 Balance 0 - Medications Medications: Current Medications Acetaminophen (Tylenol 325mg Tab) 650 mg PO Q6 PRN PRN Reason: Headache Acetaminophen (Tylenol 650 Mg Supp) 650 mg RC Q6H PRN PRN Reason: Headache Acetaminophen (Tylenol 325mg Tab) 650 mg PO Q6 PRN PRN Reason: TEMP>=99.5F Acetaminophen (Tylenol 650 Mg Supp) 650 mg RC Q6H PRN PRN Reason: TEMP>=99.5F Atorvastatin Calcium (Lipitor) 40 mg PO HS [facility] Last Admin: 07/15/17 23:11 Dose: 40 mg Docusate Sodium (Colace) 100 mg PO TID [facility] Last Admin: 07/17/17 18:07 Dose: 100 mg Enoxaparin Sodium (Lovenox) 30 mg SC Q24H [facility] PRN Reason: Protocol Last Admin: 07/17/17 18:09 Dose: 30 mg Ergocalciferol (Drisdol 50,000 Intl Units Cap) 1 cap PO Q7D [facility] Last Admin: 07/17/17 14:12 Dose: 1 cap Furosemide (Lasix) 40 mg PO DAILY [facility] Last Admin: 07/17/17 09:13 Dose: 40 mg Insulin Human Lispro (Humalog High) 0 units SC Q6 [facility] PRN Reason: Protocol Last Admin: 07/18/17 07:10 Dose: 12 units Levalbuterol HCl (Xopenex) 0.63 mg IH QIDRESP [facility] Last Admin: 07/17/17 19:53 Dose: 0.63 mg Magnesium Oxide (Mag-Ox) 400 mg PO BID [facility] Last Admin: 07/17/17 18:08 Dose: 400 mg Memantine (Namenda) 5 mg PO BID [facility] Last Admin: 07/17/17 18:08 Dose: 5 mg Breo Ellipta 100-25 Mcg Inh] (Home Med) 1 puff IH DAILY [facility] Last Admin: 07/17/17 09:12 Dose: Not Given Ondansetron HCl (Zofran Inj) 4 mg IVP Q4H PRN PRN Reason: Nausea/Vomiting Pantoprazole Sodium (Protonix Ec Tab) 40 mg PO 0600 [facility] Last Admin: 07/18/17 05:19 Dose: 40 mg Tamsulosin HCl (Flomax) 0.4 mg PO DAILY [facility] Last Admin: 07/17/17 09:12 Dose: 0.4 mg Vancomycin HCl (Vancocin 25 Mg/Ml (Oral Use)) 125 mg PO QID [facility] PRN Reason: Protocol Last Admin: 07/17/17 22:30 Dose: 125 mg - Labs Labs: 07/18/17 06:10 07/18/17 06:10 PT 12.4 SECONDS (9.4-12.5) 07/12/17 09:35 INR 1.08 (0.93-1.08) 07/12/17 09:35 APTT 29.0 Seconds (25.1-36.5) 07/12/17 09:35 - Head Exam Head Exam: ATRAUMATIC, NORMOCEPHALIC - Respiratory Exam Respiratory Exam: Rhonchi - Cardiovascular Exam Cardiovascular Exam: +S1, +S2 - GI/Abdominal Exam GI & Abdominal Exam: Soft, Normal Bowel Sounds. absent: Tenderness - Neurological Exam Neurological Exam: Alert, Awake Assessment and Plan - Assessment and Plan (Free Text) Assessment: s/p VDRF right hip fracture s/p ORIF COPD Diabetes mellitus Plan: Patient has been extubated and transferred out of intensive care. She has some shortness of breath this morning. Will check CXR and continue respiratory treatments. continue Vancomycin for antigen positive C. diff. Awaiting repeat stool for C. diff. Left arm is swollen this morning. Will order doppler of left arm.
[2017-07-18] MEDS: Levalbuterol 0.63 MG/3 ML Inhal Soln UD IH SCH (08:22)
[2017-07-18] MEDS: Magnesium Oxide 400 mg Tab UD PO SCH ×2 (09:58→18:22)
[2017-07-18] MEDS: BREO ELLIPTA IH SCH (10:15)
[2017-07-18] MEDS: Vancomycin 25 MG/ML PO SCH ×4 (10:16→21:52)
--- NOTE | 2017-07-18 10:33 | US ---
PROCEDURE: Left upper extremity venous ultrasound HISTORY: Arm pain and swelling. Evaluate for deep venous thrombosis. PHYSICIAN(S): Gurpreet Lambert MD. FINDINGS: The visualized leftinternal jugular vein is sonographically normal and compressible. No evidence of obstruction or thrombus is seen. The visualized segments of the left subclavian vein are patent with normal waveforms. No sonographic evidence of obstruction or thrombosis is seen. A catheter without significant associated thrombus is noted in the left subclavian vein. The visualized deep venous system of the proximal leftupper extremity is sonographically normal and compressible. IMPRESSION: 1. No sonographic evidence for deep venous thrombosis in the visualized segments of the left upper extremity.
--- NOTE | 2017-07-18 11:06 | RAD ---
HISTORY: SOB, compare to previous COMPARISON: 07/16/2017 FINDINGS: LUNGS: The patient is rotated to the left. There is a new left-sided infiltrate and layering of effusion. The right lung is clear. There is a prominent skin fold. PLEURA: Layering left pleural effusion. CARDIOVASCULAR: Normal. OSSEOUS STRUCTURES: No significant abnormalities. VISUALIZED UPPER ABDOMEN: Normal. OTHER FINDINGS: None. IMPRESSION: The patient is rotated to the left. There is a new left-sided infiltrate and layering of effusion.
--- NOTE | 2017-07-18 13:28 | PN ---
DATE: 07/18/2017 CLINICAL COURSE: Ms. Styles is here over the past couple of days. She is an 82-year-old female admitted with orthopedic complaints, had a fracture reduction in the OR by Dr. Siu. During the procedure and afterward, experienced significant hypotension, requiring pressors. Consult note on this patient was requested because of elevated LFTs. The evaluation of laboratory data at the time point day after procedure indicated significant elevation of transaminases, AST, ALT in addition to lactate dehydrogenase in the 1000s. The evaluation at that time point included strong possibility of hepatic low-flow phenomenon. The plan was to normalize blood pressure, and cardiopulmonary parameters and observe the LFT trends over the next couple of days. As predicted, due to a transient hepatic low-flow phenomenon probably due to shock-type picture, the transaminases have subsequently decreased again with normal bilirubin today. Again, today, the AST and ALT ratio was 78:346, lactate dehydrogenase 600. This is on a decreasing trend. I think this will take another few days for the AST and ALT ratio to drop back to near normal. Decrease in the LDH is a very good sign. Since clinical course seemed to be on the right track, I will sign off the case today. Please recall if needed. Blake Smart DO, PhD [facility]
[2017-07-18] MEDS ORDERED: Sod Polystyrene Sulf 15 gm/60 ml Susp PO ONE (13:31)
[2017-07-18] MEDS ORDERED: cefTRIAXone 1 gm 1 GM/100 ML BAG IVPB SCH (14:15)
[2017-07-18] MEDS: Levalbuterol 1.25 MG/3 ML Inhal Soln UD IH SCH ×2 (14:18→20:17)
[2017-07-18] MEDS: Acetylcysteine 20% Inhal Soln (4ml) IH SCH ×2 (14:19→20:17)
[2017-07-18] MEDS: Enoxaparin 30 mg Syringe SC SCH (18:21)
[2017-07-18] MEDS: Cefepime IV 2 gm in NS 2 GM/100 ML BAG IVPB SCH ×2 (18:22→21:52)
[2017-07-18] MEDS: Budesonide 0.5 mg/2 ml Inhal Susp UD IH SCH (20:17)
--- NOTE | 2017-07-18 20:48 | PN ---
DATE: 07/18/2017 CARDIOLOGY FOLLOWUP SUBJECTIVE: The patient is in bed without shortness of breath, without chest pain. The patient recovered from her ICU stay. PHYSICAL EXAMINATION: VITAL SIGNS: Blood pressure is 118/61, the heart rates in the 90s. NECK: Negative JVD. LUNGS: Bilateral rhonchi and decreased breath sounds. HEART: Reveals S1, S2. EXTREMITIES: No edema noted. LABORATORY DATA: Hemoglobin is 10. Chemistries, glucose is 370. Ultrasound of lower extremities reveals no evidence for DVT. IMPRESSION: 1. Status post hip fracture after a fall. 2. Status post surgery. 3. Severe pulmonary hypertension. 4. Severe chronic obstructive pulmonary disease. Given these findings, the patient has been able to weather her stormy course postop because of her severe lung disease. Gurpreet Rivas MD
[2017-07-18] MEDS: Insulin Detemir 100 units/ml Vial (Levemir) SC SCH (21:53)
--- NOTE | 2017-07-18 21:56 | CON ---
DATE: 07/18/2017 PULMONARY CONSULTATION REFERRING PHYSICIAN: Dr. Rae. REASON FOR CONSULTATION: Pneumonia and pleural effusion. HISTORY OF PRESENT ILLNESS: History is obtained via extensive discussion with the patient's close friend - her power of cable cutter and swager. I also discussed the case with the nurse practitioner at length. I have also reviewed the chart at length. The patient is a chronically ill 82-year-old female, with past medical history significant for advanced chronic obstructive pulmonary disease, positive extensive smoking history, pulmonary hypertension, dementia, atrial fibrillation, diabetes mellitus, who presented to [facility] - originally on 07/12/2017 - after falling at [facility]. In the emergency room, the patient complained of significant pain in her right hip. Subsequent evaluation revealed a fracture of her right hip. She was thus admitted for additional evaluation. The patient did undergo open reduction and internal fixation of the right hip on 07/12/2017. Postoperatively, the patient experienced respiratory failure. She was then transferred to the medical ICU and intubated. In the ICU, the patient was hypotensive. She did respond to pressors and fluids. The patient was subsequently extubated on 07/16/2017. The patient is currently on 3R, medical surgical floor. She appears comfortable at rest. She does complain of some cough with minimal sputum production. There is no history of chest pain, coughing up of blood, or chest pain - made worse with deep respirations. There have been no recent temperatures. No history of chills or infectious exposure. No history of night sweats, weight loss, or appetite change prior to the above events. No history of calf pains. No history of syncope or diaphoresis. No history of recent travel. REVIEW OF SYSTEMS: No history of nausea, vomiting, or diarrhea. No acute urinary symptoms. Rest of the review of systems is noncontributory. ALLERGIES: NO KNOWN ALLERGIES. SOCIAL HISTORY: Positive for extensive tobacco usage. No alcohol. FAMILY HISTORY: No inheritable diseases. HOME MEDICATIONS: Include Glucophage, Flomax, Revatio, Namenda, Zestril, Xopenex, Breo Ellipta, Cardizem, atorvastatin, Eliquis, Tylenol. PHYSICAL EXAMINATION: GENERAL: The patient appears comfortable at rest. She is not short of breath. She is not using accessory muscles for breathing. She appears very weak. VITAL SIGNS: Temperature is 97.3, pulse 90, respirations 19, blood pressure 118/61. Oxygen saturation on nasal cannula is 96%. HEENT: Normocephalic, atraumatic. No JVD. CARDIOVASCULAR: Systolic ejection murmur at the lower left sternal border. No S3 or gallop. LUNGS: Decreased breath sounds with crackles at the left lower lobe. Mild bilateral rhonchi. No wheezing. EXTREMITIES: There is mild edema noted in both lower extremities. The patient is status post surgery on her right hip. There is no clubbing or cyanosis. Her calves are nontender to palpation. GASTROINTESTINAL: Abdomen is soft, nontender, and nondistended. Bowel sounds are positive. SKIN: No acute rash. NEUROLOGIC: Limited at the present time. PERTINENT LABORATORY DATA: Chest x-ray was done today and reviewed. There is a new left lower lobe infiltrate noted. There is also a left pleural effusion noted. CBC: White count 10.3, hemoglobin 10, hematocrit 31.6, platelets are 123,000. Complete metabolic profile: Potassium 5.1, chloride 114, carbon dioxide 17, BUN 43, glucose 370, magnesium 2.3. AST 78, ALT 346, total protein 4.3, albumin 2.2. Rest of the metabolic profile is within normal limits. IMPRESSION: 1. Left lower lobe pneumonia. 2. Left pleural effusion. 3. Advanced chronic obstructive pulmonary disease. 4. Pulmonary hypertension. 5. Status post respiratory failure. 6. Status post right hip surgery. 7. Mild anemia. PLAN: Again, I did discuss the case with the nurse practitioner at length. I have also discussed the case with the power of cable cutter and swager at length. I have also reviewed the chart at length. The patient does not appear to be an adequate historian. The patient presented to [facility] - originally on 07/12/2017 - after falling at [facility]. Subsequent evaluation revealed an intertrochanteric fracture of the right hip. The patient was thus admitted for additional evaluation. The patient did undergo open reduction and internal fixation on her right hip. However, postoperatively, the patient went into respiratory failure and was subsequently intubated. I did review all of the notes by the ICU team. In addition to the above, while in the ICU, the patient was noted to be hypotensive. She did respond to fluids and pressors. She was subsequently extubated. Apparently, she did well and was transferred to , medical surgical floor. I did review the chest x-ray done today. It is a very poor rotated film, but does show a left lower lobe infiltrate, as well as a left pleural effusion. Repeat cultures are ordered. Infectious disease evaluation has been ordered-- for antibiotic usage. On physical exam, the patient is in mild bronchospasm. I will discontinue the Breo Ellipta for now, as I am not sure that she can use it in her current state. I will continue with the Xopenex nebulizer treatments and add inhaled Pulmicort. I will also order inhaled acetylcysteine - for increasing pulmonary toilet. Lastly, I have also ordered, chest percussion therapy and suctioning to be done by respiratory. Again, I did discuss the case with the power of cable cutter and swager at length. The patient has an extensive smoking history, and most likely has advanced chronic obstructive pulmonary disease. As above, she also has significant pulmonary hypertension. She was on Revatio as an outpatient. The overall status/prognosis for this frail, elderly, postoperative patient remains very guarded. Additional pulmonary intervention will be based on the above results, as well as the clinical status of the patient. I will discuss the above with the attending physician in the next few moments. Thank you very much for this pulmonary consultation. Indra Cabrera MD [facility]
[2017-07-19] MEDS: Acetylcysteine 20% Inhal Soln (4ml) IH SCH ×4 (02:30→21:34)
[2017-07-19] MEDS: Levalbuterol 1.25 MG/3 ML Inhal Soln UD IH SCH ×4 (02:30→21:34)
[2017-07-19] MEDS: Pantoprazole 40 mg EC Tab PO SCH (05:49)
[2017-07-19] MEDS: Cefepime IV 2 gm in NS 2 GM/100 ML BAG IVPB SCH ×3 (05:50→21:41)
[2017-07-19 06:29] LABS: BASO # 0.01 K/mm3 (0.0-2.0); BASO % 0.1 % (0.0-3.0); EOS # 0.3 (0.0-0.7); EOS % 3.4 % (1.5-5.0); GRAN # 5.84 (1.4-6.5); GRAN % 67.2 % (50.0-68.0); HEMOGLOBIN 9.9 g/dL (12.0-16.0); LYMPH # 1.5 (1.2-3.4); LYMPH % 16.9 % (22.0-35.0); MEAN CELL VOLUME 90.3 fl (80.0-105.0); MEAN CORPUSCULAR HEMOGLOBIN 29.2 pg (25.0-35.0); MEAN CORPUSCULAR HGB CONC 32.4 g/dl (31.0-37.0); MONO # 1.1 (0.1-0.6); MONO % 12.4 % (1.0-6.0); PLATELET COUNT 129 10^3/uL (120.0-450.0); RBC 3.39 10^6/uL (3.5-6.1); RED CELL DISTRIBUTION WIDTH 16.9 % (11.5-14.5); WHITE BLOOD COUNT 8.7 10^3/ul (4.5-11.0)
[2017-07-19 07:15] LABS: ALB/GLOB RATIO 0.9 (1.1-1.8); ALBUMIN 2.1 g/dL (3.0-4.8); ALT/SGPT 239 U/L (7-56); AST/SGOT 25 U/L (14-36); BILIRUBIN,DIRECT 0.4 mg/dL (0.0-0.4); BLOOD UREA NITROGEN 37 mg/dL (7-21); CALCIUM 8.3 mg/dL (8.4-10.5); GFR AFRICAN-AMERICAN > 60; GFR NON-AFRICAN AMERICAN > 60
[2017-07-19] MEDS: Budesonide 0.5 mg/2 ml Inhal Susp UD IH SCH ×2 (08:06→21:34)
--- NOTE | 2017-07-19 08:15 | CP.PCM.PN ---
Subjective - Date & Time of Evaluation Date of Evaluation: 07/19/17 Time of Evaluation: 07:45 - Subjective Subjective: (covering for Dr. Hamilton) Patient is seen this morning in room 368 bed 1. She is lying in bed. She complains of some cough, denies shortness of breath. Objective - Vital Signs/Intake and Output Vital Signs (last 24 hours): Temp Pulse Resp BP Pulse Ox 97.9 F 91 H 22 140/67 94 L 07/18/17 16:00 07/18/17 16:00 07/18/17 16:00 07/18/17 16:00 07/18/17 16:00 Intake and Output: 07/19/17 07/19/17 06:59 18:59 Intake Total 1200 Output Total 500 Balance 700 - Medications Medications: Current Medications Acetaminophen (Tylenol 325mg Tab) 650 mg PO Q6 PRN PRN Reason: Headache Acetaminophen (Tylenol 650 Mg Supp) 650 mg RC Q6H PRN PRN Reason: Headache Acetaminophen (Tylenol 325mg Tab) 650 mg PO Q6 PRN PRN Reason: TEMP>=99.5F Acetaminophen (Tylenol 650 Mg Supp) 650 mg RC Q6H PRN PRN Reason: TEMP>=99.5F Acetylcysteine (Acetylcysteine 20%) 4 ml IH [id number] [facility] Last Admin: 07/19/17 02:30 Dose: 4 ml Atorvastatin Calcium (Lipitor) 40 mg PO HS [facility] Last Admin: 07/15/17 23:11 Dose: 40 mg Budesonide (Pulmicort Respules) 0.5 mg IH [id number] [facility] Last Admin: 07/18/17 20:17 Dose: 0.5 mg Docusate Sodium (Colace Liquid) 100 mg PO TID [facility] Last Admin: 07/18/17 14:17 Dose: 100 mg Enoxaparin Sodium (Lovenox) 30 mg SC Q24H [facility] PRN Reason: Protocol Last Admin: 07/18/17 18:21 Dose: 30 mg Ergocalciferol (Drisdol 50,000 Intl Units Cap) 1 cap PO Q7D [facility] Last Admin: 07/17/17 14:12 Dose: 1 cap Furosemide (Lasix) 40 mg IVP DAILY [facility] Azithromycin (Zithromax 500mg In Ns) 500 mg in 250 mls @ 167 mls/hr IVPB DAILY [facility] PRN Reason: Protocol Cefepime HCl (Maxipime 2gm) 2 gm in 100 mls @ 100 mls/hr IVPB Q8 [facility] PRN Reason: Protocol Stop: 07/23/17 14:31 Last Admin: 07/19/17 05:50 Dose: 100 mls/hr Vancomycin HCl (Vancomycin 1gm) 1 gm in 250 mls @ 167 mls/hr IVPB Q12H [facility] PRN Reason: Protocol Insulin Detemir (Levemir) 10 unit SC HS [facility] Last Admin: 07/18/17 21:53 Dose: 10 unit Insulin Human Lispro (Humalog High) 0 units SC Q6 [facility] PRN Reason: Protocol Last Admin: 07/18/17 23:43 Dose: Not Given Levalbuterol HCl (Xopenex) 1.25 mg IH [id number] [facility] Last Admin: 07/19/17 02:30 Dose: 1.25 mg Magnesium Oxide (Mag-Ox) 400 mg PO BID [facility] Last Admin: 07/18/17 18:22 Dose: 400 mg Memantine (Namenda) 5 mg PO BID [facility] Last Admin: 07/18/17 18:22 Dose: 5 mg Methylprednisolone (Solu-Medrol) 30 mg IVP Q12 [facility] Ondansetron HCl (Zofran Inj) 4 mg IVP Q4H [facility] PRN Reason: Nausea/Vomiting Pantoprazole Sodium (Protonix Ec Tab) 40 mg PO 0600 [facility] Last Admin: 07/19/17 05:49 Dose: 40 mg Tamsulosin HCl (Flomax) 0.4 mg PO DAILY [facility] Last Admin: 07/18/17 09:58 Dose: 0.4 mg Vancomycin HCl (Vancocin 25 Mg/Ml (Oral Use)) 125 mg PO QID [facility] PRN Reason: Protocol Last Admin: 07/18/17 21:52 Dose: 125 mg - Labs Labs: 07/19/17 06:05 07/19/17 06:05 PT 12.4 SECONDS (9.4-12.5) 07/12/17 09:35 INR 1.08 (0.93-1.08) 07/12/17 09:35 APTT 29.0 Seconds (25.1-36.5) 07/12/17 09:35 - Constitutional Appears: No Acute Distress - Head Exam Head Exam: ATRAUMATIC, NORMOCEPHALIC - Respiratory Exam Respiratory Exam: Rhonchi, NORMAL BREATHING PATTERN - Cardiovascular Exam Cardiovascular Exam: +S1, +S2 - GI/Abdominal Exam GI & Abdominal Exam: Soft, Normal Bowel Sounds. absent: Tenderness - Extremities Exam Additional comments: left hand swelling - Neurological Exam Neurological Exam: Alert, Awake Assessment and Plan - Assessment and Plan (Free Text) Assessment: Pneumonia Pleural effusion s/p ventilator dependent respiratory failure s/p right hip fx with ORIF COPD diabetes Plan: CXR done yesterday shows new left sided infiltrate as well as pleural effusion. Pulmonary and infectious disease consults are appreciated. Patient has been started on IV Vancomycin and Cefepime. She is also on po vancomycin for C. diff antigen positive. awaiting repeat stool for C. diff. Will increase Lasix to twice a day.
[2017-07-19 08:16] LABS: PLATELET COUNT MANUAL 172 K/mm3 (120-450)
[2017-07-19] MEDS: Insulin Lispro (HUMAlog) HIGH Coverage SC SCH ×3 (08:25→17:13)
--- NOTE | 2017-07-19 08:52 | PN ---
DATE: 07/19/2017 PULMONARY NOTE SUBJECTIVE: The patient appears comfortable this morning. She is not short of breath at rest. She appears very, very weak. PHYSICAL EXAMINATION: VITAL SIGNS: Last temperature recorded is 97.9, pulse is 88, respiratory rate 18/20, last blood pressure recorded 140/67. Oxygen saturation on nasal cannula is 94%. HEENT: Normocephalic, atraumatic. No JVD. CARDIOVASCULAR: Systolic ejection murmur at the lower left sternal border. No S3 gallop. LUNGS: Decreased breath sounds with crackles at the left lower lobe. Still with mild rhonchi bilaterally. A few wheezes are also heard this morning. EXTREMITIES: There is mild edema in both lower extremities. There is no cyanosis or clubbing. Calves are nontender to palpation. GI: Abdomen is soft, nontender and nondistended. Bowel sounds are positive. SKIN: No acute rash. NEUROLOGIC: Limited at the present time. IMPRESSION: 1. Left lower lobe pneumonia. 2. Left pleural effusion. 3. Advanced chronic obstructive pulmonary disease. 4. Severe pulmonary hypertension. 5. Status post respiratory failure. 6. Status post right hip surgery. 7. Mild anemia. PLAN: The patient appears comfortable this morning. She is not short of breath at rest. She does appear very very weak. I did discuss the case with the night nurse at length. The night nurse stated that the patient had a pretty good night. On physical exam, mild to moderate bronchospasm remains. I will continue with the current nebulizer treatments and inhaled steroids and add low-dose intravenous steroids this morning. I will also continue with the chest percussion therapy and suctioning. I did go over all of the orders again with the respiratory therapist this morning. I would continue with the antibiotic coverage as per Infectious Disease. Input by Dr. Choudhary is noted. There are no temperatures noted. There is no leukocytosis. The clinical status of the patient appears slightly improved from yesterday. However, unfortunately, the overall status/prognosis for this patient remains very guarded at best/poor. All are aware. I will also discuss the above the attending physician. Indra Cabrera MD [facility] # [id number] [facility]
[2017-07-19] MEDS: Magnesium Oxide 400 mg Tab UD PO SCH ×2 (09:56→17:18)
[2017-07-19] MEDS: MethylPREDNISolone 40 mg Vial IVP SCH ×2 (09:57→21:22)
[2017-07-19] MEDS: Vancomycin 25 MG/ML PO SCH ×4 (09:57→21:38)
[2017-07-19] MEDS: Azithromycin 500MG/NS 250ml 500 MG/250 ML BAG IVPB SCH (09:58)
--- NOTE | 2017-07-19 11:42 | CP.PCM.CON ---
History of Present Illness - History of Present Illness History of Present Illness: 82 year old female with PMH of COPD, cataracts, DM was initially admitted to [facility] after a fall at the shelter. She sustained a fracture of the right hip and orthopedic surgery was done and she was on the ventilator for several days after the procedure. She is now extubated and is on the medical floor but she developed some shortness of breath and CXR was done which is showing left sided pleural effusion and probable left lower lobe infiltrates. She still feels weak and has some chills but no note of fevers. She has some cough but is not able to bring up phlegm. She denies headache, no chest pain, no nausea or vomiting, no abdominal pain, no diarrhea. Infectious diseases consult is requested to further evaluate and manage. Review of Systems - Review of Systems All systems: reviewed and no additional remarkable complaints except (as per HPI ) Past Patient History - Infectious Disease Hx of Infectious Diseases: None - Past Social History Smoking Status: Former Smoker - CARDIAC Hx Cardiac Disorders: Yes - PULMONARY Hx Chronic Obstructive Pulmonary Disease (COPD): Yes - NEUROLOGICAL Hx Neurological Disorder: Yes Hx Dementia: Yes - HEENT Hx HEENT Problems: Yes Hx Cataracts: Yes (bilateral) - RENAL Hx Chronic Kidney Disease: No - ENDOCRINE/METABOLIC Hx Diabetes Mellitus Type 2: Yes - HEMATOLOGICAL/ONCOLOGICAL Hx Cancer: No - INTEGUMENTARY Hx Dermatological Problems: Yes Other/Comment: BILATERAL ARM BRUISING - MUSCULOSKELETAL/RHEUMATOLOGICAL Hx Arthritis: Yes - GASTROINTESTINAL Hx Gastrointestinal Disorders: No - GENITOURINARY/GYNECOLOGICAL Hx Genitourinary Disorders: Yes Other/Comment: URGENCY - PSYCHIATRIC Hx Psychophysiologic Disorder: No Hx Substance Use: No - SURGICAL HISTORY Hx Mastectomy: No - ANESTHESIA Hx Anesthesia: Yes Hx Anesthesia Reactions: No Hx Malignant Hyperthermia: No Meds Allergies/Adverse Reactions: Allergies Allergy/AdvReac Type Severity Reaction Status Date / Time No Known Allergies Allergy Verified 07/12/17 09:09 - Medications Medications: Current Medications Acetaminophen (Tylenol 325mg Tab) 650 mg PO Q6 PRN PRN Reason: Headache Acetaminophen (Tylenol 650 Mg Supp) 650 mg RC Q6H PRN PRN Reason: Headache Acetaminophen (Tylenol 325mg Tab) 650 mg PO Q6 PRN PRN Reason: TEMP>=99.5F Acetaminophen (Tylenol 650 Mg Supp) 650 mg RC Q6H PRN PRN Reason: TEMP>=99.5F Acetylcysteine (Acetylcysteine 20%) 4 ml IH [id number] [facility] Atorvastatin Calcium (Lipitor) 40 mg PO HS [facility] Last Admin: 07/15/17 23:11 Dose: 40 mg Budesonide (Pulmicort Respules) 0.5 mg IH [id number] [facility] Docusate Sodium (Colace Liquid) 100 mg PO TID [facility] Enoxaparin Sodium (Lovenox) 30 mg SC Q24H [facility] PRN Reason: Protocol Last Admin: 07/17/17 18:09 Dose: 30 mg Ergocalciferol (Drisdol 50,000 Intl Units Cap) 1 cap PO Q7D [facility] Last Admin: 07/17/17 14:12 Dose: 1 cap Furosemide (Lasix) 40 mg IVP DAILY [facility] Azithromycin (Zithromax 500mg In Ns) 500 mg in 250 mls @ 167 mls/hr IVPB DAILY [facility] PRN Reason: Protocol Cefepime HCl (Maxipime 2gm) 2 gm in 100 mls @ 100 mls/hr IVPB Q8 [facility] PRN Reason: Protocol Stop: 07/23/17 14:31 Vancomycin HCl (Vancomycin 1gm) 1 gm in 250 mls @ 167 mls/hr IVPB Q12H [facility] PRN Reason: Protocol Insulin Human Lispro (Humalog High) 0 units SC Q6 [facility] PRN Reason: Protocol Last Admin: 07/18/17 12:27 Dose: 7 units Levalbuterol HCl (Xopenex) 1.25 mg IH [id number] [facility] Last Admin: 07/18/17 14:18 Dose: 1.25 mg Magnesium Oxide (Mag-Ox) 400 mg PO BID [facility] Last Admin: 07/18/17 09:58 Dose: 400 mg Memantine (Namenda) 5 mg PO BID [facility] Last Admin: 07/18/17 09:58 Dose: 5 mg Ondansetron HCl (Zofran Inj) 4 mg IVP Q4H PRN PRN Reason: Nausea/Vomiting Pantoprazole Sodium (Protonix Ec Tab) 40 mg PO 0600 [facility] Last Admin: 07/18/17 05:19 Dose: 40 mg Tamsulosin HCl (Flomax) 0.4 mg PO DAILY [facility] Last Admin: 07/18/17 09:58 Dose: 0.4 mg Vancomycin HCl (Vancocin 25 Mg/Ml (Oral Use)) 125 mg PO QID [facility] PRN Reason: Protocol Last Admin: 07/18/17 10:16 Dose: 125 mg Physical Exam - Constitutional Appears: Chronically Ill - Head Exam Head Exam: NORMAL INSPECTION - ENT Exam ENT Exam: Mucous Membranes Moist - Neck Exam Neck exam: Negative for: Lymphadenopathy, Meningismus - Respiratory Exam Respiratory Exam: Decreased Breath Sounds, Rales (scattered) - Cardiovascular Exam Cardiovascular Exam: +S1, +S2 - GI/Abdominal Exam GI & Abdominal Exam: Soft. absent: Tenderness Results - Vital Signs Recent Vital Signs: Last Vital Signs Temp 97.3 F L 07/18/17 08:12 Pulse 90 07/18/17 08:12 Resp 19 07/18/17 08:12 BP 118/61 07/18/17 09:58 Pulse Ox 96 07/18/17 08:12 - Labs Result Diagrams: 07/19/17 06:05 07/19/17 06:05 Labs: Laboratory Results - last 24 hr 07/17/17 07/17/17 07/18/17 16:36 21:49 06:10 WBC 10.3 RBC 3.45 L Hgb 10.0 L Hct 31.6 L MCV 91.6 MCH 29.0 MCHC 31.6 RDW 16.9 H Plt Count 123 Manual Plt Count 120 MPV 13.5 H Gran % 81.4 H Lymph % (Auto) 10.2 L [place] % (Auto) 8.1 H Eos % (Auto) 0.2 L Baso % (Auto) 0.1 Gran # 8.39 H Lymph # (Auto) 1.1 L [place] # (Auto) 0.8 H Eos # (Auto) 0.0 Baso # (Auto) 0.01 Sodium Potassium Chloride Carbon Dioxide Anion Gap BUN Creatinine Est GFR ( Amer) Est GFR (Non-Af Amer) POC Glucose (mg/dL) 311 H 266 H Random Glucose Calcium Phosphorus Magnesium Total Bilirubin Direct Bilirubin AST ALT Alkaline Phosphatase Lactate Dehydrogenase Total Protein Albumin Globulin Albumin/Globulin Ratio 07/18/17 07/18/17 07/18/17 06:10 07:47 11:14 WBC RBC Hgb Hct MCV MCH MCHC RDW Plt Count Manual Plt Count MPV Gran % Lymph % (Auto) [place] % (Auto) Eos % (Auto) Baso % (Auto) Gran # Lymph # (Auto) [place] # (Auto) Eos # (Auto) Baso # (Auto) Sodium 144 Potassium 5.1 H Chloride 114 H Carbon Dioxide 17 L Anion Gap 18 BUN 43 H Creatinine 0.9 Est GFR ( Amer) > 60 Est GFR (Non-Af Amer) > 60 POC Glucose (mg/dL) 314 H 289 H Random Glucose 370 H* D Calcium 8.4 Phosphorus 3.6 Magnesium 2.3 H Total Bilirubin 1.2 Direct Bilirubin 0.7 H AST 78 H D ALT 346 H Alkaline Phosphatase 104 Lactate Dehydrogenase 600 Total Protein 4.3 L Albumin 2.2 L Globulin 2.1 Albumin/Globulin Ratio 1.0 L Assessment & Plan - Assessment and Plan (Free Text) Plan: Assessment left lower lobe HCAP in this patient who is S/P ventilator-dependent respiratory failure after right hip fracture S/P ORIF history of sepsis due to ESBL E. coli UTI COPD cataracts DM Plan started patient on Vancomycin, Cefepime and Zithromax pending sputum cx, blood cx; reviewed CXR which is showing left lower lobe infiltrates and left pleural effusion will follow up PCT as well will monitor clinically
[2017-07-19] MEDS: Vancomycin 1gm in NS 250ml 1 GM/250 ML BAG IVPB SCH (13:39)
[2017-07-19] MEDS: Enoxaparin 30 mg Syringe SC SCH (17:18)
--- NOTE | 2017-07-19 17:43 | PN ---
DATE: 07/19/2017 CARDIOLOGY FOLLOWUP SUBJECTIVE: The patient is sleeping in bed without respiratory distress. PHYSICAL EXAMINATION: VITAL SIGNS: Blood pressure is 151/65, heart rates in the 80s. NECK: Negative JVD. LUNGS: Decreased breath sounds. HEART: Reveals S1, S2. EXTREMITIES: Without edema. LABORATORY DATA: Hemoglobin is 9.9. Chemistries: Glucose is 241, BUN and creatinine is 37 and 0.7. The glucose is 241. IMPRESSION: 1. Status post hip fracture. 2. Status post surgery. 3. Diabetes mellitus. 4. Severe pulmonary hypertension. PLAN: Given these findings, the patient was started on IV antibiotics today because of potential for sepsis. Gurpreet Rivas MD
[2017-07-19] MEDS: Insulin Detemir 100 units/ml Vial (Levemir) SC SCH (21:22)
--- NOTE | 2017-07-19 21:41 | CP.PCM.PN ---
Subjective - Date & Time of Evaluation Date of Evaluation: 07/19/17 Time of Evaluation: 09:21 - Subjective Subjective: Patient POD#7 s/p ORIF R hip fx. Patient alert and awake, laying in bed. Patient denies any significant pain. Aferbile WBC: 8.7 hgb 9.9 R hip: dressings removed. Incision clean and intact. There is no erythema or drainage. Dressings changed. Calf and thigh are soft nontender. NVI distally POD#7 s/p ORIF R hip fx Cont PT with gait training Cont DVT prophylaxis Orthopedic stable Objective - Vital Signs/Intake and Output Vital Signs (last 24 hours): Temp Pulse Resp BP Pulse Ox 97.5 F L 79 21 151/65 H 100 07/19/17 08:28 07/19/17 08:28 07/19/17 08:28 07/19/17 08:28 07/19/17 08:28 Intake and Output: 07/19/17 07/19/17 06:59 18:59 Intake Total 1200 Output Total 500 Balance 700 - Medications Medications: Current Medications Acetaminophen (Tylenol 325mg Tab) 650 mg PO Q6 PRN PRN Reason: Headache Acetaminophen (Tylenol 650 Mg Supp) 650 mg RC Q6H PRN PRN Reason: Headache Acetaminophen (Tylenol 325mg Tab) 650 mg PO Q6 PRN PRN Reason: TEMP>=99.5F Acetaminophen (Tylenol 650 Mg Supp) 650 mg RC Q6H PRN PRN Reason: TEMP>=99.5F Acetylcysteine (Acetylcysteine 20%) 4 ml IH [id number] [facility] Last Admin: 07/19/17 08:07 Dose: 4 ml Atorvastatin Calcium (Lipitor) 40 mg PO HS [facility] Last Admin: 07/15/17 23:11 Dose: 40 mg Budesonide (Pulmicort Respules) 0.5 mg IH [id number] [facility] Last Admin: 07/19/17 08:06 Dose: 0.5 mg Docusate Sodium (Colace Liquid) 100 mg PO TID [facility] Last Admin: 07/18/17 14:17 Dose: 100 mg Enoxaparin Sodium (Lovenox) 30 mg SC Q24H [facility] PRN Reason: Protocol Last Admin: 07/18/17 18:21 Dose: 30 mg Ergocalciferol (Drisdol 50,000 Intl Units Cap) 1 cap PO Q7D [facility] Last Admin: 07/17/17 14:12 Dose: 1 cap Furosemide (Lasix) 40 mg IVP BID [facility] Azithromycin (Zithromax 500mg In Ns) 500 mg in 250 mls @ 167 mls/hr IVPB DAILY [facility] PRN Reason: Protocol Cefepime HCl (Maxipime 2gm) 2 gm in 100 mls @ 100 mls/hr IVPB Q8 [facility] PRN Reason: Protocol Stop: 07/23/17 14:31 Last Admin: 07/19/17 05:50 Dose: 100 mls/hr Vancomycin HCl (Vancomycin 1gm) 1 gm in 250 mls @ 167 mls/hr IVPB Q12H [facility] PRN Reason: Protocol Insulin Detemir (Levemir) 10 unit SC HS [facility] Last Admin: 07/18/17 21:53 Dose: 10 unit Insulin Human Lispro (Humalog High) 0 units SC Q6 [facility] PRN Reason: Protocol Last Admin: 07/19/17 08:25 Dose: 4 units Levalbuterol HCl (Xopenex) 1.25 mg IH [id number] [facility] Last Admin: 07/19/17 08:06 Dose: 1.25 mg Magnesium Oxide (Mag-Ox) 400 mg PO BID [facility] Last Admin: 07/18/17 18:22 Dose: 400 mg Memantine (Namenda) 5 mg PO BID [facility] Last Admin: 07/18/17 18:22 Dose: 5 mg Methylprednisolone (Solu-Medrol) 30 mg IVP Q12 [facility] Ondansetron HCl (Zofran Inj) 4 mg IVP Q4H PRN PRN Reason: Nausea/Vomiting Pantoprazole Sodium (Protonix Ec Tab) 40 mg PO 0600 [facility] Last Admin: 07/19/17 05:49 Dose: 40 mg Tamsulosin HCl (Flomax) 0.4 mg PO DAILY [facility] Last Admin: 07/18/17 09:58 Dose: 0.4 mg Vancomycin HCl (Vancocin 25 Mg/Ml (Oral Use)) 125 mg PO QID [facility] PRN Reason: Protocol Last Admin: 07/18/17 21:52 Dose: 125 mg - Labs Labs: 07/19/17 06:05 07/19/17 06:05 PT 12.4 SECONDS (9.4-12.5) 07/12/17 09:35 INR 1.08 (0.93-1.08) 07/12/17 09:35 APTT 29.0 Seconds (25.1-36.5) 07/12/17 09:35
[2017-07-20] MEDS: Insulin Lispro (HUMAlog) HIGH Coverage SC SCH ×4 (00:13→17:28)
[2017-07-20] MEDS: Acetylcysteine 20% Inhal Soln (4ml) IH SCH ×4 (01:46→22:13)
[2017-07-20] MEDS: Levalbuterol 1.25 MG/3 ML Inhal Soln UD IH SCH ×4 (01:46→22:09)
[2017-07-20] MEDS: Vancomycin 1gm in NS 250ml 1 GM/250 ML BAG IVPB SCH ×2 (02:13→14:40)
[2017-07-20] MEDS: Cefepime IV 2 gm in NS 2 GM/100 ML BAG IVPB SCH ×3 (05:39→21:39)
[2017-07-20] MEDS: Pantoprazole 40 mg EC Tab PO SCH (05:39)
[2017-07-20 06:44] LABS: GRAN # 6.93 (1.4-6.5); GRAN % 86.9 % (50.0-68.0); HEMOGLOBIN 9.9 g/dL (12.0-16.0); LYMPH # 0.6 (1.2-3.4); LYMPH % 7.1 % (22.0-35.0); MEAN CELL VOLUME 90.5 fl (80.0-105.0); MEAN CORPUSCULAR HEMOGLOBIN 29.5 pg (25.0-35.0); MEAN CORPUSCULAR HGB CONC 32.6 g/dl (31.0-37.0); MEAN PLATELET VOLUME 12.4 fl (7.0-11.0); MONO # 0.5 (0.1-0.6); RBC 3.36 10^6/uL (3.5-6.1); RED CELL DISTRIBUTION WIDTH 16.8 % (11.5-14.5)
[2017-07-20 07:20] LABS: ALBUMIN 2.2 g/dL (3.0-4.8); ALT/SGPT 177 U/L (7-56); AST/SGOT 15 U/L (14-36); BILIRUBIN,DIRECT 0.3 mg/dL (0.0-0.4); BLOOD UREA NITROGEN 28 mg/dL (7-21); CALCIUM 8.1 mg/dL (8.4-10.5); GFR AFRICAN-AMERICAN > 60; GFR NON-AFRICAN AMERICAN > 60
[2017-07-20] MEDS: Budesonide 0.5 mg/2 ml Inhal Susp UD IH SCH ×2 (07:41→22:09)
--- NOTE | 2017-07-20 08:09 | PN ---
DATE: 07/20/2017 PULMONARY NOTE SUBJECTIVE: The patient appears more comfortable this morning. She is not short of breath at rest. She does remain very weak. PHYSICAL EXAMINATION VITAL SIGNS: (Last noted in the computer): Temperature is 97.5, pulse is 77, respirations 18/20, blood pressure 172/82. Oxygen saturation on nasal cannula is 96%. HEENT: Normocephalic, atraumatic. No JVD. CARDIOVASCULAR: Systolic ejection murmur at the lower left sternal border. No S3 gallop. LUNGS: Decreased breath sounds with crackles at the left base. Much less rhonchi. No wheezing this morning. EXTREMITIES: Positive for mild edema in both lower extremities. There is no cyanosis or clubbing. Calves are nontender to palpation. GI: Abdomen is soft, nontender, nondistended. Bowel sounds are positive. SKIN: No acute rash. NEUROLOGIC: Limited at the present time. PERTINENT LABORATORY DATA: Chest x-ray was done this morning and reviewed. The chest x-ray shows definite improvement - with decreased infiltrate and decreased effusion noted in the left lung.. IMPRESSION: 1. Left lower lobe pneumonia. 2. Left pleural effusion. 3. Advanced chronic obstructive pulmonary disease. 4. Severe pulmonary hypertension. 5. Status post respiratory failure. 6. Status post right hip surgery. 7. Mild anemia. PLAN: The patient appears comfortable this morning. She is not short of breath at rest. She remains very, very weak appearing. I did discuss the case with the night nurse at length. Apparently, the patient had an uneventful night. On physical exam, there is certainly less bronchospasm noted. In addition, the alveolar-arterial gradient is also less. Oxygen saturation on nasal cannula is now 96%. I will continue with the current nebulizer treatments, inhaled Mucomyst, and low-dose intravenous steroids (started yesterday). I will also continue with the frequent suctioning and chest percussion therapy. I did discuss the orders with the respiratory therapists again this morning. As above, the chest x-ray this morning shows definite improvement. I would continue with the antibiotic coverage as per Infectious Disease. There are no temperatures noted. There is no leukocytosis. Repeat a.m. labs are pending. The clinical status of the patient is certainly improved - compared to a few days ago. However, again, the overall status/prognosis for this patient remains very guarded/poor. I will discuss the above with the attending physician. Indra Cabrera MD [facility]
--- NOTE | 2017-07-20 09:50 | RAD ---
HISTORY: follow up COMPARISON: 07/18/2017 FINDINGS: LUNGS: There is an infiltrate and effusion on the left which obscures the diaphragm. Right lung remains clear PLEURA: No significant pleural effusion identified, no pneumothorax apparent. CARDIOVASCULAR: Normal. OSSEOUS STRUCTURES: No significant abnormalities. VISUALIZED UPPER ABDOMEN: Normal. OTHER FINDINGS: Left-sided central line terminates in the right atrium IMPRESSION: There is an infiltrate and effusion on the left which obscures the diaphragm. Right lung remains clear
[2017-07-20] MEDS: MethylPREDNISolone 40 mg Vial IVP SCH ×2 (10:35→21:56)
[2017-07-20] MEDS: Vancomycin 25 MG/ML PO SCH ×4 (10:35→21:52)
[2017-07-20] MEDS: Magnesium Oxide 400 mg Tab UD PO SCH ×2 (10:36→17:28)
[2017-07-20] MEDS: Azithromycin 500MG/NS 250ml 500 MG/250 ML BAG IVPB SCH (10:37)
--- NOTE | 2017-07-20 10:55 | CP.PCM.PN ---
Subjective - Date & Time of Evaluation Date of Evaluation: 07/20/17 Time of Evaluation: 08:45 - Subjective Subjective: Patient is more awake today, no fevers, breathing a little better, no diarrhea, no nausea, no abdominal pain. Objective - Vital Signs/Intake and Output Vital Signs (last 24 hours): Temp Pulse Resp BP Pulse Ox 97.8 F 71 19 156/60 H 100 07/20/17 06:00 07/20/17 06:00 07/20/17 06:00 07/20/17 06:00 07/20/17 06:00 Intake and Output: 07/20/17 07/20/17 06:59 18:59 Intake Total 1100 Balance 1100 - Medications Medications: Current Medications Acetaminophen (Tylenol 325mg Tab) 650 mg PO Q6 PRN PRN Reason: Headache Acetaminophen (Tylenol 650 Mg Supp) 650 mg RC Q6H PRN PRN Reason: Headache Acetaminophen (Tylenol 325mg Tab) 650 mg PO Q6 PRN PRN Reason: TEMP>=99.5F Acetaminophen (Tylenol 650 Mg Supp) 650 mg RC Q6H PRN PRN Reason: TEMP>=99.5F Acetylcysteine (Acetylcysteine 20%) 4 ml IH [id number] [facility] Last Admin: 07/20/17 07:41 Dose: 4 ml Atorvastatin Calcium (Lipitor) 40 mg PO HS [facility] Last Admin: 07/15/17 23:11 Dose: 40 mg Budesonide (Pulmicort Respules) 0.5 mg IH [id number] [facility] Last Admin: 07/20/17 07:41 Dose: 0.5 mg Docusate Sodium (Colace Liquid) 100 mg PO TID [facility] Last Admin: 07/19/17 17:13 Dose: 100 mg Enoxaparin Sodium (Lovenox) 30 mg SC Q24H [facility] PRN Reason: Protocol Last Admin: 07/19/17 17:18 Dose: 30 mg Ergocalciferol (Drisdol 50,000 Intl Units Cap) 1 cap PO Q7D [facility] Last Admin: 07/17/17 14:12 Dose: 1 cap Furosemide (Lasix) 40 mg IVP BID [facility] Last Admin: 07/19/17 17:17 Dose: 40 mg Azithromycin (Zithromax 500mg In Ns) 500 mg in 250 mls @ 167 mls/hr IVPB DAILY [facility] PRN Reason: Protocol Last Admin: 07/19/17 09:58 Dose: 167 mls/hr Cefepime HCl (Maxipime 2gm) 2 gm in 100 mls @ 100 mls/hr IVPB Q8 [facility] PRN Reason: Protocol Stop: 07/23/17 14:31 Last Admin: 07/20/17 05:39 Dose: 100 mls/hr Vancomycin HCl (Vancomycin 1gm) 1 gm in 250 mls @ 167 mls/hr IVPB Q12H [facility] PRN Reason: Protocol Last Admin: 07/20/17 02:13 Dose: 167 mls/hr Insulin Detemir (Levemir) 10 unit SC HS [facility] Last Admin: 07/19/17 21:22 Dose: 10 unit Insulin Human Lispro (Humalog High) 0 units SC Q6 [facility] PRN Reason: Protocol Last Admin: 07/20/17 05:52 Dose: 4 units Levalbuterol HCl (Xopenex) 1.25 mg IH [id number] [facility] Last Admin: 07/20/17 07:41 Dose: 1.25 mg Magnesium Oxide (Mag-Ox) 400 mg PO BID [facility] Last Admin: 07/19/17 17:18 Dose: 400 mg Memantine (Namenda) 5 mg PO BID [facility] Last Admin: 07/19/17 17:20 Dose: 5 mg Methylprednisolone (Solu-Medrol) 30 mg IVP Q12 [facility] Last Admin: 07/19/17 21:22 Dose: 30 mg Ondansetron HCl (Zofran Inj) 4 mg IVP Q4H PRN PRN Reason: Nausea/Vomiting Pantoprazole Sodium (Protonix Ec Tab) 40 mg PO 0600 [facility] Last Admin: 07/20/17 05:39 Dose: 40 mg Tamsulosin HCl (Flomax) 0.4 mg PO DAILY [facility] Last Admin: 07/19/17 09:51 Dose: 0.4 mg Vancomycin HCl (Vancocin 25 Mg/Ml (Oral Use)) 125 mg PO QID [facility] PRN Reason: Protocol Last Admin: 07/19/17 21:38 Dose: 125 mg - Labs Labs: 07/20/17 06:30 07/20/17 06:30 PT 12.4 SECONDS (9.4-12.5) 07/12/17 09:35 INR 1.08 (0.93-1.08) 07/12/17 09:35 APTT 29.0 Seconds (25.1-36.5) 07/12/17 09:35 - Constitutional Appears: Chronically Ill - Head Exam Head Exam: NORMAL INSPECTION - ENT Exam ENT Exam: Mucous Membranes Moist - Neck Exam Neck Exam: absent: Meningismus - Respiratory Exam Respiratory Exam: Decreased Breath Sounds, Rales (scattered) - Cardiovascular Exam Cardiovascular Exam: +S1, +S2 - GI/Abdominal Exam GI & Abdominal Exam: Soft. absent: Tenderness Assessment and Plan - Assessment and Plan (Free Text) Plan: Assessment left lower lobe HCAP in this patient who is S/P ventilator-dependent respiratory failure after right hip fracture S/P ORIF history of sepsis due to ESBL E. coli UTI COPD cataracts DM Plan continue Vancomycin, Cefepime and Zithromax day 2 pending sputum cx; blood cx are negative x 1 day; reviewed CXR which is showing left lower lobe infiltrates and left pleural effusion will follow up PCT as well will continue to monitor clinically
--- NOTE | 2017-07-20 12:03 | PN ---
DATE: 07/20/2017 CARDIOLOGY FOLLOWUP SUBJECTIVE: The patient is weak without dyspnea. PHYSICAL EXAMINATION VITAL SIGNS: Blood pressure is 156/60, the heart rate is in the 70s. NECK: Negative JVD. LUNGS: Decreased breath sounds. HEART: Reveals S1, S2. EXTREMITIES: Without change. LABORATORY DATA: Hemoglobin is 9.9. Chemistries: Glucose is 241. BUN and creatinine are unchanged. IMPRESSION: 1. Status post hip fracture. 2. Status post respiratory failure. 3. Severe chronic obstructive pulmonary disease. 4. Severe pulmonary hypertension. 5. Diabetes mellitus. 6. Weakness. PLAN: Given these findings, the patient is on continued antibiotics for her sepsis. Gurpreet Rivas MD
--- NOTE | 2017-07-20 13:52 | PN ---
DATE: LOCATION: The patient is in [facility] in [place], room 368, bed 1. SUBJECTIVE: The patient is currently treated for acute illness. The patient has had hip surgery and developed cardiorespiratory insufficiency. The patient was intubated and admitted to the ICU, subsequently discharged on the ICU to medical floor. The patient is still acutely ill. She has persistent cough associated with abundance of phlegm. The patient has difficulty in swallowing and questionable aspiration syndrome. PAST MEDICAL HISTORY: She has history of severe chronic lung disease with pulmonary hypertension. The patient is seen this morning. She is improving. She is lying down, propped up at 45 degrees. Her color seemed to be reasonably good. Respirations are 20 per minute. The patient has had history of diabetes mellitus in the past also. PHYSICAL EXAMINATION: VITAL SIGNS: Pulse is 71, blood pressure 150/60, respirations are 20 as mentioned. NECK: JVP is flat. Thyroid is not enlarged. LUNGS: Trachea central. There are bilateral crepitations and rhonchi. The patient has localizing signs of pneumonia which is confirmed by chest x-ray. HEART: Normal sinus rhythm. S1, S2 present. No murmur. ABDOMEN: Soft. Liver and spleen not palpable. CENTRAL NERVOUS SYSTEM: The patient is conscious, rationale and oriented. Her voice is not clear when she speaks, but she tried to express herself as much as she can. LABORATORY DATA: The patient's laboratory findings recently: Hemoglobin 9.9, white count is 8000. The patient's differential shows shift to the left consistent with infection in the lung. The patient's chemistry: Sugar is 229. The patient also has good renal function. BUN is 28, creatinine is 0.7. MEDICATIONS: Currently, the patient is on respiratory treatment, Mucomyst is also added to her respiratory treatment. The patient is on Flomax 0.4 mg daily. The patient is on insulin coverage, Lasix 40 mg b.i.d. The patient is on Lipitor 40 mg daily, Lovenox 30 mg daily, magnesium oxide. The patient is on Maxipime 2 g every 8 hours. The patient is on Namenda 5 mg b.i.d., pantoprazole 40 mg daily. The patient is on Pulmicort every 12 hours, prednisolone 30 mg IV every 12 hours; this is a decreasing dose. The patient is on Tylenol for pain and fever. SUMMARY: The patient has chronic obstructive lung disease, pneumonia acute at this time, diabetes mellitus. The patient is also on treatment for anemia and sepsis. Overall prognosis is guarded. Condition is acute. We will follow up with the senior sales consultant services. The patient is seen by the setter off, department manager, Infectious Disease consultants and they are all contributing in the care of the patient at this time. Lola Rae MD
[2017-07-20] MEDS: Enoxaparin 30 mg Syringe SC SCH (17:31)
[2017-07-20] MEDS: Insulin Detemir 100 units/ml Vial (Levemir) SC SCH (21:38)
[2017-07-21] MEDS: Insulin Lispro (HUMAlog) HIGH Coverage SC SCH ×4 (00:54→18:08)
[2017-07-21] MEDS: Vancomycin 1gm in NS 250ml 1 GM/250 ML BAG IVPB SCH ×3 (02:06→14:30)
[2017-07-21] MEDS: Levalbuterol 1.25 MG/3 ML Inhal Soln UD IH SCH ×4 (03:20→19:22)
[2017-07-21] MEDS: Acetylcysteine 20% Inhal Soln (4ml) IH SCH ×4 (03:20→19:22)
[2017-07-21] MEDS: Pantoprazole 40 mg EC Tab PO SCH (06:51)
[2017-07-21] MEDS: Cefepime IV 2 gm in NS 2 GM/100 ML BAG IVPB SCH ×3 (06:51→22:14)
[2017-07-21 07:46] LABS: GRAN # 6.78 (1.4-6.5); GRAN % 86.2 % (50.0-68.0); LYMPH # 0.6 (1.2-3.4); LYMPH % 7.1 % (22.0-35.0); MEAN CELL VOLUME 90.4 fl (80.0-105.0); MEAN CORPUSCULAR HEMOGLOBIN 29.1 pg (25.0-35.0); MEAN CORPUSCULAR HGB CONC 32.2 g/dl (31.0-37.0); MEAN PLATELET VOLUME 13.5 fl (7.0-11.0); MONO # 0.5 (0.1-0.6); MONO % 6.7 % (1.0-6.0); RBC 3.44 10^6/uL (3.5-6.1); RED CELL DISTRIBUTION WIDTH 16.8 % (11.5-14.5); WHITE BLOOD COUNT 7.9 10^3/ul (4.5-11.0)
[2017-07-21] MEDS: Budesonide 0.5 mg/2 ml Inhal Susp UD IH SCH ×2 (07:50→19:22)
[2017-07-21 08:17] LABS: ALBUMIN 2.2 g/dL (3.0-4.8); ALT/SGPT 137 U/L (7-56); AST/SGOT 14 U/L (14-36); BILIRUBIN,DIRECT 0.4 mg/dL (0.0-0.4); BLOOD UREA NITROGEN 25 mg/dL (7-21); CALCIUM 8.4 mg/dL (8.4-10.5); GFR AFRICAN-AMERICAN > 60; GFR NON-AFRICAN AMERICAN > 60
[2017-07-21] MEDS: Magnesium Oxide 400 mg Tab UD PO SCH ×2 (09:42→18:03)
[2017-07-21] MEDS: Vancomycin 25 MG/ML PO SCH ×4 (09:43→22:14)
[2017-07-21] MEDS: MethylPREDNISolone 40 mg Vial IVP SCH ×2 (09:43→22:14)
[2017-07-21] MEDS: Azithromycin 500MG/NS 250ml 500 MG/250 ML BAG IVPB SCH (09:45)
--- NOTE | 2017-07-21 12:23 | CP.PCM.PN ---
Subjective - Date & Time of Evaluation Date of Evaluation: 07/21/17 Time of Evaluation: 10:50 - Subjective Subjective: Patient still with cough, no fevers, not short of breath at rest, eating ok, no vomiting, no diarrhea. Objective - Vital Signs/Intake and Output Vital Signs (last 24 hours): Temp Pulse Resp BP Pulse Ox 97.8 F 81 22 132/72 99 07/20/17 16:00 07/20/17 16:00 07/20/17 16:00 07/20/17 17:28 07/20/17 16:00 Intake and Output: 07/21/17 07/21/17 06:59 18:59 Intake Total 500 Output Total 1250 Balance -750 - Medications Medications: Current Medications Acetaminophen (Tylenol 325mg Tab) 650 mg PO Q6 PRN PRN Reason: Headache Acetaminophen (Tylenol 650 Mg Supp) 650 mg RC Q6H PRN PRN Reason: Headache Acetaminophen (Tylenol 325mg Tab) 650 mg PO Q6 PRN PRN Reason: TEMP>=99.5F Acetaminophen (Tylenol 650 Mg Supp) 650 mg RC Q6H PRN PRN Reason: TEMP>=99.5F Acetylcysteine (Acetylcysteine 20%) 4 ml IH [id number] [facility] Last Admin: 07/21/17 03:20 Dose: 4 ml Atorvastatin Calcium (Lipitor) 40 mg PO HS [facility] Last Admin: 07/15/17 23:11 Dose: 40 mg Budesonide (Pulmicort Respules) 0.5 mg IH [id number] [facility] Last Admin: 07/20/17 22:09 Dose: 0.5 mg Docusate Sodium (Colace Liquid) 100 mg PO TID [facility] Last Admin: 07/20/17 17:28 Dose: 100 mg Enoxaparin Sodium (Lovenox) 30 mg SC Q24H [facility] PRN Reason: Protocol Last Admin: 07/20/17 17:31 Dose: 30 mg Ergocalciferol (Drisdol 50,000 Intl Units Cap) 1 cap PO Q7D [facility] Last Admin: 07/17/17 14:12 Dose: 1 cap Furosemide (Lasix) 40 mg IVP BID [facility] Last Admin: 07/20/17 17:28 Dose: 40 mg Azithromycin (Zithromax 500mg In Ns) 500 mg in 250 mls @ 167 mls/hr IVPB DAILY [facility] PRN Reason: Protocol Last Admin: 07/20/17 10:37 Dose: 167 mls/hr Cefepime HCl (Maxipime 2gm) 2 gm in 100 mls @ 100 mls/hr IVPB Q8 [facility] PRN Reason: Protocol Stop: 07/23/17 14:31 Last Admin: 07/21/17 06:51 Dose: 100 mls/hr Vancomycin HCl (Vancomycin 1gm) 1 gm in 250 mls @ 167 mls/hr IVPB Q12H [facility] PRN Reason: Protocol Last Admin: 07/21/17 02:12 Dose: 167 mls/hr Insulin Detemir (Levemir) 10 unit SC HS [facility] Last Admin: 07/20/17 21:38 Dose: 10 unit Insulin Human Lispro (Humalog High) 0 units SC Q6 [facility] PRN Reason: Protocol Last Admin: 07/21/17 06:49 Dose: 15 units Levalbuterol HCl (Xopenex) 1.25 mg IH [id number] [facility] Last Admin: 07/21/17 03:20 Dose: 1.25 mg Magnesium Oxide (Mag-Ox) 400 mg PO BID [facility] Last Admin: 07/20/17 17:28 Dose: 400 mg Memantine (Namenda) 5 mg PO BID [facility] Last Admin: 07/20/17 17:28 Dose: 5 mg Methylprednisolone (Solu-Medrol) 30 mg IVP Q12 [facility] Last Admin: 07/20/17 21:56 Dose: 30 mg Ondansetron HCl (Zofran Inj) 4 mg IVP Q4H PRN PRN Reason: Nausea/Vomiting Pantoprazole Sodium (Protonix Ec Tab) 40 mg PO 0600 [facility] Last Admin: 07/21/17 06:51 Dose: 40 mg Tamsulosin HCl (Flomax) 0.4 mg PO DAILY [facility] Last Admin: 07/20/17 10:36 Dose: 0.4 mg Vancomycin HCl (Vancocin 25 Mg/Ml (Oral Use)) 125 mg PO QID [facility] PRN Reason: Protocol Last Admin: 07/20/17 21:52 Dose: 125 mg - Labs Labs: 07/21/17 07:00 07/20/17 06:30 PT 12.4 SECONDS (9.4-12.5) 07/12/17 09:35 INR 1.08 (0.93-1.08) 07/12/17 09:35 APTT 29.0 Seconds (25.1-36.5) 07/12/17 09:35 - Constitutional Appears: Chronically Ill - Head Exam Head Exam: NORMAL INSPECTION - ENT Exam ENT Exam: Mucous Membranes Moist - Neck Exam Neck Exam: absent: Meningismus - Respiratory Exam Respiratory Exam: Decreased Breath Sounds, Rhonchi (scattered) - Cardiovascular Exam Cardiovascular Exam: +S1, +S2 - GI/Abdominal Exam GI & Abdominal Exam: Soft. absent: Tenderness Assessment and Plan - Assessment and Plan (Free Text) Plan: Assessment left lower lobe HCAP in this patient who is S/P ventilator-dependent respiratory failure after right hip fracture S/P ORIF history of sepsis due to ESBL E. coli UTI COPD cataracts DM Plan continue Vancomycin, Cefepime and Zithromax day 3 - target 4-7 days of therapy; blood cx are negative; reviewed CXR which is showing left lower lobe infiltrates and left pleural effusion PCT is 0.58 will continue to monitor clinically
--- NOTE | 2017-07-21 13:19 | PN ---
DATE: PULMONARY PROGRESS NOTE SUBJECTIVE: The patient is sitting in bed comfortable. No acute respiratory distress. She states that she has occasional cough and some expectorations. She has been suctioned earlier today for secretions. She states that she is better than she has been. PHYSICAL EXAMINATION VITAL SIGNS: Stable. Afebrile. Respiratory status is good. Blood pressure 170/80, respiratory rate is 16 to 18, O2 saturation 96% on oxygen. HEENT: Normocephalic and atraumatic. NECK: No jugular venous distention. CARDIOVASCULAR: Regular rhythm. Soft systolic ejection murmur remains unchanged. LUNGS: Decreased breath sounds throughout. Minimal rales and rhonchi noted throughout as well. There is no wheezing. ABDOMEN: Soft. Bowel sounds normoactive without mass, guarding, rebound or organomegaly. EXTREMITIES: Reveal no clubbing or cyanosis. There is some edema. SKIN: Shows no rash or excoriation. NEUROLOGIC: Shows no focal findings. She is awake, alert, and oriented. LYMPH NODES: Lymph nodes are not present. DATA: No new laboratory studies are available. The last chest x-ray showed decreased infiltrate. CLINICAL IMPRESSION 1. Left lower lobe pneumonia, in resolution. 2. Left pleural effusion. 3. Advanced chronic obstructive pulmonary disease. 4. Severe pulmonary hypertension. 5. Status post respiratory failure, off mechanical ventilation, on supplemental oxygen. PLAN: Continue vigorous support with suctioning, bronchodilators, corticosteroids, anti-pulmonary hypertension medications. We will discuss with Dr. Cabrera for long-term care. The patient's prognosis is guarded; however, full attention to her status requires further intervention regarding the pulmonary hypertension. Thank you for the opportunity to evaluate this patient. We will discuss it with Dr. Cabrera in the morning. Tye Myers MD
--- NOTE | 2017-07-21 13:36 | PN ---
DATE: SUBJECTIVE: The patient is in [facility] in [place] room 368, bed 1. The patient was admitted for hip surgery. The patient developed cardiorespiratory failure and the patient was treated in the ICU and subsequently was transferred to medical floor. The patient is seen this morning. She is able to talk, but she has difficulty in swallowing. She has frequent cough with micro-aspiration syndrome. PHYSICAL EXAMINATION GENERAL: The patient is awake and alert. VITAL SIGNS: The pulse is 72, blood pressure 167/78, respirations are 21. HEART: Normal sinus rhythm. LUNGS: Bilateral crepitations are heard. ABDOMEN: Soft. Liver and spleen not palpable. CENTRAL NERVOUS SYSTEM: She is conscious, oriented. Unable to answer questions. The patient's respiratory therapist was seeing the patient this morning and she has been advised by the respiratory business analyst consultant, Dr. Cabrera, to use respiratory physical therapy for the patient and suction to prevent frequent cough and aspiration. MEDICATIONS: The patient is on respiratory treatment with DuoNeb. The patient gets Mucomyst treatment. The patient is covered by insulin for diabetes. The patient has 0.4 mg of Flomax, which is an alpha magui. The patient is also given Lasix 40 mg daily, insulin coverage for diabetes, Lipitor 40 mg daily, 30 mg of Lovenox for prophylaxis prevention and deep vein thrombosis. The patient is on Maxipime 2 g every 8 hours. 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 This is on a decreasing dose. The patient's condition is still acute. The patient has continued antibiotic treatment for respiratory infection associated with pneumonia. The patient's prognosis has been and is guarded. Her medical condition is improving gradually. Lola Rae MD
[2017-07-21] MEDS: Enoxaparin 30 mg Syringe SC SCH (18:02)
[2017-07-21] MEDS: Insulin Detemir 100 units/ml Vial (Levemir) SC SCH (22:16)
[2017-07-22] MEDS: Insulin Lispro (HUMAlog) HIGH Coverage SC SCH ×4 (00:37→18:31)
[2017-07-22] MEDS: Acetylcysteine 20% Inhal Soln (4ml) IH SCH ×4 (01:29→19:44)
[2017-07-22] MEDS: Levalbuterol 1.25 MG/3 ML Inhal Soln UD IH SCH ×4 (01:29→19:44)
[2017-07-22] MEDS: Vancomycin 1gm in NS 250ml 1 GM/250 ML BAG IVPB SCH ×2 (02:04→15:37)
[2017-07-22] MEDS: Pantoprazole 40 mg EC Tab PO SCH (05:01)
[2017-07-22] MEDS: Cefepime IV 2 gm in NS 2 GM/100 ML BAG IVPB SCH ×3 (05:01→21:34)
[2017-07-22 06:28] LABS: EOS % 0.1 % (1.5-5.0); GRAN # 8.09 (1.4-6.5); GRAN % 87.7 % (50.0-68.0); HEMOGLOBIN 9.6 g/dL (12.0-16.0); LYMPH # 0.7 (1.2-3.4); LYMPH % 7.5 % (22.0-35.0); MEAN CELL VOLUME 89.3 fl (80.0-105.0); MEAN CORPUSCULAR HEMOGLOBIN 29.4 pg (25.0-35.0); MEAN CORPUSCULAR HGB CONC 32.9 g/dl (31.0-37.0); MONO # 0.4 (0.1-0.6); MONO % 4.7 % (1.0-6.0); RBC 3.27 10^6/uL (3.5-6.1); RED CELL DISTRIBUTION WIDTH 16.7 % (11.5-14.5); WHITE BLOOD COUNT 9.2 10^3/ul (4.5-11.0)
[2017-07-22 06:47] LABS: ALB/GLOB RATIO 1.1 (1.1-1.8); ALBUMIN 2.1 g/dL (3.0-4.8); ALT/SGPT 112 U/L (7-56); AST/SGOT 14 U/L (14-36); BILIRUBIN,DIRECT 0.2 mg/dL (0.0-0.4); BLOOD UREA NITROGEN 19 mg/dL (7-21); GFR AFRICAN-AMERICAN > 60; GFR NON-AFRICAN AMERICAN > 60
[2017-07-22] MEDS: Budesonide 0.5 mg/2 ml Inhal Susp UD IH SCH ×2 (08:04→19:44)
[2017-07-22] MEDS: MethylPREDNISolone 40 mg Vial IVP SCH ×2 (09:47→21:33)
[2017-07-22] MEDS: Magnesium Oxide 400 mg Tab UD PO SCH ×2 (09:51→17:39)
[2017-07-22] MEDS: Potassium Chloride 20 mEq ER Tab PO SCH (09:51)
[2017-07-22] MEDS: Azithromycin 500MG/NS 250ml 500 MG/250 ML BAG IVPB SCH (09:52)
[2017-07-22] MEDS: Vancomycin 25 MG/ML PO SCH ×4 (09:53→21:32)
--- NOTE | 2017-07-22 12:08 | CP.PCM.PN ---
Subjective - Date & Time of Evaluation Date of Evaluation: 07/22/17 Time of Evaluation: 10:25 - Subjective Subjective: Comfortable, feeling better, still with cough but she states it is less, eating better, no nausea or vomiting, no diarrhea. Objective - Vital Signs/Intake and Output Vital Signs (last 24 hours): Temp Pulse Resp BP Pulse Ox 97.1 F L 71 20 148/71 99 07/22/17 07:29 07/22/17 07:29 07/22/17 07:29 07/22/17 07:29 07/22/17 07:29 Intake and Output: 07/22/17 07/22/17 06:59 18:59 Intake Total 780 Output Total 2450 Balance -1670 - Medications Medications: Current Medications Acetaminophen (Tylenol 325mg Tab) 650 mg PO Q6 PRN PRN Reason: Headache Acetaminophen (Tylenol 650 Mg Supp) 650 mg RC Q6H PRN PRN Reason: Headache Acetaminophen (Tylenol 325mg Tab) 650 mg PO Q6 PRN PRN Reason: TEMP>=99.5F Acetaminophen (Tylenol 650 Mg Supp) 650 mg RC Q6H PRN PRN Reason: TEMP>=99.5F Acetylcysteine (Acetylcysteine 20%) 4 ml IH [id number] [facility] Last Admin: 07/22/17 08:04 Dose: 4 ml Atorvastatin Calcium (Lipitor) 40 mg PO HS [facility] Last Admin: 07/15/17 23:11 Dose: 40 mg Budesonide (Pulmicort Respules) 0.5 mg IH [id number] [facility] Last Admin: 07/22/17 08:04 Dose: 0.5 mg Docusate Sodium (Colace Liquid) 100 mg PO TID [facility] Last Admin: 07/21/17 18:03 Dose: 100 mg Enoxaparin Sodium (Lovenox) 30 mg SC Q24H [facility] PRN Reason: Protocol Last Admin: 07/21/17 18:02 Dose: 30 mg Ergocalciferol (Drisdol 50,000 Intl Units Cap) 1 cap PO Q7D [facility] Last Admin: 07/17/17 14:12 Dose: 1 cap Furosemide (Lasix) 40 mg IVP BID [facility] Last Admin: 07/21/17 18:03 Dose: 40 mg Azithromycin (Zithromax 500mg In Ns) 500 mg in 250 mls @ 167 mls/hr IVPB DAILY [facility] PRN Reason: Protocol Last Admin: 07/21/17 09:45 Dose: 167 mls/hr Cefepime HCl (Maxipime 2gm) 2 gm in 100 mls @ 100 mls/hr IVPB Q8 [facility] PRN Reason: Protocol Stop: 07/23/17 14:31 Last Admin: 07/22/17 05:01 Dose: 100 mls/hr Vancomycin HCl (Vancomycin 1gm) 1 gm in 250 mls @ 167 mls/hr IVPB Q12H [facility] PRN Reason: Protocol Last Admin: 07/22/17 02:04 Dose: 167 mls/hr Insulin Detemir (Levemir) 10 unit SC HS [facility] Last Admin: 07/21/17 22:16 Dose: 10 unit Insulin Human Lispro (Humalog High) 0 units SC Q6 [facility] PRN Reason: Protocol Last Admin: 07/22/17 06:15 Dose: Not Given Levalbuterol HCl (Xopenex) 1.25 mg IH [id number] [facility] Last Admin: 07/22/17 08:04 Dose: 1.25 mg Magnesium Oxide (Mag-Ox) 400 mg PO BID [facility] Last Admin: 07/21/17 18:03 Dose: 400 mg Memantine (Namenda) 5 mg PO BID [facility] Last Admin: 07/21/17 18:03 Dose: 5 mg Methylprednisolone (Solu-Medrol) 30 mg IVP Q12 [facility] Last Admin: 07/21/17 22:14 Dose: 30 mg Ondansetron HCl (Zofran Inj) 4 mg IVP Q4H PRN PRN Reason: Nausea/Vomiting Pantoprazole Sodium (Protonix Ec Tab) 40 mg PO 0600 [facility] Last Admin: 07/22/17 05:01 Dose: 40 mg Potassium Chloride (K-Dur 20 Meq Er Tab) 20 meq PO BRK [facility] Tamsulosin HCl (Flomax) 0.4 mg PO DAILY [facility] Last Admin: 07/21/17 09:42 Dose: 0.4 mg Vancomycin HCl (Vancocin 25 Mg/Ml (Oral Use)) 125 mg PO QID [facility] PRN Reason: Protocol Last Admin: 07/21/17 22:14 Dose: 125 mg - Labs Labs: 07/22/17 06:00 07/22/17 06:00 PT 12.4 SECONDS (9.4-12.5) 07/12/17 09:35 INR 1.08 (0.93-1.08) 07/12/17 09:35 APTT 29.0 Seconds (25.1-36.5) 07/12/17 09:35 - Constitutional Appears: Chronically Ill - Head Exam Head Exam: NORMAL INSPECTION - ENT Exam ENT Exam: Mucous Membranes Moist - Neck Exam Neck Exam: absent: Lymphadenopathy, Meningismus - Respiratory Exam Respiratory Exam: Decreased Breath Sounds - Cardiovascular Exam Cardiovascular Exam: +S1, +S2 - GI/Abdominal Exam GI & Abdominal Exam: Soft. absent: Tenderness - Extremities Exam Additional comments: left arm PICC line intact, site clean Assessment and Plan - Assessment and Plan (Free Text) Plan: Assessment left lower lobe HCAP in this patient who is S/P ventilator-dependent respiratory failure after right hip fracture S/P ORIF, slowly improving history of sepsis due to ESBL E. coli UTI COPD cataracts DM Plan continue Vancomycin, Cefepime and Zithromax day 4 - target 4-7 days of therapy; blood cx are negative; reviewed CXR which is showing left lower lobe infiltrates and left pleural effusion PCT is 0.58 will continue to follow clinically
--- NOTE | 2017-07-22 13:48 | PN ---
DATE: SUBJECTIVE: The patient is in [facility] in [place], room 368, bed 1. This is an 82-year-old white female. Patient is seen this morning. She is lying in bed, conscious, alert, pleasant, able to talk and she seems to be positive recovery from recent events. Patient's past history is significant in that she has had a fracture of right hip, which was repaired with open reduction by Dr. Bettencourt, her orthopedic surgeon. Patient's other medical history consist of chronic obstructive lung disease. Patient has history of diabetes, reflux esophagitis, gastritis. Patient has history of pulmonary hypertension. Patient also has history of hyperlipidemia and history of coronary artery disease. PHYSICAL EXAMINATION VITAL SIGNS: Patient has examined this morning. The patient's pulse is 71, blood pressure is 148/70. Patient's respirations of 20, O2 sat is 96% on room air. Patient's temperature is 97.1. HEENT: Head is normocephalic. NECK: The thyroid is not enlarged. JVP is flat. LUNGS: Trachea central. Bilateral crepitations are heard. HEART: Normal sinus rhythm, normal rate. ABDOMEN: Soft. Liver and spleen not palpable. CENTRAL NERVOUS SYSTEM: No focal deficit. LABORATORY DATA: The hemoglobin is 9.6 dated 07/22/2017. Patient's chemistry, the recent blood sugar is around 13. Patient's GFR is in good range. Patient's BUN is 19, creatinine is 0.6. Potassium is slightly low. The patient needs supplement for that. Patient's liver enzymes are mildly elevated. Total protein is low. Albumin is low. MEDICATIONS: The patient's medication list consist of DuoNeb, mucocyst associated with respiratory treatment. Patient gets vitamin D. Patient is on Colace, insulin coverage for diabetes, Lasix twice a day. Patient is on Lipitor 40 mg daily, Lovenox 30 mg for prophylaxis of DVT. Patient is on Maxipime 2 g every 8 hours. Patient is on Namenda for mild dementia twice a day. Patient gets pantoprazole for reflux and gastritis. Patient is also on IV steroids with prednisolone 30 mg IV every 12 hours. Patient is on Pulmicort every 12 hours respiratory treatment. Patient's overall prognosis seem to be improving. Patient's condition is also improving and we will continue current management and followup. ADDENDUM: Patient is also getting vancomycin p.o. and vancomycin IV, this is the antibiotic that the patient was placed on by the Infectious Disease Department. The vancomycin p.o. is for C. difficile infection and vancomycin IV is for the sepsis. Lola Rae MD
[2017-07-22] MEDS: Enoxaparin 30 mg Syringe SC SCH (17:39)
[2017-07-22] MEDS: Insulin Detemir 100 units/ml Vial (Levemir) SC SCH (22:02)
[2017-07-23] MEDS: Insulin Lispro (HUMAlog) HIGH Coverage SC SCH ×4 (00:24→17:42)
[2017-07-23] MEDS: Vancomycin 1gm in NS 250ml 1 GM/250 ML BAG IVPB SCH ×2 (01:38→14:03)
[2017-07-23] MEDS: Levalbuterol 1.25 MG/3 ML Inhal Soln UD IH SCH ×4 (02:27→19:32)
[2017-07-23] MEDS: Acetylcysteine 20% Inhal Soln (4ml) IH SCH ×4 (02:27→19:32)
[2017-07-23] MEDS: Pantoprazole 40 mg EC Tab PO SCH (05:40)
[2017-07-23] MEDS: Cefepime IV 2 gm in NS 2 GM/100 ML BAG IVPB SCH ×2 (05:42→13:56)
[2017-07-23 05:55] LABS: EOS % 0.1 % (1.5-5.0); GRAN # 10.13 (1.4-6.5); GRAN % 86.2 % (50.0-68.0); HEMOGLOBIN 10.2 g/dL (12.0-16.0); LYMPH # 0.8 (1.2-3.4); LYMPH % 7.1 % (22.0-35.0); MEAN CELL VOLUME 90.2 fl (80.0-105.0); MEAN CORPUSCULAR HEMOGLOBIN 29.4 pg (25.0-35.0); MEAN CORPUSCULAR HGB CONC 32.6 g/dl (31.0-37.0); MEAN PLATELET VOLUME 11.9 fl (7.0-11.0); MONO # 0.8 (0.1-0.6); MONO % 6.6 % (1.0-6.0); RBC 3.47 10^6/uL (3.5-6.1); WHITE BLOOD COUNT 11.8 10^3/ul (4.5-11.0)
[2017-07-23 06:24] LABS: ALBUMIN 2.3 g/dL (3.0-4.8); ALT/SGPT 93 U/L (7-56); AST/SGOT 14 U/L (14-36); BILIRUBIN,DIRECT 0.4 mg/dL (0.0-0.4); BLOOD UREA NITROGEN 21 mg/dL (7-21); CALCIUM 8.4 mg/dL (8.4-10.5); GFR AFRICAN-AMERICAN > 60; GFR NON-AFRICAN AMERICAN > 60
[2017-07-23] MEDS: Budesonide 0.5 mg/2 ml Inhal Susp UD IH SCH ×2 (07:58→19:32)
--- NOTE | 2017-07-23 08:23 | PN ---
DATE: 07/23/2017 PULMONARY NOTE SUBJECTIVE: The patient appears comfortable this morning. She is not short of breath at rest. She is awake and alert. She remains very weak appearing. PHYSICAL EXAMINATION: VITAL SIGNS: Last temperature recorded is 98.9. Pulse this morning is 88, respiratory rate 18, last blood pressure recorded 150/64. Oxygen saturation on nasal cannula is 99%. HEENT: Normocephalic, atraumatic. NECK: No JVD. CARDIOVASCULAR: Systolic ejection murmur at the lower left sternal border. No S3 gallop. LUNGS: Decreased breath sounds with crackles at the left base. Much less rhonchi. No wheezing. EXTREMITIES: Positive for mild edema. There is no cyanosis or clubbing. Calves are nontender to palpation. GI: Abdomen is soft, nontender and nondistended. Bowel sounds are positive. SKIN: No acute rash. NEUROLOGIC: Exam limited at the present time. IMPRESSION: 1. Left lower lobe pneumonia. 2. Left pleural effusion. 3. Advanced chronic obstructive pulmonary disease. 4. Severe pulmonary hypertension. 5. Status post respiratory failure. 6. Status post right hip surgery. 7. Mild anemia. PLAN: The patient appears comfortable this morning. She is not short of breath at rest. She is awake and alert. She does remain very weak appearing. On physical exam, there is significantly less bronchospasm noted. In addition, there is significantly less alveolar-arterial gradient. Oxygen saturation on nasal cannula is now 99%. I will continue the current nebulizer treatments and decrease the intravenous steroids this morning. Patient also remains on chest percussion therapy and suctioning. In addition, the patient remains on antibiotic therapy-as per Infectious Disease. Input by Dr. Choudhary is noted. The temperatures have resolved. Clinical status of the patient is certainly improved-compared to last week. I will also order a chest x-ray-for tomorrow-for comparison. Lastly, hopefully, we can start to get the patient out of bed. As above, she remains very weak. Again, in spite of the clinical improvement, the overall status/prognosis for this elderly patient with severe lung disease does remain very guarded. I will discuss the above with the attending physician. Indra Cabrera MD [facility] # [id number] [email or web address]
[2017-07-23] MEDS: Azithromycin 500MG/NS 250ml 500 MG/250 ML BAG IVPB SCH (09:18)
[2017-07-23] MEDS: Potassium Chloride 20 mEq ER Tab PO SCH ×2 (09:21→11:26)
[2017-07-23] MEDS: MethylPREDNISolone 40 mg Vial IVP SCH ×2 (09:21→21:58)
[2017-07-23] MEDS: Vancomycin 25 MG/ML PO SCH ×4 (09:24→22:23)
[2017-07-23] MEDS: Magnesium Oxide 400 mg Tab UD PO SCH ×2 (09:24→17:38)
--- NOTE | 2017-07-23 10:09 | PN ---
DATE: LOCATION: The patient is in [facility] in [place], room 368, bed 1. SUBJECTIVE: Patient was admitted, initially she had a fall. She was in the senior care. She fractured her right hip. Patient came in to the Emergency Room. Patient had open repair of the hip by Dr. Bettencourt. Patient subsequently went into respiratory failure. Patient was in the ICU. She has history of chronic lung disease. She has history of diabetes mellitus, dementia. Patient also has history of hypertension. PHYSICAL EXAMINATION GENERAL: Today, the patient is lying in bed. She is comfortable, but she seems to be very worn out and tired and she has not got out of bed yet. She has been treated for her respiratory status, which is very acute. She has abundance of phlegm, needs suction frequently. Patient needs respiratory treatment frequently also. VITAL SIGNS: Pulse is 75, blood pressure is 165/75, respirations of 20, O2 saturation is 96% on 2 liters of oxygen. Patient's temperature is 97.2. LUNGS: Breath sounds are diminished bilaterally. Crepitations and rhonchi are heard. No localizing signs clinically. HEART: Normal sinus rhythm, sinus tachycardia. ABDOMEN: Soft. Liver and spleen not palpable. CENTRAL NERVOUS SYSTEM: Patient has no focal deficit. MEDICATIONS: Patient's list of medications, patient is on respiratory treatment. Patient also gets Mucomyst intermittently for the respiratory treatment. Patient also gets Flomax, which is alpha-magui. Patient is on sildenafil for pulmonary hypertension. Patient gets potassium chloride, Lasix, insulin coverage for diabetes. Patient is on Lipitor 40 mg daily. Patient gets heparin for prophylaxis; actually, she gets Lovenox 30 mg daily for prophylaxis. Patient is on Maxipime 2 g every 8 hours, Namenda for dementia. LABORATORY DATA: Patient's recent blood work, the hemoglobin is 10.2. The white count is 11,800. Patient's chemistry, the patient's sugar is 195, patient's potassium is 3.5. The patient is on supplement potassium 30 mEq daily, we will continue that. Patient's overall prognosis is guarded, condition is still acute. We will continue current management. Lola Rae MD
--- NOTE | 2017-07-23 11:31 | CP.PCM.PN ---
Subjective - Date & Time of Evaluation Date of Evaluation: 07/23/17 Time of Evaluation: 09:30 - Subjective Subjective: Comfortable, no fevers, not in distress, afebrile. No diarrhea. Objective - Vital Signs/Intake and Output Vital Signs (last 24 hours): Temp Pulse Resp BP Pulse Ox 97.2 F L 75 20 165/77 H 91 L 07/23/17 07:54 07/23/17 07:54 07/23/17 07:54 07/23/17 07:54 07/23/17 07:54 Intake and Output: 07/23/17 07/23/17 06:59 18:59 Intake Total 1300 Output Total 600 Balance 700 - Medications Medications: Current Medications Acetaminophen (Tylenol 325mg Tab) 650 mg PO Q6 PRN PRN Reason: Headache Acetaminophen (Tylenol 650 Mg Supp) 650 mg RC Q6H PRN PRN Reason: Headache Acetaminophen (Tylenol 325mg Tab) 650 mg PO Q6 PRN PRN Reason: TEMP>=99.5F Acetaminophen (Tylenol 650 Mg Supp) 650 mg RC Q6H PRN PRN Reason: TEMP>=99.5F Acetylcysteine (Acetylcysteine 20%) 4 ml IH [id number] [facility] Last Admin: 07/23/17 07:58 Dose: 4 ml Atorvastatin Calcium (Lipitor) 40 mg PO HS [facility] Last Admin: 07/15/17 23:11 Dose: 40 mg Budesonide (Pulmicort Respules) 0.5 mg IH [id number] [facility] Last Admin: 07/23/17 07:58 Dose: 0.5 mg Docusate Sodium (Colace Liquid) 100 mg PO TID [facility] Last Admin: 07/22/17 17:38 Dose: 100 mg Enoxaparin Sodium (Lovenox) 30 mg SC Q24H [facility] PRN Reason: Protocol Last Admin: 07/22/17 17:39 Dose: 30 mg Ergocalciferol (Drisdol 50,000 Intl Units Cap) 1 cap PO Q7D [facility] Last Admin: 07/17/17 14:12 Dose: 1 cap Furosemide (Lasix) 40 mg IVP DAILY [facility] Last Admin: 07/22/17 09:48 Dose: 40 mg Azithromycin (Zithromax 500mg In Ns) 500 mg in 250 mls @ 167 mls/hr IVPB DAILY [facility] PRN Reason: Protocol Last Admin: 07/22/17 09:52 Dose: 167 mls/hr Cefepime HCl (Maxipime 2gm) 2 gm in 100 mls @ 100 mls/hr IVPB Q8 [facility] PRN Reason: Protocol Stop: 07/23/17 14:31 Last Admin: 07/23/17 05:42 Dose: 100 mls/hr Vancomycin HCl (Vancomycin 1gm) 1 gm in 250 mls @ 167 mls/hr IVPB Q12H [facility] PRN Reason: Protocol Last Admin: 07/23/17 01:38 Dose: 167 mls/hr Insulin Detemir (Levemir) 10 unit SC HS [facility] Last Admin: 07/22/17 22:02 Dose: 10 unit Insulin Human Lispro (Humalog High) 0 units SC Q6 [facility] PRN Reason: Protocol Last Admin: 07/23/17 06:24 Dose: 2 units Levalbuterol HCl (Xopenex) 1.25 mg IH [id number] [facility] Last Admin: 07/23/17 07:58 Dose: 1.25 mg Magnesium Oxide (Mag-Ox) 400 mg PO BID [facility] Last Admin: 07/22/17 17:39 Dose: 400 mg Memantine (Namenda) 5 mg PO BID [facility] Last Admin: 07/22/17 17:39 Dose: 5 mg Methylprednisolone (Solu-Medrol) 20 mg IVP Q12 [facility] Ondansetron HCl (Zofran Inj) 4 mg IVP Q4H PRN PRN Reason: Nausea/Vomiting Pantoprazole Sodium (Protonix Ec Tab) 40 mg PO 0600 [facility] Last Admin: 07/23/17 05:40 Dose: 40 mg Potassium Chloride (K-Dur 20 Meq Er Tab) 20 meq PO BRK [facility] Last Admin: 07/22/17 09:51 Dose: 20 meq Tamsulosin HCl (Flomax) 0.4 mg PO DAILY [facility] Last Admin: 07/22/17 09:51 Dose: 0.4 mg Vancomycin HCl (Vancocin 25 Mg/Ml (Oral Use)) 125 mg PO QID [facility] PRN Reason: Protocol Last Admin: 07/22/17 21:32 Dose: 125 mg - Labs Labs: 07/23/17 05:45 07/23/17 05:45 PT 12.4 SECONDS (9.4-12.5) 07/12/17 09:35 INR 1.08 (0.93-1.08) 07/12/17 09:35 APTT 29.0 Seconds (25.1-36.5) 07/12/17 09:35 - Constitutional Appears: Non-toxic, Chronically Ill - Head Exam Head Exam: NORMAL INSPECTION - ENT Exam ENT Exam: Mucous Membranes Moist - Neck Exam Neck Exam: absent: Meningismus - Respiratory Exam Respiratory Exam: Decreased Breath Sounds - Cardiovascular Exam Cardiovascular Exam: +S1, +S2 - GI/Abdominal Exam GI & Abdominal Exam: Soft. absent: Tenderness Assessment and Plan - Assessment and Plan (Free Text) Plan: Assessment left lower lobe HCAP in this patient who is S/P ventilator-dependent respiratory failure after right hip fracture S/P ORIF, slowly improving history of sepsis due to ESBL E. coli UTI COPD cataracts DM Plan continue Vancomycin, Cefepime and Zithromax day 5 - target 4-7 days of therapy; blood cx are negative; reviewed CXR which is showing left lower lobe infiltrates and left pleural effusion PCT is 0.58 will continue to follow clinically
--- NOTE | 2017-07-23 13:18 | PN ---
DATE: 07/23/2017 CARDIOLOGY FOLLOWUP SUBJECTIVE: The patient is in bed, feeling well. No shortness of breath. PHYSICAL EXAMINATION: VITAL SIGNS: Blood pressure 165/77, heart rates in the 70s. NECK: Negative JVD. LUNGS: No rales noted. HEART: Reveals S1, S2. EXTREMITIES: Without edema. LABORATORY DATA: Hemoglobin is 10.2. Chemistries, BUN and creatinine are normal, glucose is 222. IMPRESSION: 1. Fall, status post surgery for the hip fracture. 3. Severe chronic obstructive pulmonary disease. 4. Severe pulmonary hypertension. 5. Diabetes mellitus. 6. Weakness, which is improving. Given these findings, the patient is on continued antibiotics. Her hemoglobin remains stable. Gurpreet Rivas MD
[2017-07-23] MEDS: Enoxaparin 30 mg Syringe SC SCH (17:42)
[2017-07-23] MEDS: Insulin Detemir 100 units/ml Vial (Levemir) SC SCH (21:57)
[2017-07-24] MEDS: Insulin Lispro (HUMAlog) HIGH Coverage SC SCH ×4 (00:15→17:18)
[2017-07-24] MEDS: Acetylcysteine 20% Inhal Soln (4ml) IH SCH ×4 (01:22→20:32)
[2017-07-24] MEDS: Levalbuterol 1.25 MG/3 ML Inhal Soln UD IH SCH ×4 (01:22→20:32)
[2017-07-24] MEDS: Vancomycin 1gm in NS 250ml 1 GM/250 ML BAG IVPB SCH ×2 (04:25→16:41)
[2017-07-24] MEDS: Pantoprazole 40 mg EC Tab PO SCH (05:34)
[2017-07-24 06:29] LABS: EOS # 0.3 (0.0-0.7); EOS % 2.6 % (1.5-5.0); GRAN # 9.74 (1.4-6.5); GRAN % 84.6 % (50.0-68.0); LYMPH % 8.4 % (22.0-35.0); MEAN CELL VOLUME 91.5 fl (80.0-105.0); MEAN CORPUSCULAR HEMOGLOBIN 29.3 pg (25.0-35.0); MEAN CORPUSCULAR HGB CONC 32.1 g/dl (31.0-37.0); MEAN PLATELET VOLUME 12.7 fl (7.0-11.0); MONO # 0.5 (0.1-0.6); MONO % 4.4 % (1.0-6.0); RBC 3.41 10^6/uL (3.5-6.1); RED CELL DISTRIBUTION WIDTH 17.6 % (11.5-14.5); WHITE BLOOD COUNT 11.5 10^3/ul (4.5-11.0)
[2017-07-24 07:05] LABS: ALBUMIN 2.2 g/dL (3.0-4.8); ALT/SGPT 77 U/L (7-56); AST/SGOT 12 U/L (14-36); BILIRUBIN,DIRECT 0.2 mg/dL (0.0-0.4); BLOOD UREA NITROGEN 19 mg/dL (7-21); GFR AFRICAN-AMERICAN > 60; GFR NON-AFRICAN AMERICAN > 60
[2017-07-24] MEDS: Budesonide 0.5 mg/2 ml Inhal Susp UD IH SCH ×2 (07:45→20:32)
--- NOTE | 2017-07-24 07:52 | PN ---
DATE: 07/24/2017 PULMONARY NOTE SUBJECTIVE: The patient appears comfortable this morning. She is not short of breath at rest. She is awake and alert. She remains very weak appearing. PHYSICAL EXAMINATION: VITAL SIGNS: (Last noted in the computer): Temperature is 98.6, pulse 90, respirations 18, blood pressure 124/58. Oxygen saturation on nasal cannula is 94%. HEENT: Normocephalic, atraumatic. NECK: No JVD. CARDIOVASCULAR: Systolic ejection murmur at the lower left sternal border. No S3 gallop. LUNGS: Decreased breath sounds with crackles at the left base. Minimal/much less rhonchi. No wheezing. EXTREMITIES: Positive for mild edema. No cyanosis or clubbing. Calves are nontender to palpation. GI: Abdomen is soft, nontender, nondistended. Bowel sounds are positive. SKIN: No acute rash. NEUROLOGIC: Exam limited at the present time. IMPRESSION: 1. Left lower lobe pneumonia. 2. Left pleural effusion. 3. Advanced chronic obstructive pulmonary disease. 4. Severe pulmonary hypertension. 5. Status post respiratory failure. 6. Status post right hip surgery. 7. Mild anemia. PLAN: The patient appears comfortable this morning. She is not short of breath at rest. She is awake and alert. She does remain very weak appearing. On physical exam, her bronchospasm continues to resolve. In addition, there is no significant alveolar-arterial gradient. I will continue with the current nebulizer treatments and low-dose intravenous steroids (decreased yesterday) for now. The patient remains on antibiotic therapy-as per Infectious Disease. The temperatures have resolved. Repeat a.m. labs are pending. Clinical status of the patient is significantly improved-compared to last week. I have ordered a chest x-ray for this morning-for comparison. I will check that when feasible. Again, in spite of her clinical improvement, the overall status/prognosis for this patient does remain very guarded. I will discuss the above with the attending physician this morning. Indra Cabrera MD [facility]
[2017-07-24] MEDS: Potassium Chloride 20 mEq ER Tab PO SCH ×2 (08:14)
--- NOTE | 2017-07-24 08:26 | CP.PCM.PN ---
Subjective - Date & Time of Evaluation Date of Evaluation: 07/24/17 Time of Evaluation: 08:00 - Subjective Subjective: (covering for Dr. Hamilton) Patient is seen this morning. She is bringing up a lot of mucus. Objective - Vital Signs/Intake and Output Vital Signs (last 24 hours): Temp Pulse Resp BP Pulse Ox 97.5 F L 80 20 156/71 H 100 07/24/17 08:03 07/24/17 08:03 07/24/17 08:03 07/24/17 08:03 07/24/17 08:03 Intake and Output: 07/24/17 07/24/17 06:59 18:59 Intake Total 540 Output Total 600 Balance -60 - Medications Medications: Current Medications Acetaminophen (Tylenol 325mg Tab) 650 mg PO Q6 PRN PRN Reason: Headache Acetaminophen (Tylenol 650 Mg Supp) 650 mg RC Q6H PRN PRN Reason: Headache Acetaminophen (Tylenol 325mg Tab) 650 mg PO Q6 PRN PRN Reason: TEMP>=99.5F Acetaminophen (Tylenol 650 Mg Supp) 650 mg RC Q6H PRN PRN Reason: TEMP>=99.5F Acetylcysteine (Acetylcysteine 20%) 4 ml IH [id number] [facility] Last Admin: 07/24/17 07:45 Dose: 4 ml Atorvastatin Calcium (Lipitor) 40 mg PO HS [facility] Last Admin: 07/15/17 23:11 Dose: 40 mg Budesonide (Pulmicort Respules) 0.5 mg IH [id number] [facility] Last Admin: 07/24/17 07:45 Dose: 0.5 mg Docusate Sodium (Colace Liquid) 100 mg PO TID [facility] Last Admin: 07/23/17 17:38 Dose: 100 mg Enoxaparin Sodium (Lovenox) 30 mg SC Q24H [facility] PRN Reason: Protocol Last Admin: 07/23/17 17:42 Dose: 30 mg Ergocalciferol (Drisdol 50,000 Intl Units Cap) 1 cap PO Q7D [facility] Last Admin: 07/17/17 14:12 Dose: 1 cap Furosemide (Lasix) 40 mg IVP DAILY [facility] Last Admin: 07/23/17 09:20 Dose: 40 mg Azithromycin (Zithromax 500mg In Ns) 500 mg in 250 mls @ 167 mls/hr IVPB DAILY [facility] PRN Reason: Protocol Last Admin: 07/23/17 09:18 Dose: 167 mls/hr Vancomycin HCl (Vancomycin 1gm) 1 gm in 250 mls @ 167 mls/hr IVPB Q12H [facility] PRN Reason: Protocol Last Admin: 07/24/17 04:25 Dose: 167 mls/hr Insulin Detemir (Levemir) 10 unit SC HS [facility] Last Admin: 07/23/17 21:57 Dose: 10 unit Insulin Human Lispro (Humalog High) 0 units SC Q6 [facility] PRN Reason: Protocol Last Admin: 07/24/17 06:53 Dose: Not Given Levalbuterol HCl (Xopenex) 1.25 mg IH [id number] [facility] Last Admin: 07/24/17 07:45 Dose: 1.25 mg Magnesium Oxide (Mag-Ox) 400 mg PO BID [facility] Last Admin: 07/23/17 17:38 Dose: 400 mg Memantine (Namenda) 5 mg PO BID [facility] Last Admin: 07/23/17 17:38 Dose: 5 mg Methylprednisolone (Solu-Medrol) 20 mg IVP Q12 [facility] Last Admin: 07/23/17 21:58 Dose: 20 mg Ondansetron HCl (Zofran Inj) 4 mg IVP Q4H PRN PRN Reason: Nausea/Vomiting Pantoprazole Sodium (Protonix Ec Tab) 40 mg PO 0600 [facility] Last Admin: 07/24/17 05:34 Dose: 40 mg Potassium Chloride (K-Dur 20 Meq Er Tab) 20 meq PO BRK [facility] Last Admin: 07/23/17 09:21 Dose: 20 meq Potassium Chloride (K-Dur 20 Meq Er Tab) 20 meq PO BRK [facility] Last Admin: 07/23/17 11:26 Dose: 20 meq Tamsulosin HCl (Flomax) 0.4 mg PO DAILY [facility] Last Admin: 07/23/17 09:21 Dose: 0.4 mg Tramadol HCl (Ultram) 50 mg PO TID PRN PRN Reason: Pain, moderate (4-7) Last Admin: 07/23/17 11:26 Dose: 50 mg Vancomycin HCl (Vancocin 25 Mg/Ml (Oral Use)) 125 mg PO QID [facility] PRN Reason: Protocol Last Admin: 07/23/17 22:23 Dose: 125 mg - Labs Labs: 07/24/17 06:15 07/24/17 06:15 PT 12.4 SECONDS (9.4-12.5) 07/12/17 09:35 INR 1.08 (0.93-1.08) 07/12/17 09:35 APTT 29.0 Seconds (25.1-36.5) 07/12/17 09:35 - Constitutional Appears: No Acute Distress - Respiratory Exam Respiratory Exam: Rhonchi - Cardiovascular Exam Cardiovascular Exam: +S1, +S2 - GI/Abdominal Exam GI & Abdominal Exam: Soft, Normal Bowel Sounds. absent: Tenderness - Neurological Exam Neurological Exam: Alert, Awake Assessment and Plan - Assessment and Plan (Free Text) Assessment: LLL pneumonia L pleural effusion COPD Pulmonary hypertension R hip fracture s/p ORIF Plan: continue Vancomycin, Zithromax as per infectious disease continue respiratory treatments Will repeat CXR continue physical therapy
--- NOTE | 2017-07-24 09:42 | RAD ---
HISTORY: follow up COMPARISON: 07/20/2017 FINDINGS: The left PICC line terminates in the distal SVC. LUNGS: There is left lower lobe airspace disease and right basilar atelectasis. PLEURA: Interval improvement in moderate left pleural effusion with residual small effusion. Small right pleural effusion, no pneumothorax apparent. CARDIOVASCULAR: Normal. OSSEOUS STRUCTURES: No significant abnormalities. VISUALIZED UPPER ABDOMEN: Normal. OTHER FINDINGS: None. IMPRESSION: Improving left pleural effusion with residual small pleural effusion. Left lower lobe airspace disease may represent atelectasis or pneumonia. Small right pleural effusion and right basilar atelectasis.
[2017-07-24] MEDS: Magnesium Oxide 400 mg Tab UD PO SCH ×3 (11:14→18:22)
[2017-07-24] MEDS: MethylPREDNISolone 40 mg Vial IVP SCH ×2 (11:14→21:44)
[2017-07-24] MEDS: Vancomycin 25 MG/ML PO SCH ×4 (11:15→21:45)
[2017-07-24] MEDS: Azithromycin 500MG/NS 250ml 500 MG/250 ML BAG IVPB SCH (12:28)
--- NOTE | 2017-07-24 13:01 | CP.PCM.PN ---
Subjective - Date & Time of Evaluation Date of Evaluation: 07/24/17 Time of Evaluation: 10:40 - Subjective Subjective: Patient is comfortable in bed, no fever, no diarrhea, eating well. Objective - Vital Signs/Intake and Output Vital Signs (last 24 hours): Temp Pulse Resp BP Pulse Ox 97.5 F L 80 20 156/71 H 100 07/24/17 08:03 07/24/17 08:03 07/24/17 08:03 07/24/17 08:03 07/24/17 08:03 Intake and Output: 07/24/17 07/24/17 06:59 18:59 Intake Total 540 Output Total 600 Balance -60 - Medications Medications: Current Medications Acetaminophen (Tylenol 325mg Tab) 650 mg PO Q6 PRN PRN Reason: Headache Acetaminophen (Tylenol 650 Mg Supp) 650 mg RC Q6H PRN PRN Reason: Headache Acetaminophen (Tylenol 325mg Tab) 650 mg PO Q6 PRN PRN Reason: TEMP>=99.5F Acetaminophen (Tylenol 650 Mg Supp) 650 mg RC Q6H PRN PRN Reason: TEMP>=99.5F Acetylcysteine (Acetylcysteine 20%) 4 ml IH [id number] [facility] Last Admin: 07/24/17 07:45 Dose: 4 ml Atorvastatin Calcium (Lipitor) 40 mg PO HS [facility] Last Admin: 07/15/17 23:11 Dose: 40 mg Budesonide (Pulmicort Respules) 0.5 mg IH [id number] [facility] Last Admin: 07/24/17 07:45 Dose: 0.5 mg Docusate Sodium (Colace Liquid) 100 mg PO TID [facility] Last Admin: 07/23/17 17:38 Dose: 100 mg Enoxaparin Sodium (Lovenox) 30 mg SC Q24H [facility] PRN Reason: Protocol Last Admin: 07/23/17 17:42 Dose: 30 mg Ergocalciferol (Drisdol 50,000 Intl Units Cap) 1 cap PO Q7D [facility] Last Admin: 07/17/17 14:12 Dose: 1 cap Furosemide (Lasix) 40 mg IVP DAILY [facility] Last Admin: 07/23/17 09:20 Dose: 40 mg Azithromycin (Zithromax 500mg In Ns) 500 mg in 250 mls @ 167 mls/hr IVPB DAILY [facility] PRN Reason: Protocol Last Admin: 07/23/17 09:18 Dose: 167 mls/hr Vancomycin HCl (Vancomycin 1gm) 1 gm in 250 mls @ 167 mls/hr IVPB Q12H [facility] PRN Reason: Protocol Last Admin: 07/24/17 04:25 Dose: 167 mls/hr Insulin Detemir (Levemir) 10 unit SC HS [facility] Last Admin: 07/23/17 21:57 Dose: 10 unit Insulin Human Lispro (Humalog High) 0 units SC Q6 [facility] PRN Reason: Protocol Last Admin: 07/24/17 06:53 Dose: Not Given Levalbuterol HCl (Xopenex) 1.25 mg IH [id number] [facility] Last Admin: 07/24/17 07:45 Dose: 1.25 mg Magnesium Oxide (Mag-Ox) 400 mg PO BID [facility] Last Admin: 07/23/17 17:38 Dose: 400 mg Memantine (Namenda) 5 mg PO BID [facility] Last Admin: 07/23/17 17:38 Dose: 5 mg Methylprednisolone (Solu-Medrol) 20 mg IVP Q12 [facility] Last Admin: 07/23/17 21:58 Dose: 20 mg Ondansetron HCl (Zofran Inj) 4 mg IVP Q4H PRN PRN Reason: Nausea/Vomiting Pantoprazole Sodium (Protonix Ec Tab) 40 mg PO 0600 [facility] Last Admin: 07/24/17 05:34 Dose: 40 mg Potassium Chloride (K-Dur 20 Meq Er Tab) 20 meq PO BRK [facility] Last Admin: 07/24/17 08:14 Dose: 20 meq Potassium Chloride (K-Dur 20 Meq Er Tab) 20 meq PO BRK [facility] Last Admin: 07/24/17 08:14 Dose: 20 meq Tamsulosin HCl (Flomax) 0.4 mg PO DAILY [facility] Last Admin: 07/23/17 09:21 Dose: 0.4 mg Tramadol HCl (Ultram) 50 mg PO TID PRN PRN Reason: Pain, moderate (4-7) Last Admin: 07/24/17 08:14 Dose: 50 mg Vancomycin HCl (Vancocin 25 Mg/Ml (Oral Use)) 125 mg PO QID [facility] PRN Reason: Protocol Last Admin: 07/23/17 22:23 Dose: 125 mg - Labs Labs: 07/24/17 06:15 07/24/17 06:15 PT 12.4 SECONDS (9.4-12.5) 07/12/17 09:35 INR 1.08 (0.93-1.08) 07/12/17 09:35 APTT 29.0 Seconds (25.1-36.5) 07/12/17 09:35 - Constitutional Appears: Non-toxic, Chronically Ill - Head Exam Head Exam: NORMAL INSPECTION - ENT Exam ENT Exam: Mucous Membranes Moist - Neck Exam Neck Exam: absent: Meningismus - Respiratory Exam Respiratory Exam: Decreased Breath Sounds - Cardiovascular Exam Cardiovascular Exam: +S1, +S2 - GI/Abdominal Exam GI & Abdominal Exam: Soft. absent: Tenderness - Extremities Exam Additional comments: right arm with PICC in place Assessment and Plan - Assessment and Plan (Free Text) Plan: Assessment left lower lobe HCAP in this patient who is S/P ventilator-dependent respiratory failure after right hip fracture S/P ORIF, slowly improving history of sepsis due to ESBL E. coli UTI COPD cataracts DM Plan continue Vancomycin, Cefepime and Zithromax day 6 - target 4-7 days of therapy; blood cx are negative; reviewed CXR which is showing left lower lobe infiltrates and left pleural effusion PCT is 0.58 will continue to follow clinically
--- NOTE | 2017-07-24 14:04 | PN ---
DATE: 07/24/2017 SUBJECTIVE: The patient is in bed, awake, alert. No dyspnea noted. PHYSICAL EXAMINATION VITAL SIGNS: Blood pressure 156/71, the heart rate is in the 80s. NECK: Negative JVD. LUNGS: Decreased breath sounds without rales. HEART: Reveals S1, S2. EXTREMITIES: Without edema. LABORATORY DATA: Hemoglobin is 10.1. Chemistries, BUN and creatinine are unremarkable. The glucose is 102. IMPRESSION: 1. Status post hip fracture surgery. 2. Anemia which is stable. 3. Chronic obstructive pulmonary disease. 4. Severe pulmonary hypertension. 5. Diabetes mellitus. PLAN: Given these findings, the patient is stable post surgery. The patient will need extensive physical therapy. Gurpreet Rivas MD
[2017-07-24] MEDS: Cefepime 1gm in NS 100ml 1 GM/100 ML BAG IVPB SCH ×2 (14:23→21:44)
--- NOTE | 2017-07-24 14:48 | CP.PCM.PN ---
Subjective - Date & Time of Evaluation Date of Evaluation: 07/24/17 Time of Evaluation: 14:44 - Subjective Subjective: Patient POD #12 s/p ORIF R hip fx. Patient is alert and awake, sitting up in bed. Patient denies any significant pain. afebrile WBC: 11.5 hgb 10 R hip: Dressings are dry. Dressings changed. The incision is clean and intact. There is no erythema or drainage. No signs of cellulitis or infection. Calf and thigh are soft nontender. NVI distally s/p ORIF R hip fx Continue PT Cont medical management Ortho stable Objective - Vital Signs/Intake and Output Vital Signs (last 24 hours): Temp Pulse Resp BP Pulse Ox 97.5 F L 80 20 156/71 H 97 07/24/17 08:03 07/24/17 08:03 07/24/17 08:03 07/24/17 11:14 07/24/17 10:00 Intake and Output: 07/24/17 07/24/17 06:59 18:59 Intake Total 540 Output Total 600 Balance -60 - Medications Medications: Current Medications Acetaminophen (Tylenol 325mg Tab) 650 mg PO Q6 PRN PRN Reason: Headache Acetaminophen (Tylenol 650 Mg Supp) 650 mg RC Q6H PRN PRN Reason: Headache Acetaminophen (Tylenol 325mg Tab) 650 mg PO Q6 PRN PRN Reason: TEMP>=99.5F Acetaminophen (Tylenol 650 Mg Supp) 650 mg RC Q6H PRN PRN Reason: TEMP>=99.5F Acetylcysteine (Acetylcysteine 20%) 4 ml IH [id number] [facility] Last Admin: 07/24/17 13:31 Dose: 4 ml Atorvastatin Calcium (Lipitor) 40 mg PO HS [facility] Last Admin: 07/15/17 23:11 Dose: 40 mg Budesonide (Pulmicort Respules) 0.5 mg IH [id number] [facility] Last Admin: 07/24/17 07:45 Dose: 0.5 mg Docusate Sodium (Colace Liquid) 100 mg PO TID [facility] Last Admin: 07/24/17 14:23 Dose: 100 mg Enoxaparin Sodium (Lovenox) 30 mg SC Q24H [facility] PRN Reason: Protocol Last Admin: 07/23/17 17:42 Dose: 30 mg Ergocalciferol (Drisdol 50,000 Intl Units Cap) 1 cap PO Q7D [facility] Last Admin: 07/17/17 14:12 Dose: 1 cap Furosemide (Lasix) 40 mg IVP DAILY [facility] Last Admin: 07/24/17 11:14 Dose: 40 mg Vancomycin HCl (Vancomycin 1gm) 1 gm in 250 mls @ 167 mls/hr IVPB Q12H [facility] PRN Reason: Protocol Last Admin: 07/24/17 04:25 Dose: 167 mls/hr Cefepime HCl (Maxipime 1gm) 1 gm in 100 mls @ 100 mls/hr IVPB Q8 [facility] PRN Reason: Protocol Last Admin: 07/24/17 14:23 Dose: 100 mls/hr Azithromycin (Zithromax 500mg In Ns) 500 mg in 250 mls @ 167 mls/hr IVPB DAILY [facility] PRN Reason: Protocol Insulin Detemir (Levemir) 10 unit SC HS [facility] Last Admin: 07/23/17 21:57 Dose: 10 unit Insulin Human Lispro (Humalog High) 0 units SC Q6 [facility] PRN Reason: Protocol Last Admin: 07/24/17 12:27 Dose: Not Given Levalbuterol HCl (Xopenex) 1.25 mg IH [id number] [facility] Last Admin: 07/24/17 13:31 Dose: 1.25 mg Magnesium Oxide (Mag-Ox) 400 mg PO BID [facility] Last Admin: 07/24/17 11:14 Dose: 400 mg Memantine (Namenda) 5 mg PO BID [facility] Last Admin: 07/24/17 11:15 Dose: 5 mg Methylprednisolone (Solu-Medrol) 20 mg IVP Q12 [facility] Last Admin: 07/24/17 11:14 Dose: 20 mg Ondansetron HCl (Zofran Inj) 4 mg IVP Q4H PRN PRN Reason: Nausea/Vomiting Pantoprazole Sodium (Protonix Ec Tab) 40 mg PO 0600 [facility] Last Admin: 07/24/17 05:34 Dose: 40 mg Potassium Chloride (K-Dur 20 Meq Er Tab) 20 meq PO BRK [facility] Last Admin: 07/24/17 08:14 Dose: 20 meq Potassium Chloride (K-Dur 20 Meq Er Tab) 20 meq PO BRK [facility] Last Admin: 07/24/17 08:14 Dose: 20 meq Tamsulosin HCl (Flomax) 0.4 mg PO DAILY [facility] Last Admin: 07/24/17 11:15 Dose: 0.4 mg Tramadol HCl (Ultram) 50 mg PO TID PRN PRN Reason: Pain, moderate (4-7) Last Admin: 07/24/17 08:14 Dose: 50 mg Vancomycin HCl (Vancocin 25 Mg/Ml (Oral Use)) 125 mg PO QID [facility] PRN Reason: Protocol Last Admin: 07/24/17 14:24 Dose: 125 mg - Labs Labs: 07/24/17 06:15 07/24/17 06:15 PT 12.4 SECONDS (9.4-12.5) 07/12/17 09:35 INR 1.08 (0.93-1.08) 07/12/17 09:35 APTT 29.0 Seconds (25.1-36.5) 07/12/17 09:35
[2017-07-24] MEDS: Ergocalciferol 50,000 Intl Units Cap PO SCH (17:15)
[2017-07-24] MEDS: Enoxaparin 30 mg Syringe SC SCH (19:07)
[2017-07-24] MEDS: Insulin Detemir 100 units/ml Vial (Levemir) SC SCH (22:05)
[2017-07-25] MEDS: Insulin Lispro (HUMAlog) HIGH Coverage SC SCH ×4 (00:30→17:18)
[2017-07-25] MEDS: Acetylcysteine 20% Inhal Soln (4ml) IH SCH ×4 (01:45→19:52)
[2017-07-25] MEDS: Levalbuterol 1.25 MG/3 ML Inhal Soln UD IH SCH ×4 (01:45→19:52)
[2017-07-25] MEDS: Vancomycin 1gm in NS 250ml 1 GM/250 ML BAG IVPB SCH ×2 (04:05→15:27)
[2017-07-25] MEDS: Pantoprazole 40 mg EC Tab PO SCH (06:28)
[2017-07-25] MEDS: Cefepime 1gm in NS 100ml 1 GM/100 ML BAG IVPB SCH ×3 (06:28→22:08)
[2017-07-25 07:21] LABS: HEMOGLOBIN 9.8 g/dL (12.0-16.0); MEAN CELL VOLUME 90.7 fl (80.0-105.0); MEAN CORPUSCULAR HEMOGLOBIN 29.3 pg (25.0-35.0); MEAN CORPUSCULAR HGB CONC 32.3 g/dl (31.0-37.0); RBC 3.34 10^6/uL (3.5-6.1); RED CELL DISTRIBUTION WIDTH 17.3 % (11.5-14.5); WHITE BLOOD COUNT 12.1 10^3/ul (4.5-11.0)
[2017-07-25] MEDS: Budesonide 0.5 mg/2 ml Inhal Susp UD IH SCH ×2 (07:51→19:52)
--- NOTE | 2017-07-25 08:03 | CP.PCM.PN ---
Subjective - Date & Time of Evaluation Date of Evaluation: 07/25/17 Time of Evaluation: 07:15 - Subjective Subjective: (covering for Dr. Hamilton) Patient is seen this morning. She is feeling better. She still has cough, but says the secretions are less. Objective - Vital Signs/Intake and Output Vital Signs (last 24 hours): Temp Pulse Resp BP Pulse Ox 98.2 F 70 18 145/79 95 07/24/17 22:00 07/24/17 22:00 07/24/17 22:00 07/24/17 22:00 07/24/17 22:00 Intake and Output: 07/25/17 07/25/17 06:59 18:59 Intake Total 1350 Output Total 1200 Balance 150 - Medications Medications: Current Medications Acetaminophen (Tylenol 325mg Tab) 650 mg PO Q6 PRN PRN Reason: Headache Acetaminophen (Tylenol 650 Mg Supp) 650 mg RC Q6H PRN PRN Reason: Headache Acetaminophen (Tylenol 325mg Tab) 650 mg PO Q6 PRN PRN Reason: TEMP>=99.5F Acetaminophen (Tylenol 650 Mg Supp) 650 mg RC Q6H PRN PRN Reason: TEMP>=99.5F Acetylcysteine (Acetylcysteine 20%) 4 ml IH [id number] [facility] Last Admin: 07/25/17 07:51 Dose: 4 ml Atorvastatin Calcium (Lipitor) 40 mg PO HS [facility] Last Admin: 07/15/17 23:11 Dose: 40 mg Budesonide (Pulmicort Respules) 0.5 mg IH [id number] [facility] Last Admin: 07/25/17 07:51 Dose: 0.5 mg Docusate Sodium (Colace Liquid) 100 mg PO TID [facility] Last Admin: 07/24/17 19:05 Dose: Not Given Enoxaparin Sodium (Lovenox) 30 mg SC Q24H [facility] PRN Reason: Protocol Last Admin: 07/24/17 19:07 Dose: 30 mg Ergocalciferol (Drisdol 50,000 Intl Units Cap) 1 cap PO Q7D [facility] Last Admin: 07/24/17 17:15 Dose: 1 cap Furosemide (Lasix) 40 mg IVP DAILY [facility] Last Admin: 07/24/17 11:14 Dose: 40 mg Vancomycin HCl (Vancomycin 1gm) 1 gm in 250 mls @ 167 mls/hr IVPB Q12H [facility] PRN Reason: Protocol Last Admin: 07/25/17 04:05 Dose: 167 mls/hr Cefepime HCl (Maxipime 1gm) 1 gm in 100 mls @ 100 mls/hr IVPB Q8 [facility] PRN Reason: Protocol Last Admin: 07/25/17 06:28 Dose: 100 mls/hr Azithromycin (Zithromax 500mg In Ns) 500 mg in 250 mls @ 167 mls/hr IVPB DAILY [facility] PRN Reason: Protocol Insulin Detemir (Levemir) 10 unit SC HS [facility] Last Admin: 07/24/17 22:05 Dose: 10 unit Insulin Human Lispro (Humalog High) 0 units SC Q6 [facility] PRN Reason: Protocol Last Admin: 07/25/17 00:30 Dose: 3 units Levalbuterol HCl (Xopenex) 1.25 mg IH [id number] [facility] Last Admin: 07/25/17 07:51 Dose: 1.25 mg Magnesium Oxide (Mag-Ox) 400 mg PO BID [facility] Last Admin: 07/24/17 18:22 Dose: Not Given Memantine (Namenda) 5 mg PO BID [facility] Last Admin: 07/24/17 18:22 Dose: Not Given Methylprednisolone (Solu-Medrol) 20 mg IVP Q12 [facility] Last Admin: 07/24/17 21:44 Dose: 20 mg Ondansetron HCl (Zofran Inj) 4 mg IVP Q4H PRN PRN Reason: Nausea/Vomiting Pantoprazole Sodium (Protonix Ec Tab) 40 mg PO 0600 [facility] Last Admin: 07/25/17 06:28 Dose: 40 mg Potassium Chloride (K-Dur 20 Meq Er Tab) 20 meq PO BRK [facility] Last Admin: 07/24/17 08:14 Dose: 20 meq Potassium Chloride (K-Dur 20 Meq Er Tab) 20 meq PO BRK [facility] Last Admin: 07/24/17 08:14 Dose: 20 meq Tamsulosin HCl (Flomax) 0.4 mg PO DAILY [facility] Last Admin: 07/24/17 11:15 Dose: 0.4 mg Tramadol HCl (Ultram) 50 mg PO TID PRN PRN Reason: Pain, moderate (4-7) Last Admin: 07/24/17 08:14 Dose: 50 mg Vancomycin HCl (Vancocin 25 Mg/Ml (Oral Use)) 125 mg PO QID [facility] PRN Reason: Protocol Last Admin: 07/24/17 21:45 Dose: 125 mg - Labs Labs: 07/25/17 06:45 07/24/17 06:15 PT 12.4 SECONDS (9.4-12.5) 07/12/17 09:35 INR 1.08 (0.93-1.08) 07/12/17 09:35 APTT 29.0 Seconds (25.1-36.5) 07/12/17 09:35 - Constitutional Appears: No Acute Distress - Head Exam Head Exam: ATRAUMATIC, NORMOCEPHALIC - Respiratory Exam Respiratory Exam: Rhonchi, NORMAL BREATHING PATTERN - Cardiovascular Exam Cardiovascular Exam: +S1, +S2 - GI/Abdominal Exam GI & Abdominal Exam: Soft, Normal Bowel Sounds. absent: Tenderness - Extremities Exam Additional comments: SCDs Assessment and Plan - Assessment and Plan (Free Text) Assessment: LLL pneumonia bilateral small pleural effusion COPD Diabetes Right hip fracture s/p ORIF Plan: Patient is seen this morning. CXR done yesterday shows improvement in left pleural effusion and infiltrate. continue antibiotics as per infectious disease. continue respiratory treatments and solumedrol as per pulmonary. continue physical therapy.
[2017-07-25 08:09] LABS: ALB/GLOB RATIO 1.1 (1.1-1.8); ALBUMIN 2.3 g/dL (3.0-4.8); ALT/SGPT 66 U/L (7-56); AST/SGOT 15 U/L (14-36); BLOOD UREA NITROGEN 19 mg/dL (7-21); CALCIUM 8.1 mg/dL (8.4-10.5); GFR AFRICAN-AMERICAN > 60; GFR NON-AFRICAN AMERICAN > 60
[2017-07-25] MEDS: Potassium Chloride 20 mEq ER Tab PO SCH ×2 (08:33)
--- NOTE | 2017-07-25 08:40 | PN ---
DATE: 07/25/2017 PULMONARY NOTE SUBJECTIVE: The patient appears comfortable this morning. She is not short of breath at rest. She remains very weak appearing. PHYSICAL EXAMINATION VITAL SIGNS: (Last noted in the computer): Temperature is 98.2, pulse is 70, respirations 18, blood pressure 145/79. Oxygen saturation on nasal cannula is 95%-97%. HEENT: Normocephalic, atraumatic. No JVD. CARDIOVASCULAR: Systolic ejection murmur at the lower left sternal border. No S3 gallop. LUNGS: Decreased breath sounds with crackles at the left base. Mild loose bilateral rhonchi. No wheezing. EXTREMITIES: Positive for mild edema. No cyanosis or clubbing. Calves are nontender to palpation. GI: Abdomen is soft, nontender and nondistended. Bowel sounds are positive. SKIN: No acute rash. NEUROLOGIC: Limited at the present time. PERTINENT LABORATORY DATA: Chest x-ray was repeated yesterday and reviewed. The chest x-ray shows a continued decrease in the left lung pulmonary infiltrates, as well as a continued decrease in the left pleural effusion. The film done yesterday is significantly improved compared to the film of 07/18/2017. IMPRESSION: 1. Left lower lobe pneumonia. 2. Left pleural effusion. 3. Advanced chronic obstructive pulmonary disease. 4. Severe pulmonary hypertension. 5. Status post respiratory failure. 6. Status post right hip surgery. 7. Mild anemia. PLAN: The patient appears comfortable this morning. She is not short of breath at rest. She does remain very weak appearing. On physical exam, mild bronchospasm remains. However, the alveolar-arterial gradient has significantly decreased. I will continue with the current nebulizer treatments and low-dose intravenous steroids for now. I will also continue with the aggressive pulmonary toilet and I have discussed the case with the respiratory therapist again this morning. The patient remains on antibiotic therapy - as per Infectious Disease. The temperatures have resolved. Repeat a.m. labs are pending. The clinical status of the patient is significantly improved - compared to last week. I would like to see the patient out of bed as much as possible. I did discuss this with the nurses. I will also discuss the above with the attending physician. Indra Cabrera MD [facility] # [id number] [facility]
[2017-07-25 09:32] LABS: PLATELET COUNT 147 10^3/uL (120.0-450.0)
--- NOTE | 2017-07-25 10:44 | CP.PCM.PN ---
Subjective - Date & Time of Evaluation Date of Evaluation: 07/25/17 Time of Evaluation: 10:15 - Subjective Subjective: Comfortable in bed, no fevers, not in distress. Objective - Vital Signs/Intake and Output Vital Signs (last 24 hours): Temp Pulse Resp BP Pulse Ox 98.2 F 70 18 145/79 95 07/24/17 22:00 07/24/17 22:00 07/24/17 22:00 07/24/17 22:00 07/24/17 22:00 Intake and Output: 07/25/17 07/25/17 06:59 18:59 Intake Total 1350 Output Total 1200 Balance 150 - Medications Medications: Current Medications Acetaminophen (Tylenol 325mg Tab) 650 mg PO Q6 PRN PRN Reason: Headache Acetaminophen (Tylenol 650 Mg Supp) 650 mg RC Q6H PRN PRN Reason: Headache Acetaminophen (Tylenol 325mg Tab) 650 mg PO Q6 PRN PRN Reason: TEMP>=99.5F Acetaminophen (Tylenol 650 Mg Supp) 650 mg RC Q6H PRN PRN Reason: TEMP>=99.5F Acetylcysteine (Acetylcysteine 20%) 4 ml IH [id number] [facility] Last Admin: 07/25/17 07:51 Dose: 4 ml Atorvastatin Calcium (Lipitor) 40 mg PO HS [facility] Last Admin: 07/15/17 23:11 Dose: 40 mg Budesonide (Pulmicort Respules) 0.5 mg IH [id number] [facility] Last Admin: 07/25/17 07:51 Dose: 0.5 mg Docusate Sodium (Colace Liquid) 100 mg PO TID [facility] Last Admin: 07/24/17 19:05 Dose: Not Given Enoxaparin Sodium (Lovenox) 30 mg SC Q24H [facility] PRN Reason: Protocol Last Admin: 07/24/17 19:07 Dose: 30 mg Ergocalciferol (Drisdol 50,000 Intl Units Cap) 1 cap PO Q7D [facility] Last Admin: 07/24/17 17:15 Dose: 1 cap Furosemide (Lasix) 40 mg IVP DAILY [facility] Last Admin: 07/24/17 11:14 Dose: 40 mg Vancomycin HCl (Vancomycin 1gm) 1 gm in 250 mls @ 167 mls/hr IVPB Q12H [facility] PRN Reason: Protocol Last Admin: 07/25/17 04:05 Dose: 167 mls/hr Cefepime HCl (Maxipime 1gm) 1 gm in 100 mls @ 100 mls/hr IVPB Q8 [facility] PRN Reason: Protocol Last Admin: 07/25/17 06:28 Dose: 100 mls/hr Azithromycin (Zithromax 500mg In Ns) 500 mg in 250 mls @ 167 mls/hr IVPB DAILY [facility] PRN Reason: Protocol Insulin Detemir (Levemir) 10 unit SC HS [facility] Last Admin: 07/24/17 22:05 Dose: 10 unit Insulin Human Lispro (Humalog High) 0 units SC Q6 [facility] PRN Reason: Protocol Last Admin: 07/25/17 07:57 Dose: 2 units Levalbuterol HCl (Xopenex) 1.25 mg IH [id number] [facility] Last Admin: 07/25/17 07:51 Dose: 1.25 mg Magnesium Oxide (Mag-Ox) 400 mg PO BID [facility] Last Admin: 07/24/17 18:22 Dose: Not Given Memantine (Namenda) 5 mg PO BID [facility] Last Admin: 07/24/17 18:22 Dose: Not Given Methylprednisolone (Solu-Medrol) 20 mg IVP Q12 [facility] Last Admin: 07/24/17 21:44 Dose: 20 mg Ondansetron HCl (Zofran Inj) 4 mg IVP Q4H PRN PRN Reason: Nausea/Vomiting Pantoprazole Sodium (Protonix Ec Tab) 40 mg PO 0600 [facility] Last Admin: 07/25/17 06:28 Dose: 40 mg Potassium Chloride (K-Dur 20 Meq Er Tab) 20 meq PO BRK [facility] Last Admin: 07/25/17 08:33 Dose: 20 meq Potassium Chloride (K-Dur 20 Meq Er Tab) 20 meq PO BRK [facility] Last Admin: 07/25/17 08:33 Dose: Not Given Tamsulosin HCl (Flomax) 0.4 mg PO DAILY [facility] Last Admin: 07/24/17 11:15 Dose: 0.4 mg Tramadol HCl (Ultram) 50 mg PO TID PRN PRN Reason: Pain, moderate (4-7) Last Admin: 07/24/17 08:14 Dose: 50 mg Vancomycin HCl (Vancocin 25 Mg/Ml (Oral Use)) 125 mg PO QID [facility] PRN Reason: Protocol Last Admin: 07/24/17 21:45 Dose: 125 mg - Labs Labs: 07/25/17 06:45 07/25/17 06:45 PT 12.4 SECONDS (9.4-12.5) 07/12/17 09:35 INR 1.08 (0.93-1.08) 07/12/17 09:35 APTT 29.0 Seconds (25.1-36.5) 07/12/17 09:35 - Constitutional Appears: Non-toxic, Chronically Ill - Head Exam Head Exam: NORMAL INSPECTION - ENT Exam ENT Exam: Mucous Membranes Moist - Neck Exam Neck Exam: absent: Lymphadenopathy, Meningismus - Respiratory Exam Respiratory Exam: Decreased Breath Sounds - Cardiovascular Exam Cardiovascular Exam: +S1, +S2 - GI/Abdominal Exam GI & Abdominal Exam: Soft. absent: Tenderness Assessment and Plan - Assessment and Plan (Free Text) Plan: Assessment left lower lobe HCAP in this patient who is S/P ventilator-dependent respiratory failure after right hip fracture S/P ORIF, clinically improving history of sepsis due to ESBL E. coli UTI COPD cataracts DM Plan continue Vancomycin, Cefepime and Zithromax day 7 - target 4-7 days of therapy; blood cx are negative; reviewed CXR which is showing left lower lobe infiltrates and left pleural effusion PCT is 0.58 will continue to follow clinically and monitor WBC count
[2017-07-25] MEDS: Azithromycin 500MG/NS 250ml 500 MG/250 ML BAG IVPB SCH (11:00)
[2017-07-25] MEDS: MethylPREDNISolone 40 mg Vial IVP SCH ×2 (11:01→22:08)
[2017-07-25] MEDS: Magnesium Oxide 400 mg Tab UD PO SCH ×2 (11:02→17:18)
[2017-07-25] MEDS: Vancomycin 25 MG/ML PO SCH ×4 (11:03→22:10)
[2017-07-25] MEDS: Enoxaparin 30 mg Syringe SC SCH (17:17)
[2017-07-25] MEDS: Insulin Detemir 100 units/ml Vial (Levemir) SC SCH (22:08)
[2017-07-26] MEDS: Levalbuterol 1.25 MG/3 ML Inhal Soln UD IH SCH ×3 (01:05→13:13)
[2017-07-26] MEDS: Acetylcysteine 20% Inhal Soln (4ml) IH SCH ×3 (01:05→13:13)
[2017-07-26] MEDS: Vancomycin 1gm in NS 250ml 1 GM/250 ML BAG IVPB SCH (02:02)
[2017-07-26] MEDS: Insulin Lispro (HUMAlog) HIGH Coverage SC SCH ×3 (02:06→12:11)
[2017-07-26] MEDS: Cefepime 1gm in NS 100ml 1 GM/100 ML BAG IVPB SCH (05:07)
[2017-07-26 06:52] LABS: ALB/GLOB RATIO 1.1 (1.1-1.8); ALBUMIN 2.3 g/dL (3.0-4.8); ALT/SGPT 64 U/L (7-56); AST/SGOT 15 U/L (14-36); BLOOD UREA NITROGEN 17 mg/dL (7-21); CALCIUM 8.3 mg/dL (8.4-10.5); GFR AFRICAN-AMERICAN > 60; GFR NON-AFRICAN AMERICAN > 60
[2017-07-26] MEDS: Pantoprazole 40 mg EC Tab PO SCH (06:58)
[2017-07-26] MEDS: Budesonide 0.5 mg/2 ml Inhal Susp UD IH SCH (07:24)
[2017-07-26 07:44] VITALS: BP 175/78; PULSE 78; RESP 21; TEMP 98.1; O2SAT 92
[2017-07-26 07:46] LABS: HEMOGLOBIN 9.7 g/dL (12.0-16.0); MEAN CELL VOLUME 90.7 fl (80.0-105.0); MEAN CORPUSCULAR HEMOGLOBIN 29.1 pg (25.0-35.0); MEAN CORPUSCULAR HGB CONC 32.1 g/dl (31.0-37.0); MEAN PLATELET VOLUME 13.1 fl (7.0-11.0); RBC 3.33 10^6/uL (3.5-6.1); RED CELL DISTRIBUTION WIDTH 17.4 % (11.5-14.5); WHITE BLOOD COUNT 12.8 10^3/ul (4.5-11.0)
--- NOTE | 2017-07-26 08:01 | PN ---
DATE: 07/26/2017 PULMONARY NOTE SUBJECTIVE: The patient appears comfortable this morning. She is not short of breath at rest. She is awake and alert. She remains very weak appearing. PHYSICAL EXAMINATION: VITAL SIGNS: Last temperature recorded is 98, pulse this morning is 80, respirations 18, last blood pressure recorded is 129/64. Oxygen saturation on nasal cannula is 96%. HEENT: Normocephalic, atraumatic. No JVD. CARDIOVASCULAR: Systolic ejection murmur at the lower left sternal border. No S3 gallop. LUNGS: Decreased breath sounds with crackles at the left base. Much less rhonchi. No wheezing. EXTREMITIES: Positive for mild edema. No cyanosis or clubbing. Calves are nontender to palpation. GI: Abdomen is soft, nontender and nondistended. Bowel sounds are positive. SKIN: No acute rash. NEUROLOGIC: Limited at the present time. IMPRESSION: 1. Left lower lobe pneumonia. 2. Left pleural effusion. 3. Advanced chronic obstructive pulmonary disease. 4. Severe pulmonary hypertension. 5. Status post respiratory failure. 6. Status post right hip surgery. 7. Mild anemia. PLAN: The patient appears comfortable this morning. She is not short of breath at rest. She does remain very weak appearing. I did discuss the case with the night nurse at length. The night nurse stated that the patient had a good night, but is now refusing suctioning. I did discuss this issue with the patient at length this morning. She continues to refuse. She will allow chest percussion therapy. On physical exam, her bronchospasm is much less. In addition, the alveolar-arterial gradient is also much less. I will continue with the current nebulizer treatments and change to oral steroids this morning. The patient remains on antibiotic therapy - as per Infectious Disease. There are no temperatures noted. Repeat a.m. labs are pending. The clinical status of this patient is significantly improved - compared to last week. In addition, as noted yesterday, the last chest x-ray done was also significantly improved. However, in spite of the clinical and radiologic improvement, the future status/prognosis for this very elderly patient-- with advanced lung disease - remains very guarded at best/poor. I will discuss the above with the attending physician this morning. Indra Cabrera MD [facility] # [id number] [place]
[2017-07-26] MEDS: Potassium Chloride 20 mEq ER Tab PO SCH ×2 (08:33→08:42)
--- NOTE | 2017-07-26 11:09 | PN ---
DATE: SUBJECTIVE: The patient is in [facility] in [place], room 563, bed 1. The patient is an 82-year-old white female. The patient was admitted with history of fracture of the right hip. The patient was postoperatively in respiratory failure. The patient was put on respirator and admitted in the ICU. Subsequently, the patient had been in the medical floor with continued medical care. The patient has severe chronic obstructive lung disease, pulmonary hypertension. The patient has severe diabetes, hypertension, hyperlipidemia. The patient also has severe chronic obstructive lung disease associated with pulmonary infection. The patient has voluminous respiratory phlegm, needs frequent suction and respiratory treatment to keep the patient's respiratory condition under control. PHYSICAL EXAMINATION: VITAL SIGNS: The patient's pulse is 78 this morning, blood pressure 175/78. The patient's temperature 98.1, respirations are 21. HEENT: The patient's head is normocephalic. LUNGS: Trachea central, breath sounds are vesicular, bilateral crepitations, scattered and rhonchi is present. HEART: Normal sinus rhythm. S1 and S2 present. ABDOMEN: Soft. Liver and spleen not palpable. CENTRAL NERVOUS SYSTEM: The patient is conscious, but has history of dementia, for which she has been treated. MEDICATIONS: The patient's list of medications today. The patient is on respiratory treatment with also Mucomyst. The patient gets Flomax 0.4 mg daily. The patient is on potassium chloride, Lasix 40 mg daily, insulin coverage for diabetes. The patient is on Lipitor 40 mg daily, Lovenox for prophylaxis. The patient gets Maxipime 1 g every 8 hours. The patient is on Namenda 5 mg daily, prednisone 30 mg p.o. daily, pantoprazole 40 mg daily. The patient's condition is improving. The patient still needs acute close respiratory care at this time. I spoke with the parking lot signaler Dr. Cabrera and he reinforced the fact that the patient needs further acute care in the hospital. So, we will continue current management and followup. The patient's recent blood work: The hemoglobin 9.7, white count 12,800. The patient's chemistry, the blood sugar is 182 and all the parameters are not significantly abnormal. We will continue current management as mentioned. Lola Rae MD [facility] # [id number]
[2017-07-26] MEDS: Magnesium Oxide 400 mg Tab UD PO SCH (12:10)
--- NOTE | 2017-07-26 14:37 | US ---
PROCEDURE: Left upper extremity venous ultrasound HISTORY: Arm pain and swelling. Evaluate for deep venous thrombosis. PHYSICIAN(S): Gurpreet Lambert MD. FINDINGS: The visualized leftinternal jugular vein is sonographically normal and compressible. No evidence of obstruction or thrombus is seen. The visualized segments of the left subclavian vein are patent with normal waveforms. No sonographic evidence of obstruction or thrombosis is seen. There is a catheter noted in the left subclavian vein without obvious thrombus The visualized deep venous system of the proximal leftupper extremity is sonographically normal and compressible. IMPRESSION: 1. No sonographic evidence for deep venous thrombosis in the visualized segments of the left upper extremity.
[2017-07-26] MEDS: Azithromycin 500MG/NS 250ml 500 MG/250 ML BAG IVPB SCH (15:50)
--- NOTE | 2017-07-26 15:51 | IP.NPCORE ---
Pneumonia Progress Notes - Oxygenation Assessment (REQUIRED) O2 Saturation: 92 Oxygen Delivery Method: Nasal Cannula Date: 07/26/17 Documented P02: No - Blood Cultures (REQUIRED) Culture drawn: Yes Date:: 07/18/17 Time:: 14:00 - Initial Antibiotic Initial Antibiotic given within Four Hours:: Yes Date:: 07/18/17 - Appropriate Antibiotic Appropriate Antibiotic within 24 hours of Admission:: No (new HCAP developed on 07/18 ) No change in antibiotics: Yes - Pneumonia Vaccine Pneumonia Vaccine: No
== END 2017-07-26 16:48 | DRG 480 ==
LOC: ED 09:05 → ERH 11:51 → 3RSO 15:54 → ICU 20:35 → 3RNO 07-17 15:55 → 5RNO 07-24 15:22
PROVIDERS: ADMIT Internal Medicine; ATTEND Internal Medicine
PROC: 5A1945Z Respiratory Ventilation, 24-96 Consecutive Hours (ICD-10-PCS; 2017-07-12)
PROC: 3E0F7GC Introduction of Other Therapeutic Substance into Respiratory Tract, Via Natural or Artificial Opening (ICD-10-PCS; 2017-07-12)
PROC: 0QS606Z Reposition Right Upper Femur with Intramedullary Internal Fixation Device, Open Approach (ICD-10-PCS; principal; 2017-07-12 17:30)
PROC: 02HV33Z Insertion of Infusion Device into Superior Vena Cava, Percutaneous Approach (ICD-10-PCS; 2017-07-13)
DX: S72.141A Displaced intertrochanteric fracture of right femur, initial encounter for closed fracture (principal); E11.10 Type 2 diabetes mellitus with ketoacidosis without coma; J95.821 Acute postprocedural respiratory failure; J18.9 Pneumonia, unspecified organism; K72.00 Acute and subacute hepatic failure without coma; J44.0 Chronic obstructive pulmonary disease with (acute) lower respiratory infection; N17.9 Acute kidney failure, unspecified; A04.72 Enterocolitis due to Clostridium difficile, not specified as recurrent; I50.40 Unspecified combined systolic (congestive) and diastolic (congestive) heart failure; W18.30XA Fall on same level, unspecified, initial encounter; I25.10 Atherosclerotic heart disease of native coronary artery without angina pectoris; E55.9 Vitamin D deficiency, unspecified; I27.21 Secondary pulmonary arterial hypertension; I11.0 Hypertensive heart disease with heart failure; F02.80 Dementia in other diseases classified elsewhere, unspecified severity, without behavioral disturbance, psychotic disturbance, mood disturbance, and anxiety; G30.9 Alzheimer's disease, unspecified; E11.649 Type 2 diabetes mellitus with hypoglycemia without coma; I36.1 Nonrheumatic tricuspid (valve) insufficiency; I48.0 Paroxysmal atrial fibrillation; I65.23 Occlusion and stenosis of bilateral carotid arteries; E78.00 Pure hypercholesterolemia, unspecified; E11.36 Type 2 diabetes mellitus with diabetic cataract; B35.1 Tinea unguium; N28.1 Cyst of kidney, acquired; K57.30 Diverticulosis of large intestine without perforation or abscess without bleeding; E83.42 Hypomagnesemia; M41.9 Scoliosis, unspecified; Y95 Nosocomial condition; D69.6 Thrombocytopenia, unspecified; D64.9 Anemia, unspecified; I95.81 Postprocedural hypotension; J43.2 Centrilobular emphysema; F17.200 Nicotine dependence, unspecified, uncomplicated; K29.70 Gastritis, unspecified, without bleeding; E87.6 Hypokalemia; K21.0 Gastro-esophageal reflux disease with esophagitis; Z99.81 Dependence on supplemental oxygen; Y92.128 Other place in nursing home as the place of occurrence of the external cause; Z79.01 Long term (current) use of anticoagulants; Z79.4 Long term (current) use of insulin